=== PATIENT | male | born 1965 | race Caucasian/White ===

== ENCOUNTER 2016-11-24 15:12 | Emergency (ER) | payer BC ==
[~2016-11-24] VITALS: Ht 182.9 cm; Wt 104.0 kg
[2016-11-24 15:16] VITALS: TEMP 36.9; Ht 182.9 cm; Wt 104.0 kg
[2016-11-24] MEDS ORDERED: MECL1TAB42 PO (16:22)
[2016-11-24 16:38] VITALS: BP 125/85; PULSE 65; O2SAT 94
--- NOTE | 2016-11-24 17:07 | EMERGENCY ROOM VISIT NOTE ---
History First contact with patient: 15:49 Chief Complaint: DIZZY Stated Complaint: DIZZINESS,VERTIGO Nursing Triage Summary: pt awoke at 0700 feeling fine, went back to bed until 11am then awoke and experienced vertigo "felt room spinning" nauseated s/s lasted a few mins and dissipated pt able to shovel driveway after event no pain at anytime History of Present Illness The patient is a 51 year old male who presents to the Emergency Room with complaints of brief dizziness this morning that has resolved. The patient reports that he woke up at 7 AM. He reports that her dog sleeps in the bed with him. He was startled when he woke up, and rolled over to look at the canopy mirror. The patient then reports that it seemed like his eyes were darting back and forth with his vision moving and straight lines. He reports that it did seem to improve over the next few minutes. When he got up to go to the bathroom, he reported that the room seemed like it was spinning. However, by the time he got to the bathroom, the symptoms were significantly improving. The patient then reports that he went back to bed, laying on his back. He reported that the symptoms never returned. He was able to get up later, go outside and shoveled snow without any symptoms. The patient reports that he did not have any palpitations, chest pain or shortness of breath. The patient reports that when he was sitting in the emergency department waiting room, he quickly turned his head to the right and upwards to look at the clock, and had another brief episode of dizziness that only lasted a few seconds. At the current time, the patient denies any symptoms. The patient denies any recent upper respiratory infections. He denies any risk of carbon monoxide exposure. He has had no recent headaches, nausea or vomiting. Review of Systems 10 system review was performed and was negative except for pertinent positives and negatives as indicated in history of present illness Past Medical/Surgical History Medical Problems: (1) Chronic ethmoidal sinusitis (2) Chronic maxillary sinusitis (3) Deviated Nasal Septum (4) Nightmare Disorder (5) Obstructive Sleep Apnea (Adult) (Pediatric) (6) Sleep apnea, unspecified Surgical Problems: (1) History of nasal septoplasty (2) History of tonsillectomy (3) History of wisdom tooth extraction Family History FH: cancer FH: heart disease FH: hypertension Social History Smoking Status: Former Smoker Alcohol Use: occasionally Marital Status: Occupation Status: employed Current/Historical Medications Scheduled PRN Meclizine Hcl (Meclizine Hcl), 1 TAB PO TID PRN for dizziness Allergies Coded Allergies: No Known Allergies (Unverified , 11/24/16) Physical Exam Vital Signs Date Time Temp Pulse Resp B/P Pulse Ox O2 Delivery O2 Flow Rate FiO2 11/24/16 16:38 65 18 125/85 94 11/24/16 15:16 36.9 71 20 148/94 94 Room Air Pain Rating (0-10): 0 Physical Exam CONSTITUTIONAL: Healthy and well nourished. Alert and oriented X 3 with positive affect. Patient does not appear in any acute distress. HEENT: Normocephalic, atraumatic. Pupils equal, round and reactive. No scleral icterus or conjunctival pallor. Ears and nares are clear. No last Lucille appreciated. NECK: Full active range of motion without discomfort. No JVD or carotid bruits on auscultation. RESPIRATORY: Clear to auscultation bilaterally with no wheezing, crackles, rhonchi or stridor. CARDIOVASCULAR: Regular rate and rhythm with no murmurs, rubs or gallops. GASTROINTESTINAL: Bowel sounds present in all quadrants. Soft and nontender to palpation. MUSCULOSKELETAL: Full range of motion of all joints without discomfort. INTEGUMENTARY: No rash or other significant dermatologic conditions noted. NEUROLOGIC: Cranial nerves II-XII grossly intact. No focal neurologic deficits noted. Normal finger to nose test. Negative pronator drift. No ataxia with ambulation. Medical Decision & Procedures ED Course Patient history and physical exam were performed. Nurse's notes were reviewed. Vital signs were reviewed. The patient has mild elevation of blood pressure. He is afebrile and with normal heart rate. The patient does not appear in any acute distress, and reports that he is currently asymptomatic. Patient gives a very distinct and textbook description of benign positional vertigo. I did discuss the etiology behind BPV. Because the patient has not had any other symptoms, I do feel that he is safe for discharge. The patient also reported that he would follow up with his PCP if symptoms reoccur. The patient was provided a handout for BPV. He was also provided a prescription for meclizine if mild symptoms reoccur. He was instructed to return to the emergency department for any progressively worsening symptoms. The patient was happy with plan of care, and voiced understanding of all discharge instructions. Medical Decision See previous section. I do not suspect acute cardiac dysrhythmia, CVA, intracranial bleeding or carbon monoxide poisoning. The patient gives a classic textbook history of BPV. Impression Primary Impression: BPV (benign positional vertigo) Departure Information Dispostion Home / Self-Care Condition GOOD Prescriptions Meclizine Hcl (MECLIZINE HCL) 25 Mg Tab 1 TAB PO TID Y for dizziness, #15 TAB Prov: Joshua Camacho PA 11/24/16 Forms HOME CARE DOCUMENTATION FORM, IMPORTANT VISIT INFORMATION Patient Instructions My [facility], ED BPV Vertigo Additional Instructions Read vertigo handout. Avoid sudden movements over the next few days. Take meclizine as needed for symptoms. Remember that meclizine can make you drowsy. Follow-up with your family doctor as needed if symptoms persist. Return to the emergency department for any progressively worsening symptoms.
== END 2016-11-24 16:40 | disposition home or self-care (01) ==
LOC: C.EDB 15:14
DX: H81.10 Benign paroxysmal vertigo, unspecified ear (principal); G47.33 Obstructive sleep apnea (adult) (pediatric); Z98.890 Other specified postprocedural states; Z87.891 Personal history of nicotine dependence; Z80.9 Family history of malignant neoplasm, unspecified; Z82.49 Family history of ischemic heart disease and other diseases of the circulatory system

== ENCOUNTER → 2017-03-10 | Outpatient (CLI) | payer BC ==
[~2017-03-10] MED LIST: MECL1TAB42 PO
--- NOTE | 2017-03-10 16:51 | DIAGNOSTIC IMAGING REPORT ---
LEFT SHOULDER MIN 2 VIEWS ROUTINE CLINICAL HISTORY: Left shoulder pain. COMPARISON: None FINDINGS: Alignment of the left shoulder is anatomic. There is no acute fracture or suspicious lesion. There is moderate AC joint arthrosis and mild glenohumeral joint arthrosis. A few calcific densities along the superolateral aspect of the left humeral head could reflect calcific tendinitis of the cuff. IMPRESSION: 1. Moderate osteoarthritis of the left acromioclavicular joint and mild arthritis of the glenohumeral joint. 2. Possible calcific tendinitis of the rotator cuff. 3. No acute fracture. Electronically signed by: Alexi Mosley M.D. 03/10/2017 4:49 PM Dictated Date/Time: 03/10/2017 4:49 PM
== END | disposition home or self-care (01) ==
LOC: C.RAD 16:00
PROVIDERS: ATTEND Family Medicine
DX: M25.512 Pain in left shoulder (principal); M19.012 Primary osteoarthritis, left shoulder

== ENCOUNTER 2021-08-09 15:39 | Inpatient (IN) ==
[2021-08-09] MEDS ORDERED: ACETAMINOPHEN 325 MG TAB PO STA (16:09)
[2021-08-09] MEDS ORDERED: SODIUM CHLORIDE 0.9% 1000ML 1,000 ML IV ONE (16:09)
--- NOTE | 2021-08-09 16:09 | Emergency Department Note ---
Impression & Plan Pneumonia due to 2019-nCoV, Hypoxia, Breath shortness ED Provider Note NAME: PATRICIA COTTON AGE: 56 SEX: M : 1965 ARRIVES VIA: Walk-In INFORMANT: Patient ED PROVIDER(S): Marlon Pleitez DO CHIEF COMPLAINT: Shortness of breath HPI: Patient is a 56-year-old male who presents to the ER who is Covid positive about 9 days ago. He is having cough, congestion, and a runny nose. He is also having some shortness of breath which ss much worse with up moving around and when it was in the beginning. He admits that this is progressing. He does have a little bit of a sore throat. No belly pain, nausea, vomiting, or diarrhea. He admits to fevers. No dysuria, urgency, or frequency. He feels very tired with any kind of movement or exertion. ROS: See above HPI for pertinent positives & negatives. A total of 10 systems reviewed and were otherwise negative. PAST MEDICAL HISTORY:See Below PAST SURGICAL HISTORY:See Below FAMILY HISTORY:See Below SOCIAL HISTORY:See Below HOME MEDICATIONS:See Below ALLERGIES:See Below VITALS:See Below PHYSICAL EXAMINATION: GENERAL: Sitting up in bed, alert, chronically ill-appearing, disheveled EYE EXAM: normal conjunctiva. PERRL and EOM's grossly intact. OROPHARYNX: no exudate, no erythema, lips, buccal mucosa, and tongue normal and mucous membranes are moist NECK: supple, no nuchal rigidity, no adenopathy, non-tender LUNGS: Clear to auscultation. Normal chest wall mechanics HEART: no murmurs, S1 normal and S2 normal ABDOMEN: abdomen soft, non-tender, normo-active bowel sounds, no masses, no rebound or guarding. UPPER EXTREMITIES: upper extremities are grossly normal. LOWER EXTREMITIES: No pitting edema. Calves are equal bilateral NEURO EXAM: Normal sensorium, cranial nerves II-XII grossly intact, normal speech, no gross weakness of arms, no gross weakness of legs. MEDICAL DECISION MAKING: Patient is a 56-year-old male who presents the ER for shortness of breath. IV was established blood work was obtained. Upon arrival he was placed on oxygen mask and was still in the mid 80s. His pulse ox on room air was about 73%. Respiratory was called to bedside and he was placed on BiPAP initially. He tolerated this fairly well for an hour. Labs were obtained and showed a leukopenia 3.8. No significant anemia. BMP was unremarkable. LFTs with an AST of 121. T bili was normal. Pro-Porter was normal at 0.4. UA was contaminated. Patient was Covid positive. Chest x-ray suggest some vascular congestion. CTA of the chest showed extensive bilateral infiltrates. Patient was given IV Decadron. He was given a small bolus of IV fluids. He was updated bedside. He eventually pulled off the BiPAP and was placed on high flow and is about 89 to 91% on high flow. Was much more comfortable. Work of breathing improved. He was discussed with hospitalist admitted for further work-up. Triage Nursing notes reviewed. Limited review of prior medical records performed Vital Signs: reviewed and remarkable for febrile, tachycardic and hypoxic Differential diagnosis: Differential diagnoses includes but is not limited to pneumonia, bronchitis, COPD/Asthma exacerbation, pneumothorax, pulmonary embolism, congestive heart failure, acute coronary syndrome ER treatment provided: See below Diagnostics interpreted by me: ECG: Sinus tachycardia rate of [address] depressions in the inferior leads as well as anterior and lateral leads No old for comparison Cardiac Monitoring: An order was placed for continuous cardiac monitoring. The monitor shows a rate of 102 with sinus rhythm. Laboratory studies: As stated above and show below. Imaging studies: Portable AP upright 1 view of the chest shows bilateral infiltrates with vascular congestion CT angio chest shows no PEs but bilateral infiltrates Consultation(s): Discussed with the hospitalist for further evaluation from [facility] Dr. David Green Procedures: none PDMP:reviewed and no issues Critical Care: I have personally spent 45 minutes of critical care time in the direct management of this patient. This includes bedside care, interpretation of diagnostic studies, and testing, discussion with consultants, patient, and family members, and other required patient management activities. This 45 minutes is in excess of all separately billable procedures. Past Med/Surg History Medical History (Updated 08/09/21 @ 22:05 by Marlon Pleitez DO) Deviated nasal septum No significant past medical history Obstructive sleep apnea (adult) (pediatric) Tinnitus, bilateral Surgical History History of tonsillectomy Status post correction of deviated nasal septum Family History Grandfather Cancer Father Cancer Denies family history of Malignant hypothermia due to anesthesia Family history of adverse reaction to anesthesia Social History Smoking Status: Never smoker Second Hand Exposure: Yes; Do You Dip or Chew Tobacco: No; Tobacco Cessation Education Requested by Patient: No Hx Alcohol Use: Yes Alcohol type: beer and wine Alcohol Intake Frequency: 4 or More x per/Week Hx Substance Use: No Preferred Language: Indonesian Communication Ability: Effective Car Deliverer Required: Yes Beliefs That Will Affect Care: None marital status: Current Living Situation: Spouse current occupational status: employed current occupation: IT Other Information That Helps Us Care for You: No Feels Safe at Home: Yes Safety Concerns: Feels Safe At This Time Assistive Devices: CPAP and Glasses Assistive Devices Comment: cant tolerate CPAP Allergies Allergies Allergy/AdvReac Type Severity Reaction Status Date / Time aluminum Allergy inflammatio Verified 06/15/21 11:06 n Home Meds Home Medications Medication Instructions Recorded Confirmed No Known Home Medications 06/15/21 08/09/21 Results & Data (ED) Vital Signs Vital Signs - 24 hr 08/09/21 15:45 Temperature 38.3 C H Temperature Source Temporal Artery Scan Pulse Rate 113 H Respiratory Rate 20 Blood Pressure 121/80 Blood Pressure Mean 93 Blood Pressure Position Sitting Pulse Oximetry 75 L Oxygen Delivery Method Room Air Sepsis Recent Fever Within 48 Hours Yes Sepsis New/Unexplained Change in Mental Status N/A Sepsis Action Taken by Nursing No Action Required Laboratory Data Result diagrams: 08/09/21 16:15 08/09/21 16:15 Administered Medications Discontinued Medications Acetaminophen (Acetaminophen 325 Mg Tab) 650 mg PO NOW STA Stop: 08/09/21 16:10 Last Admin: 08/09/21 16:15 Dose: 650 mg Documented by: [id number] Dexamethasone Sodium Phosphate (DexamethasonePf 10 Mg/Ml Vial) 8 mg IV NOW ONE Stop: 08/09/21 16:26 Last Admin: 08/09/21 16:39 Dose: 8 mg Documented by: [id number] Sodium Chloride (Nss 1000ml) 1,000 mls @ 999 mls/hr IV .Q1H1M ONE Stop: 08/09/21 17:09 Last Infusion: 08/09/21 17:19 Dose: 0 mls/hr Documented by: [id number] Admin: 08/09/21 16:18 Dose: 999 mls/hr Documented by: [id number] Ioversol (Optiray 320 125ml) 120 ml IV ONCE ONE Stop: 08/09/21 17:57 Last Admin: 08/09/21 17:56 Dose: 120 ml Documented by: [id number] Discharge Plan Visit Data Chief Complaint: Shortness of Breath/Dyspnea Stated Complaint: cov+--having sob, dry mouth ED Provider: Marlon Pleitez Discharge Problem: Pneumonia due to 2019-nCoV, Hypoxia, Breath shortness Patient Disposition: Admitted As Inpatient Discharge Instructions Interventions: ED Discharge Assessment Last Done: 08/09/21 20:21
[2021-08-09] MEDS ORDERED: dexAMETHasone**PF** 10 MG/ML VIAL IV ONE (16:25)
[2021-08-09 16:29] LABS: Hematocrit (blood only) 46.9 % (42-52); Hemoglobin 17.2 g/dL (14.0-18.0); Mean Corpuscular Hemoglobin 31.8 pg (25-34); Mean Corpuscular Hgb Conc 36.7 g/dL (32-36); Mean Corpuscular Volume 86.7 fL (80-100); Mean Platelet Volume 10.2 fL (7.4-10.4); Platelet Count 176 K/uL (130-400); RDW Coefficient of Variation 12.7 % (11.5-14.5); RDW Standard Deviation 40.7 fL (36.4-46.3); Red Blood Count 5.41 M/uL (4.7-6.1); White Blood Count 3.83 K/uL (4.8-10.8)
--- NOTE | 2021-08-09 16:31 | XRay Report ---
XR chest 1V portable CLINICAL HISTORY: Atypical chest pain TECHNIQUE: Single frontal radiograph of the chest was obtained. Comparison: None available at the time of this dictation. FINDINGS: No lines and tubes are seen. The cardiomediastinal silhouette is normal. Lungs are underinflated. The re is prominence and indistinctness of the vasculature with scattered curly B lines seen. No evidence of pleural effusion or pneumothorax. IMPRESSION: Moderate pulmonary edema. ACT 112: Negative or not required by law. Electronically signed by: Zak Chappell M.D. 08/09/2021 4:30 PM
[2021-08-09 16:48] LABS: Alanine Aminotransferase 48 U/L (12-78); Albumin Level 3.2 gm/dl (3.4-5.0); Aspartate Aminotransferase 121 U/L (15-37); BUN Creatinine Ratio 18.6 (10-20); Blood Urea Nitrogen 21 mg/dl (7-18); Calcium 9.1 mg/dl (8.5-10.1); Carbon Dioxide 23 mmol/L (21-32); Chloride 101 mmol/L (98-107); Creatinine Clr Calc Pharmacy 90.3 ml/min; Est GFR (African American) 85.9 ml/min; Est GFR (Non-African American) 74.1 ml/min; Glucose 128 mg/dl (70-99); Lipase 165 U/L (73-393); Potassium 3.7 mmol/L (3.5-5.1); Sodium 135 mmol/L (136-145)
[2021-08-09 16:53] LABS: Albumin Globulin Ratio 0.6 (0.9-2); Alkaline Phosphatase 89 U/L (45-117); Bilirubin,Total 0.8 mg/dl (0.2-1); Total Protein 8.2 gm/dl (6.4-8.2); Troponin I < 0.015 ng/ml (0-0.045)
[2021-08-09 17:26] LABS: Base Excess VBG 3.5 mEq/L; pH VBG 7.5 (7.36-7.41)
[2021-08-09 17:56] LABS: Basophils # (auto) 0.02 K/uL (0-0.2); Basophils % (auto) 0.5 %; Immature Granulocytes # (auto) 0.02 K/uL (0.00-0.02); Immature Granulocytes % (auto) 0.5 %; Lymphocytes # (auto) 0.58 K/uL (1.2-3.4); Lymphocytes % (auto) 15.1 %; Monocytes # (auto) 0.28 K/uL (0.11-0.59); Monocytes % (auto) 7.3 %; Neutrophils # (auto) 2.93 K/uL (1.4-6.5); Neutrophils % (auto) 76.6 %
[2021-08-09] MEDS ORDERED: OPTIRAY 320 125ml IV ONE (17:56)
--- NOTE | 2021-08-09 18:07 | History & Physical Report ---
Date of Service August 09, 2021 Assessment & Plan (1) Acute respiratory failure with hypoxia: Plan: 56 y/o male w/ PMHx of anxiety and possible sleep apnea who presents w/ acute hypoxic respiratory failure secondary to covid-19 pneumonia on day 9 of symptoms (08/01/21 onset). He is requiring 40L of high flow 100% FiO2, saturating 87-94%. tachycardic, febrile, tachypneic - cta neg for PE. w/ groundglass opacities. cxr likely showing pneumonia findings as opposed to hypervolemia. - developing consolidations of lower lobes noted. consider superimposed bacterial pneumonia, defer abx at this time, but will follow clinically - dexamethasone 6 mg daily x 5 days - pulmonology consulted, will start baricitinib - AST/ALT < 5 ULN. Normal renal function. CRP 14.10. Requiring 40L high flow. - considered remdesivir - hold tylenol PRN - titrate O2 w/ goal of 90% - cultures pending (2) 2019 novel coronavirus-infected pneumonia (NCIP): Plan: - see above (3) Otitis media: Plan: - noted on exam. likely 2/2 covid, less likely from bacterial infection, especially w/ bilat symptoms. defer treatment w/ abx. Considering abx if sympto ms worsen. (4) Anxiety: Plan: - not on medications. follow clinically (5) Sleep apnea, unspecified: Plan: - per patient, had trialed cpap in past, but could not tolerate mask - follow clinically Plan: FEN/GI: regular diet. No IV fluids. Goal of neutral to net neg balance. ppx: Lovenox SQ, 40 daily. SCDs code: full dispo: PCU tele History of Present Illness Chief Complaint: dyspnea Primary Care Provider: CELINA Alvarenga Robbi Vazquez is a 56 y/o male w/ anxiety, possible sleep apnea, sensorineural hearing loss, and tinnitus who presents w/ 9 days (08/01/21 onset) of worsening dyspnea on exertion. He's had approximately 6 days of intermittent fevers up to 101s Fahrenheit and rigors/chills. He has had intermittent headaches, mild otalg ia, poor appetite, and watery diarrhea. He was treated for otitis externa a month ago and used leftover eardrops with some relief. No loss of taste/smell. On 08/06/21, his mailed in covid test was positive. dx'd w/ covid at same time. Patient has not had covid immunization. Denies hx blood clots or family hx of. Denies any period of regular tobacco use and no hx of COPD or asthma. He consumes on average 2 glasses of wine a night. Denies illicit substances. No allergies. He is otherwise normally healthy and active. ED course: CTA neg for PE, pos for extensive groundglass opacities. Given dexamethasone IV 8 mg. NSS 1L. 38.3C at admission. Tachy to 100s-110s. 75% sat on room air. Currently on high flow 40L, did not tolerate bipap due to discomfort. Allergies Allergy/AdvReac Type Severity Reaction Status Date / Time aluminum Allergy inflammatio Verified 06/15/21 11:06 n Home Medications Medication Instructions Recorded Confirmed Type No Known Home Medications 06/15/21 08/09/21 History Past Med/Surg History Medical History (Updated 08/09/21 @ 18:54 by Raffy Vargas MD) Deviated nasal septum No significant past medical history Obstructive sleep apnea (adult) (pediatric) Tinnitus, bilateral Surgical History History of tonsillectomy Status post correction of deviated nasal septum Family History Grandfather Cancer Father Cancer Denies family history of Malignant hypothermia due to anesthesia Family history of adverse reaction to anesthesia Social History Smoking Status: Never smoker Second Hand Exposure: Yes; Do You Dip or Chew Tobacco: No; Tobacco Cessation Education Requested by Patient: No Hx Alcohol Use: Yes Alcohol type: beer and wine Alcohol Intake Frequency: 4 or More x per/Week Hx Substance Use: No Preferred Language: Nigerian Communication Ability: Effective [employer] Required: Yes Beliefs That Will Affect Care: None marital status: Current Living Situation: Spouse current occupational status: employed current occupation: IT Other Information That Helps Us Care for You: No Feels Safe at Home: Yes Safety Concerns: Feels Safe At This Time Assistive Devices: CPAP and Glasses Assistive Devices Comment: cant tolerate CPAP Review of Systems Review of Systems: All systems reviewed & are unremarkable except as noted in HPI & below Intermittent sharp chest pains that last up to 2 hours. Not new and has had for months+. Last had 2 days ago. Physical Exam Physical Exam: General: Grossly A&O. NAD. Cooperative. HEENT: Atraumatic, normocephalic. EOMI. PERRL. Bilat TMs w/ mild erythema, worse on right. Mild TTP external periauricular area. Oropharynx wnl. Pulm: Insp crackles at bilateral bases, otherwise clear. There was transient transmitted upper airway cough/mucus sound, resolved on reauscultation. No respiratory distress or accessory muscle use noted. Patient is wearing high flow nasal cannula. Cardiac: TRR, -mrg. Radial pulses intact and symmetrical. Abdominal: Nontender, nondistended, soft. Integ: Warm, dry, intact Neuro: CN II-XII intact. Normal strength and sensation of extremities. Coarse/crackles at bases. Oropharynx ok. TMs mild erythema bilat. heart mildly tachy. no le edema. Results & Data Results & Data ([facility]) Vital Signs (Past 12 Hours) Vital Signs Temp Pulse Resp BP Pulse Ox 08/09/21 16:35 98 H 23 99 08/09/21 16:30 99 H 34 H 86 L 08/09/21 16:11 107 H 35 H 82 L 08/09/21 15:45 38.3 C H 113 H 20 121/80 75 L Laboratory Results wbc 3.83. No anemia. vbg pH 7.5. Na 135. Cr 1.1. glucose 128. ast 121H. trop neg x1. Lipase 165. procalc 0.49. CRP 14.10H 08/09/21 16:15 08/09/21 16:15 Cardiac Enzymes 08/09/21 Range/Units 16:15 AST 121 H (15-37) U/L Troponin I < 0.015 (0-0.045) ng/ml CBC 08/09/21 Range/Units 16:15 WBC 3.83 L (4.8-10.8) K/uL RBC 5.41 (4.7-6.1) M/uL Hgb 17.2 (14.0-18.0) g/dL Hct 46.9 (42-52) % Plt Count 176 (130-400) K/uL Neut # (Auto) 2.93 (1.4-6.5) K/uL Lymph # (Auto) 0.58 L (1.2-3.4) K/uL [place] # (Auto) 0.28 (0.11-0.59) K/uL Eos # (Auto) 0.00 (0-0.5) K/uL Baso # (Auto) 0.02 (0-0.2) K/uL Comprehensive Metabolic Panel 08/09/21 Range/Units 16:15 Sodium 135 L (136-145) mmol/L Potassium 3.7 (3.5-5.1) mmol/L Chloride 101 (98-107) mmol/L Carbon Dioxide 23 (21-32) mmol/L BUN 21 H (7-18) mg/dl Creatinine 1.10 (0.6-1.4) mg/dl Glucose 128 H (70-99) mg/dl Calcium 9.1 (8.5-10.1) mg/dl AST 121 H (15-37) U/L ALT 48 (12-78) U/L Alkaline Phosphatase 89 (45-117) U/L Total Protein 8.2 (6.4-8.2) gm/dl Albumin 3.2 L (3.4-5.0) gm/dl Intake and Output 08/09/21 08/09/21 08/09/21 06:59 14:59 22:59 Other: Weight 98.9 kg Weight Measurement Method Built in [facility] Patient Weight 08/10/21 06:59 Weight 98.9 kg Diagnostic Findings Chest X-Ray 08/09/21 15:55 XR chest 1V portable CLINICAL HISTORY: Atypical chest pain TECHNIQUE: Single frontal radiograph of the chest was obtained. Comparison: None available at the time of this dictation. FINDINGS: No lines and tubes are seen. The cardiomediastinal silhouette is normal. Lungs are underinflated. There is prominence and indistinctness of the vasculature with scattered curly B lines seen. No evidence of pleural effusion or pneumothorax. IMPRESSION: Moderate pulmonary edema. ACT 112: Negative or not required by law. Electronically signed by: Zak Chappell M.D. 08/09/2021 4:30 PM Chest CTA 08/09/21 16:33 CT ANGIOGRAPHY OF THE CHEST, PULMONARY EMBOLUS PROTOCOL CLINICAL HISTORY: Shortness of breath. Covid. Evaluate for pulmonary embolus. COMPARISON STUDY: Chest radiograph performed earlier today. TECHNIQUE: Following IV administration of 120 mL of Optiray, helical axial images of the chest were obtained utilizing the pulmonary embolus protocol. Maximal intensity projections and sagittal and coronal reformats were viewed on an independent 3D workstation. IV contrast was administered without complication. Automated exposure control was utilized for the study. A dose lowering technique was utilized adhering to the principles of ALARA. CT DOSE: 587.16 mGy.cm FINDINGS: No pulmonary emboli are identified. There is no thoracic aortic dissection. Mild cardiomegaly is noted. Prominent mediastinal and bilateral hilar lymph nodes are likely reactive. Extensive groundglass opacities throughout the lungs are noted. Developing consolidation within the lower lobes is also present. Central airways are patent. There is no pneumothorax or pleural effusion. A 1.3 cm medial segment hepatic cyst is present IMPRESSION: 1. No pulmonary emboli identified. 2. Extensive airspace opacities within the lungs suggestive of viral pneumonia. 3. Prominent mediastinal and bilateral hilar lymph nodes which are likely react octavio. ACT 112: Negative or not required by law. Electronically signed by: Alexi Mosley M.D. 08/09/2021 6:17 PM Code Status & VTE Plan Code Status full VTE Prophylaxis Plan VTE Prophylaxis will be ordered: Yes Supervising Physician Co-Signing Physician Notes Patient seen and examined, chart reviewed, case discussed with Dr. Vargas and I agree with the assessment and plan as above except as otherwise noted. General: A&Ox3. NAD. Cooperative. HEENT: Atraumatic, normocephalic. Visual acuity and hearing grossly intact. Mild bilateral TM injection without effusion. Pulm: Bibasilar crackles, on HFNC. Symmetrical chest rise. No increased work of breathing. No respiratory distress. Cardiac: RRR, -mrg. Radial pulses intact and symmetrical. Abdominal: Nontender, nondistended, soft. BS present. 56yo M with severe COVID+ PNA, unvaccinated - CT with diffuse GGO, high CRP, and increasing O2 requirements over ER course at ~day 8 of illness. Discussed high and worsening oxygen requirements along with poor CT images with multifocal findings, and that if he were to worsen next step would be NIV after which he would need intubation if still worsening. - Case discussed with pulm, pt meets baricitinib criteria. Recommend baricitinib. Excluded from toci 2/2 elevated transaminases. Continue LFR monitoring - Continue decadron - Admit to PCU, O2 as needed, covid DVT ppx with lovenox Resident Activity Tracking Resident Involvement: Resident Care Provided Care Provided: Adult Hospital Medicine
--- NOTE | 2021-08-09 18:18 | CT Scan Report ---
CT ANGIOGRAPHY OF THE CHEST, PULMONARY EMBOLUS PROTOCOL CLINICAL HISTORY: Shortness of breath. Covid. Evaluate for pulmonary embolus. COMPARISON STUDY: Chest radiograph performed earlier today. TECHNIQUE: Following IV administration of 120 mL of Optiray, helical axial images of the chest were o btained utilizing the pulmonary embolus protocol. Maximal intensity projections and sagittal and cor onal reformats were viewed on an independent 3D workstation. IV contrast was administered without co mplication. Automated exposure control was utilized for the study. A dose lowering technique was ut ilized adhering to the principles of ALARA. CT DOSE: 587.16 mGy.cm FINDINGS: No pulmonary emboli are identified. There is no thoracic aortic dissection. Mild cardiomeg linh is noted. Prominent mediastinal and bilateral hilar lymph nodes are likely reactive. Extensive gr oundglass opacities throughout the lungs are noted. Developing consolidation within the lower lobes i s also present. Central airways are patent. There is no pneumothorax or pleural effusion. A 1.3 cm me dial segment hepatic cyst is present IMPRESSION: 1. No pulmonary emboli identified. 2. Extensive airspace opacities within the lungs suggestive of viral pneumonia. 3. Prominent mediastinal and bilateral hilar lymph nodes which are likely reactive. ACT 112: Negative or not required by law. Electronically signed by: Alexi Mosley M.D. 08/09/2021 6:17 PM
[2021-08-09] MEDS ORDERED: REMDESIVIR 200 MG in SODIUM CHLORIDE 0.9% 210 ML IV STA (20:11)
[2021-08-09] MEDS ORDERED: SODIUM CHLORIDE 0.9% 10ML FLUSH IV SCH (20:15)
[2021-08-09 20:42] LABS: Appearance Urine Clear (Clear); Bacteria Urine Automated Negative (Negative); Bilirubin Urine Negative (Negative); Blood Urine 1+ (Negative); Cast Urine Automated 0 /lpf (0-5); Color Urine Dark Yellow; Epithelial Cell Urine Auto >30 /lpf (0-5); Glucose Urine UA Negative (Negative); Ketones Urine Negative (Negative); Leukocyte Esterase Urine Negative (Negative); Nitrite Urine Negative (Negative); Protein Urine 2+ (Negative); Specific Gravity Urine 1.045 (1.000-1.030); Urobilinogen Urine Negative (Negative)
[2021-08-09] MEDS ORDERED: POLYETHYLENE (MIRALAX) 17 GM PACK PO PRN (21:15)
[2021-08-09] MEDS: ENOXAPARIN INJ 40 MG/0.4 ML SYR SQ SCH (23:23)
[2021-08-09] MEDS: BARICITINIB 2 MG TAB PO SCH (23:54)
--- NOTE | 2021-08-10 05:40 | Electrocardiogram Report ---
Test Reason : Blood Pressure : / mmHG Vent. Rate : 106 BPM Atrial Rate : 106 BPM P-R Int : 132 ms QRS Dur : 104 ms QT Int : 360 ms P-R-T Axes : 026 -20 004 degrees QTc Int : 478 ms Sinus tachycardia Incomplete right bundle branch block Nonspecific ST and T wave abnormality Abnormal ECG No previous ECGs available Confirmed by Dimitri Blanca ([id number]) on 08/10/2021 5:40:31 AM Referred By: Confirmed By:Dimitri Blanca
[2021-08-10 06:29] LABS: Allen Test Pos (Pos); Base Excess ABG 0.2 mEq/L (-9-1.8); HCO3 ABG 22 mmol/L (19-24); PCO2 ABG 29 mmHg (35-46); PO2 ABG 67 mmHg (80-95); pH ABG 7.49 (7.35-7.45)
[2021-08-10 06:30] LABS: Hematocrit (blood only) 44.1 % (42-52); Hemoglobin 15.6 g/dL (14.0-18.0); Mean Corpuscular Hemoglobin 31.3 pg (25-34); Mean Corpuscular Hgb Conc 35.4 g/dL (32-36); Mean Corpuscular Volume 88.4 fL (80-100); Mean Platelet Volume 10.2 fL (7.4-10.4); Platelet Count 188 K/uL (130-400); RDW Coefficient of Variation 12.8 % (11.5-14.5); RDW Standard Deviation 41.3 fL (36.4-46.3); Red Blood Count 4.99 M/uL (4.7-6.1); White Blood Count 3.65 K/uL (4.8-10.8)
[2021-08-10 06:47] LABS: Basophils # (auto) 0.04 K/uL (0-0.2); Basophils % (auto) 1.1 %; Immature Granulocytes # (auto) 0.02 K/uL (0.00-0.02); Immature Granulocytes % (auto) 0.5 %; Lymphocytes # (auto) 0.87 K/uL (1.2-3.4); Lymphocytes % (auto) 23.8 %; Monocytes # (auto) 0.41 K/uL (0.11-0.59); Monocytes % (auto) 11.2 %; Neutrophils # (auto) 2.31 K/uL (1.4-6.5); Neutrophils % (auto) 63.4 %
[2021-08-10 07:14] LABS: Albumin Globulin Ratio 0.6 (0.9-2); Albumin Level 2.6 gm/dl (3.4-5.0); BUN Creatinine Ratio 16.9 (10-20); Bilirubin,Total 0.6 mg/dl (0.2-1); Calcium 8.6 mg/dl (8.5-10.1); Creatinine Clr Calc Pharmacy 98.3 ml/min; Est GFR (African American) 95.3 ml/min; Est GFR (Non-African American) 82.2 ml/min; Globulin 4.5 gm/dl (2.5-4.0); Potassium 4.3 mmol/L (3.5-5.1); Total Protein 7.1 gm/dl (6.4-8.2)
--- NOTE | 2021-08-10 09:12 | XRay Report ---
XR chest 1V portable CLINICAL HISTORY: covid pneumonia COMPARISON STUDY: Chest radiograph and chest CT August 09, 2021. FINDINGS: Lung volumes are normal. Bilateral airspace opacities are similar to prior exam. There is n o pneumothorax or pleural effusion. Cardiac size is stable. Mediastinal contours are normal. There is no evidence for pulmonary edema. IMPRESSION: No significant change in bilateral airspace opacities consistent with viral pneumonia. ACT 112: Negative or not required by law. Electronically signed by: Alexi Mosley M.D. 08/10/2021 9:11 AM
--- NOTE | 2021-08-10 12:02 | Hospitalist Progress Note ---
Date of Service August 10, 2021 Assessment & Plan (1) Acute respiratory failure with hypoxia: Plan: 56 y/o male w/ PMHx of anxiety and GERMAN who presents w/ acute hypoxic respiratory failure secondary to covid-19 pneumonia on day 9 of symptoms (08/01/21 onset) still on 40L and 100%, very compliant with prone positioning dexamethasone 6mg IV daily, day 2 baricitinib 4mg daily, day 2 CTA chest negative for PE, shows bilateral viral pneumonia will repeat CXR tomorrow, check labs tomorrow CRP was 14 on admission, Cr today is stable, CBC stable encourage to eat and drink, continue to prone as much as possible (2) 2019 novel coronavirus-infected pneumonia (NCIP): Plan: - see above treating with dexamethasone and baricitinib (3) Otitis media: Plan: - noted on exam. likely 2/2 covid, less likely from bacterial infection, especially w/ bilat symptoms. defer treatment w/ abx. Considering abx if symptoms worsen. (4) Anxiety: Plan: - not on medications. follow clinically (5) Sleep apnea, unspecified: Plan: - per patient, had trialed cpap in past, but could not tolerate mask - follow clinically, noted that he desaturates when he falls asleep Plan: FEN/GI: regular diet. No IV fluids. Goal of neutral to net neg balance. ppx: Lovenox SQ, 40 daily. SCDs code: full dispo: PCU tele Admission and Anticipated Discharge Date Admission Date: August 09, 2021 Subjective patient says he is feeling better today, spent all night and this morning prone, very compliant says he is breathing easier, less coughing, no fever he had diarrhea at home but that is resolving, he ate a big breakfast this morning reviewed chart, he is about 10 days into his illness, treating with dexamethasone and baricitinib Review of Systems Review of Systems: All systems reviewed & are unremarkable except as noted in Subjective Constitutional: + fatigue and + weakness; no fever Respiratory: + cough, + dyspnea and + dyspnea on exertion Cardiovascular: no chest pain and no edema Gastrointestinal: no abdominal pain, no nausea, no vomiting, no constipation and no diarrhea/loose stools Physical Exam Physical Exam: General: well developed, well nourished, ill appearing male, no acute distress, comfortable Neck: supple, trachea midline, normal thyroid Lungs: clear to auscultation bilaterally, + tachypnea, no accessory muscle use, no distress, talking in full sentences Heart: regular S1 and S2, no murmur, peripheral pulses normal, capillary refill normal, no edema Abdomen: soft, NT, ND, + BS, no hepatomegaly, normal to percussion Extremities: normal in appearance, no cyanosis, no petechiae, strength is 5/5 bilaterally Neuro: awake, cooperative, moves all extremities, no focal motor deficits, CN II-XII intact, sensation in extremities intact, normal speech Skin: warm, dry, no rash, normal turgor Psych: Awake, alert oriented x 3, euthymic affect Results & Data Results & Data ([facility]) Vital Signs (Past 12 Hours) Vital Signs Temp Pulse Pulse Resp BP Pulse Ox 08/10/21 11:34 37.5 C 69 20 118/77 96 08/10/21 11:28 82 18 92 08/10/21 07:34 18 90 08/10/21 07:16 37.2 C 70 19 150/84 H 96 08/10/21 04:23 37.4 C 77 17 116/76 93 08/10/21 03:04 79 29 H 92 08/10/21 00:42 95 H Laboratory Results Laboratory Results - last 24 hr 08/09/21 08/09/21 08/09/21 16:11 16:11 16:15 WBC 3.83 L RBC 5.41 Hgb 17.2 Hct 46.9 MCV 86.7 MCH 31.8 MCHC 36.7 H RDW Std Deviation 40.7 RDW Coeff of Nicole 12.7 Plt Count 176 MPV 10.2 Immature Gran % (Auto) 0.5 Neut % (Auto) 76.6 Lymph % (Auto) 15.1 [place] % (Auto) 7.3 Eos % (Auto) 0.0 Baso % (Auto) 0.5 Neut # (Auto) 2.93 Lymph # (Auto) 0.58 L [place] # (Auto) 0.28 Eos # (Auto) 0.00 Baso # (Auto) 0.02 Immature Gran # (Auto) 0.02 ABG pH ABG pCO2 ABG pO2 ABG HCO3 ABG O2 Saturation ABG Base Excess Hemanth Test VBG pH VBG pCO2 VBG pO2 VBG HCO3 VBG O2 Saturation VBG Base Excess Barometric Pressure Oxygen Given Sodium Potassium Chloride Carbon Dioxide Anion Gap BUN Creatinine Est Cr Clr Drug Dosing Est GFR ( Amer) Est GFR (Non-Af Amer) BUN/Creatinine Ratio Glucose Calcium Total Bilirubin AST ALT Alkaline Phosphatase Troponin I C-Reactive Protein Total Protein Albumin Globulin Albumin/Globulin Ratio Lipase Procalcitonin Urine Color Urine Appearance Urine pH Ur Specific [place] Urine Protein Urine Glucose (UA) Urine Ketones Urine Blood Urine Nitrite Urine Bilirubin Urine Urobilinogen Ur Leukocyte Esterase Urine WBC (Auto) Urine RBC (Auto) U Hyaline Cast (Auto) U Epithel Cells (Auto) Urine Bacteria (Auto) Ur Renal Epithelial Cell COVID-19 Eval Order Covid19 at [facility] SARS-CoV-2 (PCR) POSITIVE A* Hepatitis C Ab Screen 08/09/21 08/09/21 08/09/21 16:15 16:15 16:15 WBC RBC Hgb Hct MCV MCH MCHC RDW Std Deviation RDW Coeff of Nicole Plt Count MPV Immature Gran % (Auto) Neut % (Auto) Lymph % (Auto) [place] % (Auto) Eos % (Auto) Baso % (Auto) Neut # (Auto) Lymph # (Auto) [place] # (Auto) Eos # (Auto) Baso # (Auto) Immature Gran # (Auto) ABG pH ABG pCO2 ABG pO2 ABG HCO3 ABG O2 Saturation ABG Base Excess Hemanth Test VBG pH VBG pCO2 VBG pO2 VBG HCO3 VBG O2 Saturation VBG Base Excess Barometric Pressure Oxygen Given Sodium 135 L Potassium 3.7 Chloride 101 Carbon Dioxide 23 Anion Gap 11.0 BUN 21 H Creatinine 1.10 Est Cr Clr Drug Dosing 90.3 Est GFR ( Amer) 85.9 Est GFR (Non-Af Amer) 74.1 BUN/Creatinine Ratio 18.6 Glucose 128 H Calcium 9.1 Total Bilirubin 0.8 AST 121 H ALT 48 Alkaline Phosphatase 89 Troponin I < 0.015 C-Reactive Protein 14.10 H Total Protein 8.2 Albumin 3.2 L Globulin 5.0 H Albumin/Globulin Ratio 0.6 L Lipase 165 Procalcitonin 0.49 Urine Color Urine Appearance Urine pH Ur Specific [place] Urine Protein Urine Glucose (UA) Urine Ketones Urine Blood Urine Nitrite Urine Bilirubin Urine Urobilinogen Ur Leukocyte Esterase Urine WBC (Auto) Urine RBC (Auto) U Hyaline Cast (Auto) U Epithel Cells (Auto) Urine Bacteria (Auto) Ur Renal Epithelial Cell COVID-19 Eval Order SARS-CoV-2 (PCR) Hepatitis C Ab Screen Neg 08/09/21 08/09/21 08/10/21 16:59 19:10 06:05 WBC 3.65 L RBC 4.99 Hgb 15.6 Hct 44.1 MCV 88.4 MCH 31.3 MCHC 35.4 RDW Std Deviation 41.3 RDW Coeff of Nicole 12.8 Plt Count 188 MPV 10.2 Immature Gran % (Auto) 0.5 Neut % (Auto) 63.4 Lymph % (Auto) 23.8 [place] % (Auto) 11.2 Eos % (Auto) 0.0 Baso % (Auto) 1.1 Neut # (Auto) 2.31 Lymph # (Auto) 0.87 L [place] # (Auto) 0.41 Eos # (Auto) 0.00 Baso # (Auto) 0.04 Immature Gran # (Auto) 0.02 ABG pH ABG pCO2 ABG pO2 ABG HCO3 ABG O2 Saturation ABG Base Excess Hemanth Test VBG pH 7.50 H VBG pCO2 34 L VBG pO2 31 VBG HCO3 26 VBG O2 Saturation 63.0 VBG Base Excess 3.5 Barometric Pressure 725.5 Oxygen Given Sodium Potassium Chloride Carbon Dioxide Anion Gap BUN Creatinine Est Cr Clr Drug Dosing Est GFR ( Amer) Est GFR (Non-Af Amer) BUN/Creatinine Ratio Glucose Calcium Total Bilirubin AST ALT Alkaline Phosphatase Troponin I C-Reactive Protein Total Protein Albumin Globulin Albumin/Globulin Ratio Lipase Procalcitonin Urine Color Dark Yellow Urine Appearance Clear Urine pH 7.0 Ur Specific [place] 1.045 H Urine Protein 2+ H Urine Glucose (UA) Negative Urine Ketones Negative Urine Blood 1+ H Urine Nitrite Negative Urine Bilirubin Negative Urine Urobilinogen Negative Ur Leukocyte Esterase Negative Urine WBC (Auto) 5-10 H Urine RBC (Auto) 5-10 H U Hyaline Cast (Auto) 0 U Epithel Cells (Auto) >30 H Urine Bacteria (Auto) Negative Ur Renal Epithelial Cell Not Reportable COVID-19 Eval Order SARS-CoV-2 (PCR) Hepatitis C Ab Screen 08/10/21 08/10/21 06:05 06:14 WBC RBC Hgb Hct MCV MCH MCHC RDW Std Deviation RDW Coeff of Nicole Plt Count MPV Immature Gran % (Auto) Neut % (Auto) Lymph % (Auto) [place] % (Auto) Eos % (Auto) Baso % (Auto) Neut # (Auto) Lymph # (Auto) [place] # (Auto) Eos # (Auto) Baso # (Auto) Immature Gran # (Auto) ABG pH 7.49 H ABG pCO2 29 L ABG pO2 67 L ABG HCO3 22 ABG O2 Saturation 95.0 ABG Base Excess 0.2 Hemanth Test Pos VBG pH VBG pCO2 VBG pO2 VBG HCO3 VBG O2 Saturation VBG Base Excess Barometric Pressure 723.3 Oxygen Given 40% Sodium 138 Potassium 4.3 D Chloride 105 Carbon Dioxide 27 Anion Gap 6.0 BUN 17 Creatinine 1.01 Est Cr Clr Drug Dosing 98.3 Est GFR ( Amer) 95.3 Est GFR (Non-Af Amer) 82.2 BUN/Creatinine Ratio 16.9 Glucose 155 H Calcium 8.6 Total Bilirubin 0.6 AST 119 H ALT 55 Alkaline Phosphatase 97 Troponin I C-Reactive Protein Total Protein 7.1 Albumin 2.6 L Globulin 4.5 H Albumin/Globulin Ratio 0.6 L Lipase Procalcitonin Urine Color Urine Appearance Urine pH Ur Specific [place] Urine Protein Urine Glucose (UA) Urine Ketones Urine Blood Urine Nitrite Urine Bilirubin Urine Urobilinogen Ur Leukocyte Esterase Urine WBC (Auto) Urine RBC (Auto) U Hyaline Cast (Auto) U Epithel Cells (Auto) Urine Bacteria (Auto) Ur Renal Epithelial Cell COVID-19 Eval Order SARS-CoV-2 (PCR) Hepatitis C Ab Screen Medications Administered Current Inpatient Medications Baricitinib (Baricitinib 2 Mg Tab) 4 mg PO Q24H JULIANA Stop: 08/23/21 20:59 Last Admin: 08/09/21 23:54 Dose: 4 mg Documented by: Enoxaparin Sodium (Enoxaparin Inj 40 Mg/0.4 Ml Syr) 40 mg SQ Q24H JULIANA Stop: 09/08/21 23:30 Last Admin: 08/09/21 23:23 Dose: 40 mg Documented by: Dexamethasone 6 mg/ Syringe 1.5 mls @ 1 mls/min IV Q24H JULIANA Stop: 09/09/21 17:59 Polyethylene Glycol (Polyethylene (Miralax) 17 Gm Pack) 17 gm PO DAILY PRN PRN Reason: Constipation Stop: 09/08/21 21:14 Sodium Chloride (Sodium Chloride 0.9% 10ml Flush) 30 ml IV Q24H JULIANA Last Admin: 08/09/21 23:55 Dose: Not Given Documented by: PG Care Time/CCT Total # of Minutes Spent Total Time Spent with Patient: Total time spent is greater than 50% in coordination of care (as documented) at patient's floor/unit and/or counseling patient: Coding Level of Care Code 84782 Subseq Hosp Care Lvl 2 Diagnoses Acute respiratory failure with hypoxia J96.01 2019 novel coronavirus-infected pneumonia (NCIP) U07.1; J12.82 Otitis media H66.90 Anxiety F41.9 Sleep apnea, unspecified G47.30
--- NOTE | 2021-08-10 16:09 | Pulmonary Consultation ---
Date of Consultation August 10, 2021 Assessment & Plan (1) 2019 novel coronavirus-infected pneumonia (NCIP): (2) Acute respiratory failure with hypoxia: (3) Breath shortness: Continue supportive care including supplemental oxygen, self proning and increasing activity as tolerated. Wean high flow oxygen to maintain saturations of 92 to 94%. Placed an order for baricitinib 4 mg daily yesterday due to his elevated CRP and severe hypoxemia. Continue baricitinib for 14 days or until discharge/intubation. No utility in trending CRP. Continue Decadron. Remdesivir unlikely to be beneficial this late into his illness. Pulmonary will continue to follow along with you. Thank you for the consult. History of Present Illness Reason for Consultation: COVID-19 viral pneumonia Attending Physician: Zak Bravo DO History of Present Illness 56-year-old male with a past medical history of anxiety, sensorineural hearing loss and tinnitus who presented to the hospital with several days of worsening shortness of breath. He had fevers at home upwards of 101.. He was camping and was advised individuals to the COVID-19 showed a slowly 3. He was found to have COVID-19 based on a test from 08/06/2021. 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 He has 1 dog at home. He denies any history of t obacco abuse. He is feeling better at present. He was very short of breath on admission. He does endorse an occasional cough. No fevers currently. He is on high flow oxygen requiring 90% FiO2 at a flow rate of 40 L. He is proning as much as he can. He was started on baricitinib 4 mg daily yesterday. He is also on dexamethasone 6 mg daily. He had a mild transaminitis on admission. He has a leukopenia that is mild. He also has lymphopenia. Allergies Allergy/AdvReac Type Severity Reaction Status Date / Time aluminum Allergy inflammatio Verified 06/15/21 11:06 n Home Medications Medication Instructions Recorded Confirmed Type No Known Home Medications 06/15/21 08/09/21 History Patient History Medical History (Updated 08/09/21 @ 22:05 by Marlon Pleitez DO) Deviated nasal septum No significant past medical history Obstructive sleep apnea (adult) (pediatric) Tinnitus, bilateral Surgical History History of tonsillectomy Status post correction of deviated nasal septum Family History Grandfather Cancer Father Cancer Denies family history of Malignant hypothermia due to anesthesia Family history of adverse reaction to anesthesia Social History Smoking Status: Never smoker Second Hand Exposure: Yes; Do You Dip or Chew Tobacco: No; Tobacco Cessation Education Requested by Patient: No Hx Alcohol Use: Yes Alcohol type: beer and wine Alcohol Intake Frequency: 4 or More x per/Week Hx Substance Use: No Preferred Language: Welsh Communication Ability: Effective Energy Trading Analyst Required: Yes Beliefs That Will Affect Care: None marital status: Current Living Situation: Spouse current occupational status: employed current occupation: IT Other Information That Helps Us Care for You: No Feels Safe at Home: Yes Safety Concerns: Feels Safe At This Time Assistive Devices: None Assistive Devices Comment: cant tolerate CPAP Review of Systems Review of Systems: All systems reviewed & are unremarkable except as noted in HPI & below Physical Exam Physical Exam: Constitutional: Tired appearing. No obvious distress. Laying in bed. Eyes: Pupils are equal round and reactive to light. Conjunctivae are normal. Anicteric sclera. Ears nose, mouth and throat: Nasal cannula in place. No obvious deformities. Neck: Trachea is midline. Visual inspection is normal. Respiratory: Clear to auscultation bilaterally. No use of accessory muscles. Cardiovascular: Regular rate and rhythm. No murmurs. No edema. Gastrointestinal: Normal bowel sounds, soft, nontender and nondistended. No hepatosplenomegaly noted. Musculoskeletal: No cyanosis. Patient is able to move all extremities. Skin: No rashes, warm dry and intact. Neurologic: No obvious focal neurological deficits seen. Psychiatric: Alert and oriented x3 with a euthymic affect. Results & Data Results & Data ([facility]) Vital Signs (Past 12 Hours) Vital Signs Temp Pulse Resp BP Pulse Ox 08/10/21 15:35 98.6 F 73 22 125/80 93 08/10/21 14:22 18 94 08/10/21 11:34 99.5 F 69 20 118/77 96 08/10/21 11:28 82 18 92 08/10/21 07:34 18 90 08/10/21 07:16 99.0 F 70 19 150/84 H 96 08/10/21 04:23 99.3 F 77 17 116/76 93 ABG reviewed with evidence of respiratory alkalosis and hypoxemia. 40 minutes chest x-ray from today with multifocal infiltrates. Chest CT from yesterday with no evidence of pulmonary embolism. Diffuse groundglass opacities. PG Care Time/CCT Total # of Minutes Spent Total Time Spent with Patient: Total time spent is greater than 50% in coordination of care (as documented) at patient's floor/unit and/or counseling patient: Coding Level of Care Code 66523 Inpt Consult Level 4 Diagnoses 2019 novel coronavirus-infected pneumonia (NCIP) U07.1; J12.82 Acute respiratory failure with hypoxia J96.01 Breath shortness R06.02
[2021-08-10] MEDS: dexAMETHasone 6 MG in SYRINGE 0 ML IV SCH (17:17)
[2021-08-10] MEDS: BARICITINIB 2 MG TAB PO SCH (22:06)
[2021-08-10] MEDS: ENOXAPARIN INJ 40 MG/0.4 ML SYR SQ SCH (22:07)
[2021-08-11 07:06] LABS: Hematocrit (blood only) 44.9 % (42-52); Hemoglobin 15.8 g/dL (14.0-18.0); Mean Corpuscular Hemoglobin 31.1 pg (25-34); Mean Corpuscular Hgb Conc 35.2 g/dL (32-36); Mean Corpuscular Volume 88.4 fL (80-100); Mean Platelet Volume 9.8 fL (7.4-10.4); Platelet Count 203 K/uL (130-400); RDW Coefficient of Variation 12.5 % (11.5-14.5); RDW Standard Deviation 40.3 fL (36.4-46.3); Red Blood Count 5.08 M/uL (4.7-6.1)
[2021-08-11] MEDS ORDERED: SODIUM CHLORIDE 0.65% NA SOLN 45 ML (OCEAN) PRN (07:27)
--- NOTE | 2021-08-11 07:32 | XRay Report ---
XR chest 1V portable CLINICAL HISTORY: COVID pneumonia COMPARISON STUDY: Chest radiograph August 10, 2021. Chest CT August 09, 2021. FINDINGS: Lung volumes are normal. Bilateral airspace opacities are similar to prior exam. There is n o pneumothorax or pleural effusion. Cardiac size is stable. Mediastinal contours are normal. There is no evidence for pulmonary edema. IMPRESSION: No significant change in bilateral airspace opacities consistent with viral pneumonia. ACT 112: Negative or not required by law. Electronically signed by: Alexi Mosley M.D. 08/11/2021 7:31 AM
[2021-08-11 07:42] LABS: Calcium 8.6 mg/dl (8.5-10.1); Creatinine Clr Calc Pharmacy 114.2 ml/min; Est GFR (Non-African American) 95.8 ml/min; Potassium 4.4 mmol/L (3.5-5.1)
[2021-08-11 07:43] LABS: C Reactive Protein 7.48 mg/dl (0-0.29)
[2021-08-11] MEDS: MUPIROCIN 2% OINT 22 GM TUBE EXT SCH ×2 (08:55→20:47)
--- NOTE | 2021-08-11 10:05 | Hospitalist Progress Note ---
Date of Service August 11, 2021 Assessment & Plan (1) Acute respiratory failure with hypoxia: Plan: 56 y/o male w/ PMHx of anxiety and GERMAN who presents w/ acute hypoxic respiratory failure secondary to covid-19 pneumonia on day 9 of symptoms (08/01/21 onset) still on 40L but down to 80%, very compliant with prone positioning will get him incentive spirometer dexamethasone 6mg IV daily, day 3 baricitinib 4mg daily, day 3 CTA chest negative for PE, shows bilateral viral pneumonia CRP down to 7 from 14 CXR shows no significant change (2) 2019 novel coronavirus-infected pneumonia (NCIP): Plan: - see above treating with dexamethasone and baricitinib CRP coming down (3) Otitis media: Plan: - noted on exam. likely 2/2 covid, less likely from bacterial infection, especially w/ bilat symptoms. defer treatment w/ abx. Considering abx if symptoms worsen. (4) Anxiety: Plan: - not on medications. follow clinically (5) Sleep apnea, unspecified: Plan: - per patient, had trialed cpap in past, but could not tolerate mask - follow clinically, noted that he desaturates when he falls asleep Plan: FEN/GI: regular diet. No IV fluids. Goal of neutral to net neg balance. ppx: Lovenox SQ, 40 daily. SCDs code: full dispo: PCU tele Admission and Anticipated Discharge Date Admission Date: August 10, 2021 Subjective patient doing well, down to 40L and 80%, breathing comfortably while sitting up spending a lot of time prone appetite is back, eating really well, drinking a lot of water, making a lot of urine, feels like he will have a BM today discussed using Lasix, will start tomorrow AM no fever, minimal cough, no sputum production encouraged him to keep doing what he is doing, getting better Review of Systems Review of Systems: All systems reviewed & are unremarkable except as noted in Subjective Physical Exam Physical Exam: General: well developed, well nourished, ill appearing male, no acute distress, comfortable Neck: supple, trachea midline, normal thyroid Lungs: clear to auscultation bilaterally, + tachypnea, no accessory muscle use, no distress, talking in full sentences Heart: regular S1 and S2, no murmur, peripheral pulses normal, capillary refill normal, no edema Abdomen: soft, NT, ND, + BS, no hepatomegaly, normal to percussion Extremities: normal in appearance, no cyanosis, no petechiae, strength is 5/5 bilaterally Neuro: awake, cooperative, moves all extremities, no focal motor deficits, CN II-XII intact, sensation in extremities intact, normal speech Skin: warm, dry, no rash, normal turgor Psych: Awake, alert oriented x 3, euthymic affect Results & Data Results & Data ([facility]) Vital Signs (Past 12 Hours) Vital Signs Temp Pulse Pulse Resp BP Pulse Ox Pulse Ox 08/11/21 08:00 63 90 08/11/21 07:54 37.3 C 76 16 137/87 90 08/11/21 07:11 62 26 H 91 08/11/21 04:11 70 15 91 08/11/21 03:57 37.1 C 71 20 120/72 98 08/10/21 23:02 73 14 91 08/10/21 22:49 37.5 C 79 21 118/79 92 08/10/21 22:19 75 Laboratory Results Laboratory Results - last 24 hr 08/11/21 08/11/21 06:35 06:35 WBC 5.60 RBC 5.08 Hgb 15.8 Hct 44.9 MCV 88.4 MCH 31.1 MCHC 35.2 RDW Std Deviation 40.3 RDW Coeff of Nicole 12.5 Plt Count 203 MPV 9.8 Sodium 140 Potassium 4.4 Chloride 107 Carbon Dioxide 27 Anion Gap 6.0 BUN 22 H Creatinine 0.87 Est Cr Clr Drug Dosing 114.2 Est GFR ( Amer) 111.0 Est GFR (Non-Af Amer) 95.8 BUN/Creatinine Ratio 25.0 H Glucose 129 H Calcium 8.6 AST 147 H ALT 103 H C-Reactive Protein 7.48 H Medications Administered Current Inpatient Medications Baricitinib (Baricitinib 2 Mg Tab) 4 mg PO Q24H JULIANA Stop: 08/23/21 20:59 Last Admin: 08/10/21 22:06 Dose: 4 mg Documented by: Enoxaparin Sodium (Enoxaparin Inj 40 Mg/0.4 Ml Syr) 40 mg SQ Q24H JULIANA Stop: 09/08/21 23:30 Last Admin: 08/10/21 22:07 Dose: 40 mg Documented by: Dexamethasone 6 mg/ Syringe 1.5 mls @ 1 mls/min IV Q24H JULIANA Stop: 09/09/21 17:59 Last Admin: 08/10/21 17:17 Dose: 1 mls/min Documented by: Mupirocin (Mupirocin 2% Oint 22 Gm Tube) 1 appln EXT BID JULIANA Stop: 09/10/21 08:59 Last Admin: 08/11/21 08:55 Dose: 1 appln Documented by: Polyethylene Glycol (Polyethylene (Miralax) 17 Gm Pack) 17 gm PO DAILY PRN PRN Reason: Constipation Stop: 09/08/21 21:14 Sodium Chloride (Sodium Chloride 0.9% 10ml Flush) 30 ml IV Q24H JULIANA Last Admin: 08/09/21 23:55 Dose: Not Given Documented by: Sodium Chloride (Sodium Chloride 0.65% Na Soln 45 Ml ([place])) 1 sprays NA PRN PRN PRN Reason: Nasal Congestion Stop: 09/10/21 07:26 Last Admin: 08/11/21 08:55 Dose: 1 sprays Documented by: PG Care Time/CCT Total # of Minutes Spent Total Time Spent with Patient: Total time spent is greater than 50% in coordination of care (as documented) at patient's floor/unit and/or counseling patient: Coding Level of Care Code 29828 Subseq Hosp Care Lvl 2 Diagnoses Acute respiratory failure with hypoxia J96.01 2019 novel coronavirus-infected pneumonia (NCIP) U07.1; J12.82 Otitis media H66.90 Anxiety F41.9 Sleep apnea, unspecified G47.30
[2021-08-11] MEDS: dexAMETHasone 6 MG in SYRINGE 0 ML IV SCH (17:25)
[2021-08-11] MEDS ORDERED: IBUPROFEN 200 MG TAB PO PRN (20:19)
[2021-08-11] MEDS: BARICITINIB 2 MG TAB PO SCH (22:06)
[2021-08-11] MEDS: ENOXAPARIN INJ 40 MG/0.4 ML SYR SQ SCH (22:06)
[2021-08-12] MEDS ORDERED: FUROSEMIDE INJ 20 MG/2 ML VIAL IV ONE (07:24)
[2021-08-12 07:36] LABS: Est GFR (African American) 113.8 ml/min; Est GFR (Non-African American) 98.2 ml/min
[2021-08-12] MEDS: MUPIROCIN 2% OINT 22 GM TUBE EXT SCH ×2 (09:03→20:53)
--- NOTE | 2021-08-12 10:41 | Hospitalist Progress Note ---
Date of Service August 12, 2021 Assessment & Plan (1) Acute respiratory failure with hypoxia: Plan: 56 y/o male w/ PMHx of anxiety and GERMAN who presents w/ acute hypoxic respiratory failure secondary to covid-19 pneumonia on day 9 of symptoms (08/01/21 onset) still on 40L but down to 80%, very compliant with prone positioning incentive spirometer, pulling 2000mL today dexamethasone 6mg IV daily, day 4 baricitinib 4mg daily, day 4 CTA chest negative for PE, shows bilateral viral pneumonia CRP down to 7 from 14 on 08/11 CXR shows no significant change Lasix 20mg IV this morning, continue each morning for neg fluid balance (2) 2019 novel coronavirus-infected pneumonia (NCIP): Plan: - see above treating with dexamethasone and baricitinib CRP coming down anticipate him being here 7-10 days more (3) Otitis media: Plan: - noted on exam on admission. likely 2/2 covid, less likely from bacterial infection, especially w/ bilat symptoms. defer treatment w/ abx. Considering abx if symptoms worsen. no worsening symptoms (4) Anxiety: Plan: - not on medications. follow clinically (5) Sleep apnea, unspecified: Plan: - per patient, had trialed cpap in past, but could not tolerate mask - follow clinically, noted that he desaturates when he falls asleep Plan: FEN/GI: regular diet. No IV fluids. Goal of neutral to net neg balance. ppx: Lovenox SQ, 40 daily. SCDs code: full dispo: PCU tele Admission and Anticipated Discharge Date Admission Date: August 10, 2021 Subjective patient says he is feeling a lot stronger making a lot of urine this morning with the Lasix 20mg IV, two urinals at the b [place] he is going to lay prone once he is urinating less, spent most of the night on his stomach last night coughing less, pulling 2000mL on the incentive spirometer eating really well, cleans his tray no BM for a few days but had diarrhea pretty bad prior to admission Review of Systems Review of Systems: All systems reviewed & are unremarkable except as noted in Subjective Physical Exam Physical Exam: General: well developed, well nourished, ill appearing male, no acute distress, comfortable Neck: supple, trachea midline, normal thyroid Lungs: clear to auscultation bilaterally, + tachypnea, no accessory muscle use, no distress, talking in full sentences Heart: regular S1 and S2, no murmur, peripheral pulses normal, capillary refill normal, no edema Abdomen: soft, NT, ND, + BS, no hepatomegaly, normal to percussion Extremities: normal in appearance, no cyanosis, no petechiae, strength is 5/5 bilaterally Neuro: awake, cooperative, moves all extremities, no focal motor deficits, CN II-XII intact, sensation in extremities intact, normal speech Skin: warm, dry, no rash, normal turgor Psych: Awake, alert oriented x 3, euthymic affect Results & Data Results & Data ([facility]) Vital Signs (Past 12 Hours) Vital Signs Temp Pulse Resp BP BP Pulse Ox Pulse Ox 08/12/21 08:00 92 08/12/21 07:36 71 30 H 91 08/12/21 07:11 36.5 C 76 18 125/91 90 08/12/21 04:36 36.6 C 73 22 118/84 88 L 08/12/21 03:15 77 21 88 L 08/11/21 23:32 37.0 C 80 20 126/85 94 Laboratory Results Laboratory Results - last 24 hr 08/12/21 06:26 Creatinine 0.82 Est Cr Clr Drug Dosing 121.0 Est GFR ( Amer) 113.8 Est GFR (Non-Af Amer) 98.2 AST 152 H ALT 161 H Medications Administered Current Inpatient Medications Baricitinib (Baricitinib 2 Mg Tab) 4 mg PO Q24H JULIANA Stop: 08/23/21 20:59 Last Admin: 08/11/21 22:06 Dose: 4 mg Documented by: Enoxaparin Sodium (Enoxaparin Inj 40 Mg/0.4 Ml Syr) 40 mg SQ Q24H JULIANA Stop: 09/08/21 23:30 Last Admin: 08/11/21 22:06 Dose: 40 mg Documented by: Dexamethasone 6 mg/ Syringe 1.5 mls @ 1 mls/min IV Q24H JULIANA Stop: 09/09/21 17:59 Last Admin: 08/11/21 17:25 Dose: 1 mls/min Documented by: Ibuprofen (Ibuprofen 200 Mg Tab) 400 mg PO QID PRN PRN Reason: Headache Stop: 09/10/21 20:18 Last Admin: 08/11/21 20:48 Dose: 400 mg Documented by: Mupirocin (Mupirocin 2% Oint 22 Gm Tube) 1 appln EXT BID JULIANA Stop: 09/10/21 08:59 Last Admin: 08/12/21 09:03 Dose: 1 appln Documented by: Polyethylene Glycol (Polyethylene (Miralax) 17 Gm Pack) 17 gm PO DAILY PRN PRN Reason: Constipation Stop: 09/08/21 21:14 Sodium Chloride (Sodium Chloride 0.9% 10ml Flush) 30 ml IV Q24H JULIANA Last Admin: 08/09/21 23:55 Dose: Not Given Documented by: Sodium Chloride (Sodium Chloride 0.65% Na Soln 45 Ml ([place])) 1 sprays NA PRN PRN PRN Reason: Nasal Congestion Stop: 09/10/21 07:26 Last Admin: 08/11/21 08:55 Dose: 1 sprays Documented by: PG Care Time/CCT Total # of Minutes Spent Total Time Spent with Patient: Total time spent is greater than 50% in coordination of care (as documented) at patient's floor/unit and/or counseling patient: Coding Level of Care Code 02171 Subseq Hosp Care Lvl 2 Diagnoses Acute respiratory failure with hypoxia J96.01 2019 novel coronavirus-infected pneumonia (NCIP) U07.1; J12.82 Otitis media H66.90 Anxiety F41.9 Sleep apnea, unspecified G47.30
--- NOTE | 2021-08-12 17:40 | Pulmonology Progress Note ---
Date of Service August 12, 2021 Assessment & Plan (1) 2019 novel coronavirus-infected pneumonia (NCIP): (2) Acute respiratory failure with hypoxia: (3) Breath shortness: Plan: Attending: Dr. Underwood Impression: 56-year-old male admitted for Covid 19 with acute respiratory distress syndrome. Patient requiring high flow supplemental O2. Also started on baricitinib 4 mg p.o. daily on 08/09/2021. Recommendations: 1. COVID-19/ARDs: Continue high flow supplemental oxygen maintain saturations of 92 to 94%. Continue baricitinib (day #4). Follow LFTs and renal function. Continue to encourage self proning. Continue dexamethasone. Maintain negative fluid balance. 2. Acute respiratory failure: No history of prior pulmonary disease. No prior use of supplemental oxygen. This is attributed to his COVID-19 with acute respiratory distress syndrome. Thank you very much for including us in the care of this patient. Please refer to Dr. Underwood's addendum for corrections and recommendations. The pulmonary service will continue to follow along with you. Admission and Anticipated Discharge Date Admission Date: August 10, 2021 Subjective Attending: Dr. Underwood Patient seen and examined at bedside. He is self proning at the time of my examination. Lung sounds are clear. Good inspiratory effort. Some cough with deep inspiration. Patient states that he has some shortness of breath with minimal exertion. He quickly recovers with rest. He denies any fever, chills, sweats, rigors. Positive for malaise. No other acute complaints. Review of Systems Review of Systems: All systems reviewed & are unremarkable except as noted in Subjective Physical Exam Physical Exam: GENERAL : No acute distress. Appears ill EYES: No icterus, gaze conjugate NOSE: No evidence of epistaxis MOUTH: No lesions or candidiasis. Mucosa moist. NECK: Supple LUNGS: Faint crackles at the bilateral bases. No bronchospasm appreciated. Patient prone for my examination. HEART: Regular, rate controlled. No appreciation of ectopy or arrhythmia. ABDOMEN: Soft, NT, ND, BS Present EXTREMITIES: No LE edema, pedal pulses intact and equal bilaterally. NEURO: A&OX3 Results & Data Results & Data ([facility]) Vital Signs (Past 12 Hours) Vital Signs Temp Pulse Pulse Resp BP BP Pulse Ox 08/12/21 15:30 80 22 91 08/12/21 15:24 37.1 C 78 21 120/78 91 08/12/21 11:39 66 08/12/21 11:37 36.7 C 80 19 116/93 93 08/12/21 10:53 79 18 84 L 08/12/21 08:00 08/12/21 07:36 71 30 H 91 08/12/21 07:11 36.5 C 76 18 125/91 90 Pulse Ox 08/12/21 15:30 08/12/21 15:24 08/12/21 11:39 08/12/21 11:37 08/12/21 10:53 08/12/21 08:00 92 08/12/21 07:36 08/12/21 07:11 Laboratory Results 08/11/21 06:35 08/12/21 06:26 COVID-19 Results 08/09/21 16:11 SARS-CoV-2 (PCR) POSITIVE A* Diagnostic Findings No further diagnostic imaging PG Care Time/CCT Total # of Minutes Spent Total Time Spent with Patient: Total time spent is greater than 50% in coordination of care (as documented) at patient's floor/unit and/or counseling patient: 25 minutes Coding Level of Care Code 34824 Subseq Hosp Care Lvl 2 Diagnoses 2019 novel coronavirus-infected pneumonia (NCIP) U07.1; J12.82 Acute respiratory failure with hypoxia J96.01 Breath shortness R06.02 Time Spent (min) 25
[2021-08-12] MEDS ORDERED: PROMETHAZINE HCL 12.5 MG in SODIUM CHLORIDE 0.9% 50 ML IV PRN (17:51)
[2021-08-12] MEDS ORDERED: ONDANSETRON INJ 2 MG/ML 2 ML VIAL IV PRN (17:51)
[2021-08-12] MEDS ORDERED: ONDANSETRON INJ 2 MG/ML 2 ML VIAL IV STA (17:51)
[2021-08-12] MEDS: dexAMETHasone 6 MG in SYRINGE 0 ML IV SCH (18:02)
[2021-08-12] MEDS: busPIRone 5 MG TAB PO SCH (20:52)
[2021-08-12] MEDS: BARICITINIB 2 MG TAB PO SCH (20:52)
[2021-08-12] MEDS: POLYETHYLENE (MIRALAX) 17 GM PACK PO PRN (20:52)
[2021-08-12] MEDS ORDERED: CHLORASEPTIC 1.4% SOLN 180 ML BTL MT PRN (23:28)
[2021-08-13] MEDS: ENOXAPARIN INJ 40 MG/0.4 ML SYR SQ SCH (00:05)
[2021-08-13] MEDS: POLYETHYLENE (MIRALAX) 17 GM PACK PO PRN (00:06)
[2021-08-13] MEDS ORDERED: OXYMETAZOLINE 0.05% 30 ML BTL NAE ONE (02:27)
[2021-08-13 07:28] LABS: BUN Creatinine Ratio 20.3 (10-20); Calcium 8.5 mg/dl (8.5-10.1); Creatinine Clr Calc Pharmacy 106.1 ml/min; Est GFR (African American) 106.6 ml/min; Potassium 4.5 mmol/L (3.5-5.1)
[2021-08-13 07:29] LABS: C Reactive Protein 15.2 mg/dl (0-0.29)
[2021-08-13] MEDS: FUROSEMIDE INJ 20 MG/2 ML VIAL IV SCH ×2 (08:07→21:01)
[2021-08-13] MEDS: MUPIROCIN 2% OINT 22 GM TUBE EXT SCH ×2 (08:08→21:02)
[2021-08-13] MEDS ORDERED: ROCURONIUM BROMIDE 10 MG/ML 5 ML VIAL IV ONE (08:34)
[2021-08-13] MEDS ORDERED: ETOMIDATE 2 MG/ML 20 ML VIAL IV ONE (08:34)
[2021-08-13] MEDS ORDERED: fentaNYL citrate 100 MCG/2 ML CARP IV ONE (08:34)
[2021-08-13] MEDS ORDERED: FUROSEMIDE INJ 20 MG/2 ML VIAL IV SCH ×2 (09:00)
--- NOTE | 2021-08-13 09:15 | XRay Report ---
XR chest 1V portable HISTORY: 56 years-old Male hypoxia acute hypoxia COMPARISON: Chest radiograph 08/11/2021 TECHNIQUE: PA prone view of the chest FINDINGS: Cardiac silhouette is enlarged. Bilateral hilar prominence redemonstrated with progressive interstiti al opacities with ill-defined alveolar densities. Unchanged right hemidiaphragmatic elevation. No pne umothorax, or large pleural effusion. No acute fracture. IMPRESSION: Cardiomegaly with progressively worsened bilateral airspace opacities. ACT 112: Negative or not required by law. The above report was generated using voice recognition software. It may contain grammatical, syntax o r spelling errors. Electronically signed by: Lizandro Childress M.D. 08/13/2021 9:14 AM
[2021-08-13] MEDS: busPIRone 5 MG TAB PO SCH ×3 (10:03→21:02)
[2021-08-13] MEDS: dexAMETHasone 6 MG in SYRINGE 0 ML IV SCH ×2 (10:03→21:02)
--- NOTE | 2021-08-13 13:52 | Hospitalist Progress Note ---
Date of Service August 13, 2021 Assessment & Plan (1) Acute respiratory failure with hypoxia: Plan: 56 y/o male w/ PMHx of anxiety and GERMAN who presents w/ acute hypoxic respiratory failure secondary to covid-19 pneumonia on day 9 of symptoms (08/01/21 onset) was stable on 40L and 80% for two days, declined in status the past 24 hours, 60L and 100% prone at all times, placed franz so he does not need to roll over Lasix 20mg q12, great response this morning increase dexamethasone to 6mg q12 from daily, starting 08/13 baricitinib 4mg daily started on admission, day 5 today CTA chest negative for PE, shows bilateral viral pneumonia CRP was down to 7 on 08/11, now up to 15 despite steroids and baricitinib CXR 08/13 with worsening opacities d/w Dr. Underwood, will attempt CPAP to see if he can tolerate (2) 2019 novel coronavirus-infected pneumonia (NCIP): Plan: sick since 08/01 treating with dexamethasone 6mg q12 and baricitinib 4mg daily, day 5 of treatment CRP trending back up and breathing is worse will call Katelynn about ECMO consideration, highly likely he will need intubated in next 24 hours (3) Anxiety: Plan: - not on medications chronically give Ativan 0.5mg IV now to help with CPAP compliance (4) Sleep apnea, unspecified: Plan: - per patient, had trialed cpap in past, but could not tolerate mask - follow clinically, noted that he desaturates when he falls asleep Plan: FEN/GI: make NPO in anticipation of needing intubated ppx: Lovenox SQ, 40 daily. SCDs code: full dispo: PCU tele Admission and Anticipated Discharge Date Admission Date: August 10, 2021 Subjective patient worse this morning, up to 60L and 100%, in more distress had RN place franz, keep prone as much as possible, Lasix 20mg IV and increased dexamethasone to 6mg q12 able to be prone and on right side most of the morning, saturations 90% working a lot harder to breathe, very anxious d/w Dr. Underwood, will try CPAP to give some extra pressure keep him NPO will call [facility] to discuss with technical customer support specialist, run the case by them I discussed with his daughter Niurka over the phone, she confirmed to do everything possible, including transfer to [place] if indicated Review of Systems Review of Systems: All systems reviewed & are unremarkable except as noted in Subjective Constitutional: + fatigue; no fever Respiratory: + cough, + chest congestion, + dyspnea and + dyspnea on exertion Cardiovascular: no chest pain Psychiatric: + anxiety (distress about breathing) Physical Exam Physical Exam: General: well developed, well nourished, ill appearing male, respiratory distress, uncomfortable Neck: supple, trachea midline, normal thyroid Lungs: clear to auscultation bilaterally, + tachypnea, + accessory muscle use, moderate distress, one word answers, laying prone Heart: regular S1 and S2, no murmur, peripheral pulses normal, capillary refill normal, no edema Abdomen: soft, NT, ND, + BS, no hepatomegaly, normal to percussion Extremities: normal in appearance, no cyanosis, no petechiae, strength is 5/5 bilaterally Neuro: awake, cooperative, moves all extremities, no focal motor deficits, CN II-XII intact, sensation in extremities intact, normal speech Skin: warm, dry, no rash, normal turgor Psych: Awake, alert oriented x 3, very anxious Results & Data Results & Data ([facility]) Vital Signs (Past 12 Hours) Vital Signs Temp Pulse Pulse Resp BP BP Pulse Ox 08/13/21 13:00 96 H 26 H 90 08/13/21 11:43 37.0 C 95 H 24 115/72 90 08/13/21 11:22 101 H 22 92 08/13/21 11:00 99 H 28 H 91 08/13/21 10:00 94 H 34 H 92 08/13/21 09:00 90 30 H 90 08/13/21 08:04 89 20 91 08/13/21 08:00 90 08/13/21 07:37 37.4 C 90 20 121/84 92 08/13/21 03:51 36.9 C 86 18 90 08/13/21 03:01 84 28 H 92 08/13/21 02:29 91 Pulse Ox 08/13/21 13:00 08/13/21 11:43 08/13/21 11:22 08/13/21 11:00 08/13/21 10:00 08/13/21 09:00 08/13/21 08:04 08/13/21 08:00 84 L 08/13/21 07:37 08/13/21 03:51 08/13/21 03:01 08/13/21 02:29 Laboratory Results Laboratory Results - last 24 hr 08/13/21 06:16 Sodium 134 L Potassium 4.5 Chloride 103 Carbon Dioxide 28 Anion Gap 3.0 BUN 19 H Creatinine 0.92 Est Cr Clr Drug Dosing 106.1 Est GFR ( Amer) 106.6 Est GFR (Non-Af Amer) 92.0 BUN/Creatinine Ratio 20.3 H Glucose 116 H Calcium 8.5 AST 112 H ALT 149 H C-Reactive Protein 15.20 H Medications Administered Current Inpatient Medications Baricitinib (Baricitinib 2 Mg Tab) 4 mg PO Q24H JULIANA Stop: 08/23/21 20:59 Last Admin: 08/12/21 20:52 Dose: 4 mg Documented by: Buspirone HCl (Buspirone 5 Mg Tab) 5 mg PO TID JULIANA Stop: 09/11/21 20:59 Last Admin: 08/13/21 10:03 Dose: 5 mg Documented by: Enoxaparin Sodium (Enoxaparin Inj 40 Mg/0.4 Ml Syr) 40 mg SQ Q24H JULIANA Stop: 09/08/21 23:30 Last Admin: 08/13/21 00:05 Dose: 40 mg Documented by: Furosemide (Furosemide Inj 20 Mg/2 Ml Vial) 20 mg IV Q12 JULIANA Stop: 09/12/21 07:59 Last Admin: 08/13/21 08:07 Dose: 20 mg Documented by: Promethazine HCl 12.5 mg/ (Sodium Chloride) 50.5 mls @ 202 mls/hr IV Q6H PRN PRN Reason: Nausea And Vomiting Stop: 09/11/21 17:50 Last Infusion: 08/12/21 21:36 Dose: Infused Documented by: Dexamethasone 6 mg/ Syringe 1.5 mls @ 1 mls/min IV Q12 JULIANA Stop: 09/12/21 09:29 Last Admin: 08/13/21 10:03 Dose: 1 mls/min Documented by: Ibuprofen (Ibuprofen 200 Mg Tab) 400 mg PO QID PRN PRN Reason: Headache Stop: 09/10/21 20:18 Last Admin: 08/11/21 20:48 Dose: 400 mg Documented by: Mupirocin (Mupirocin 2% Oint 22 Gm Tube) 1 appln EXT BID JULIANA Stop: 09/10/21 08:59 Last Admin: 08/13/21 08:08 Dose: 1 appln Documented by: Ondansetron HCl (Ondansetron Inj 2 Mg/Ml 2 Ml Vial) 4 mg IV Q4H PRN PRN Reason: Nausea Stop: 09/11/21 17:50 Last Admin: 08/13/21 06:23 Dose: 4 mg Documented by: Phenol (Chloraseptic 1.4% Soln 180 Ml Btl) 2 sprays MT Q4H PRN PRN Reason: Sore Throat Stop: 09/11/21 23:27 Last Admin: 08/13/21 00:06 Dose: 2 sprays Documented by: Polyethylene Glycol (Polyethylene (Miralax) 17 Gm Pack) 17 gm PO DAILY PRN PRN Reason: constipation Stop: 09/11/21 19:29 Last Admin: 08/13/21 00:06 Dose: 17 gm Documented by: Sodium Chloride (Sodium Chloride 0.9% 10ml Flush) 30 ml IV Q24H [facility] Last Admin: 08/09/21 23:55 Dose: Not Given Documented by: Sodium Chloride (Sodium Chloride 0.65% Na Soln 45 Ml (Bland)) 1 sprays NA PRN PRN PRN Reason: Nasal Congestion Stop: 09/10/21 07:26 Last Admin: 08/11/21 08:55 Dose: 1 sprays Documented by: PG Care Time/CCT Total # of Minutes Spent Total Time Spent with Patient: Total time spent is greater than 50% in coordination of care (as documented) at patient's floor/unit and/or counseling patient: Critical Care Time: Yes Total Critical Care Time: 32 This case had a high probability of a clinically significant, sudden, or life threatening deterioration of this patient's condition which required my full and direct attention, intervention and personal management. time spent from 1:30 to 2:02 PM Coding Level of Care Code 29999 Subseq Hosp Care Lvl 3 (25 - SIGNIFICANT, SEPARATELY IDENTIFIABLE ) Diagnoses Acute respiratory failure with hypoxia J96.01 2019 novel coronavirus-infected pneumonia (NCIP) U07.1; J12.82 Anxiety F41.9 Sleep apnea, unspecified G47.30 Additional Codes Critical Care Time - Critical Care Time: Yes ([id number])
[2021-08-13] MEDS ORDERED: LORazepam 0.5 MG/1 ML VIAL IV STA (13:56)
--- NOTE | 2021-08-13 15:35 | Pulmonology Progress Note ---
Date of Service August 13, 2021 Assessment & Plan (1) 2019 novel coronavirus-infected pneumonia (NCIP): (2) Acute respiratory failure with hypoxia: (3) Breath shortness: Plan: Attending: Dr. Underwood Impression: 56-year-old male admitted for Covid 19 with acute respiratory distress syndrome. Patient requiring high flow supplemental O2. Also started on baricitinib 4 mg p.o. daily on 08/09/2021. Recommendations: 1. COVID-19/ARDs: Continue high flow supplemental oxygen maintain saturations of 92 to 94%. Continue baricitinib (day #5). Follow LFTs and renal function. Continue to encourage self proning. Continue dexamethasone. Agree with inc reasing the dose to twice daily Decadron Encouraged to use positive airway pressure therapy given his degree of hypoxemia. He is certainly at high risk for sudden decompensation requiring intubation mechanical ventilation. He agrees to intubation and mechanical ventilation if necessary. I do think that he will likely be intubated during this hospitalization. I asked the hospitalist to reach out to a tertiary care center for further consideration of venous to venous ECMO. [facility] indicated that they would only consider ECMO once patient is intubated. 2. Acute respiratory failure: No history of prior pulmonary disease. No prior use of supplemental oxygen. This is attributed to his COVID-19 with acute respiratory distress syndrome. I personally discussed the patient's case with the hospitalist, respiratory therapist and the bedside nurse. Admission and Anticipated Discharge Date Admission Date: August 10, 2021 Subjective Patient seen and examined this afternoon. He denies any shortness of breath, but he does appear to be more short of breath than he did 2 days ago. He is currently on 100% oxygen 60 L high flow nasal cannula. He is laying in the right lateral decubitus position. He has been febrile to 101.1. Patient is vomiting. Poor p.o. intake. Review of Systems Review of Systems: All systems reviewed & are unremarkable except as noted in HPI & below Physical Exam Physical Exam: GENERAL : Moderate distress. Appears ill EYES: No icterus, gaze conjugate NOSE: No evidence of epistaxis MOUTH: No lesions or candidiasis. Mucosa moist. NECK: Supple LUNGS: Faint crackles at the bilateral bases. No bronchospasm appreciated. HEART: Regular, rate controlled. No appreciation of ectopy or arrhythmia. ABDOMEN: Soft, NT, ND, BS Present EXTREMITIES: No LE edema, pedal pulses intact and equal bilaterally. NEURO: A&OX3 Results & Data Results & Data ([facility]) Vital Signs (Past 12 Hours) Vital Signs Temp Pulse Pulse Resp BP BP Pulse Ox 08/13/21 15:28 101.1 F H 97 H 24 125/85 96 08/13/21 14:38 96 H 19 93 08/13/21 14:00 94 H 30 H 89 L 08/13/21 13:00 96 H 26 H 90 08/13/21 11:43 98.6 F 95 H 24 115/72 90 08/13/21 11:22 101 H 22 92 08/13/21 11:00 99 H 28 H 91 08/13/21 10:00 94 H 34 H 92 08/13/21 09:00 90 30 H 90 08/13/21 08:04 89 20 91 08/13/21 08:00 90 08/13/21 07:37 99.3 F 90 20 121/84 92 08/13/21 03:51 98.4 F 86 18 90 Pulse Ox 08/13/21 15:28 08/13/21 14:38 08/13/21 14:00 08/13/21 13:00 08/13/21 11:43 08/13/21 11:22 08/13/21 11:00 08/13/21 10:00 08/13/21 09:00 08/13/21 08:04 08/13/21 08:00 84 L 08/13/21 07:37 08/13/21 03:51 Vital signs, labs and imaging reviewed PG Care Time/CCT Total # of Minutes Spent Total Time Spent with Patient: Total time spent is greater than 50% in coordination of care (as documented) at patient's floor/unit and/or counseling patient: Coding Level of Care Code 01832 Subseq Hosp Care Lvl 3 Diagnoses 2019 novel coronavirus-infected pneumonia (NCIP) U07.1; J12.82 Acute respiratory failure with hypoxia J96.01 Breath shortness R06.02
[2021-08-13] MEDS: ACETAMINOPHEN 1,000 MG/100 ML VIAL IV PRN (16:18)
[2021-08-13] MEDS ORDERED: STAT IV Infusion **Titration per Protocol STA ×4 (18:28→23:30)
[2021-08-13] MEDS: DEXMEDETOMIDINE HCL 200 MCG in SODIUM CHLORIDE 0.9% 48 ML IV SCH ×2 (18:55→21:02)
[2021-08-13] MEDS ORDERED: RAPID SEQUENCE INDUCTION BAG ONE (19:33)
[2021-08-13] MEDS ORDERED: EPOPROSTENOL SODIUM (GLYCINE) 1.5 MG/5 ML INH PRN (19:46)
[2021-08-13] MEDS: BARICITINIB 2 MG TAB PO SCH (21:08)
--- NOTE | 2021-08-13 21:27 | Communication Note ---
Date of Service: August 13, [id number]: Reached out the patient's daughter, Niurka ([phone]) to provide update. Concerns for worsening respiratory status. She is in agreement with pr oceeding with intubation. Dr. Underwood to present to perform intubation. Please see Dr. Underwood's note for intubation procedure. Patient started on Fentanyl, Propofol, Nimbex drips. Patient proned at 2330. 2340: Reached out to [facility] again to provide update of intubation/proning. Will attempt to reach out to tertiary care regarding possible ECMO evaluation. I have personally spent 42 minutes of critical care time in the direct management of this patient. This is a life/limb threatening event. This includes time spent evaluating patient, direct bedside care, chart review, placing orders, interpretation of diagnostic studies, discussion with consultants, patient, and family members, as well as other required patient management activities. This time is exclusive of all separately billable procedures, and teaching time and separate from and in addition to any other critical care service time. Coding Level of Care Code Critical Care stalin rose'l 30 min Time Spent (min) 42
[2021-08-13] MEDS ORDERED: PROPOFOL IV EMULSION 10 MG/ML 100 ML VIAL IV ONE (21:31)
[2021-08-13] MEDS ORDERED: fentaNYL citrate 2,500 MCG/250 ML BAG IV ONE (21:35)
[2021-08-13] MEDS: fentaNYL DRIP 1,250 MCG/250 ML BAG IV SCH (21:51)
[2021-08-13] MEDS: propofoL 1,000 MG/100 ML VIAL IV SCH (21:51)
--- NOTE | 2021-08-13 22:24 | Procedure Note ---
Procedure Note Date of Service August 13, 2021 Note INTUBATION PROCEDURE NOTE: Dr. Medardo Underwood A time-out was completed verifying correct patient, procedure, site, positioning. Patient was evaluated and required intubation for severe ARDS. Sedative agent used: 25 mg tablet Paralysis agent used: 50 mg rocuronium Emergent consent was implied given patients rapidly declining clinical status and need for airway protection. Number of attempts: 1 The patient was prepared in the appropriate fashion. Sedation was achieved utilizing 20 mg of etomidate and 50 mg rocuronium. The patient was easily ventilated using [id number] to achieve adequate oxygenation. A 8.0 Malaysian endotracheal tube was placed under video laryngoscope guidance to 24 cm at the lip. The stylette was removed and balloon was inflated with 10mL of air. Appropriate Colorimetric change was appreciated. Bilateral breath sounds were heard without air sounds in the abdomen. Post Intubation Chest X-ray ordered. Patient tolerated the procedure well and there were no immediate complications. Coding CPT Codes Resuscitation - Resuscitation: 93718 Endotracheal Intubation, emergency ([id number]) [facility] [place] (Charges) Resuscitation Resuscitation: 83482 Endotracheal Intubation, emergency
--- NOTE | 2021-08-13 22:26 | Procedure Note ---
Procedure Note Date of Service August 13, 2021 Note Procedure: Internal Jugular Central Line Placement Attending: Dr. Underwood APC: Justus Serrano PA-C Indication: Central Drug Administration, Poor Venous Access, Multiple Lab Draws Necessary, etc. Anesthesia: Lidocaine 1% Emergent consent implied in the setting of clinical deterioration and need for advanced intravenous access. A time-out was completed verifying correct patient, procedure, site, positioning, and implants(s) or special equipment if applicable. Patients RIGHT Neck was cleansed and draped in the typical sterile fashion using Chloraprep. The Internal Jugular Vein and Carotid Artery were identified using ultrasound. The superficial tissue was anesthetized using 4.0 mL of 1% lidocaine without epinephrine under direct visualization with the ultrasound. After adequate anesthetization was achieved, the Internal Jugular vein was cannulated under direct ultrasound guidance using an introducer needle on a syringe. Good venous blood return was maintained prior to removal of syringe from introducer needle. Using Seldinger Technique, a guide wire was advanced through the introducer needle without resistance. The introducer needle was removed and ultrasound images were obtained of the guide wire within the Internal Jugular Vein and saved to the patients medical record. The dilator was advanced to the vessel without resistance. The dilator was exchanged for the triple lumen catheter whic h was advanced into the vessel without resistance. The guide wire was removed intact from the catheter without issue. Claves were placed on each catheter tip with confirmation of good blood flow from each lumen. Each port was easily flushed with sterile saline. The catheter was placed at 14 cm and sutured in place. BioPatch was applied to the catheter and a sterile Tegaderm dressing was applied over the catheter with careful attention to sterility. Patient tolerated procedure well. No immediate complications were met. Post procedure x-ray was completed, placement was appropriate and no pneu mothorax was noted. Images obtained are saved for permanent record Procedural Ultrasound Guidance: Procedure Date: 08/13/2021 Indication: Poor peripheral access, multiple medications, pressors, prone therapy. Attending: Dr. Underwood APC: Justus Serrano PA-C Artery AND Vein visualized: YES Compressible Vein: YES Guidewire or Short Catheter seen in vein prior to dilation: YES Line confirmed in Vein with ultrasound: YES Images obtained are saved for permanent record. Coding CPT Codes Tubes, Drains, and Vasc Access - Tubes, Drains, and Vasc Access: [id number] Insertion Of Non-tunneled Catheter Age 5 Yrs> ([id number]) Tubes, Drains, and Vasc Access - Tubes, Drains, and Vasc Access: [id number] Ultrasound Guidance For Vascular ([id number]) [facility] [place] Procedure Codes (Charges) Tubes, Drains, and Vasc Access Procedure 1: Tubes, Drains, and Vasc Access: [id number] Insertion Of Non-tunneled Catheter Age 5 Yrs> Procedure 2: Tubes, Drains, and Vasc Access: [id number] Ultrasound Guidance For Vascular
--- NOTE | 2021-08-13 22:55 | XRay Report ---
XR chest 1V portable CLINICAL HISTORY: Intubation TECHNIQUE: Single frontal radiograph of the chest was obtained. Comparison: Comparison is made to chest one view 08/13/2021 FINDINGS: Endotracheal tube terminates 48 mm from the lizzy. A right internal jugular venous catheter is in th e upper SVC. An enteric tube side-port is within the proximal stomach. The cardiomediastinal silhouet te is normal. Multifocal airspace opacities are seen, similar to prior exam. No evidence of pleural e ffusion or pneumothorax. IMPRESSION: Satisfactory positioning of endotracheal and enteric tubes. Satisfactory position of right venous cat heter. ACT 112: Negative or not required by law. Electronically signed by: Zak Chappell M.D. 08/13/2021 10:54 PM
[2021-08-13] MEDS: CISATRACURIUM BESYLATE 40 MG in 0.9 % SODIUM CHLORIDE 80 ML IV SCH (23:15)
[2021-08-13] MEDS: NOREPINEPHRINE/D5W 8 MG/508 ML BAG IV SCH (23:21)
[2021-08-13] MEDS ORDERED: NOREPINEPHRINE/D5W 8 MG/508 ML IV ONE (23:21)
--- NOTE | 2021-08-13 23:31 | Procedure Note ---
Procedure Note Date of Service August 13, 2021 Note Procedure: Arterial Line Placement Attending: Dr. Underwood APC: Justus Serrano PA-C Indication: Hemodynamic monitoring Anesthesia: Lidocaine 1% Emergent Consent implied in the setting of clinical deterioration and need for close hemodynamic monitoring, ABG monitoring, frequent lab draws, etc. A time-out was completed verifying correct patient, procedure, site, positioning, and implant(s) or special equipment if applicable. Allens test was performed to ensure adequate perfusion. Patients LEFT wrist was prepped and draped in the usual sterile fashion. Ultrasound guidance was used to aid needle placement. A 20g Arrow arterial line was introduced into the LEFT Radial artery. I was able to thread the wire on 3 attempts on the LEFT and 1 attempt on the RIGHT wrist, but was unsuccessful at advancing the catheter into the vessel. Procedure was aborted. Blood Loss: Minimal Complications: Unable to thread catheter into vessel. Procedure aborted. Procedural Ultrasound Guidance: Procedure Date: 08/13/2021 Indication: Hemodynamic Monitoring, Frequent ABGs/Lab draws. Attending: Dr. Underwood APC: Justus Serrano PA-C Artery Identified: YES Patient tolerated procedure: WELL Coding CPT Codes Tubes, Drains, and Vasc Access - Tubes, Drains, and Vasc Access: [id number] Place Catheter In Artery ([id number]) [facility] [place] Procedure Codes (Charges) Tubes, Drains, and Vasc Access Procedure 3: Tubes, Drains, and Vasc Access: [id number] Place Catheter In Artery
[2021-08-14 00:09] LABS: iSTAT Art Bld Gas pCO2 Correct 49 mmHg (35-46); iSTAT Art Bld Gas pH Corrected 7.323 (7.35-7.45); iSTAT Arterial Blood Gas HCO3 26 meg/L (19-24); iSTAT Arterial Blood Gas pCO2 49 mmHg (35-46); iSTAT Arterial Blood Gas pH 7.32 (7.35-7.45); iSTAT Arterial Blood Gas pO2 133 mmHg (80-95); iSTAT Arterial Blood Gas pO2 C 133; iSTAT Carbon Dioxide 27 mmol/L (24-31); iSTAT FiO2 75 %; iSTAT Hematocrit 43 % (42-52); iSTAT Hemoglobin 14.6 g/dl (14.0-18.0); iSTAT Potassium 4.7 mmol/L (3.3-5.0); iSTAT Site Art Line; iSTAT Sodium 136 mmol/L (135-144)
[2021-08-14] MEDS: CISATRACURIUM BESYLATE 40 MG in 0.9 % SODIUM CHLORIDE 80 ML IV SCH (00:37)
[2021-08-14] MEDS: propofoL 1,000 MG/100 ML VIAL IV SCH ×5 (00:39→21:33)
[2021-08-14] MEDS: ACETAMINOPHEN 1,000 MG/100 ML VIAL IV PRN ×2 (01:50→23:06)
[2021-08-14] MEDS: ARTIFICIAL TEARS OP OINT 3.5 GM TUBE OP SCH ×7 (01:57→21:19)
[2021-08-14] MEDS: ENOXAPARIN INJ 40 MG/0.4 ML SYR SQ SCH ×2 (03:10→23:06)
[2021-08-14] MEDS: CISATRACURIUM BESYLATE 100 MG in SODIUM CHLORIDE 0.9% 200 ML IV SCH ×5 (03:11→23:32)
[2021-08-14 04:48] LABS: iSTAT Allen Test Pass; iSTAT Art Bld Gas pCO2 Correct 86 mmHg (35-46); iSTAT Art Bld Gas pH Corrected 7.154 (7.35-7.45); iSTAT Arterial Blood Gas HCO3 30 meg/L (19-24); iSTAT Arterial Blood Gas pCO2 85 mmHg (35-46); iSTAT Arterial Blood Gas pH 7.16 (7.35-7.45); iSTAT Arterial Blood Gas pO2 102 mmHg (80-95); iSTAT Arterial Blood Gas pO2 C 105; iSTAT Carbon Dioxide 33 mmol/L (24-31); iSTAT FiO2 60 %; iSTAT Hematocrit 44 % (42-52); iSTAT Potassium 5.1 mmol/L (3.3-5.0); iSTAT Site R Radial; iSTAT Sodium 136 mmol/L (135-144)
[2021-08-14 05:32] LABS: Basophils # (auto) 0.01 K/uL (0-0.2); Basophils % (auto) 0.1 %; Hematocrit (blood only) 43.9 % (42-52); Immature Granulocytes # (auto) 0.06 K/uL (0.00-0.02); Immature Granulocytes % (auto) 0.4 %; Lymphocytes # (auto) 0.38 K/uL (1.2-3.4); Lymphocytes % (auto) 2.8 %; Mean Corpuscular Hemoglobin 31.1 pg (25-34); Mean Corpuscular Hgb Conc 34.2 g/dL (32-36); Mean Corpuscular Volume 91.1 fL (80-100); Mean Platelet Volume 11.4 fL (7.4-10.4); Monocytes % (auto) 1.5 %; Neutrophils % (auto) 95.2 %; Platelet Count 143 K/uL (130-400); RDW Standard Deviation 43.5 fL (36.4-46.3); Red Blood Count 4.82 M/uL (4.7-6.1); White Blood Count 13.75 K/uL (4.8-10.8)
[2021-08-14 05:53] LABS: BUN Creatinine Ratio 24.9 (10-20); Calcium 8.3 mg/dl (8.5-10.1); Creatinine Clr Calc Pharmacy 74.5 ml/min; Est GFR (African American) 69.6 ml/min; Magnesium 3.1 mg/dl (1.8-2.4); Potassium 4.8 mmol/L (3.5-5.1)
[2021-08-14 06:02] LABS: C Reactive Protein 34.2 mg/dl (0-0.29); Phosphorus 7.6 mg/dl (2.5-4.9)
--- NOTE | 2021-08-14 08:33 | Hospitalist Progress Note ---
Date of Service August 14, 2021 Assessment & Plan (1) Acute respiratory failure with hypoxia: Plan: 56 y/o male w/ PMHx of anxiety and GERMAN who presents w/ acute hypoxic respiratory failure secondary to covid-19 pneumonia on day 9 of symptoms (08/01/21 onset) was stable on 40L and 80% for two days, declined in status on 08/13, up to 60L and 100% placed on BIPAP 15/8 and FiO2 70%, did not tolerate, got more confused, saturations dropping Dr. Underwood intubated patient at night on 08/13 currently prone, paralyzed, sedated, PEEP 14 FiO2 50% dexamethasone 6mg IV BID baricitinib 4mg daily initially, stopped when intubated CTA chest negative for PE, showed bilateral viral pneumonia CRP was down to 7, now up to 34 CXR 08/13 and 08/14 with worsening opacities spoke with [facility], age cutoff is 55, other facilities it is lower at 45 they agreed with current management, can keep them updated, might consider him given that he is otherwise a very healthy 56 yo (2) 2019 novel coronavirus-infected pneumonia (NCIP): Plan: sick since 08/01 treating with dexamethasone 6mg q12 and baricitinib 4mg daily (stopped when intubated) CRP trending back up and breathing is worse, intubated 08/13 continue to discuss with [facility] team (3) Anxiety: Plan: now sedated used Ativan 0.5mg IV prior to needing intubated (4) Sleep apnea, unspecified: Plan: - per patient, had trialed cpap in past, but could not tolerate mask Plan: FEN/GI: no tube feeds today as he is proned and paralyzed ppx: Lovenox code: full dispo:ICU status Admission and Anticipated Discharge Date Admission Date: August 10, 2021 Subjective patient intubated last night, paralyzed, prone PEEP is 14 and FiO2 50%, saturations 95% discussed with his daughter Niurka over the phone explained the process of prone and paralyzing, look for improvements discussed the [facility] called [facility] overnight, discussed ECMO, cutoff is 55 at this point the specialists at [facility] would continue what we are doing, prone, can let them know how he is doing reviewed labs, CRP up to 34 from 15, K is 4.8, Cr 1.3, ALT and AST minimally elevated discussed with Dr. Underwood, keep him prone today Review of Systems Review of Systems: Unobtainable due to endotracheal tube and Unobtainable due to reduced consciousness Physical Exam Physical Exam: General: well developed, well nourished, mechanically ventilated, prone Neck: supple, trachea midline, normal thyroid Lungs: clear to auscultation bilaterally, symmetric chest movement on ventilator Heart: regular S1 and S2, no murmur, peripheral pulses normal, capillary refill normal, no edema Abdomen: cannot examine due to patient being prone Extremities: normal in appearance, no cyanosis, no petechiae, paralyzed Neuro: sedated, CN II-XII intact, no focal deficits Skin: warm, dry, no rash, normal turgor Psych: sedated Results & Data Results & Data ([facility]) Vital Signs (Past 12 Hours) Vital Signs Temp Pulse Resp BP Pulse Ox 08/14/21 08:14 84 24 96 08/14/21 07:31 37.1 C 87 24 96 08/14/21 07:00 36.8 C 86 24 104/73 95 08/14/21 06:30 36.8 C 85 24 97/71 L 92 08/14/21 06:21 83 24 98/70 L 93 08/14/21 06:00 36.9 C 84 24 92/65 L 92 08/14/21 05:30 37.0 C 85 24 92/65 L 91 08/14/21 05:21 85 24 92/64 L 90 08/14/21 05:00 37.1 C 85 24 93/63 L 90 08/14/21 04:30 37.4 C 84 18 99/67 L 92 08/14/21 04:25 78 18 99/62 L 94 08/14/21 04:00 37.5 C 79 18 98/61 L 94 08/14/21 03:30 37.8 C H 79 18 93/63 L 94 08/14/21 03:27 80 18 92/60 L 93 08/14/21 03:00 38.0 C H 82 18 96/63 L 94 08/14/21 02:30 38.3 C H 84 18 103/65 93 08/14/21 02:25 84 18 104/63 94 08/14/21 02:00 38.6 C H 87 18 116/68 95 08/14/21 01:30 85 18 113/70 94 08/14/21 01:26 88 18 117/71 94 08/14/21 01:00 84 18 116/70 94 08/14/21 00:30 84 18 112/70 93 08/14/21 00:22 82 18 113/71 94 08/14/21 00:00 80 18 103/69 93 08/13/21 23:31 82 30 H 85/59 L 95 08/13/21 23:30 82 27 H 73/57 L 94 08/13/21 23:00 89 28 H 102/71 91 08/13/21 22:30 85 23 95 08/13/21 22:22 89 18 169/103 H 94 08/13/21 22:02 91 H 18 94 08/13/21 22:00 91 H 5 L 105/79 93 08/13/21 21:30 74 30 H 133/96 91 08/13/21 21:21 76 18 112/76 93 08/13/21 21:00 80 20 95 08/13/21 20:37 77 19 154/89 H 94 08/13/21 20:30 37.1 C 88 19 94 Laboratory Results Laboratory Results - last 24 hr 08/13/21 08/14/21 08/14/21 23:52 04:31 04:59 WBC 13.75 H RBC 4.82 Hgb 15.0 POC Hgb 14.6 15.0 Hct 43.9 POC Hct 43 44 MCV 91.1 MCH 31.1 MCHC 34.2 RDW Std Deviation 43.5 RDW Coeff of Nicole 13.0 Plt Count 143 MPV 11.4 H Immature Gran % (Auto) 0.4 Neut % (Auto) 95.2 Lymph % (Auto) 2.8 Faulk % (Auto) 1.5 Eos % (Auto) 0.0 Baso % (Auto) 0.1 Neut # (Auto) 13.10 H Lymph # (Auto) 0.38 L Faulk # (Auto) 0.20 Eos # (Auto) 0.00 Baso # (Auto) 0.01 Immature Gran # (Auto) 0.06 H Sample Site Art Line R Radial POC pH 7.32 L 7.16 L* POC pCO2 49 H 85 H POC pO2 133 H 102 H POC HCO3 26 H 30 H POC Total CO2 27 33 H POC Base Excess 0.0 2.0 H ABG pH (Temp Correct) 7.323 L 7.154 L* ABG pCO2 (Temp Corrct 49 H 86 H POC ABG pO2 at Pt Temp 133 105 POC ABG O2 Sat 99.0 H 95.0 Hemanth Test NA Pass O2 Delivery Device Ventilator Ventilator POC O2 Rate 18 18 POC FiO2 75 60 Tidal Volume 380 380 PEEP 18 14 POC Sodium 136 136 Sodium POC Potassium 4.7 5.1 H Potassium Chloride Carbon Dioxide Anion Gap BUN Creatinine Est Cr Clr Drug Dosing Est GFR ( Amer) Est GFR (Non-Af Amer) BUN/Creatinine Ratio Glucose Calcium Phosphorus Magnesium AST ALT C-Reactive Protein 08/14/21 04:59 WBC RBC Hgb POC Hgb Hct POC Hct MCV MCH MCHC RDW Std Deviation RDW Coeff of Nicole Plt Count MPV Immature Gran % (Auto) Neut % (Auto) Lymph % (Auto) Faulk % (Auto) Eos % (Auto) Baso % (Auto) Neut # (Auto) Lymph # (Auto) Faulk # (Auto) Eos # (Auto) Baso # (Auto) Immature Gran # (Auto) Sample Site POC pH POC pCO2 POC pO2 POC HCO3 POC Total CO2 POC Base Excess ABG pH (Temp Correct) ABG pCO2 (Temp Corrct POC ABG pO2 at Pt Temp POC ABG O2 Sat Hemanth Test O2 Delivery Device POC O2 Rate POC FiO2 Tidal Volume PEEP POC Sodium Sodium 133 L POC Potassium Potassium 4.8 Chloride 102 Carbon Dioxide 27 Anion Gap 4.0 BUN 33 H D Creatinine 1.31 D Est Cr Clr Drug Dosing 74.5 Est GFR ( Amer) 69.6 Est GFR (Non-Af Amer) 60.0 BUN/Creatinine Ratio 24.9 H Glucose 156 H Calcium 8.3 L Phosphorus 7.6 H Magnesium 3.1 H AST 67 H ALT 102 H C-Reactive Protein 34.20 H Medications Administered Current Inpatient Medications Baricitinib (Baricitinib 2 Mg Tab) 4 mg PO Q24H JULIANA Stop: 08/23/21 20:59 Last Admin: 08/13/21 21:08 Dose: 4 mg Documented by: Buspirone HCl (Buspirone 5 Mg Tab) 5 mg PO TID JULIANA Stop: 09/11/21 20:59 Last Admin: 08/13/21 21:02 Dose: 5 mg Documented by: Enoxaparin Sodium (Enoxaparin Inj 40 Mg/0.4 Ml Syr) 40 mg SQ Q24H JULIANA Stop: 09/08/21 23:30 Last Admin: 08/14/21 03:10 Dose: 40 mg Documented by: Epoprostenol Sodium (Epoprostenol Sodium (Glycine) 1.5 Mg/5 Ml) 1.5 mg INH . CONTINUOUS NEB PRN; Protocol PRN Reason: CONTINUOUS NEB TITRATION Stop: 09/12/21 19:45 Last Admin: 08/13/21 20:29 Dose: 1.5 mg Documented by: Fentanyl Citrate (Fentanyl Bolus From Bag) 50 mcg IV Q60M PRN PRN Reason: Pain or Agitation Stop: 08/27/21 21:27 Furosemide (Furosemide Inj 20 Mg/2 Ml Vial) 20 mg IV Q12 [facility] Stop: 09/12/21 07:59 Last Admin: 08/13/21 21:01 Dose: 20 mg Documented by: Promethazine HCl 12.5 mg/ (Sodium Chloride) 50.5 mls @ 202 mls/hr IV Q6H PRN PRN Reason: Nausea And Vomiting Stop: 09/11/21 17:50 Last Infusion: 08/12/21 21:36 Dose: Infused Documented by: Dexamethasone 6 mg/ Syringe 1.5 mls @ 1 mls/min IV Q12 [facility] Stop: 09/12/21 09:29 Last Admin: 08/13/21 21:02 Dose: 1 mls/min Documented by: Acetaminophen (Ofirmev) 1,000 mg in 100 mls @ 400 mls/hr IV Q8H PRN PRN Reason: Fever Stop: 08/16/21 15:55 Last Infusion: 08/14/21 02:43 Dose: Infused Documented by: Propofol (Diprivan) 1,000 mg in 100 mls @ 20.013 mls/hr IV .Q5H [facility]; Protocol Stop: 08/16/21 21:29 Last Titration: 08/14/21 07:44 Dose: 35 mcg/kg/min, 20 mls/hr Documented by: Fentanyl Citrate (Fentanyl Drip) 1,250 mcg in 250 mls @ 25 mls/hr IV .Q10H JULIANA; Protocol Stop: 08/27/21 21:29 Last Titration: 08/14/21 07:44 Dose: 125 mcg/hr, 25 mls/hr Documented by: Norepinephrine Bitartrate (Levophed/D5w) 8 mg in 508 mls @ 0 mls/hr IV .Q0M [facility]; Protocol Stop: 09/12/21 23:29 Last Titration: 08/14/21 00:07 Dose: 0 mcg/kg/min, 0 mls/hr Documented by: Cisatracurium Besylate 100 mg/ (Sodium Chloride) 250 mls @ 46.56 mls/hr IV .Q5H23M [facility]; Protocol Stop: 09/13/21 01:44 Last Titration: 08/14/21 07:44 Dose: 4 mcg/kg/min, 46.6 mls/hr Documented by: Ibuprofen (Ibuprofen 200 Mg Tab) 400 mg PO QID PRN PRN Reason: Headache Stop: 09/10/21 20:18 Last Admin: 08/11/21 20:48 Dose: 400 mg Documented by: Multi-Ingredient Cream (Artificial Tears Op Oint 3.5 Gm Tube) 1 appln OP Q4H [facility] Stop: 09/12/21 21:29 Last Admin: 08/14/21 05:30 Dose: 1 appln Documented by: Mupirocin (Mupirocin 2% Oint 22 Gm Tube) 1 appln EXT BID [facility] Stop: 09/10/21 08:59 Last Admin: 08/13/21 21:02 Dose: 1 appln Documented by: Ondansetron HCl (Ondansetron Inj 2 Mg/Ml 2 Ml Vial) 4 mg IV Q4H PRN PRN Reason: Nausea Stop: 09/11/21 17:50 Last Admin: 08/13/21 06:23 Dose: 4 mg Documented by: Phenol (Chloraseptic 1.4% Soln 180 Ml Btl) 2 sprays MT Q4H PRN PRN Reason: Sore Throat Stop: 09/11/21 23:27 Last Admin: 08/13/21 00:06 Dose: 2 sprays Documented by: Polyethylene Glycol (Polyethylene (Miralax) 17 Gm Pack) 17 gm PO DAILY PRN PRN Reason: constipation Stop: 09/11/21 19:29 Last Admin: 08/13/21 00:06 Dose: 17 gm Documented by: Propofol (Propofol Bolus From Bag) 20 mg IV Q5M PRN PRN Reason: Sedation Stop: 08/16/21 21:27 Sodium Chloride (Sodium Chloride 0.9% 10ml Flush) 30 ml IV Q24H JULIANA Last Admin: 08/09/21 23:55 Dose: Not Given Documented by: Sodium Chloride (Sodium Chloride 0.65% Na Soln 45 Ml (Hayes)) 1 sprays NA PRN PRN PRN Reason: Nasal Congestion Stop: 09/10/21 07:26 Last Admin: 08/11/21 08:55 Dose: 1 sprays Documented by: PG Care Time/CCT Total # of Minutes Spent Total Time Spent: 36 Total Time Spent with Patient: Total time spent is greater than 50% in coordination of care (as documented) at patient's floor/unit and/or counseling patient: 26 minutes on exam, documentation, chart review, discussing with Dr. Underwood and with [facility] 10 minutes speaking with daughter over the phone Coding Level of Care Code 90864 Subseq Hosp Care Lvl 3 (25 - SIGNIFICANT, SEPARATELY IDENTIFIABLE ) Diagnoses Acute respiratory failure with hypoxia J96.01 2019 novel coronavirus-infected pneumonia (NCIP) U07.1; J12.82 Anxiety F41.9 Sleep apnea, unspecified G47.30
[2021-08-14] MEDS: fentaNYL DRIP 1,250 MCG/250 ML BAG IV SCH ×2 (08:53→19:08)
[2021-08-14] MEDS: busPIRone 5 MG TAB PO SCH ×3 (11:41→21:18)
[2021-08-14] MEDS: MUPIROCIN 2% OINT 22 GM TUBE EXT SCH ×2 (11:41→21:19)
[2021-08-14] MEDS: FUROSEMIDE INJ 20 MG/2 ML VIAL IV SCH ×2 (11:45→21:20)
[2021-08-14] MEDS: dexAMETHasone 6 MG in SYRINGE 0 ML IV SCH ×2 (11:45→21:18)
--- NOTE | 2021-08-14 15:40 | Critical Care Progress Note ---
Date of Service August 14, 2021 Assessment & Plan (1) ARDS (adult respiratory distress syndrome): (2) 2019 novel coronavirus-infected pneumonia (NCIP): (3) Acute respiratory failure with hypoxia: (4) Breath shortness: Plan: 56-year-old male with a noncontributory past medical history presenting to the hospital due to COVID-19 viral pneumonia and was intubated on 08/13/2021 due to worsening ARDS. Neurologic: Continue propofol, fentanyl and neuromuscular blockade while prone. We will wean sedation once supinated and hypoxia improves. Pulmonary: CRP trending up to 34.2. We will continue baricitinib for today despite intubation due to elevated CRP levels and ARDS from COVID-19 viral pneumonia. Continue lung protective ventilation. Continue proning. We will prone for 20 hours today. Plan to add prone around 8 PM. He was on nebulized Flolan overnight which has been discontinued. ABG overnight with severe hypercapnic respiratory failure. pH of 7.16, PCO2 85. PO2 102 on FiO2 50% and PEEP 14. Reached out to [facility] team 08/13/2021. They indicated that he would likely not be an ECMO candidate due to his age. He is responding well to pronation therapy. Continue Decadron 6 mg twice daily and consider dropping down to 6 mg tomorrow. Check chest x-ray after supination. Cardiovascular: No significant issues at present. Continue to maintain mean arterial pressures above 65. Gastrointestinal: We will initiate trickle tube feeds. Protonix 40 mg started daily for prophylaxis. Mild transaminitis seen improving. Renal: Mild hyponatremia. We will continue to monitor. Hyperphosphatemia noted. We will recheck labs tomorrow. Infectious disease: No concerns for superimposed infection at this time. We will check a procalcitonin. Hematologic: Continue Lovenox 40 mg daily. No issues. Endocrine: No significant issues Lines and tubes: Endotracheal tube placed 08/13/2021. Right IJ central line placed 08/13/2021. VTE prophylaxis: Lovenox for DVT prophylaxis. CODE STATUS: Full code Family at bedside: None at bedside Disposition: Remain in the ICU I have personally spent 39 minutes of critical care time in the direct management of this patient. This is a life/limb threatening event. This includes time spent evaluating patient, direct bedside care, chart review, placing orders, interpretation of diagnostic studies, discussion with consultants, patient, and family members, as well as other required patient management activities. This time is exclusive of all separately billable procedures, and teaching time and separate from and in addition to any other critical care service time. Thank you for allowing us to participate in the care of this patient. Admission and Anticipated Discharge Date Admission Date: August 10, 2021 Subjective Patient seen and examined. Currently proned, on propofol fentanyl and neuromuscular blockade. Saturations improved on proning. Nebulized Flolan is weaned off. Review of Systems Review of Systems: Unobtainable due to endotracheal tube and Unobtainable due to reduced consciousness Physical Exam Physical Exam: Constitutional: Patient is currently pronated. Eyes: Unable to fully assess due to pronation. Ears nose, mouth and throat: Endotracheal tube in place. Neck: Trachea is midline. Visual inspection is normal. Respiratory: Clear to auscultation bilaterally. Cardiovascular: Regular rate and rhythm. No murmurs. No edema. Gastrointestinal: Normal bowel sounds, soft, nontender and nondistended. Musculoskeletal: No issues. Skin: No rashes, warm dry and intact. Neurologic: Paralyzed on neuromuscular blockade Psychiatric: Unable to assess due to intubation status. Results & Data Results & Data ([facility]) Vital Signs (Past 12 Hours) Vital Signs Temp Pulse Resp BP Pulse Ox 08/14/21 15:16 84 24 96 08/14/21 12:53 88 24 96 08/14/21 12:31 99.1 F 89 25 H 108/72 96 08/14/21 12:01 99.0 F 87 24 110/74 96 08/14/21 11:31 99.0 F 88 24 112/73 96 08/14/21 11:01 99.1 F 87 24 106/76 08/14/21 10:31 99.1 F 87 24 104/74 96 08/14/21 10:01 99.1 F 87 24 106/74 95 08/14/21 09:31 99.1 F 86 24 105/74 94 08/14/21 09:01 99.0 F 87 24 105/71 95 08/14/21 08:31 99.0 F 89 24 103/76 95 08/14/21 08:18 84 24 106/72 94 08/14/21 08:14 84 24 96 10/30/21 08:01 98.8 F 89 24 109/72 96 08/14/21 07:31 98.8 F 87 24 96 08/14/21 07:00 98.2 F 86 24 104/73 95 08/14/21 06:30 98.2 F 85 24 97/71 L 92 08/14/21 06:21 83 24 98/70 L 93 08/14/21 06:00 98.4 F 84 24 92/65 L 92 08/14/21 05:30 98.6 F 85 24 92/65 L 91 08/14/21 05:21 85 24 92/64 L 90 08/14/21 05:00 98.8 F 85 24 93/63 L 90 08/14/21 04:30 99.3 F 84 18 99/67 L 92 08/14/21 04:25 78 18 99/62 L 94 08/14/21 04:00 99.5 F 79 18 98/61 L 94 08/14/21 03:30 100.0 F H 79 18 93/63 L 94 Vital signs, labs and imaging personally reviewed. Coding Level of Care Code Critical Care 1st 30-74 mins Diagnoses 2019 novel coronavirus-infected pneumonia (NCIP) U07.1; J12.82 Acute respiratory failure with hypoxia J96.01 Breath shortness R06.02 ARDS (adult respiratory distress syndrome) J80 Time Spent (min) 39
[2021-08-14 16:10] LABS: iSTAT Allen Test Pass; iSTAT Art Bld Gas pCO2 Correct 71 mmHg (35-46); iSTAT Art Bld Gas pH Corrected 7.236 (7.35-7.45); iSTAT Arterial Blood Gas HCO3 30 meg/L (19-24); iSTAT Arterial Blood Gas pCO2 72 mmHg (35-46); iSTAT Arterial Blood Gas pH 7.24 (7.35-7.45); iSTAT Arterial Blood Gas pO2 97 mmHg (80-95); iSTAT Arterial Blood Gas pO2 C 97; iSTAT Carbon Dioxide 32 mmol/L (24-31); iSTAT FiO2 50 %; iSTAT Hematocrit 43 % (42-52); iSTAT Hemoglobin 14.6 g/dl (14.0-18.0); iSTAT Site R Radial; iSTAT Sodium 137 mmol/L (135-144)
[2021-08-14] MEDS: PEPTAMEN INTENSE VHP 1.0 CAL 1,000 ML BAG OG SCH (17:32)
[2021-08-14] MEDS ORDERED: VANCOMYCIN HCL 1,750 MG in SODIUM CHLORIDE 0.9% 500 ML IV ONE (19:31)
[2021-08-14] MEDS ORDERED: VANCOMYCIN CONSULT ACTIVE PRN (19:31)
[2021-08-14] MEDS ORDERED: VANCOMYCIN HCL 2,000 MG in SODIUM CHLORIDE 0.9% 500 ML IV ONE (20:15)
[2021-08-14] MEDS: CEFEPIME 2,000 MG/20 ML VIAL IV SCH (20:21)
[2021-08-14] MEDS: BARICITINIB 2 MG TAB PO SCH (21:18)
[2021-08-14 21:31] LABS: iSTAT Allen Test Pass; iSTAT Art Bld Gas pCO2 Correct 57 mmHg (35-46); iSTAT Art Bld Gas pH Corrected 7.297 (7.35-7.45); iSTAT Arterial Blood Gas HCO3 28 meg/L (19-24); iSTAT Arterial Blood Gas pCO2 57 mmHg (35-46); iSTAT Arterial Blood Gas pO2 69 mmHg (80-95); iSTAT Arterial Blood Gas pO2 C 70; iSTAT Carbon Dioxide 30 mmol/L (24-31); iSTAT FiO2 40 %; iSTAT Hematocrit 40 % (42-52); iSTAT Hemoglobin 13.6 g/dl (14.0-18.0); iSTAT Potassium 4.7 mmol/L (3.3-5.0); iSTAT Site R Radial; iSTAT Sodium 137 mmol/L (135-144)
--- NOTE | 2021-08-14 21:33 | Communication Note ---
Date of Service: August 14, 2021 Procedure: Supination Maneuver Attending: Dr. Underwood APC: Justus Serrano PA-C Indication: Requiring lung recruitment intervention in the setting of advanced ARDS with poor lung compliance and oxygenation on standard ventilator settings. Patient requiring supination in the setting of advanced ARDS per imaging, ventilator requirements, and calculated P:F ratio. Appropriate staff was assembled including myself, Respiratory Therapy, and Nursing Staff. A time-out was completed verifying correct patient, time from recent pronation/supination, current ventilator settings, review of any prior issues during pronation/supination maneuvers. Patient was fully undressed as to be able to view all current IV sites, central venous access sites, arterial lines, endotracheal tube, Mello catheter, etc. After properly identifying/securing all lines, tubes, etc., the patient was ``papoosed using flat sheets. On my count, the patient was slid to the edge of the bed. After reevaluating all lines, tubes, etc., the patient was then placed on their side allowing for RT to maintain control of ET tube and ready for completion of Supination maneuver. Final check of all lines, tubes, etc. was completed by myself and nursing staff. Blood pressure, heart rhythm, and oxygen saturations were monitored for several minutes s/p maneuver. Discussion was held with patients RN and RT regarding ongoing management. Patient tolerated maneuver well. No immediate complications were noted. TIME SUPINE: 2030 I have personally spent 15 minutes of critical care time in the direct management of this patient. This is a life/limb threatening event. This includes time spent evaluating patient, direct bedside care, chart review, placing orders, interpretation of diagnostic studies, discussion with consultants, patient, and family members, as well as other required patient management activities. This time is exclusive of all separately billable procedures, and teaching time and separate from and in addition to any other critical care service time. Coding Level of Care Code Critical Care ea addt'l 30 min Time Spent (min) 15
--- NOTE | 2021-08-14 21:34 | XRay Report ---
XR chest 1V portable CLINICAL HISTORY: check lines and tubes TECHNIQUE: Single frontal radiograph of the chest was obtained. Comparison: Comparison is made to chest one view 08/13/2021 FINDINGS: Endotracheal tube and left venous catheter are unchanged from prior exam. The enteric tube has been r etracted and the side-port now lies in the distal esophagus. The cardiomediastinal silhouette is norm al. Ill-defined multiple airspace opacities are unchanged. No evidence of pleural effusion or pneumot horax. IMPRESSION: 1. Stable endotracheal tube and right jugular venous catheter. Enteric tube has been withdrawn and t he side-port is now the distal esophagus, can be advanced approximately 8 cm for improved positioning . 2. Interval stability of multifocal airspace opacities. ACT 112: Negative or not required by law. Electronically signed by: Zak Chappell M.D. 08/14/2021 9:33 PM
[2021-08-15 01:08] LABS: Appearance Urine Cloudy (Clear); Bacteria Urine Automated Negative (Negative); Bilirubin Urine Negative (Negative); Blood Urine 1+ (Negative); Color Urine Yellow; Epithelial Cell Urine Auto >30 /lpf (0-5); Glucose Urine UA Negative (Negative); Ketones Urine Negative (Negative); Leukocyte Esterase Urine Negative (Negative); Nitrite Urine Negative (Negative); Protein Urine 1+ (Negative); Specific Gravity Urine 1.015 (1.000-1.030); Urobilinogen Urine Negative (Negative)
[2021-08-15 01:25] LABS: Amorphous Sediment Urine Present (None Prsent)
[2021-08-15] MEDS: ARTIFICIAL TEARS OP OINT 3.5 GM TUBE OP SCH ×6 (01:30→20:33)
[2021-08-15] MEDS: propofoL 1,000 MG/100 ML VIAL IV SCH ×9 (02:24→23:42)
[2021-08-15] MEDS: fentaNYL DRIP 1,250 MCG/250 ML BAG IV SCH ×3 (04:04→22:06)
[2021-08-15] MEDS: CEFEPIME 2,000 MG/20 ML VIAL IV SCH ×3 (04:05→19:25)
[2021-08-15 04:58] LABS: Basophils # (auto) 0.01 K/uL (0-0.2); Basophils % (auto) 0.1 %; Eosinophils # (auto) 0.01 K/uL (0-0.5); Eosinophils % (auto) 0.1 %; Hematocrit (blood only) 38.6 % (42-52); Hemoglobin 13.4 g/dL (14.0-18.0); Immature Granulocytes # (auto) 0.02 K/uL (0.00-0.02); Immature Granulocytes % (auto) 0.2 %; Lymphocytes # (auto) 0.29 K/uL (1.2-3.4); Lymphocytes % (auto) 3.4 %; Mean Corpuscular Hemoglobin 31.4 pg (25-34); Mean Corpuscular Hgb Conc 34.7 g/dL (32-36); Mean Corpuscular Volume 90.4 fL (80-100); Mean Platelet Volume 11.6 fL (7.4-10.4); Monocytes # (auto) 0.16 K/uL (0.11-0.59); Monocytes % (auto) 1.9 %; Neutrophils # (auto) 8.02 K/uL (1.4-6.5); Neutrophils % (auto) 94.3 %; Platelet Count 185 K/uL (130-400); RDW Coefficient of Variation 13.2 % (11.5-14.5); RDW Standard Deviation 43.9 fL (36.4-46.3); Red Blood Count 4.27 M/uL (4.7-6.1); White Blood Count 8.51 K/uL (4.8-10.8)
[2021-08-15] MEDS: NOREPINEPHRINE/D5W 8 MG/508 ML BAG IV SCH (05:08)
[2021-08-15 05:18] LABS: Albumin Level 1.9 gm/dl (3.4-5.0); BUN Creatinine Ratio 36.3 (10-20); Calcium 8.2 mg/dl (8.5-10.1); Creatinine Clr Calc Pharmacy 75.2 ml/min; Est GFR (African American) 78.1 ml/min; Est GFR (Non-African American) 67.4 ml/min; Magnesium 3.5 mg/dl (1.8-2.4); Potassium 4.4 mmol/L (3.5-5.1)
[2021-08-15 05:44] LABS: Bilirubin Direct 0.6 mg/dl (0-0.2); Bilirubin,Total 1.1 mg/dl (0.2-1); Phosphorus 2.8 mg/dl (2.5-4.9); Total Protein 7.1 gm/dl (6.4-8.2)
[2021-08-15 05:48] LABS: iSTAT Allen Test Pass; iSTAT Art Bld Gas pCO2 Correct 45 mmHg (35-46); iSTAT Art Bld Gas pH Corrected 7.377 (7.35-7.45); iSTAT Arterial Blood Gas HCO3 26 meg/L (19-24); iSTAT Arterial Blood Gas pCO2 44 mmHg (35-46); iSTAT Arterial Blood Gas pH 7.38 (7.35-7.45); iSTAT Arterial Blood Gas pO2 53 mmHg (80-95); iSTAT Arterial Blood Gas pO2 C 55; iSTAT Carbon Dioxide 28 mmol/L (24-31); iSTAT FiO2 40 %; iSTAT Hematocrit 35 % (42-52); iSTAT Hemoglobin 11.9 g/dl (14.0-18.0); iSTAT Potassium 4.4 mmol/L (3.3-5.0); iSTAT Site R Radial; iSTAT Sodium 136 mmol/L (135-144)
[2021-08-15] MEDS: CISATRACURIUM BESYLATE 100 MG in SODIUM CHLORIDE 0.9% 200 ML IV SCH ×3 (05:53→14:02)
[2021-08-15] MEDS: MUPIROCIN 2% OINT 22 GM TUBE EXT SCH ×2 (08:23→20:11)
[2021-08-15] MEDS: FUROSEMIDE INJ 20 MG/2 ML VIAL IV SCH (08:23)
[2021-08-15] MEDS: busPIRone 5 MG TAB PO SCH ×3 (08:23→20:11)
[2021-08-15] MEDS: dexAMETHasone 6 MG in SYRINGE 0 ML IV SCH (08:23)
[2021-08-15] MEDS ORDERED: VANCOMYCIN HCL 750 MG in SODIUM CHLORIDE 0.9% 250 ML IV SCH (09:00)
--- NOTE | 2021-08-15 09:13 | XRay Report ---
XR chest 1V portable HISTORY: Respiratory failure. Follow-up. COMPARISON: Chest 08/14/2021. FINDINGS: Lines and tubes appear in good position with the endotracheal tube terminating 2.3 cm from the lizzy. No pneumothorax. No pleural effusions. Diffuse interstitial thickening with multifocal bi lateral airspace opacities persist. The heart is normal in size. IMPRESSION: 1. Satisfactory support line placement. 2. No change in the multifocal airspace opacities likely representing a viral pneumonia. ACT 112: Negative or not required by law. Electronically signed by: Cory Rousseau M.D. 08/15/2021 9:11 AM
--- NOTE | 2021-08-15 09:35 | Pharmacy Report ---
Pharmacy Abx Initial Consult - Date of Service August 15, 2021 - Pharmacy Dosing Scope Date of Consult: 08/14/21 Consultation requested by: Dr. Underwood Pharmacy is consulted to initiate vancomycin IV dosing therapy, order appropriate labs and adjust drug dose/frequency. - Subjective The patient is a 56 year old M admitted on 08/10/21 00:10. - Objective Height: 6 ft Weight: 90.3 kg Vital Signs (Past 12hrs): Vital Signs Temp Pulse Resp BP Pulse Ox 08/15/21 08:00 86 28 H 92 08/15/21 06:00 37.5 C 82 25 H 107/77 92 08/15/21 05:30 37.4 C 82 28 H 85/62 L 87 L 08/15/21 05:28 82 28 H 87 L 08/15/21 05:00 37.4 C 84 28 H 104/73 87 L 08/15/21 04:30 37.3 C 86 28 H 112/77 90 08/15/21 04:00 37.3 C 94 H 28 H 110/72 88 L 08/15/21 03:30 37.3 C 95 H 28 H 110/73 89 L 08/15/21 03:00 37.2 C 94 H 28 H 116/78 90 08/15/21 02:30 37.3 C 94 H 28 H 115/78 90 08/15/21 02:00 37.3 C 96 H 28 H 108/73 89 L 08/15/21 01:30 37.4 C 97 H 28 H 105/71 88 L 08/15/21 01:21 98 H 28 H 90 08/15/21 01:00 37.5 C 98 H 28 H 107/72 89 L 08/15/21 00:30 37.8 C H 100 H 28 H 125/85 89 L 08/15/21 00:00 38.1 C H 93 H 28 H 79/53 L 08/14/21 23:45 97 H 08/14/21 23:30 38.2 C H 97 H 28 H 102/68 90 08/14/21 23:00 37.9 C H 95 H 28 H 135/92 95 08/14/21 22:30 37.7 C H 95 H 28 H 117/80 95 08/14/21 22:28 96 H 28 H 95 08/14/21 22:00 37.6 C H 96 H 101/72 90 08/14/21 21:30 94 H 28 H 113/78 90 Lab Results (24hrs): Laboratory Tests (24 Hours) 08/15/21 08/15/21 08/15/21 04:32 04:32 04:32 WBC 8.51 Neut # (Auto) 8.02 H Creatinine 1.19 Est Cr Clr Drug Dosing 75.2 C-Reactive Protein 32.00 H Procalcitonin 11.45 H 08/14/21 16:06 WBC Neut # (Auto) Creatinine Est Cr Clr Drug Dosing C-Reactive Protein Procalcitonin 13.34 H Micro Results: 08/15/21 08:30 Gram Stain - Pending Sputum,Vent Suction Sputum Culture - Pending 08/09/21 16:15 Aerobic Blood Culture - Final Blood No growth in Aerobic bottle after 5 days. Anaerobic Blood Culture - Final No growth in Anaerobic bottle after 5 days. 08/09/21 16:59 Aerobic Blood Culture - Final Blood No growth in Aerobic bottle after 5 days. Anaerobic Blood Culture - Final No growth in Anaerobic bottle after 5 days. 08/14/21 23:00 Aerobic Blood Culture - Pending Blood Anaerobic Blood Culture - Pending 08/14/21 23:00 Aerobic Blood Culture - Pending Blood Anaerobic Blood Culture - Pending - Assessment & Plan Assessment * 56 year old M male admitted to the hospital due to COVID-19 viral pneumonia. He was subsequently intubated on 08/13/2021 due to worsening ARDS. * Placed on vancomycin + cefepime therapy last evening Plan Vancomycin IV * Loading dose: 2000mg IV x1 * Maintenance dose: 1000mg IV q12h * This dose is predicted to achieve target AUC/CHRISTINA of 400-600 mg/L.hr * AUC/CHRISTINA is the preferred PK/PD target for vancomycin * AUC guided dosing is effective and associated with decreased risk of nephrotoxicity compared to traditional trough targets * Trough ordered for: 08/16 @ 2029 Cefepime * Not a pharmacy consult, but dose is appropriate given patient's indication and renal function Pharmacy will continue to follow and will adjust dose/frequency as necessary. Thank you.
[2021-08-15] MEDS: PANTOprazole 40 MG in SYRINGE 0 ML IV SCH (10:10)
--- NOTE | 2021-08-15 10:15 | Critical Care Progress Note ---
Date of Service August 15, 2021 Assessment & Plan (1) ARDS (adult respiratory distress syndrome): (2) 2019 novel coronavirus-infected pneumonia (NCIP): (3) Acute respiratory failure with hypoxia: (4) Breath shortness: Plan: 56-year-old male with a noncontributory past medical history presenting to the hospital due to COVID-19 viral pneumonia and was intubated on 08/13/2021 due to worsening ARDS. Neurologic: Continue propofol, fentanyl and neuromuscular blockade while prone. He has been from this morning for roughly 9 AM. We will continue proning for 20 hours. Will attempt weaning neuromuscular blockade. Pulmonary: Intubated 08/13/2021. Continue lung protective ventilation. Continue proning. We will prone for 20 hours today. Nebulized Flolan weaned off the night of his intubation. ABG improved. Reached out to [facility] team 08/13/2021. They indicated that he would likely not be an ECMO candidate due to his age. He is responding well to pronation therapy. Reduce Decadron to 6 mg daily. Will discontinue baricitinib due to elevated procalcitonin and intubation status. I was present for the proning event today. No significant complications with proning. Cardiovascular: No significant issues at present. Continue to maintain mean arterial pressures above 65. Gastrointestinal: Advance tube feeds.. Protonix 40 mg started daily for prophylaxis. Mild transaminitis seen improving. Renal: Labs stable today. Phosphate level improved. Creatinine stable. BUN trending up. We will hold IV diuresis today. Infectious disease: Procalcitonin elevated and trending down slightly. This may be related to viral pneumonia. MRSA screen negative. Vancomycin discontinued. Continue empiric cefepime. Hematologic: Continue Lovenox 40 mg daily. No issues. Endocrine: No significant issues Lines and tubes: Endotracheal tube placed 08/13/2021. Right IJ central line placed 08/13/2021. VTE prophylaxis: Lovenox for DVT prophylaxis. CODE STATUS: Full code Family at bedside: None at bedside Disposition: Remain in the ICU I have personally spent 46 minutes of critical care time in the direct management of this patient. This is a life/limb threatening event. This includes time spent evaluating patient, direct bedside care, chart review, placing orders, interpretation of diagnostic studies, discussion with consultants, patient, and family members, as well as other required patient management activities. This time is exclusive of all separately billable procedures, and teaching time and separate from and in addition to any other critical care service time. Thank you for allowing us to participate in the care of this patient. Admission and Anticipated Discharge Date Admission Date: August 10, 2021 Subjective Patient placed supine overnight. He was proned this morning. He remains hemodynamically stable. Settings improved considerably and is currently on 40% FiO2 and a PEEP of 14. Remains on neuromuscular blockade with Nimbex. He is currently on propofol possible. Review of Systems Review of Systems: Unobtainable due to endotracheal tube and Unobtainable due to reduced consciousness Physical Exam Physical Exam: Constitutional: Patient is currently pronated. Eyes: Unable to fully assess due to pronation. Ears nose, mouth and throat: Endotracheal tube in place. Neck: Trachea is midline. Visual inspection is normal. Respiratory: Clear to auscultation bilaterally. Cardiovascular: Regular rate and rhythm. No murmurs. No edema. Gastrointestinal: Normal bowel sounds, soft, nontender and nondistended. Musculoskeletal: No issues. Skin: No rashes, warm dry and intact. Neurologic: Paralyzed on neuromuscular blockade Psychiatric: Unable to assess due to intubation status. Results & Data Results & Data ([facility]) Vital Signs (Past 12 Hours) Vital Signs Temp Pulse Resp BP Pulse Ox Pulse Ox 08/15/21 08:00 86 28 H 92 94 08/15/21 06:00 99.5 F 82 25 H 107/77 92 08/15/21 05:30 99.3 F 82 28 H 85/62 L 87 L 08/15/21 05:28 82 28 H 87 L 08/15/21 05:00 99.3 F 84 28 H 104/73 87 L 08/15/21 04:30 99.1 F 86 28 H 112/77 90 08/15/21 04:00 99.1 F 94 H 28 H 110/72 88 L 08/15/21 03:30 99.1 F 95 H 28 H 110/73 89 L 08/15/21 03:00 99.0 F 94 H 28 H 116/78 90 08/15/21 02:30 99.1 F 94 H 28 H 115/78 90 08/15/21 02:00 99.1 F 96 H 28 H 108/73 89 L 08/15/21 01:30 99.3 F 97 H 28 H 105/71 88 L 08/15/21 01:21 98 H 28 H 90 08/15/21 01:00 99.5 F 98 H 28 H 107/72 89 L 08/15/21 00:30 100.0 F H 100 H 28 H 125/85 89 L 08/15/21 00:00 100.6 F H 93 H 28 H 79/53 L 08/14/21 23:45 97 H 08/14/21 23:30 100.8 F H 97 H 28 H 102/68 90 08/14/21 23:00 100.2 F H 95 H 28 H 135/92 95 08/14/21 22:30 99.9 F H 95 H 28 H 117/80 95 08/14/21 22:28 96 H 28 H 95 Vital signs, labs and imaging personally reviewed Coding Level of Care Code Critical Care 1st 30-74 mins Diagnoses ARDS (adult respiratory distress syndrome) J80 2019 novel coronavirus-infected pneumonia (NCIP) U07.1; J12.82 Acute respiratory failure with hypoxia J96.01 Breath shortness R06.02 Time Spent (min) 46
--- NOTE | 2021-08-15 11:42 | Hospitalist Progress Note ---
Date of Service August 15, 2021 Assessment & Plan (1) Acute respiratory failure with hypoxia: Plan: 56 y/o male w/ PMHx of anxiety and GERMAN who presents w/ acute hypoxic respiratory failure secondary to covid-19 pneumonia on day 9 of symptoms (08/01/21 onset) was stable on 40L and 80% for two days, declined in status on 08/13, up to 60L and 100% placed on BIPAP 15/8 and FiO2 70%, did not tolerate, got more confused, saturations dropping Dr. Underwood intubated patient at night on 08/13 currently prone, paralyzed, sedated, PEEP down to 12 FiO2 down to 40% dexamethasone 6mg IV BID, day 7 of steroids, day 3 of BID dosing baricitinib 4mg daily initially, stopped when intubated CTA chest negative for PE, showed bilateral viral pneumonia CRP was down to 7, now up to 32 CXR 08/13 and 08/14 with worsening opacities spoke with [facility], age cutoff is 55, other facilities it is lower at 45 they agreed with current management, can keep them updated, might consider him given that he is otherwise a very healthy 56 yo would reach out to [facility] again if A/F ratio is < 80, today it is 105 with PaO2 53 on 50% FiO2 (2) 2019 novel coronavirus-infected pneumonia (NCIP): Plan: sick since 08/01 treating with dexamethasone 6mg q12 and baricitinib 4mg daily (stopped when intubated) CRP trending back up and breathing is worse, intubated 08/13 continue ARDSnet protocol, prone if he would get worse on ventilator, would reach out to [facility] specialists again right now there is not an indication (3) Anxiety: Plan: now sedated used Ativan 0.5mg IV prior to needing intubated (4) Sleep apnea, unspecified: Plan: - per patient, had trialed cpap in past, but could not tolerate mask Plan: FEN/GI: trickle tube feeds ppx: Lovenox, Protonix code: full dispo:ICU status Admission and Anticipated Discharge Date Admission Date: August 10, 2021 Subjective no major issues past 24 hours he was turned supine at 8pm, moved back to prone 845am today PEEP is 12, FiO2 40% weaning back Nimbex to see how he does watch tube feeds, getting some residuals, ICU added Protonix Cr is normal, CRP is still very high at 32 I updated his daughter Niurka Review of Systems Review of Systems: Unobtainable due to endotracheal tube and Unobtainable due to reduced consciousness Physical Exam Physical Exam: General: well developed, well nourished, mechanically ventilated, prone Neck: supple, trachea midline, normal thyroid Lungs: clear to auscultation bilaterally, symmetric chest movement on ventilator Heart: regular S1 and S2, no murmur, peripheral pulses normal, capillary refill normal, no edema Abdomen: cannot examine due to patient being prone Extremities: normal in appearance, no cyanosis, no petechiae, paralyzed Neuro: sedated, CN II-XII intact, no focal deficits Skin: warm, dry, no rash, normal turgor Psych: sedated Results & Data Results & Data ([facility]) Vital Signs (Past 12 Hours) Vital Signs Temp Pulse Resp BP Pulse Ox Pulse Ox 08/15/21 08:00 85 28 H 92 94 08/15/21 06:00 37.5 C 82 25 H 107/77 92 08/15/21 05:30 37.4 C 82 28 H 85/62 L 87 L 08/15/21 05:28 82 28 H 87 L 08/15/21 05:00 37.4 C 84 28 H 104/73 87 L 08/15/21 04:30 37.3 C 86 28 H 112/77 90 08/15/21 04:00 37.3 C 94 H 28 H 110/72 88 L 08/15/21 03:30 37.3 C 95 H 28 H 110/73 89 L 08/15/21 03:00 37.2 C 94 H 28 H 116/78 90 08/15/21 02:30 37.3 C 94 H 28 H 115/78 90 08/15/21 02:00 37.3 C 96 H 28 H 108/73 89 L 08/15/21 01:30 37.4 C 97 H 28 H 105/71 88 L 08/15/21 01:21 98 H 28 H 90 08/15/21 01:00 37.5 C 98 H 28 H 107/72 89 L 08/15/21 00:30 37.8 C H 100 H 28 H 125/85 89 L 08/15/21 00:00 38.1 C H 93 H 28 H 79/53 L 08/14/21 23:45 97 H Laboratory Results Laboratory Results - last 24 hr 08/14/21 08/14/21 08/14/21 03:20 15:51 16:06 WBC RBC Hgb POC Hgb 14.6 Hct POC Hct 43 MCV MCH MCHC RDW Std Deviation RDW Coeff of Nicole Plt Count MPV Immature Gran % (Auto) Neut % (Auto) Lymph % (Auto) [place] % (Auto) Eos % (Auto) Baso % (Auto) Neut # (Auto) Lymph # (Auto) [place]agoner # (Auto) Eos # (Auto) Baso # (Auto) Immature Gran # (Auto) Sample Site R Radial POC pH 7.24 L POC pCO2 72 H POC pO2 97 H POC HCO3 30 H POC Total CO2 32 H POC Base Excess 3.0 H ABG pH (Temp Correct) 7.236 L ABG pCO2 (Temp Corrct 71 H POC ABG pO2 at Pt Temp 97 POC ABG O2 Sat 96.0 H Hemanth Test Pass O2 Delivery Device Ventilator POC O2 Rate 24 Minute Ventilation 9 POC FiO2 50 Tidal Volume 380 PEEP 14 POC Sodium 137 Sodium POC Potassium 5.0 Potassium Chloride Carbon Dioxide Anion Gap BUN Creatinine Est Cr Clr Drug Dosing Est GFR ( Amer) Est GFR (Non-Af Amer) BUN/Creatinine Ratio Glucose POC Glucose Calcium Phosphorus Magnesium Total Bilirubin Direct Bilirubin AST ALT Alkaline Phosphatase C-Reactive Protein Total Protein Albumin Procalcitonin 13.34 H Urine Color Urine Appearance Urine pH Ur Specific [place] Urine Protein Urine Glucose (UA) Urine Ketones Urine Blood Urine Nitrite Urine Bilirubin Urine Urobilinogen Ur Leukocyte Esterase Urine WBC (Auto) Urine RBC (Auto) U Hyaline Cast (Auto) U Epithel Cells (Auto) Urine Bacteria (Auto) Ur Renal Epithelial Cell Amorphous Sediment Granular Casts Urine Yeast Nasal Screen MRSA (PCR) Negative 08/14/21 08/14/21 08/14/21 19:23 21:18 23:10 WBC RBC Hgb POC Hgb 13.6 L Hct POC Hct 40 L MCV MCH MCHC RDW Std Deviation RDW Coeff of Nicole Plt Count MPV Immature Gran % (Auto) Neut % (Auto) Lymph % (Auto) [place]agon[place] % (Auto) Eos % (Auto) Baso % (Auto) Neut # (Auto) Lymph # (Auto) Wagoner # (Auto) Eos # (Auto) Baso # (Auto) Immature Gran # (Auto) Sample Site R Radial POC pH 7.30 L POC pCO2 57 H POC pO2 69 L POC HCO3 28 H POC Total CO2 30 POC Base Excess 2.0 H ABG pH (Temp Correct) 7.297 L ABG pCO2 (Temp Corrct 57 H POC ABG pO2 at Pt Temp 70 POC ABG O2 Sat 91.0 Hemanth Test Pass O2 Delivery Device Ventilator POC O2 Rate 28 Minute Ventilation 10.6 POC FiO2 40 Tidal Volume 380 PEEP 14 POC Sodium 137 Sodium POC Potassium 4.7 Potassium Chloride Carbon Dioxide Anion Gap BUN Creatinine Est Cr Clr Drug Dosing Est GFR ( Amer) Est GFR (Non-Af Amer) BUN/Creatinine Ratio Glucose POC Glucose 134 H 154 H Calcium Phosphorus Magnesium Total Bilirubin Direct Bilirubin AST ALT Alkaline Phosphatase C-Reactive Protein Total Protein Albumin Procalcitonin Urine Color Urine Appearance Urine pH Ur Specific [place] Urine Protein Urine Glucose (UA) Urine Ketones Urine Blood Urine Nitrite Urine Bilirubin Urine Urobilinogen Ur Leukocyte Esterase Urine WBC (Auto) Urine RBC (Auto) U Hyaline Cast (Auto) U Epithel Cells (Auto) Urine Bacteria (Auto) Ur Renal Epithelial Cell Amorphous Sediment Granular Casts Urine Yeast Nasal Screen MRSA (PCR) 08/14/21 08/15/21 08/15/21 23:34 04:32 04:32 WBC 8.51 RBC 4.27 L Hgb 13.4 L POC Hgb Hct 38.6 L POC Hct MCV 90.4 MCH 31.4 MCHC 34.7 RDW Std Deviation 43.9 RDW Coeff of Nicole 13.2 Plt Count 185 MPV 11.6 H Immature Gran % (Auto) 0.2 Neut % (Auto) 94.3 Lymph % (Auto) 3.4 Wagoner % (Auto) 1.9 Eos % (Auto) 0.1 Baso % (Auto) 0.1 Neut # (Auto) 8.02 H Lymph # (Auto) 0.29 L [place]er # (Auto) 0.16 Eos # (Auto) 0.01 Baso # (Auto) 0.01 Immature Gran # (Auto) 0.02 Sample Site POC pH POC pCO2 POC pO2 POC HCO3 POC Total CO2 POC Base Excess ABG pH (Temp Correct) ABG pCO2 (Temp Corrct POC ABG pO2 at Pt Temp POC ABG O2 Sat Hemanth Test O2 Delivery Device POC O2 Rate Minute Ventilation POC FiO2 Tidal Volume PEEP POC Sodium Sodium 135 L POC Potassium Potassium 4.4 Chloride 103 Carbon Dioxide 27 Anion Gap 5.0 BUN 43 H Creatinine 1.19 Est Cr Clr Drug Dosing 75.2 Est GFR ( Amer) 78.1 Est GFR (Non-Af Amer) 67.4 BUN/Creatinine Ratio 36.3 H Glucose 168 H POC Glucose Calcium 8.2 L Phosphorus 2.8 D Magnesium 3.5 H Total Bilirubin 1.1 H Direct Bilirubin 0.6 H AST 30 ALT 66 Alkaline Phosphatase 79 C-Reactive Protein 32.00 H Total Protein 7.1 Albumin 1.9 L Procalcitonin Urine Color Yellow Urine Appearance Cloudy A Urine pH 5.0 Ur Specific [place] 1.015 Urine Protein 1+ H Urine Glucose (UA) Negative Urine Ketones Negative Urine Blood 1+ H Urine Nitrite Negative Urine Bilirubin Negative Urine Urobilinogen Negative Ur Leukocyte Esterase Negative Urine WBC (Auto) 10-30 H Urine RBC (Auto) 5-10 H U Hyaline Cast (Auto) 1-5 U Epithel Cells (Auto) >30 H Urine Bacteria (Auto) Negative Ur Renal Epithelial Cell Not Reportable Amorphous Sediment Present A Granular Casts 1-5 H Urine Yeast Not Reportable Nasal Screen MRSA (PCR) 08/15/21 08/15/21 08/15/21 04:32 05:34 10:23 WBC RBC Hgb POC Hgb 11.9 L Hct POC Hct 35 L MCV MCH MCHC RDW Std Deviation RDW Coeff of Nicole Plt Count MPV Immature Gran % (Auto) Neut % (Auto) Lymph % (Auto) [place] % (Auto) Eos % (Auto) Baso % (Auto) Neut # (Auto) Lymph # (Auto) [place] # (Auto) Eos # (Auto) Baso # (Auto) Immature Gran # (Auto) Sample Site R Radial POC pH 7.38 POC pCO2 44 POC pO2 53 L POC HCO3 26 H POC Total CO2 28 POC Base Excess 1.0 ABG pH (Temp Correct) 7.377 ABG pCO2 (Temp Corrct 45 POC ABG pO2 at Pt Temp 55 POC ABG O2 Sat 86.0 L Hemanth Test Pass O2 Delivery Device Ventilator POC O2 Rate 28 Minute Ventilation 11.2 POC FiO2 40 Tidal Volume 400 PEEP 12 POC Sodium 136 Sodium POC Potassium 4.4 Potassium Chloride Carbon Dioxide Anion Gap BUN Creatinine Est Cr Clr Drug Dosing Est GFR ( Amer) Est GFR (Non-Af Amer) BUN/Creatinine Ratio Glucose POC Glucose 146 H Calcium Phosphorus Magnesium Total Bilirubin Direct Bilirubin AST ALT Alkaline Phosphatase C-Reactive Protein Total Protein Albumin Procalcitonin 11.45 H Urine Color Urine Appearance Urine pH Ur Specific [place] Urine Protein Urine Glucose (UA) Urine Ketones Urine Blood Urine Nitrite Urine Bilirubin Urine Urobilinogen Ur Leukocyte Esterase Urine WBC (Auto) Urine RBC (Auto) U Hyaline Cast (Auto) U Epithel Cells (Auto) Urine Bacteria (Auto) Ur Renal Epithelial Cell Amorphous Sediment Granular Casts Urine Yeast Nasal Screen MRSA (PCR) Medications Administered Current Inpatient Medications Buspirone HCl (Buspirone 5 Mg Tab) 5 mg PO TID [facility] Stop: 09/11/21 20:59 Last Admin: 08/15/21 08:23 Dose: 5 mg Documented by: Enoxaparin Sodium (Enoxaparin Inj 40 Mg/0.4 Ml Syr) 40 mg SQ Q24H [facility] Stop: 09/08/21 23:30 Last Admin: 08/14/21 23:06 Dose: 40 mg Documented by: Fentanyl Citrate (Fentanyl Bolus From Bag) 50 mcg IV Q60M PRN PRN Reason: Pain or Agitation Stop: 08/27/21 21:27 Promethazine HCl 12.5 mg/ (Sodium Chloride) 50.5 mls @ 202 mls/hr IV Q6H PRN PRN Reason: Nausea And Vomiting Stop: 09/11/21 17:50 Last Infusion: 08/12/21 21:36 Dose: Infused Documented by: Acetaminophen (Ofirmev) 1,000 mg in 100 mls @ 400 mls/hr IV Q8H PRN PRN Reason: Fever Stop: 08/16/21 15:55 Last Infusion: 08/14/21 23:32 Dose: Infused Documented by: Propofol (Diprivan) 1,000 mg in 100 mls @ 20.013 mls/hr IV .Q5H [facility]; Protocol Stop: 08/16/21 21:29 Last Admin: 08/15/21 08:26 Dose: 35 mcg/kg/min, 20 mls/hr Documented by: Fentanyl Citrate (Fentanyl Drip) 1,250 mcg in 250 mls @ 30 mls/hr IV .Q8H20M [facility]; Protocol Stop: 08/27/21 21:29 Last Titration: 08/15/21 07:12 Dose: 150 mcg/hr, 30 mls/hr Documented by: Norepinephrine Bitartrate (Levophed/D5w) 8 mg in 508 mls @ 0 mls/hr IV .Q0M [facility]; Protocol Stop: 09/12/21 23:29 Last Titration: 08/15/21 09:00 Dose: 0 mcg/kg/min, 0 mls/hr Documented by: Cisatracurium Besylate 100 mg/ (Sodium Chloride) 250 mls @ 29.1 mls/hr IV .Q8H36M [facility]; Protocol Stop: 09/13/21 01:44 Last Titration: 08/15/21 10:10 Dose: 2.5 mcg/kg/min, 29.1 mls/hr Documented by: Pantoprazole Sodium 40 mg/ (Syringe) 10 mls @ 5 mls/min IV DAILY@1100 [facility] Stop: 09/14/21 10:59 Last Admin: 08/15/21 10:10 Dose: 5 mls/min Documented by: Cefepime HCl (Maxipime) 2,000 mg in 20 mls @ 5 mls/min IV Q8H [facility]; Protocol Stop: 08/21/21 20:03 Last Admin: 08/15/21 04:05 Dose: 5 mls/min Documented by: Dexamethasone 6 mg/ Syringe 1.5 mls @ 1 mls/min IV DAILY [facility] Stop: 09/15/21 08:59 Ibuprofen (Ibuprofen 200 Mg Tab) 400 mg PO QID PRN PRN Reason: Headache Stop: 09/10/21 20:18 Last Admin: 08/11/21 20:48 Dose: 400 mg Documented by: Multi-Ingredient Cream (Artificial Tears Op Oint 3.5 Gm Tube) 1 appln OP Q4H [facility] Stop: 09/12/21 21:29 Last Admin: 08/15/21 08:24 Dose: 1 appln Documented by: Mupirocin (Mupirocin 2% Oint 22 Gm Tube) 1 appln EXT BID [facility] Stop: 09/10/21 08:59 Last Admin: 08/15/21 08:23 Dose: 1 appln Documented by: Nutritional Formula (Peptamen Intense Vhp 1.0 Porter 1,000 Ml Bag) 1,000 ml OG CONT [facility]; Protocol Stop: 09/13/21 15:44 Last Admin: 08/14/21 17:32 Dose: 1,000 ml Documented by: Ondansetron HCl (Ondansetron Inj 2 Mg/Ml 2 Ml Vial) 4 mg IV Q4H PRN PRN Reason: Nausea Stop: 09/11/21 17:50 Last Admin: 08/13/21 06:23 Dose: 4 mg Documented by: Phenol (Chloraseptic 1.4% Soln 180 Ml Btl) 2 sprays MT Q4H PRN PRN Reason: Sore Throat Stop: 09/11/21 23:27 Last Admin: 08/13/21 00:06 Dose: 2 sprays Documented by: Polyethylene Glycol (Polyethylene (Miralax) 17 Gm Pack) 17 gm PO DAILY PRN PRN Reason: constipation Stop: 09/11/21 19:29 Last Admin: 08/13/21 00:06 Dose: 17 gm Documented by: Propofol (Propofol Bolus From Bag) 20 mg IV Q5M PRN PRN Reason: Sedation Stop: 08/16/21 21:27 Sodium Chloride (Sodium Chloride 0.9% 10ml Flush) 30 ml IV Q24H JULIANA Last Admin: 08/09/21 23:55 Dose: Not Given Documented by: Sodium Chloride (Sodium Chloride 0.65% Na Soln 45 Ml (Stanly)) 1 sprays NA PRN PRN PRN Reason: Nasal Congestion Stop: 09/10/21 07:26 Last Admin: 08/11/21 08:55 Dose: 1 sprays Documented by: PG Care Time/CCT Total # of Minutes Spent Total Time Spent with Patient: Total time spent is greater than 50% in coordination of care (as documented) at patient's floor/unit and/or counseling patient: Coding Level of Care Code 59436 Subseq Hosp Care Lvl 2 Diagnoses Acute respiratory failure with hypoxia J96.01 2019 novel coronavirus-infected pneumonia (NCIP) U07.1; J12.82 Anxiety F41.9 Sleep apnea, unspecified G47.30
[2021-08-15] MEDS ORDERED: STAT IV Infusion **Titration per Protocol STA (14:44)
[2021-08-15] MEDS: PROPOFOL BOLUS FROM BAG IV PRN ×2 (16:23→22:37)
[2021-08-15] MEDS: MIDAZOLAM HCL 125 MG/250 ML BAG IV PRN (19:25)
[2021-08-15] MEDS ORDERED: VANCOMYCIN HCL 1,000 MG in SODIUM CHLORIDE 0.9% 250 ML IV SCH (21:00)
[2021-08-15] MEDS: ENOXAPARIN INJ 40 MG/0.4 ML SYR SQ SCH (22:38)
[2021-08-16] MEDS: ARTIFICIAL TEARS OP OINT 3.5 GM TUBE OP SCH ×6 (01:16→19:54)
[2021-08-16] MEDS: propofoL 1,000 MG/100 ML VIAL IV SCH ×7 (02:47→20:47)
[2021-08-16] MEDS: CEFEPIME 2,000 MG/20 ML VIAL IV SCH ×3 (04:16→19:53)
[2021-08-16] MEDS: PEPTAMEN INTENSE VHP 1.0 CAL 1,000 ML BAG OG SCH (04:42)
[2021-08-16] MEDS: fentaNYL DRIP 1,250 MCG/250 ML BAG IV SCH ×5 (04:42→17:24)
--- NOTE | 2021-08-16 05:20 | Communication Note ---
Date of Service: August 16, 2021 Procedure: Supination Maneuver Attending: Dr. Underwood APC: Justus Serrano PA-C Indication: Requiring lung recruitment intervention in the setting of advanced ARDS with poor lung compliance and oxygenation on standard ventilator settings. Patient requiring supination in the setting of advanced ARDS per imaging, ventilator requirements, and calculated P:F ratio. Appropriate staff was assembled including myself, Respiratory Therapy, and Nursing Staff. A time-out was completed verifying correct patient, time from recent pronation/supination, current ventilator settings, review of any prior issues during pronation/supination maneuvers. Patient was fully undressed as to be able to view all current IV sites, central venous access sites, arterial lines, endotracheal tube, Mello catheter, etc. After properly identifying/securing all lines, tubes, etc., the patient was ``papoosed using flat sheets. On my count, the patient was slid to the edge of the bed. After reevaluating all lines, tubes, etc., the patient was then placed on their side allowing for RT to maintain control of ET tube and ready for completion of Supination maneuver. Final check of all lines, tubes, etc. was completed by myself and nursing staff. Blood pressure, heart rhythm, and oxygen saturations were monitored for several minutes s/p maneuver. Discussion was held with patients RN and RT regarding ongoing management. Patient tolerated maneuver well. No immediate complications were noted. TIME SUPINE: 0500 I have personally spent 15 minutes of critical care time in the direct management of this patient. This is a life/limb threatening event. This includes time spent evaluating patient, direct bedside care, chart review, placing orders, interpretation of diagnostic studies, discussion with consultants, patient, and family members, as well as other required patient management activities. This time is exclusive of all separately billable procedures, and teaching time and separate from and in addition to any other critical care service time. Coding Level of Care Code Critical Care 1st 30-74 mins Time Spent (min) 15
[2021-08-16 05:24] LABS: Basophils # (auto) 0.01 K/uL (0-0.2); Basophils % (auto) 0.1 %; Eosinophils # (auto) 0.09 K/uL (0-0.5); Hematocrit (blood only) 35.6 % (42-52); Hemoglobin 12.1 g/dL (14.0-18.0); Immature Granulocytes # (auto) 0.04 K/uL (0.00-0.02); Immature Granulocytes % (auto) 0.4 %; Lymphocytes # (auto) 0.41 K/uL (1.2-3.4); Lymphocytes % (auto) 4.5 %; Mean Corpuscular Hemoglobin 30.7 pg (25-34); Mean Corpuscular Volume 90.4 fL (80-100); Mean Platelet Volume 11.3 fL (7.4-10.4); Monocytes # (auto) 0.23 K/uL (0.11-0.59); Monocytes % (auto) 2.5 %; Neutrophils # (auto) 8.42 K/uL (1.4-6.5); Neutrophils % (auto) 91.5 %; Platelet Count 216 K/uL (130-400); RDW Coefficient of Variation 12.9 % (11.5-14.5); RDW Standard Deviation 43.1 fL (36.4-46.3); Red Blood Count 3.94 M/uL (4.7-6.1)
[2021-08-16] MEDS: MIDAZOLAM BOLUS FROM BAG IV PRN ×2 (05:37→07:30)
[2021-08-16 05:51] LABS: BUN Creatinine Ratio 46.3 (10-20); Creatinine Clr Calc Pharmacy 98.3 ml/min; Est GFR (Non-African American) 93.2 ml/min; Magnesium 3.4 mg/dl (1.8-2.4); Potassium 4.5 mmol/L (3.5-5.1)
[2021-08-16 06:10] LABS: iSTAT Allen Test Pass; iSTAT Arterial Blood Gas HCO3 28 meg/L (19-24); iSTAT Arterial Blood Gas pCO2 43 mmHg (35-46); iSTAT Arterial Blood Gas pH 7.41 (7.35-7.45); iSTAT Arterial Blood Gas pO2 51 mmHg (80-95); iSTAT Carbon Dioxide 29 mmol/L (24-31); iSTAT FiO2 40 %; iSTAT Site R Radial
[2021-08-16] MEDS: CISATRACURIUM BESYLATE 100 MG in SODIUM CHLORIDE 0.9% 200 ML IV SCH ×2 (06:58→13:36)
[2021-08-16] MEDS: PROPOFOL BOLUS FROM BAG IV PRN (08:05)
[2021-08-16] MEDS: busPIRone 5 MG TAB PO SCH ×3 (08:31→19:53)
[2021-08-16] MEDS: ENOXAPARIN INJ 40 MG/0.4 ML SYR SQ SCH ×2 (08:31→19:54)
[2021-08-16] MEDS: ACETAMINOPHEN 1,000 MG/100 ML VIAL IV PRN (08:31)
[2021-08-16] MEDS: MUPIROCIN 2% OINT 22 GM TUBE EXT SCH ×2 (08:59→19:54)
[2021-08-16] MEDS: dexAMETHasone 10 MG in SYRINGE 0 ML IV SCH (08:59)
[2021-08-16] MEDS ORDERED: dexAMETHasone 6 MG in SYRINGE 0 ML IV SCH (09:00)
--- NOTE | 2021-08-16 09:22 | XRay Report ---
XR chest 1V portable HISTORY: 56 years-old Male f/u acute respiratory failure COMPARISON: Chest radiograph 08/15/2021 TECHNIQUE: Portable AP view of the chest FINDINGS: Endotracheal tube overlies the midline, 4.1 cm superior to the lizzy. Right IJ central venous cathet er appears unchanged. Enteric tube distal tip projects over the proximal stomach. No pneumothorax. Tr tito pleural effusions are suspected. Pulmonary vascular congestion with interstitial coarsening and b ilateral multifocal airspace opacities. No acute fracture. IMPRESSION: 1. Satisfactory positioning of the lines and tubes as above. 2. Unchanged multifocal airspace opacities compatible with pneumonia. 3. No pneumothorax. ACT 112: Negative or not required by law. The above report was generated using voice recognition software. It may contain grammatical, syntax o r spelling errors. Electronically signed by: Lizandro Childress M.D. 08/16/2021 9:20 AM
[2021-08-16] MEDS ORDERED: SODIUM PHOSPHATE 3 MMOL/1 ML 5 ML VIAL IV STA (09:53)
[2021-08-16] MEDS ORDERED: GLUCOSE 40% GEL 15 GM TUBE PO PRN (10:30)
[2021-08-16] MEDS ORDERED: SODIUM PHOSPHATE 6 MMOL in SODIUM CHLORIDE 0.9% 250 ML IV ONE (10:30)
[2021-08-16] MEDS ORDERED: GLUCOSE 10 TABS/TUBE PO PRN (10:30)
[2021-08-16] MEDS ORDERED: CARBOHYDRATES FOR HYPOGLYCEMIA PO PRN (10:30)
[2021-08-16] MEDS ORDERED: GLUCAGON FOR INJ 1 MG VIAL IM PRN (10:30)
[2021-08-16] MEDS ORDERED: DEXTROSE 50% 50 ML SYRINGE IV PRN (10:30)
[2021-08-16 10:42] LABS: iSTAT Allen Test Pass; iSTAT Art Bld Gas pCO2 Correct 55 mmHg (35-46); iSTAT Art Bld Gas pH Corrected 7.333 (7.35-7.45); iSTAT Arterial Blood Gas HCO3 29 meg/L (19-24); iSTAT Arterial Blood Gas pCO2 53 mmHg (35-46); iSTAT Arterial Blood Gas pH 7.35 (7.35-7.45); iSTAT Arterial Blood Gas pO2 80 mmHg (80-95); iSTAT Arterial Blood Gas pO2 C 86; iSTAT Carbon Dioxide 31 mmol/L (24-31); iSTAT FiO2 50 %; iSTAT Hematocrit 34 % (42-52); iSTAT Hemoglobin 11.6 g/dl (14.0-18.0); iSTAT Potassium 4.2 mmol/L (3.3-5.0); iSTAT Site R Radial; iSTAT Sodium 138 mmol/L (135-144)
--- NOTE | 2021-08-16 11:08 | Hospitalist Progress Note ---
Date of Service August 16, 2021 Assessment & Plan (1) Acute respiratory failure with hypoxia: Plan: 56 y/o male w/ PMHx of anxiety and GERMAN who presents w/ acute hypoxic respiratory failure secondary to covid-19 pneumonia on day 9 of symptoms (08/01/21 onset) was stable on 40L and 80% for two days, declined in status on 08/13, up to 60L and 100% placed on BIPAP 15/8 and FiO2 70%, did not tolerate, got more confused, saturations dropping Dr. Underwood intubated patient at night on 08/13 currently prone, paralyzed, sedated, PEEP down to 12 FiO2 down to 40% dexamethasone 6mg IV BID, day 7 of steroids, day 3 of BID dosing baricitinib 4mg daily initially, stopped when intubated CTA chest negative for PE, showed bilateral viral pneumonia CRP was down to 7, now up to 32 CXR 08/13 and 08/14 with worsening opacities [facility], age cutoff is 55, other facilities it is lower at 45 they agreed with current management Increased dexamethasone to 10 mg added paralytics. will continue to monitor. (2) 2019 novel coronavirus-infected pneumonia (NCIP): Plan: sick since 08/01 treating with dexamethasone 6mg q12 and baricitinib 4mg daily (stopped when intubated) CRP trending back up and breathing is worse, intubated 08/13 continue ARDSnet protocol, supine if he would get worse on ventilator, would reach out to [facility] specialists again right now there is not an indication (3) Anxiety: Plan: now sedated used Ativan 0.5mg IV prior to needing intubated (4) Sleep apnea, unspecified: Plan: - per patient, had trialed cpap in past, but could not tolerate mask Plan: FEN/GI: trickle tube feeds ppx: Lovenox, Protonix code: full dispo:ICU status Admission and Anticipated Discharge Date Admission Date: August 10, 2021 Subjective Patient remains intubated. Review of Systems Review of Systems: Unobtainable due to endotracheal tube Physical Exam Physical Exam: General: well deve loped, well nouris hed, mechanically ventilated, supine Neck: supple, tra salina midline, norm al thyroid Lungs: clear to auscultat ion bilaterally, s ymmetric chest mov ement on ventilato r Heart: regular S 1 and S2, no murmu r, peripheral puls es normal, capilla ry refill normal, no edema Abdomen: ND Extremities: n ormal in appearanc e, no cyanosis, no petechiae, paraly zed Neuro: sedated , CN II-XII intact , no focal deficit s Skin: warm, dry, no rash, normal t urgor Psych: sedat ed Results & Data Results & Data ([facility]) Vital Signs (Past 12 Hours) Vital Signs Temp Pulse Resp BP Pulse Ox Pulse Ox 08/16/21 10:25 84 25 H 92 08/16/21 10:00 38.2 C H 86 25 H 114/69 92 08/16/21 09:00 38.6 C H 90 25 H 86/63 L 99 08/16/21 08:26 95 08/16/21 08:00 38.1 C H 88 20 114/70 97 89 L 08/16/21 07:55 89 30 H 99 08/16/21 07:00 77 21 129/83 96 08/16/21 06:00 79 22 107/73 92 08/16/21 05:30 77 22 107/72 88 L 08/16/21 05:12 81 30 H 94 08/16/21 05:00 37.3 C 77 22 116/71 94 08/16/21 04:30 37.3 C 80 23 116/73 92 08/16/21 04:00 37.3 C 78 25 H 121/78 94 08/16/21 03:30 37.3 C 75 23 124/78 93 08/16/21 03:00 37.3 C 74 27 H 121/75 93 08/16/21 02:30 37.3 C 78 22 118/78 93 08/16/21 02:02 74 28 H 93 08/16/21 02:00 37.1 C 77 25 H 118/78 94 08/16/21 01:30 37.0 C 76 24 120/83 93 08/16/21 01:00 36.9 C 72 23 120/79 94 08/16/21 00:30 37.0 C 72 21 113/78 93 08/16/21 00:00 36.9 C 73 21 109/73 93 08/15/21 23:30 36.9 C 76 27 H 107/69 92 PG Care Time/CCT Total # of Minutes Spent Total Time Spent with Patient: Total time spent is greater than 50% in coordination of care (as documented) at patient's floor/unit and/or counseling patient: Coding Level of Care Code 75978 Subseq Hosp Care Lvl 3 Diagnoses Acute respiratory failure with hypoxia J96.01 2019 novel coronavirus-infected pneumonia (NCIP) U07.1; J12.82 Anxiety F41.9 Sleep apnea, unspecified G47.30
[2021-08-16] MEDS: DOXYCYCLINE HYCLATE 100 MG in DEXTROSE 5% 100 ML IV SCH (11:11)
[2021-08-16] MEDS: INSULIN ASPART 100 UNITS/ML 3 ML PEN SC SCH ×3 (11:13→20:22)
[2021-08-16] MEDS: PANTOprazole 40 MG in SYRINGE 0 ML IV SCH (11:16)
[2021-08-16] MEDS ORDERED: FUROSEMIDE INJ 20 MG/2 ML VIAL IV ONE ×2 (14:07→15:40)
--- NOTE | 2021-08-16 16:00 | Critical Care Progress Note ---
Date of Service August 16, 2021 Assessment & Plan (1) ARDS (adult respiratory distress syndrome): (2) 2019 novel coronavirus-infected pneumonia (NCIP): (3) Acute respiratory failure with hypoxia: (4) Breath shortness: Plan: 56-year-old male with a noncontributory past medical history presenting to the hospital due to COVID-19 viral pneumonia and was intubated on 08/13/2021 due to worsening ARDS. Neurologic: Sedation: Propofol, midazolam Anesthesia: Fentanyl Paralytic: Nimbex Pulmonary: --Vent dependent respiratory failure Secondary to multilobar COVID-19 pneumonia Intubated 08/13/2021 Continue with lung protective ventilation High PEEP, low tidal volume to keep Plateau < 30 with permissive hypercapnea if need be. Monitor ABGs Nebulized Flolan weaned off the night of his intubation. ABG improved. Reached out to [facility] team 08/13/2021. They indicated that he would likely not be an ECMO candidate due to his age. Cardiovascular: No significant issues at present. Continue to maintain mean arterial pressures above 65. Gastrointestinal: Mild transaminitis seen improving. Renal: Monitor BUNs/creatinine Infectious disease: Procalcitonin 13.5--> 5.97 Continue with empiric cefepime Nasal MRSA negative Septic work-up negative to date Hematologic: Continue Lovenox 40 mg daily. No issues. Endocrine: No significant issues --Prophylaxis VTE: Lovenox GI: Protonix Lines: Right IJ 08/13/2021, positive Mello Diet: Trophic feeds Plan: In/out: +700, urine output 600 mL, -2 L since coming to the hospital AB.13 5/80 on PEEP of 14, 50% As patient is very asynchronous with the vent while on being very high doses of sedation. We will put the patient back on paralytics and try to wean him off on a daily basis Trial of APRV will also be given Increase Lovenox to 40 mg every 12 hours Increase dexamethasone to 10 mg on a daily basis We will give doxycycline for 5 days for atypical coverage Phosphorus will be replaced by sodium Phos If the patient continues to spike fever we will get Doppler bilateral lower extremity to make sure patient does not have DVT Patient was proned at 2 PM. I was present at bedside during the procedure I have personally spent 47 minutes of critical care time in the direct management of this patient. This is a life/limb threatening event. This includes time spent evaluating patient, direct bedside care, chart review, placing orders, interpretation of diagnostic studies, discussion with consultants, patient, and family members, as well as other required patient management activities. This time is exclusive of all separately billable procedures, and teaching time and separate from and in addition to any other critical care service time. Thank you for allowing us to participate in the care of this patient. Admission and Anticipated Discharge Date Admission Date: August 10, 2021 Subjective Patient seen and examined at bedside. No acute distress Earlier today patient was fighting the vent and was asynchronous as he was taken off the paralytics He was on max dose of propofol and 200 of fentanyl along with 3 of midazolam and it was still asynchronous Patient was restarted on paralytic Patient is still spiking fever T-max 38.6 At the time of examination patient was synchronized with vent. He was saturating 93% on 50% FiO2 and PEEP of 14 with plateau of 23 I went down on FiO2 to 40% Review of Systems Review of Systems: Unobtainable due to endotracheal tube Physical Exam Physical Exam: Constitutional: No acute distress HEENT: PERRLA, positive ETT Respiratory system: Decreased air entry bilaterally, no wheeze, no rhonchi, positive crackles bilateral lower lobes CVS: S1-S2 positive, no murmurs or gallops Abdomen: Soft, nontender, nondistended, positive bowel sounds x4 Extremities: +2 pulses bilaterally radialis/ dorsalis pedis, no cyanosis, no edema Neuro: Paralyzed and sedated Psych: Unable to assess G/U: Positive Mello Skin: no rashes, warm and dry Lymphatic: no cervical or axillary lymphadenopathy Results & Data Results & Data ([facility]) Vital Signs (Past 12 Hours) Vital Signs Temp Pulse Resp BP Pulse Ox Pulse Ox 08/16/21 14:45 86 26 H 89 L 08/16/21 10:25 84 25 H 92 08/16/21 10:00 38.2 C H 86 25 H 114/69 92 08/16/21 09:00 38.6 C H 90 25 H 86/63 L 99 08/16/21 08:26 95 08/16/21 08:00 38.1 C H 88 20 114/70 97 89 L 08/16/21 07:55 89 30 H 99 08/16/21 07:00 77 21 129/83 96 08/16/21 06:00 79 22 107/73 92 08/16/21 05:30 77 22 107/72 88 L 08/16/21 05:12 81 30 H 94 08/16/21 05:00 37.3 C 77 22 116/71 94 08/16/21 04:30 37.3 C 80 23 116/73 92 08/16/21 04:00 37.3 C 78 25 H 121/78 94 08/16/21 05:03 08/16/21 05:03 Coding Level of Care Code Critical Care 1st 30-74 mins Diagnoses ARDS (adult respiratory distress syndrome) J80 2019 novel coronavirus-infected pneumonia (NCIP) U07.1; J12.82 Acute respiratory failure with hypoxia J96.01 Breath shortness R06.02 Time Spent (min) 47
[2021-08-16] MEDS: fentaNYL citrate 2,500 MCG/250 ML BAG IV SCH (17:58)
[2021-08-16] MEDS ORDERED: VANCOMYCIN TROUGH ONE (20:30)
[2021-08-17] MEDS: INSULIN ASPART 100 UNITS/ML 3 ML PEN SC SCH ×7 (01:41→23:48)
[2021-08-17] MEDS: DOXYCYCLINE HYCLATE 100 MG in DEXTROSE 5% 100 ML IV SCH ×3 (01:41→23:48)
[2021-08-17] MEDS: CISATRACURIUM BESYLATE 100 MG in SODIUM CHLORIDE 0.9% 200 ML IV SCH ×2 (01:42→08:45)
[2021-08-17] MEDS: ARTIFICIAL TEARS OP OINT 3.5 GM TUBE OP SCH ×6 (01:42→20:35)
[2021-08-17] MEDS ORDERED: PROPOFOL IV EMULSION 10 MG/ML 100 ML VIAL IV ONE (03:12)
[2021-08-17] MEDS ORDERED: PROPOFOL BOLUS FROM BAG IV PRN (03:16)
[2021-08-17] MEDS ORDERED: STAT IV Infusion **Titration per Protocol STA ×2 (03:16→18:57)
[2021-08-17] MEDS ORDERED: propofoL 1,000 MG/100 ML VIAL IV SCH (03:30)
[2021-08-17 04:55] LABS: Basophils # (auto) 0.01 K/uL (0-0.2); Basophils % (auto) 0.1 %; Eosinophils # (auto) 0.08 K/uL (0-0.5); Eosinophils % (auto) 0.7 %; Hematocrit (blood only) 37.2 % (42-52); Hemoglobin 12.6 g/dL (14.0-18.0); Immature Granulocytes # (auto) 0.05 K/uL (0.00-0.02); Immature Granulocytes % (auto) 0.4 %; Lymphocytes # (auto) 0.46 K/uL (1.2-3.4); Mean Corpuscular Hemoglobin 31.1 pg (25-34); Mean Corpuscular Hgb Conc 33.9 g/dL (32-36); Mean Corpuscular Volume 91.9 fL (80-100); Mean Platelet Volume 10.8 fL (7.4-10.4); Monocytes # (auto) 0.04 K/uL (0.11-0.59); Monocytes % (auto) 0.3 %; Neutrophils # (auto) 10.86 K/uL (1.4-6.5); Neutrophils % (auto) 94.5 %; Platelet Count 269 K/uL (130-400); RDW Coefficient of Variation 13.4 % (11.5-14.5); RDW Standard Deviation 44.9 fL (36.4-46.3); Red Blood Count 4.05 M/uL (4.7-6.1)
[2021-08-17] MEDS: CEFEPIME 2,000 MG/20 ML VIAL IV SCH (05:00)
[2021-08-17 05:46] LABS: iSTAT Allen Test Pass; iSTAT Arterial Blood Gas HCO3 32 meg/L (19-24); iSTAT Arterial Blood Gas pCO2 66 mmHg (35-46); iSTAT Arterial Blood Gas pH 7.29 (7.35-7.45); iSTAT Arterial Blood Gas pO2 62 mmHg (80-95); iSTAT Carbon Dioxide 33 mmol/L (24-31); iSTAT FiO2 50 %; iSTAT Site R Radial
[2021-08-17 07:02] LABS: BUN Creatinine Ratio 44.9 (10-20); Calcium 8.6 mg/dl (8.5-10.1); Creatinine Clr Calc Pharmacy 105.7 ml/min; Est GFR (African American) 116.1 ml/min; Est GFR (Non-African American) 100.2 ml/min; Magnesium 3.1 mg/dl (1.8-2.4); Potassium 4.6 mmol/L (3.5-5.1)
[2021-08-17 07:12] LABS: Phosphorus 2.9 mg/dl (2.5-4.9)
[2021-08-17] MEDS: PEPTAMEN INTENSE VHP 1.0 CAL 1,000 ML BAG OG SCH ×2 (07:12→10:49)
--- NOTE | 2021-08-17 07:20 | XRay Report ---
XR chest 1V portable HISTORY: 56 years-old Male f/u acute respiratory failure COMPARISON: Chest radiograph 08/16/2021 TECHNIQUE: Portable AP view of the chest FINDINGS: Endotracheal tube overlies the midline, 3.8 cm superior to the lizzy. Right IJ central venous cathet er distal tip is noted in the expected location of the upper SVC. Enteric tube distal tip overlies th e proximal stomach. No pneumothorax or large pleural effusion. Pulmonary vascular congestion. Multifo keke bilateral airspace opacities with associated reticular interstitial densities redemonstrated. Sli ghtly improved aeration of the right lung. IMPRESSION: 1. Lines and tubes as above. 2. Multifocal opacities redemonstrated compatible with multifocal pneumonia. There is slightly improv ed aeration of the right lung. 3. No pneumothorax. ACT 112: Negative or not required by law. The above report was generated using voice recognition software. It may contain grammatical, syntax o r spelling errors. Electronically signed by: Lizandro Childress M.D. 08/17/2021 7:19 AM
[2021-08-17] MEDS: MIDAZOLAM BOLUS FROM BAG IV PRN ×3 (07:53→10:14)
[2021-08-17] MEDS ORDERED: FUROSEMIDE 40 MG/4 ML VIAL IV ONE (08:00)
[2021-08-17] MEDS: ENOXAPARIN INJ 40 MG/0.4 ML SYR SQ SCH ×2 (08:11→20:34)
[2021-08-17] MEDS: dexAMETHasone 10 MG in SYRINGE 0 ML IV SCH (08:12)
[2021-08-17] MEDS: busPIRone 5 MG TAB PO SCH ×3 (08:12→20:34)
[2021-08-17] MEDS: MUPIROCIN 2% OINT 22 GM TUBE EXT SCH ×2 (08:12→20:34)
[2021-08-17] MEDS: MIDAZOLAM HCL 125 MG/250 ML BAG IV PRN (08:14)
[2021-08-17] MEDS: fentaNYL citrate 2,500 MCG/250 ML BAG IV SCH ×3 (08:15→19:26)
--- NOTE | 2021-08-17 09:16 | Critical Care Progress Note ---
Date of Service August 17, 2021 Assessment & Plan (1) ARDS (adult respiratory distress syndrome): (2) 2019 novel coronavirus-infected pneumonia (NCIP): (3) Acute respiratory failure with hypoxia: (4) Breath shortness: Plan: 56-year-old male with a noncontributory past medical history presenting to the hospital due to COVID-19 viral pneumonia and was intubated on 08/13/2021 due to worsening ARDS. Neurologic: Sedation: Propofol, midazolam. Propofol discontinued secondary to increasing triglycerides Anesthesia: Fentanyl Paralytic: Nimbex Pulmonary: --Vent dependent respiratory failure Secondary to multilobar COVID-19 pneumonia Intubated 08/13/2021 Continue with lung protective ventilation High PEEP, low tidal volume to keep Plateau < 30 with permissive hypercapnea if need be. Monitor ABGs Nebulized Flolan weaned off the night of his intubation 08/13/21. ABG improved. Reached out to [facility] team 08/13/2021. They indicated that he would likely not be an ECMO candidate due to his age. Cardiovascular: No significant issues at present. Continue to maintain mean arterial pressures above 65. Gastrointestinal: Mild transaminitis --> improved Renal: Monitor BUNs/creatinine Infectious disease: Procalcitonin 13.5--> 5.97 Continue with empiric cefepime and atypical coverage by doxycycline Nasal MRSA negative Blood culture bottles growing gram-positive cocci in clusters which is MRSA negative --> repeat blood cultures 08/17/21 Hematologic: Continue Lovenox 40 mg daily. No issues. Endocrine: No significant issues --Prophylaxis VTE: Lovenox 40 mg twice daily GI: Protonix Lines: Right IJ 08/13/2021, positive Mello, right radial 08-17-21 Diet: Trophic feeds Plan: In/out: +320, urine output 2275 AB.29/66/62 on PEEP of 14, 50% Patient respiratory was increased to 28 from 25. Patient went was changed to APRV. We will repeat ABG in 30 minutes to see what the PCO2 is. 40 mg of Lasix given to the patient Give vancomycin for blood culture. Continue with cefepime as well as doxycycline I have personally spent 40 minutes of critical care time in the direct management of this patient. This is a life/limb threatening event. This includes time spent evaluating patient, direct bedside care, chart review, placing orders, interpretation of diagnostic studies, discussion with consultants, patient, and family members, as well as other required patient management activities. This time is exclusive of all separately billable procedures, and teaching time and separate from and in addition to any other critical care service time. Thank you for allowing us to participate in the care of this patient. Admission and Anticipated Discharge Date Admission Date: August 10, 2021 Subjective Patient seen and examined at bedside. No acute distress. He was supined at 5 PM today. On PEEP of 14, 40% On midazolam, fentanyl. T-max 38.4 Review of Systems Review of Systems: Unobtainable due to endotracheal tube Physical Exam Physical Exam: Constitutional: No acute distress HEENT: PERRLA, positive ETT Respiratory system: Decreased air entry bilaterally, no wheeze, no rhonchi, positive crackles bilateral lower lobes CVS: S1-S2 positive, no murmurs or gallops Abdomen: Soft, nontender, nondistended, positive bowel sounds x4 Extremities: +2 pulses bilaterally radialis/ dorsalis pedis, no cyanosis, no murphy ma Neuro: Sedated. Breathing over the vent Psych: Unable to assess G/U: Positive Mello Skin: no rashes, warm and dry Lymphatic: no cervical or axillary lymphadenopathy Results & Data Results & Data ([facility]) Vital Signs (Past 12 Hours) Vital Signs Temp Pulse Resp BP Pulse Ox 08/17/21 09:00 38.4 C H 99 H 35 H 92 08/17/21 08:30 38.0 C H 97 H 33 H 108/75 96 08/17/21 08:00 37.6 C H 97 H 28 H 96 08/17/21 07:30 37.4 C 98 H 28 H 129/58 L 93 08/17/21 07:00 37.3 C 99 H 28 H 93 08/17/21 06:30 37.2 C 99 H 28 H 92 08/17/21 06:00 37.2 C 99 H 25 H 143/90 H 91 08/17/21 05:30 37.1 C 91 H 25 H 144/93 H 88 L 08/17/21 05:00 37.2 C 85 25 H 162/99 H 95 08/17/21 04:30 37.3 C 88 25 H 155/96 H 91 08/17/21 04:00 37.3 C 89 25 H 158/94 H 91 08/17/21 03:30 37.3 C 85 25 H 156/93 H 91 08/17/21 03:00 37.3 C 89 25 H 157/93 H 91 08/17/21 02:30 37.3 C 87 25 H 155/94 H 91 08/17/21 02:00 37.4 C 87 22 151/93 H 91 08/17/21 01:35 94 H 25 H 91 08/17/21 01:30 37.3 C 91 H 25 H 159/101 H 91 08/17/21 01:00 37.3 C 94 H 25 H 173/101 H 91 08/17/21 00:30 37.2 C 89 25 H 164/96 H 92 08/17/21 00:00 37.2 C 84 25 H 161/95 H 92 08/16/21 23:30 37.1 C 83 25 H 149/88 H 93 08/16/21 23:00 37.1 C 82 25 H 145/89 H 92 08/16/21 22:30 37.0 C 81 25 H 143/88 H 92 08/16/21 22:22 83 25 H 91 08/16/21 22:00 37.0 C 85 25 H 141/86 H 92 08/16/21 21:15 36.9 C 82 25 H 135/86 92 08/17/21 04:36 08/17/21 04:36 Coding Level of Care Code Critical Care 1st 30-74 mins Diagnoses ARDS (adult respiratory distress syndrome) J80 2019 novel coronavirus-infected pneumonia (NCIP) U07.1; J12.82 Acute respiratory failure with hypoxia J96.01 Breath shortness R06.02 Time Spent (min) 40
[2021-08-17] MEDS: ACETAMINOPHEN 1,000 MG/100 ML VIAL IV PRN ×2 (09:20→17:57)
[2021-08-17] MEDS ORDERED: VANCOMYCIN CONSULT ACTIVE PRN (10:25)
[2021-08-17] MEDS ORDERED: VANCOMYCIN HCL 1,500 MG in SODIUM CHLORIDE 0.9% 500 ML IV ONE (10:30)
[2021-08-17] MEDS: cefTRIAXone SODIUM 2,000 MG in DEXTROSE 5% 50 ML IV SCH (10:49)
[2021-08-17] MEDS: PANTOprazole 40 MG in SYRINGE 0 ML IV SCH (10:49)
--- NOTE | 2021-08-17 10:52 | Pharmacy Report ---
Pharmacy Abx Dose Short Note - Date of Service August 17, 2021 - Assessment & Plan Assessment * 56 year old M receiving VANCOMYCIN for treatment of GPC bacteremia (likely CoN staph), possible CVAD infection vs contaminant. Pharmacy to dose VANCOMYCIN * Pt is also receiving CEFTRIAXONE IV for HAP, sputum culture revealed urbano- sensitive e coli (has received 3 days Cefepime prior to switch to Ceftriaxone) * 2 of 2 BLCXs growing GPC in clusters, one cx reported to be drawn from CVAD and one reported drawn via peripheral stick. * PCR testing revealed the organism is not staph aureus * Repeat BLCXs ordered today * Renal fxn stable, good UOP, hemodynamically stable Plan Vancomycin * Patient meets criteria for vancomycin AUC dosing nomogram * AUC/CHRISTINA is the preferred PK/PD target for vancomycin * Target AUC/CHRISTINA = 400-600 * AUC guided dosing is effective and associated with decreased risk of nephrotoxicity * Loading dose: 1500mg (~21mg/kg) x 1 * Maint dose: 1250mg Q 12 hrs * Regimen should produce AUC ~507, with 74% probability of achieving AUC > 400 and 11% risk of nephrotoxicity * Plan to check level with 3rd dose if therapy is to continue. Pharmacy will continue to follow and will adjust dose/frequency as necessary. Thank you.
[2021-08-17 16:17] LABS: iSTAT Arterial Blood Gas HCO3 31 meg/L (19-24); iSTAT Arterial Blood Gas pCO2 45 mmHg (35-46); iSTAT Arterial Blood Gas pH 7.44 (7.35-7.45); iSTAT Arterial Blood Gas pO2 69 mmHg (80-95); iSTAT Carbon Dioxide 32 mmol/L (24-31); iSTAT FiO2 50 %; iSTAT Site Art Line
--- NOTE | 2021-08-17 16:20 | Procedure Note ---
Procedure Note Date of Service August 17, 2021 Note ARTERIAL LINE PROCEDURE NOTE: Procedure: Arterial Line Placement Attending: Dr. Kera Johns MD Indication: Monitoring on Pressors Anesthesia: General anesthesia Emergent consent was applied A time-out was completed verifying correct patient, procedure, site, positioning, and implant(s) or special equipment if applicable. Allens test was performed to ensure adequate perfusion. Patients right wrist was prepped and draped in the usual sterile fashion. Ultrasound guidance was used to aid needle placement. A 20g Arrow arterial line was introduced into the right radial artery. Catheter was threaded, and the needle was removed with appropriate pulsatile blood return. Good waveform was observed on the monitor. The patient tolerated the procedure well. Confirmation of placement with ultrasound. Images saved to medical record. Complications: None Blood Loss: Less than 2 cc Coding CPT Codes Tubes, Drains, and Vasc Access - Tubes, Drains, and Vasc Access: [id number] Insertion Catheter, Artery ([id number]) Tubes, Drains, and Vasc Access - Tubes, Drains, and Vasc Access: [id number] Ultrasound Guidance For Vascular ([id number]) [facility] Procedure Codes (Charges) Tubes, Drains, and Vasc Access Procedure 1: Tubes, Drains, and Vasc Access: [id number] Insertion Catheter, Artery Procedure 2: Tubes, Drains, and Vasc Access: [id number] Ultrasound Guidance For Vascular
[2021-08-17] MEDS ORDERED: NOREPINEPHRINE/D5W 8 MG/508 ML IV ONE (19:13)
[2021-08-17] MEDS: NOREPINEPHRINE/D5W 8 MG/508 ML BAG IV SCH (19:27)
[2021-08-17 19:53] LABS: iSTAT Art Bld Gas pCO2 Correct 38 mmHg (35-46); iSTAT Art Bld Gas pH Corrected 7.493 (7.35-7.45); iSTAT Arterial Blood Gas HCO3 29 meg/L (19-24); iSTAT Arterial Blood Gas pCO2 36 mmHg (35-46); iSTAT Arterial Blood Gas pH 7.51 (7.35-7.45); iSTAT Arterial Blood Gas pO2 57 mmHg (80-95); iSTAT Arterial Blood Gas pO2 C 62; iSTAT Carbon Dioxide 30 mmol/L (24-31); iSTAT FiO2 40 %; iSTAT Hematocrit 33 % (42-52); iSTAT Hemoglobin 11.2 g/dl (14.0-18.0); iSTAT Potassium 4.7 mmol/L (3.3-5.0); iSTAT Site Art Line; iSTAT Sodium 140 mmol/L (135-144)
--- NOTE | 2021-08-17 20:10 | Hospitalist Progress Note ---
Date of Service August 17, 2021 Assessment & Plan (1) Acute respiratory failure with hypoxia: Plan: 56 y/o male w/ PMHx of anxiety and GERMAN who presents w/ acute hypoxic respiratory failure secondary to covid-19 pneumonia on day 9 of symptoms (08/01/21 onset) was stable on 40L and 80% for two days, declined in status on 08/13, up to 60L and 100% placed on BIPAP 15/8 and FiO2 70%, did not tolerate, got more confused, saturations dropping Dr. Underwood intubated patient at night on 08/13 currently paralyzed, sedated, PEEP down to 12 FiO2 down to 40% dexamethasone 6mg IV BID, day 8 of steroids baricitinib 4mg daily initially, stopped when intubated CTA chest negative for PE, showed bilateral viral pneumonia CRP was down to 7, now up to 32 CXR 08/13 and 08/14 with worsening opacities [facility], age cutoff is 55, other facilities it is lower at 45 they agreed with current management Increased dexamethasone to 10 mg added paralytics. will continue to monitor. Propofol discontinued secondary to increasing triglyceride Procal is improving. Continue antibiotics: now on ceftriaxone. Blood cultures positive. (2) 2019 novel coronavirus-infected pneumonia (NCIP): Plan: sick since 08/01 treating with dexamethasone 6mg q12 and baricitinib 4mg daily (stopped when intubated) CRP trending back up and breathing is worse, intubated 08/13 continue ARDSnet protocol, supine if he would get worse on ventilator, would reach out to [facility] specialists again right now there is not an indication (3) Anxiety: Plan: now sedated used Ativan 0.5mg IV prior to needing intubated (4) Sleep apnea, unspecified: Plan: - per patient, had trialed cpap in past, but could not tolerate mask Plan: FEN/GI: trickle tube feeds ppx: Lovenox, Protonix code: full dispo:ICU status Admission and Anticipated Discharge Date Admission Date: August 10, 2021 Subjective Patient is intubated. Review of Systems Review of Systems: Unobtainable due to endotracheal tube Physical Exam Physical Exam: General: well developed, well nourished, mechanically ventilated Neck: supple, trachea midline, normal thyroid Lungs: clear to auscultation bilaterally, symmetric chest movement on ventilator Heart: regular S1 and S2, no murmur, peripheral pulses normal, capillary refill normal, no edema Abdomen: ND Extremities: normal in appearance, no cyanosis, no petechiae, paralyzed Neuro: sedated, CN II-XII intact, no focal deficits Skin: warm, dry, no rash, normal turgor Psych: sedated Results & Data Results & Data ([facility]) Vital Signs (Past 12 Hours) Vital Signs Temp Pulse Resp BP Pulse Ox 08/17/21 19:45 38.0 C H 88 13 121/82 91 08/17/21 19:30 38.1 C H 83 13 120/85 90 08/17/21 19:15 38.2 C H 91 H 13 94/65 L 89 L 08/17/21 19:00 38.2 C H 90 13 93/63 L 90 08/17/21 18:45 38.1 C H 91 H 13 86/66 L 90 08/17/21 18:00 38.1 C H 90 13 109/80 95 08/17/21 17:30 38.0 C H 88 13 106/76 93 08/17/21 17:00 37.9 C H 92 H 13 92/72 L 92 08/17/21 16:30 37.8 C H 93 H 13 106/76 92 08/17/21 16:00 37.8 C H 88 13 100/77 91 08/17/21 15:30 37.8 C H 94 H 13 114/75 94 08/17/21 15:00 37.9 C H 85 26 H 106/75 90 08/17/21 14:30 38.0 C H 87 27 H 103/68 88 L 08/17/21 14:00 38.0 C H 87 23 104/70 89 L 08/17/21 13:30 38.1 C H 90 26 H 105/69 89 L 08/17/21 13:00 38.2 C H 88 24 103/68 90 08/17/21 12:30 38.3 C H 90 24 99/69 L 91 08/17/21 12:00 38.3 C H 92 H 27 H 100/66 90 08/17/21 11:30 38.4 C H 93 H 24 97/63 L 90 08/17/21 11:05 97 H 33 H 90 08/17/21 11:00 38.5 C H 99 H 29 H 87/63 L 90 08/17/21 10:30 38.6 C H 100 H 25 H 87/59 L 90 08/17/21 10:00 38.8 C H 105 H 21 94/66 L 91 08/17/21 09:30 39.0 C H 108 H 24 124/84 91 08/17/21 09:00 38.4 C H 99 H 35 H 92 08/17/21 08:30 38.0 C H 97 H 33 H 108/75 96 PG Care Time/CCT Total # of Minutes Spent Total Time Spent with Patient: Total time spent is greater than 50% in coordination of care (as documented) at patient's floor/unit and/or counseling patient: Coding Level of Care Code 47218 Subseq Hosp Care Lvl 2 Diagnoses Acute respiratory failure with hypoxia J96.01 2019 novel coronavirus-infected pneumonia (NCIP) U07.1; J12.82 Anxiety F41.9 Sleep apnea, unspecified G47.30
[2021-08-17] MEDS ORDERED: VANCOMYCIN HCL 1,250 MG in SODIUM CHLORIDE 0.9% 250 ML IV SCH (22:00)
[2021-08-18] MEDS: ARTIFICIAL TEARS OP OINT 3.5 GM TUBE OP SCH ×6 (00:54→20:54)
[2021-08-18] MEDS: ACETAMINOPHEN 1,000 MG/100 ML VIAL IV PRN (02:33)
[2021-08-18] MEDS: MIDAZOLAM BOLUS FROM BAG IV PRN (02:58)
[2021-08-18] MEDS ORDERED: MIDAZOLAM BOLUS FROM BAG IV ONE (03:06)
[2021-08-18] MEDS ORDERED: STAT IV Infusion **Titration per Protocol STA (03:07)
[2021-08-18] MEDS: DEXMEDETOMIDINE HCL 200 MCG in SODIUM CHLORIDE 0.9% 48 ML IV SCH ×4 (03:27→20:55)
[2021-08-18] MEDS: INSULIN ASPART 100 UNITS/ML 3 ML PEN SC SCH ×5 (04:25→20:53)
[2021-08-18 05:13] LABS: iSTAT Art Bld Gas pCO2 Correct 43 mmHg (35-46); iSTAT Art Bld Gas pH Corrected 7.449 (7.35-7.45); iSTAT Arterial Blood Gas HCO3 29 meg/L (19-24); iSTAT Arterial Blood Gas pCO2 41 mmHg (35-46); iSTAT Arterial Blood Gas pH 7.46 (7.35-7.45); iSTAT Arterial Blood Gas pO2 75 mmHg (80-95); iSTAT Arterial Blood Gas pO2 C 80; iSTAT Carbon Dioxide 30 mmol/L (24-31); iSTAT FiO2 70 %; iSTAT Hematocrit 31 % (42-52); iSTAT Hemoglobin 10.5 g/dl (14.0-18.0); iSTAT Potassium 4.2 mmol/L (3.3-5.0); iSTAT Site Art Line; iSTAT Sodium 141 mmol/L (135-144)
[2021-08-18 05:53] LABS: Basophils # (auto) 0.01 K/uL (0-0.2); Basophils % (auto) 0.1 %; Eosinophils # (auto) 0.08 K/uL (0-0.5); Eosinophils % (auto) 0.8 %; Hematocrit (blood only) 32.9 % (42-52); Immature Granulocytes # (auto) 0.04 K/uL (0.00-0.02); Immature Granulocytes % (auto) 0.4 %; Lymphocytes # (auto) 0.58 K/uL (1.2-3.4); Lymphocytes % (auto) 5.9 %; Mean Corpuscular Hemoglobin 30.3 pg (25-34); Mean Corpuscular Hgb Conc 33.4 g/dL (32-36); Mean Corpuscular Volume 90.6 fL (80-100); Mean Platelet Volume 11.4 fL (7.4-10.4); Monocytes # (auto) 0.12 K/uL (0.11-0.59); Monocytes % (auto) 1.2 %; Neutrophils # (auto) 8.98 K/uL (1.4-6.5); Neutrophils % (auto) 91.6 %; Platelet Count 292 K/uL (130-400); RDW Coefficient of Variation 13.5 % (11.5-14.5); RDW Standard Deviation 45.2 fL (36.4-46.3); Red Blood Count 3.63 M/uL (4.7-6.1); White Blood Count 9.81 K/uL (4.8-10.8)
[2021-08-18 06:19] LABS: BUN Creatinine Ratio 39.3 (10-20); Calcium 8.2 mg/dl (8.5-10.1); Creatinine Clr Calc Pharmacy 65.9 ml/min; Est GFR (African American) 73.6 ml/min; Est GFR (Non-African American) 63.5 ml/min; Magnesium 3.2 mg/dl (1.8-2.4); Potassium 4.4 mmol/L (3.5-5.1)
--- NOTE | 2021-08-18 07:44 | XRay Report ---
XR chest 1V portable HISTORY: 56 years-old Male f/u acute respiratory failure COMPARISON: Chest radiograph 08/17/2021 TECHNIQUE: Portable AP view the chest FINDINGS: Endotracheal tube overlies the midline, 3.4 cm superior to the lizzy. An enteric tube distal tip ove rlies the gastric body. Right IJ central venous catheter is unchanged expected location of the upper SVC. No pneumothorax. Small left and trace right pleural effusions. Intermixed bilateral interstitial and alveolar opacities redemonstrated and have slightly progressed. No acute fracture. IMPRESSION: 1. Satisfactory positioning of the lines and tubes as above. 2. Slight progression of the multifocal pneumonia. 3. No pneumothorax. ACT 112: Negative or not required by law. The above report was generated using voice recognition software. It may contain grammatical, syntax o r spelling errors. Electronically signed by: Lizandro Childress M.D. 08/18/2021 7:42 AM
[2021-08-18] MEDS ORDERED: FUROSEMIDE 40 MG/4 ML VIAL IV ONE (07:59)
[2021-08-18] MEDS: ENOXAPARIN INJ 40 MG/0.4 ML SYR SQ SCH ×2 (08:13→19:23)
[2021-08-18] MEDS: busPIRone 5 MG TAB PO SCH (08:13)
[2021-08-18] MEDS: dexAMETHasone 10 MG in SYRINGE 0 ML IV SCH (08:13)
[2021-08-18] MEDS: MUPIROCIN 2% OINT 22 GM TUBE EXT SCH ×2 (08:14→19:23)
[2021-08-18] MEDS: fentaNYL citrate 2,500 MCG/250 ML BAG IV SCH ×3 (08:14→21:55)
[2021-08-18] MEDS ORDERED: SODIUM PHOSPHATE 3 MMOL/1 ML 5 ML VIAL IV STA (09:35)
[2021-08-18] MEDS ORDERED: SODIUM PHOSPHATE 6 MMOL in SODIUM CHLORIDE 0.9% 250 ML IV ONE (10:00)
--- NOTE | 2021-08-18 10:42 | Critical Care Progress Note ---
Date of Service August 18, 2021 Assessment & Plan (1) ARDS (adult respiratory distress syndrome): (2) 2019 novel coronavirus-infected pneumonia (NCIP): (3) Acute respiratory failure with hypoxia: (4) Breath shortness: Plan: 56-year-old male with a noncontributory past medical history presenting to the hospital due to COVID-19 viral pneumonia and was intubated on 08/13/2021 due to worsening ARDS. Neurologic: Sedation: Propofol, midazolam. Propofol discontinued secondary to increasing triglycerides Anesthesia: Fentanyl Paralytic: Nimbex off since 08-17-21 Pulmonary: --Vent dependent respiratory failure Secondary to multilobar COVID-19 pneumonia Intubated 08/13/2021 Last day of proning was morning of 08-17-21 Continue with lung protective ventilation High PEEP, low tidal volume to keep Plateau < 30 with permissive hypercapnea if need be. Monitor ABGs Nebulized Flolan weaned off the night of his intubation 08/13/21. ABG improved. Reached out to [facility] ECMO team 08/13/2021. They indicated that he would likely not be an ECMO candidate due to his age. Cardiovascular: No significant issues at present. Continue to maintain mean arterial pressures above 65. Gastrointestinal: Mild transaminitis --> improved Renal: Monitor BUNs/creatinine Infectious disease: Procalcitonin 13.5--> 5.97 Continue with Abx and atypical coverage by doxycycline Got 2 doses of vancomycin 08/17/21 Cefepime was given for 6 days. last dose 08/17/21 Rocephin to complete total 10 days of Abx Nasal MRSA negative Blood culture bottles growing coagulase negative staph which is MRSA negative --> repeat blood cultures 08/17/21 negative to date Hematologic: Monitor H&H Endocrine: No significant issues --Prophylaxis VTE: Lovenox 40 mg twice daily GI: Protonix Lines: Right IJ 08/13/2021, positive Mello, right radial 08-17-21 Diet: Tube feeds Plan: In/out: +320, urine output 2275 AB.46/41/75 on PEEP of 14, 70% Chest x-ray from today shows more alveolar opacities compared to yesterday We will repeat BMP later today as the creatinine went up a little bit and patient did have a bout of hypotension followed by hypertension which might be reason for LISA on top of vancomycin 40 mg of Lasix given to the patient Continue with rocephin for total of 10 days as well as doxycycline DC vancomycin No bowel movement since 7 days we will start the patient on Colace and senna. Hypophosphatemia being replaced I have personally spent 38 minutes of critical care time in the direct management of this patient. This is a life/limb threatening event. This includes time spent evaluating patient, direct bedside care, chart review, placing orders, interpretation of diagnostic studies, discussion with consultants, patient, and family members, as well as other required patient management activities. This time is exclusive of all separately billable procedures, and teaching time and separate from and in addition to any other critical care service time. Thank you for allowing us to participate in the care of this patient. Admission and Anticipated Discharge Date Admission Date: August 10, 2021 Subjective Patient seen and examined at bedside. No acute distress. Overnight patient got very tachypneic for which he was switched back to the vent control assist control In the morning he was changed back to APRV and saturation was doing well He is currently on Precedex, midazolam as well as fentanyl Breathing over the vent Not following any commands T-max 39.1 Review of Systems Review of Systems: Unobtainable due to endotracheal tube Physical Exam Physical Exam: Constitutional: No acute distress HEENT: PERRLA, positive ETT Respiratory system: Decreased air entry bilaterally, no wheeze, no rhonchi, positive crackles bilateral lower lobes CVS: S1-S2 positive, no murmurs or gallops Abdomen: Soft, nontender, nondistended, positive bowel sounds x4 Extremities: +2 pulses bilaterally radialis/ dorsalis pedis, no cyanosis, no edema Neuro: Sedated. Breathing over the vent Psych: Unable to assess G/U: Positive Mello Skin: no rashes, warm and dry Lymphatic: no cervical or axillary lymphadenopathy Results & Data Results & Data ([facility]) Vital Signs (Past 12 Hours) Vital Signs Temp Pulse Resp BP Pulse Ox 08/18/21 08:00 37.1 C 85 24 91 08/18/21 06:00 37.7 C H 88 24 97/65 L 93 08/18/21 05:59 87 28 H 92 08/18/21 05:30 37.8 C H 89 17 95/62 L 92 08/18/21 05:10 24 11/03/21 05:00 38.0 C H 92 H 21 91/63 L 92 08/18/21 04:30 38.1 C H 95 H 19 93/66 L 92 08/18/21 04:00 38.3 C H 100 H 18 95/70 L 93 08/18/21 03:30 38.5 C H 107 H 21 113/81 93 08/18/21 03:10 108 H 31 H 90 08/18/21 03:00 39.0 C H 117 H 30 H 180/115 H 89 L 08/18/21 02:54 122 H 11 L 90 08/18/21 02:31 39.1 C H 106 H 24 147/101 H 90 08/18/21 02:00 39.1 C H 104 H 22 125/93 91 08/18/21 01:30 39.0 C H 105 H 20 148/94 H 91 08/18/21 01:00 38.8 C H 105 H 13 121/96 93 08/18/21 00:30 38.7 C H 100 H 10 L 141/95 H 93 08/18/21 00:00 38.5 C H 96 H 12 131/88 92 08/17/21 23:30 38.3 C H 97 H 13 92 08/17/21 23:20 96 H 11 L 91 08/17/21 23:00 38.2 C H 94 H 13 128/90 91 08/18/21 04:47 08/18/21 04:47 Coding Level of Care Code Critical Care 1st 30-74 mins Diagnoses ARDS (adult respiratory distress syndrome) J80 2019 novel coronavirus-infected pneumonia (NCIP) U07.1; J12.82 Acute respiratory failure with hypoxia J96.01 Breath shortness R06.02 Time Spent (min) 38
[2021-08-18] MEDS: SENNOSIDES 8.8 MG/5 ML UDC PO SCH (10:43)
[2021-08-18] MEDS: DOCUSATE SODIUM SYRUP 100 MG/10 ML UDC PO SCH ×2 (10:43→19:22)
[2021-08-18] MEDS: cefTRIAXone SODIUM 2,000 MG in DEXTROSE 5% 50 ML IV SCH (10:43)
[2021-08-18] MEDS: PANTOprazole 40 MG in SYRINGE 0 ML IV SCH (10:44)
[2021-08-18] MEDS ORDERED: TUBE FEEDING WATER FLUSH OG SCH (10:45)
[2021-08-18] MEDS: TUBE FEEDING WATER FLUSH OG SCH ×4 (11:05→21:56)
[2021-08-18 11:34] LABS: iSTAT Arterial Blood Gas HCO3 29 meg/L (19-24); iSTAT Arterial Blood Gas pCO2 42 mmHg (35-46); iSTAT Arterial Blood Gas pH 7.45 (7.35-7.45); iSTAT Arterial Blood Gas pO2 61 mmHg (80-95); iSTAT Carbon Dioxide 30 mmol/L (24-31); iSTAT FiO2 50 %; iSTAT Site Art Line
[2021-08-18] MEDS: DOXYCYCLINE HYCLATE 100 MG in DEXTROSE 5% 100 ML IV SCH ×2 (11:53→23:30)
[2021-08-18 15:22] LABS: BUN Creatinine Ratio 50.7 (10-20); Calcium 8.3 mg/dl (8.5-10.1); Creatinine Clr Calc Pharmacy 72.1 ml/min; Est GFR (African American) 74.3 ml/min; Est GFR (Non-African American) 64.1 ml/min; Potassium 4.4 mmol/L (3.5-5.1)
[2021-08-18] MEDS: PEPTAMEN INTENSE VHP 1.0 CAL 1,000 ML BAG OG SCH (15:58)
[2021-08-18] MEDS: MIDAZOLAM HCL 125 MG/250 ML BAG IV PRN (18:05)
[2021-08-18] MEDS ORDERED: FUROSEMIDE INJ 20 MG/2 ML VIAL IV ONE (19:12)
--- NOTE | 2021-08-18 22:13 | Hospitalist Progress Note ---
Date of Service August 18, 2021 Assessment & Plan (1) Acute respiratory failure with hypoxia: Plan: 56 y/o male w/ PMHx of anxiety and GERMAN who presents w/ acute hypoxic respiratory failure secondary to covid-19 pneumonia on day 9 of symptoms (08/01/21 onset) was stable on 40L and 80% for two days, declined in status on 08/13, up to 60L and 100% placed on BIPAP 15/8 and FiO2 70%, did not tolerate, got more confused, saturations dropping Dr. Underwood intubated patient at night on 08/13 currently paralyzed, sedated, PEEP down to 12 FiO2 down to 40% dexamethasone 6mg IV BID, day 8 of steroids baricitinib 4mg daily initially, stopped when intubated CTA chest negative for PE, showed bilateral viral pneumonia CRP was down to 7, now up to 32 CXR 08/13 and 08/14 with worsening opacities [facility], age cutoff is 55, other facilities it is lower at 45 they agreed with current management Increased dexamethasone to 10 mg paralytics off since 08/17 will continue to monitor. Propofol discontinued secondary to increasing triglyceride Procal is improving. Continue antibiotics: now on ceftriaxone/doxycycline for 10 days Blood cultures positive. (2) 2019 novel coronavirus-infected pneumonia (NCIP): Plan: sick since 08/01 treating with dexamethasone 6mg q12 and baricitinib 4mg daily (stopped when intubated) CRP trending back up and breathing is worse, intubated 08/13 continue ARDSnet protocol, supine if he would get worse on ventilator, would reach out to [facility] specialists again right now there is not an indication (3) Anxiety: Plan: now sedated used Ativan 0.5mg IV prior to needing intubated (4) Sleep apnea, unspecified: Plan: - per patient, had trialed cpap in past, but could not tolerate mask Plan: FEN/GI: trickle tube feeds ppx: Lovenox, Protonix code: full dispo:ICU status Admission and Anticipated Discharge Date Admission Date: August 10, 2021 Subjective Patient is intubated. Review of Systems Review of Systems: Unobtainable due to endotracheal tube Physical Exam Physical Exam: General: well developed, well nourished, mechanically cortez tilated Neck: supple, trachea midline, normal thyroid Lungs: clear to auscultation bilaterally, symmetric chest movement on ventilator Heart: regular S1 and S2, no murmur, peripheral pulses normal, capillary refill normal, no edema Abdomen: ND Extremities: normal in appearance, no cyanosis, no petechiae, paralyzed Neuro: sedated, CN II-XII intact, no focal deficits Skin: warm, dry, no rash, normal turgor Psych: sedated Results & Data Results & Data ([facility]) Vital Signs (Past 12 Hours) Vital Signs Temp Pulse Resp BP Pulse Ox 08/18/21 20:15 79 10 L 91 08/18/21 18:00 36.7 C 75 10 L 96/74 L 89 L 08/18/21 17:00 36.7 C 74 12 89 L 08/18/21 16:00 36.8 C 76 9 L 100/69 89 L 08/18/21 15:20 75 10 L 89 L 08/18/21 15:00 36.8 C 77 9 L 89 L 08/18/21 14:00 36.8 C 76 17 92 08/18/21 13:00 36.9 C 75 12 90 08/18/21 12:00 36.9 C 75 18 107/58 L 88 L 08/18/21 11:00 37.0 C 77 14 90 08/18/21 10:25 79 28 H 93 PG Care Time/CCT Total # of Minutes Spent Total Time Spent with Patient: Total time spent is greater than 50% in coordination of care (as documented) at patient's floor/unit and/or counseling patient: Coding Level of Care Code 30867 Subseq Hosp Care Lvl 2 Diagnoses Acute respiratory failure with hypoxia J96.01 2019 novel coronavirus-infected pneumonia (NCIP) U07.1; J12.82 Anxiety F41.9 Sleep apnea, unspecified G47.30
[2021-08-19] MEDS: NOREPINEPHRINE/D5W 8 MG/508 ML BAG IV SCH (00:05)
[2021-08-19] MEDS: INSULIN ASPART 100 UNITS/ML 3 ML PEN SC SCH ×6 (00:05→20:47)
[2021-08-19] MEDS: ARTIFICIAL TEARS OP OINT 3.5 GM TUBE OP SCH ×6 (02:01→19:16)
[2021-08-19] MEDS: TUBE FEEDING WATER FLUSH OG SCH ×6 (02:02→22:16)
[2021-08-19] MEDS: DEXMEDETOMIDINE HCL 200 MCG in SODIUM CHLORIDE 0.9% 48 ML IV SCH ×4 (03:29→22:20)
[2021-08-19 04:35] LABS: iSTAT Art Bld Gas pCO2 Correct 38 mmHg (35-46); iSTAT Art Bld Gas pH Corrected 7.494 (7.35-7.45); iSTAT Arterial Blood Gas HCO3 29 meg/L (19-24); iSTAT Arterial Blood Gas pCO2 38 mmHg (35-46); iSTAT Arterial Blood Gas pH 7.49 (7.35-7.45); iSTAT Arterial Blood Gas pO2 58 mmHg (80-95); iSTAT Arterial Blood Gas pO2 C 57; iSTAT Carbon Dioxide 30 mmol/L (24-31); iSTAT FiO2 40 %; iSTAT Hematocrit 31 % (42-52); iSTAT Hemoglobin 10.5 g/dl (14.0-18.0); iSTAT Potassium 4.1 mmol/L (3.3-5.0); iSTAT Site Art Line; iSTAT Sodium 143 mmol/L (135-144)
[2021-08-19 06:06] LABS: Basophils # (auto) 0.01 K/uL (0-0.2); Basophils % (auto) 0.1 %; Hematocrit (blood only) 32.6 % (42-52); Immature Granulocytes # (auto) 0.05 K/uL (0.00-0.02); Immature Granulocytes % (auto) 0.5 %; Lymphocytes # (auto) 0.69 K/uL (1.2-3.4); Lymphocytes % (auto) 7.3 %; Mean Corpuscular Hemoglobin 30.7 pg (25-34); Mean Corpuscular Hgb Conc 33.7 g/dL (32-36); Mean Corpuscular Volume 91.1 fL (80-100); Mean Platelet Volume 11.4 fL (7.4-10.4); Monocytes # (auto) 0.18 K/uL (0.11-0.59); Monocytes % (auto) 1.9 %; Neutrophils # (auto) 8.56 K/uL (1.4-6.5); Neutrophils % (auto) 90.2 %; Platelet Count 289 K/uL (130-400); RDW Coefficient of Variation 13.8 % (11.5-14.5); RDW Standard Deviation 45.9 fL (36.4-46.3); Red Blood Count 3.58 M/uL (4.7-6.1); White Blood Count 9.49 K/uL (4.8-10.8)
[2021-08-19 06:32] LABS: BUN Creatinine Ratio 59.4 (10-20); Calcium 8.4 mg/dl (8.5-10.1); Creatinine Clr Calc Pharmacy 75.2 ml/min; Est GFR (African American) 78.1 ml/min; Est GFR (Non-African American) 67.4 ml/min; Magnesium 3.5 mg/dl (1.8-2.4); Potassium 4.1 mmol/L (3.5-5.1)
[2021-08-19 06:49] LABS: Phosphorus 3.1 mg/dl (2.5-4.9)
--- NOTE | 2021-08-19 07:13 | XRay Report ---
XR chest 1V portable CLINICAL HISTORY: f/u COMPARISON STUDY: Chest radiograph August 18, 2021. FINDINGS: Tip of endotracheal tube is 5.3 cm above the lizzy. Right internal jugular central line is in place. Tip of nasogastric tube is within the body of the stomach. There is no pneumothorax. Inter stitial thickening and bilateral opacities have improved. Cardiomediastinal silhouette is stable. The re is persistent left basilar consolidation. IMPRESSION: 1. Satisfactory positioning of lines and tubes. 2. Mild interval improvement in interstitial thickening and bilateral opacities. ACT 112: Negative or not required by law. Electronically signed by: Alexi Mosley M.D. 08/19/2021 7:12 AM
[2021-08-19] MEDS: ENOXAPARIN INJ 40 MG/0.4 ML SYR SQ SCH ×2 (08:38→19:15)
[2021-08-19] MEDS: DOCUSATE SODIUM SYRUP 100 MG/10 ML UDC PO SCH ×2 (08:39→19:15)
[2021-08-19] MEDS: MULTI VIT W/MINERALS LIQUID 15 ML UDP PO SCH (08:39)
[2021-08-19] MEDS: SENNOSIDES 8.8 MG/5 ML UDC PO SCH (08:39)
[2021-08-19] MEDS: MUPIROCIN 2% OINT 22 GM TUBE EXT SCH ×2 (08:39→19:15)
[2021-08-19] MEDS: dexAMETHasone 10 MG in SYRINGE 0 ML IV SCH (08:41)
[2021-08-19] MEDS ORDERED: FUROSEMIDE 40 MG/4 ML VIAL IV ONE (09:39)
[2021-08-19] MEDS: MIDAZOLAM BOLUS FROM BAG IV PRN ×3 (10:08→22:00)
[2021-08-19] MEDS ORDERED: DAPTOmycin 450 MG in SYRINGE 0 ML IV SCH (10:30)
[2021-08-19] MEDS: cefTRIAXone SODIUM 2,000 MG in DEXTROSE 5% 50 ML IV SCH (10:54)
[2021-08-19] MEDS: PANTOprazole 40 MG in SYRINGE 0 ML IV SCH (10:55)
[2021-08-19] MEDS: DOXYCYCLINE HYCLATE 100 MG in DEXTROSE 5% 100 ML IV SCH ×2 (11:47→22:57)
[2021-08-19] MEDS ORDERED: METHYLNALTREXONE BROMIDE 12 MG/0.6 ML VIAL SQ ONE (12:00)
--- NOTE | 2021-08-19 13:01 | Critical Care Progress Note ---
Date of Service August 19, 2021 Assessment & Plan (1) ARDS (adult respiratory distress syndrome): (2) 2019 novel coronavirus-infected pneumonia (NCIP): (3) Acute respiratory failure with hypoxia: (4) Breath shortness: Plan: 56-year-old male with a noncontributory past medical history presenting to the hospital due to COVID-19 viral pneumonia and was intubated on 08/13/2021 due to worsening ARDS. Neurologic: Sedation: Midazolam and Precedex. Propofol discontinued secondary to increasing triglycerides Anesthesia: Fentanyl Paralytic: Nimbex off since 08-17-21 Pulmonary: --Vent dependent respiratory failure Secondary to multilobar COVID-19 pneumonia Intubated 08/13/2021 Last day of proning was morning of 08-17-21 Nebulized Flolan weaned off the night of his intubation 08/13/21. ABG improved. Reached out to [facility] ECMO team 08/13/2021. They indicated that he would likely not be an ECMO candidate due to his age. Cardiovascular: No significant issues at present. Continue to maintain mean arterial pressures above 65. Gastrointestinal: Mild transaminitis --> improved Renal: Monitor BUNs/creatinine Infectious disease: Procalcitonin 13.5--> 5.97 Continue with Abx and atypical coverage by doxycycline Got 2 doses of vancomycin 08/17/21 Cefepime was given for 6 days. last dose 08/17/21 Rocephin to be continued for total 7 days for E. coli in the sputum Nasal MRSA negative Blood culture bottles growing coagulase negative staph which is MRSA negative --> repeat blood cultures 08/17/21 again growing coagulase-negative staph Central line DC'd on 08/19/2021 Daptomycin started 08/19/2021 Hematologic: Monitor H&H Endocrine: No significant issues --Prophylaxis VTE: Lovenox 40 mg twice daily GI: Protonix Lines: Right IJ 08/13/2021 discontinued 08/19/2021, positive Mello, right radial 08-17-21 Diet: Tube feeds Plan: In/out: -320, urine output 2150 AB.49/38/58 on 40% 40 mg of Lasix was given to the patient today Patient to continue Rocephin for E. coli in the sputum We will start daptomycin as sensitivity of coagulase-negative staph is not good with Rocephin If the repeat blood cultures which are done today are again positive patient will need GRACIELA Patient's [phone] was called and voicemail was left I have personally spent 38 minutes of critical care time in the direct management of this patient. This is a life/limb threatening event. This includes time spent evaluating patient, direct bedside care, chart review, placing orders, interpretation of diagnostic studies, discussion with consultants, patient, and family members, as well as other required patient management activities. This time is exclusive of all separately billable procedures, and teaching time and separate from and in addition to any other critical care service time. Thank you for allowing us to participate in the care of this patient. Admission and Anticipated Discharge Date Admission Date: August 10, 2021 Subjective Patient seen and examined at bedside. No acute distress, no adverse events overnight Patient was on APRV the time of examination At time of examination he was saturating 90% on 40% FiO2 I went down on P high to 20 Afebrile in the last 24 hours Review of Systems Review of Systems: Unobtainable due to endotracheal tube Physical Exam Physical Exam: Constitutional: No acute distress HEENT: PERRLA, positive ETT Respiratory system: Decreased air entry bilaterally, no wheeze, no rhonchi, positive crackles bilateral lower lobes CVS: S1-S2 positive, no murmurs or gallops Abdomen: Soft, nontender, nondistended, positive bowel sounds x4 Extremities: +2 pulses bilaterally radialis/ dorsalis pedis, no cyanosis, no edema Neuro: Sedated. Breathing over the vent Psych: Unable to assess G/U: Positive Mello Skin: no rashes, warm and dry Lymphatic: no cervical or axillary lymphadenopathy Results & Data Results & Data ([facility]) Vital Signs (Past 12 Hours) Vital Signs Temp Pulse Resp BP Pulse Ox 08/19/21 11:00 37.3 C 83 15 91 08/19/21 10:45 83 10 L 90 08/19/21 10:30 37.2 C 82 16 90 08/19/21 10:00 37.1 C 95 H 22 89 L 08/19/21 09:30 37.0 C 86 16 89 L 08/19/21 09:00 37.0 C 89 18 91 08/19/21 08:30 36.9 C 80 14 91 08/19/21 08:20 94 H 26 H 92 08/19/21 08:00 37.0 C 94 H 15 92 08/19/21 07:30 37.0 C 73 13 91 08/19/21 07:00 37.0 C 78 13 90 08/19/21 06:30 37.0 C 74 10 L 90 08/19/21 06:00 37.0 C 72 15 106/75 90 08/19/21 05:30 37.0 C 73 10 L 89 L 08/19/21 05:00 37.0 C 74 12 121/84 89 L 08/19/21 04:30 36.9 C 76 10 L 90 08/19/21 04:00 36.9 C 74 20 121/79 92 08/19/21 03:45 77 10 L 89 L 08/19/21 03:30 37.0 C 75 10 L 89 L 08/19/21 03:00 36.9 C 75 10 L 115/74 89 L 08/19/21 02:30 36.8 C 73 12 90 08/19/21 02:00 36.7 C 74 10 L 112/75 90 08/19/21 01:30 36.7 C 71 10 L 89 L 08/19/21 05:34 08/19/21 05:34 Coding Level of Care Code Critical Care 1st 30-74 mins Diagnoses ARDS (adult respiratory distress syndrome) J80 2019 novel coronavirus-infected pneumonia (NCIP) U07.1; J12.82 Acute respiratory failure with hypoxia J96.01 Breath shortness R06.02 Time Spent (min) 38
[2021-08-19] MEDS: fentaNYL citrate 2,500 MCG/250 ML BAG IV SCH (13:10)
[2021-08-19] MEDS: PEPTAMEN INTENSE VHP 1.0 CAL 1,000 ML BAG OG SCH ×2 (15:28→22:41)
--- NOTE | 2021-08-19 21:11 | Hospitalist Progress Note ---
Date of Service August 19, 2021 Assessment & Plan (1) Acute respiratory failure with hypoxia: Plan: 56 y/o male w/ PMHx of anxiety and GERMAN who presents w/ acute hypoxic respiratory failure secondary to covid-19 pneumonia on day 9 of symptoms (08/01/21 onset) was stable on 40L and 80% for two days, declined in status on 08/13, up to 60L and 100% placed on BIPAP 15/8 and FiO2 70%, did not tolerate, got more confused, saturations dropping Dr. Underwood intubated patient at night on 08/13 currently paralyzed, sedated, PEEP down to 12 FiO2 down to 40% dexamethasone 6mg IV BID, day 8 of steroids baricitinib 4mg daily initially, stopped when intubated CTA chest negative for PE, showed bilateral viral pneumonia CRP was down to 7, now up to 32 CXR 08/13 and 08/14 with worsening opacities [facility], age cutoff is 55, other facilities it is lower at 45 they agreed with current management Increased dexamethasone to 10 mg paralytics off since 08/17 will continue to monitor. Propofol discontinued secondary to increasing triglyceride Procal is improving. Continue antibiotics: now on ceftriaxone/doxycycline for 10 days Blood cultures positive. Added daptomycin. (2) 2019 novel coronavirus-infected pneumonia (NCIP): Plan: sick since 08/01 treating with dexamethasone 6mg q12 and baricitinib 4mg daily (stopped when intubated) CRP trending back up and breathing is worse, intubated 08/13 continue ARDSnet protocol, supine if he would get worse on ventilator, would reach out to [facility] specialists again right now there is not an indication (3) Anxiety: Plan: now sedated used Ativan 0.5mg IV prior to needing intubated (4) Sleep apnea, unspecified: Plan: - per patient, had trialed cpap in past, but could not tolerate mask Plan: FEN/GI: trickle tube feeds ppx: Lovenox, Protonix code: full dispo:ICU status Admission and Anticipated Discharge Date Admission Date: August 10, 2021 Subjective Patient remains intubated. Review of Systems Review of Systems: Unobtainable due to endotracheal tube Physical Exam Physical Exam: General: well developed, well nourished, mechanically ventilated Neck: supple, trachea midline, normal thyroid Lungs: clear to auscultation bilaterally, symmetric chest movement on ventilator Heart: regular S1 and S2, no murmur, peripheral pulses normal, capillary refill normal, no edema Abdomen: ND Extremities: normal in appearance, no cyanosis, no petechiae, paralyzed Neuro: sedated, CN II-XII intact, no focal deficits Skin: warm, dry, no rash, normal turgor Psych: sedated Results & Data Results & Data ([facility]) Vital Signs (Past 12 Hours) Vital Signs Temp Pulse Resp Pulse Ox 08/19/21 18:00 37.4 C 78 14 92 08/19/21 17:30 37.4 C 80 9 L 92 08/19/21 17:00 37.4 C 78 15 91 08/19/21 16:30 37.4 C 85 11 L 91 08/19/21 16:00 37.4 C 83 12 91 08/19/21 15:30 37.5 C 82 11 L 92 08/19/21 15:00 37.4 C 85 17 93 08/19/21 14:30 37.5 C 79 14 92 08/19/21 14:00 37.6 C H 81 15 92 08/19/21 13:30 37.6 C H 83 13 92 08/19/21 13:00 37.7 C H 83 16 93 08/19/21 12:30 37.6 C H 84 10 L 92 08/19/21 12:00 37.5 C 82 11 L 91 08/19/21 11:30 37.4 C 84 13 89 L 08/19/21 11:00 37.3 C 83 15 91 08/19/21 10:45 83 10 L 90 08/19/21 10:30 37.2 C 82 16 90 08/19/21 10:00 37.1 C 95 H 22 89 L 08/19/21 09:30 37.0 C 86 16 89 L PG Care Time/CCT Total # of Minutes Spent Total Time Spent with Patient: Total time spent is greater than 50% in coordination of care (as documented) at patient's floor/unit and/or counseling patient: Coding Level of Care Code 16091 Subseq Hosp Care Lvl 2 Diagnoses Acute respiratory failure with hypoxia J96.01 2019 novel coronavirus-infected pneumonia (NCIP) U07.1; J12.82 Anxiety F41.9 Sleep apnea, unspecified G47.30
[2021-08-19] MEDS ORDERED: ALBUT/IPRATROP 3MG/0.5MG NEB 3 ML VIAL ONE (22:05)
[2021-08-19] MEDS ORDERED: VECURONIUM BROMIDE 10 MG VIAL IV STA (22:50)
[2021-08-20] MEDS ORDERED: ALBUT/IPRATROP 3MG/0.5MG NEB 3 ML VIAL NEB PRN (00:04)
[2021-08-20] MEDS: INSULIN ASPART 100 UNITS/ML 3 ML PEN SC SCH ×6 (00:04→20:58)
[2021-08-20] MEDS: ARTIFICIAL TEARS OP OINT 3.5 GM TUBE OP SCH ×3 (00:58→08:33)
[2021-08-20] MEDS: DEXMEDETOMIDINE HCL 200 MCG in SODIUM CHLORIDE 0.9% 48 ML IV SCH ×7 (02:16→23:12)
[2021-08-20] MEDS: MIDAZOLAM HCL 125 MG/250 ML BAG IV PRN ×2 (03:38→20:36)
[2021-08-20] MEDS: TUBE FEEDING WATER FLUSH OG SCH ×11 (03:42→23:10)
[2021-08-20] MEDS: fentaNYL citrate 2,500 MCG/250 ML BAG IV SCH ×2 (03:42→14:28)
[2021-08-20] MEDS: MIDAZOLAM BOLUS FROM BAG IV PRN ×5 (04:15→23:00)
[2021-08-20] MEDS ORDERED: HYDROmorphone INJ 1 MG/ML SYRINGE IV STA (04:24)
[2021-08-20 04:35] LABS: Basophils # (auto) 0.01 K/uL (0-0.2); Basophils % (auto) 0.1 %; Hematocrit (blood only) 36.4 % (42-52); Hemoglobin 12.2 g/dL (14.0-18.0); Immature Granulocytes # (auto) 0.08 K/uL (0.00-0.02); Immature Granulocytes % (auto) 0.8 %; Lymphocytes % (auto) 7.8 %; Mean Corpuscular Hemoglobin 30.9 pg (25-34); Mean Corpuscular Hgb Conc 33.5 g/dL (32-36); Mean Corpuscular Volume 92.2 fL (80-100); Mean Platelet Volume 11.5 fL (7.4-10.4); Monocytes # (auto) 0.35 K/uL (0.11-0.59); Monocytes % (auto) 3.4 %; Neutrophils # (auto) 9.02 K/uL (1.4-6.5); Neutrophils % (auto) 87.9 %; Platelet Count 343 K/uL (130-400); RDW Coefficient of Variation 13.9 % (11.5-14.5); RDW Standard Deviation 47.3 fL (36.4-46.3); Red Blood Count 3.95 M/uL (4.7-6.1); White Blood Count 10.26 K/uL (4.8-10.8)
[2021-08-20] MEDS ORDERED: VECURONIUM BROMIDE 10 MG VIAL IV STA (04:49)
[2021-08-20 05:00] LABS: BUN Creatinine Ratio 55.6 (10-20); Calcium 8.8 mg/dl (8.5-10.1); Creatinine Clr Calc Pharmacy 75.2 ml/min; Est GFR (African American) 78.1 ml/min; Est GFR (Non-African American) 67.4 ml/min; Magnesium 2.5 mg/dl (1.8-2.4); Phosphorus 2.7 mg/dl (2.5-4.9); Potassium 3.7 mmol/L (3.5-5.1)
[2021-08-20] MEDS: ACETAMINOPHEN 1,000 MG/100 ML VIAL IV PRN (05:46)
[2021-08-20 05:52] LABS: iSTAT Art Bld Gas pCO2 Correct 57 mmHg (35-46); iSTAT Art Bld Gas pH Corrected 7.359 (7.35-7.45); iSTAT Arterial Blood Gas HCO3 32 meg/L (19-24); iSTAT Arterial Blood Gas pCO2 55 mmHg (35-46); iSTAT Arterial Blood Gas pH 7.37 (7.35-7.45); iSTAT Arterial Blood Gas pO2 80 mmHg (80-95); iSTAT Arterial Blood Gas pO2 C 84; iSTAT Carbon Dioxide 33 mmol/L (24-31); iSTAT FiO2 60 %; iSTAT Hematocrit 36 % (42-52); iSTAT Hemoglobin 12.2 g/dl (14.0-18.0); iSTAT Potassium 3.6 mmol/L (3.3-5.0); iSTAT Site Art Line; iSTAT Sodium 147 mmol/L (135-144)
[2021-08-20] MEDS ORDERED: POTASSIUM CHLORIDE 20 MEQ/15 ML UDC PO STA (06:27)
--- NOTE | 2021-08-20 07:59 | XRay Report ---
XR chest 1V portable at 10:41 PM CLINICAL HISTORY: Hypoxia, resp distress. COMPARISON STUDY: 08/19/2021 at 6:37 AM TECHNIQUE: 1 view of the chest FINDINGS: Single frontal view of the chest demonstrates the cardiomediastinal silhouette to be within normal li mits. ET and NG tubes are again seen. Right jugular catheter has been removed. Compared to previous e xamination, there has been interval development of diffuse interstitial edema. No confluent alveolar opacities are identified. There is no evidence for pleural effusion. There is no acute osseous pathol ogy. IMPRESSION: Interval development of mild diffuse interstitial edema characteristic of cardiac decompe nsation. ACT 112: Negative or not required by law. Electronically signed by: Barry Saavedra M.D. 08/20/2021 7:58 AM
[2021-08-20] MEDS ORDERED: FUROSEMIDE 40 MG/4 ML VIAL IV ONE (08:00)
[2021-08-20] MEDS: dexAMETHasone 10 MG in SYRINGE 0 ML IV SCH (08:31)
[2021-08-20] MEDS: DOCUSATE SODIUM SYRUP 100 MG/10 ML UDC PO SCH ×2 (08:32→20:05)
[2021-08-20] MEDS: ENOXAPARIN INJ 40 MG/0.4 ML SYR SQ SCH ×2 (08:32→20:05)
[2021-08-20] MEDS: SENNOSIDES 8.8 MG/5 ML UDC PO SCH (08:32)
[2021-08-20] MEDS: MULTI VIT W/MINERALS LIQUID 15 ML UDP PO SCH (08:33)
[2021-08-20] MEDS: MUPIROCIN 2% OINT 22 GM TUBE EXT SCH ×2 (08:33→20:06)
--- NOTE | 2021-08-20 09:35 | XRay Report ---
XR chest 1V portable CLINICAL HISTORY: Resp failure TECHNIQUE: Single frontal radiograph of the chest was obtained. Comparison: Comparison is made to chest one view 08/19/2021 FINDINGS: Endotracheal tube and enteric tube are unchanged. The cardiomediastinal silhouette is normal. Multifo keke airspace opacities are seen, slightly more pronounced than in the prior exam. No evidence of pleu ral effusion or pneumothorax. IMPRESSION: Slight progression of multifocal airspace opacities compatible with atelectasis, pneumonia, and/or as piration. ACT 112: Negative or not required by law. Electronically signed by: Zak Chappell M.D. 08/20/2021 9:34 AM
[2021-08-20] MEDS ORDERED: ACETAMINOPHEN 325 MG TAB PO STA (09:46)
[2021-08-20] MEDS ORDERED: LACTULOSE SYRUP 30 GM/45 ML UDP PO STA (09:47)
[2021-08-20] MEDS ORDERED: ARTIFICIAL TEARS OP OINT 3.5 GM TUBE OP PRN (10:15)
[2021-08-20] MEDS: cefTRIAXone SODIUM 2,000 MG in DEXTROSE 5% 50 ML IV SCH (10:40)
--- NOTE | 2021-08-20 10:41 | Critical Care Progress Note ---
Date of Service August 20, 2021 Assessment & Plan (1) ARDS (adult respiratory distress syndrome): (2) 2019 novel coronavirus-infected pneumonia (NCIP): (3) Acute respiratory failure with hypoxia: (4) Breath shortness: Plan: 56-year-old male with a noncontributory past medical history presenting to the hospital due to COVID-19 viral pneumonia and was intubated on 08/13/2021 due to worsening ARDS. Neurologic: Sedation: Midazolam and Precedex. Propofol discontinued secondary to increasing triglycerides Anesthesia: Fentanyl Paralytic: Nimbex off since 08-17-21 Pulmonary: --Vent dependent respiratory failure Secondary to multilobar COVID-19 pneumonia Intubated 08/13/2021 Last day of proning was morning of 08-17-21 Nebulized Flolan weaned off the night of his intubation 08/13/21. ABG improved. Reached out to [facility] team 08/13/2021. They indicated that he would likely not be an ECMO candidate due to his age. Cardiovascular: No significant issues at present. Continue to maintain mean arterial pressures above 65. Gastrointestinal: Mild transaminitis --> improved Renal: Monitor BUNs/creatinine Infectious disease: Procalcitonin 13.5--> 5.97 Continue with Abx and atypical coverage by doxycycline Got 2 doses of vancomycin 08/17/21 Cefepime was given for 6 days. last dose 08/17/21 Rocephin to be continued for total 7 days for E. coli in the sputum Nasal MRSA negative Blood culture bottles growing coagulase negative staph which is MRSA negative Carey sensitive --> repeat blood cultures 08/17/21 again growing coagulase-negative staph Central line DC'd on 08/19/2021 Repeat blood culture 08/19/2021 negative to date Daptomycin started 08/19/2021 and DC'ed 10/20/20 Hematologic: Monitor H&H Endocrine: No significant issues --Prophylaxis VTE: Lovenox 40 mg twice daily GI: Protonix Lines: Right IJ 08/13/2021 discontinued 08/19/2021, positive Mello, right radial 08-17-21 Diet: Tube feeds Plan: In/out: -1976, urine output 4100 AB.37/55/80 14 PEEP, FiO2 60% T-max 38.2 40 mg of Lasix was given to the patient today Continue with Rocephin for at least 10 days from negative blood culture Discontinue daptomycin If the repeat blood cultures which are done today are again positive patient will need GRACIELA No vomiting for more than 10 days Patient was given methylnaltrexone, he is already on Colace and senna. We will give lactulose today Patient's [phone] I have personally spent 38 minutes of critical care time in the direct ma nagement of this patient. This is a life/limb threatening event. This includes time spent evaluating patient, direct bedside care, chart review, placing orders, interpretation of diagnostic studies, discussion with consultants, patient, and family members, as well as other required patient management activities. This time is exclusive of all separately billable procedures, and teaching time and separate from and in addition to any other critical care service time. Thank you for allowing us to participate in the care of this patient. Admission and Anticipated Discharge Date Admission Date: August 10, 2021 Subjective Patient seen and examined at bedside. Overnight patient was very restless underwent he was given boluses of sedation was still very tachypneic, tachycardic and hypertensive Patient was given 2 doses of vecuronium He was changed to VC AC He is on 6 of midazolam, 0.7 on Precedex and 200 of fentanyl Patient was very asynchronous at the time of examination. I bolused him with 15 mics of fentanyl I changed his ventilator to from APRV to pressure control Review of Systems Review of Systems: Unobtainable due to endotracheal tube Physical Exam Physical Exam: Constitutional: No acute distress HEENT: PERRLA, positive ETT Respiratory system: Decreased air entry bilaterally, no wheeze, no rhonchi, positive crackles bilateral lower lobes CVS: S1-S2 positive, no murmurs or gallops Abdomen: Soft, nontender, nondistended, positive bowel sounds x4 Extremities: +2 pulses bilaterally radialis/ dorsalis pedis, no cyanosis, no edema Neuro: Sedated. Breathing over the vent Psych: Unable to assess G/U: Positive Mello Skin: no rashes, warm and dry Lymphatic: no cervical or axillary lymphadenopathy Results & Data Results & Data ([facility]) Vital Signs (Past 12 Hours) Vital Signs Temp Pulse Resp BP Pulse Ox 08/20/21 08:30 38.2 C H 95 H 23 93 08/20/21 08:00 38.2 C H 97 H 19 93 08/20/21 07:30 38.1 C H 99 H 16 91 08/20/21 07:20 107 H 29 H 90 08/20/21 07:00 38.0 C H 93 H 34 H 91 08/20/21 06:30 38.0 C H 104 H 29 H 90 08/20/21 06:00 38.0 C H 115 H 30 H 144/96 H 93 08/20/21 05:30 37.9 C H 94 H 24 92 08/20/21 05:00 37.8 C H 99 H 34 H 167/104 H 93 08/20/21 04:30 37.7 C H 101 H 36 H 98 08/20/21 04:00 37.7 C H 106 H 34 H 117/87 92 08/20/21 03:30 37.7 C H 82 24 92 08/20/21 03:00 37.7 C H 85 18 97/73 L 92 08/20/21 02:30 37.7 C H 85 24 92 08/20/21 02:20 86 30 H 92 08/20/21 02:00 37.7 C H 88 24 95/71 L 94 08/20/21 01:30 37.7 C H 90 24 94 08/20/21 01:00 37.6 C H 92 H 24 104/70 93 08/20/21 00:30 37.5 C 92 H 25 H 92 08/20/21 00:00 37.4 C 94 H 24 114/61 93 08/19/21 23:30 37.4 C 94 H 24 92 08/19/21 23:00 37.4 C 110 H 24 160/107 H 92 08/20/21 04:06 08/20/21 04:06 Coding Level of Care Code Critical Care 1st 30-74 mins Diagnoses ARDS (adult respiratory distress syndrome) J80 2019 novel coronavirus-infected pneumonia (NCIP) U07.1; J12.82 Acute respiratory failure with hypoxia J96.01 Breath shortness R06.02 Time Spent (min) 38
[2021-08-20] MEDS: PANTOprazole 40 MG in SYRINGE 0 ML IV SCH (11:32)
[2021-08-20] MEDS: DOXYCYCLINE HYCLATE 100 MG in DEXTROSE 5% 100 ML IV SCH ×2 (13:52→23:11)
[2021-08-20] MEDS ORDERED: ROCURONIUM BROMIDE 10 MG/ML 5 ML VIAL IV ONE (14:42)
[2021-08-20] MEDS ORDERED: ETOMIDATE 2 MG/ML 20 ML VIAL IV ONE (14:42)
[2021-08-20] MEDS ORDERED: RAPID SEQUENCE INDUCTION BAG ONE (15:05)
--- NOTE | 2021-08-20 15:34 | Procedure Note ---
Procedure Note Date of Service August 20, 2021 Note INTUBATION PROCEDURE NOTE: Attending: Dr Kera Johns MD Patient was evaluated and plan to intubate was made for cuff leak. Sedative agent used: Etomidate 20 mg Paralysis agent used: Rocuronium 40mg Emergent consent was implied given patients rapidly declining clinical status and need for airway protection. The patient was prepared in the appropriate fashion. The patient was easily pre-oxygenated by using [id number] ventilation. With help of glide scope grade 1 vocal cords were visualized and 7.5 Romanian ETT was introduced on first attempt to 24cm at the lip. The stylette was removed and balloon was inflated with 10mL of air. Appropriate Colorimetric change was appreciated for at least 10 breaths. Bilateral chest rise and breath sounds were appreciated without air sounds in the epigastrium. Patient tolerated the procedure well and there were no immediate complications. Chest Xray to follow for confirming placement. Coding CPT Codes Resuscitation - Resuscitation: 39631 Endotracheal Intubation, emergency ([id number]) [facility] Procedure Codes (Charges) Resuscitation Resuscitation: 82355 Endotracheal Intubation, emergency
--- NOTE | 2021-08-20 16:25 | XRay Report ---
XR chest 1V portable HISTORY: 56 years-old Male check ET/OGT placement acute respiratory failure COMPARISON: Chest radiograph 08/20/2021 at 6:45 AM TECHNIQUE: Portable semierect AP view of the chest FINDINGS: Endotracheal tube overlies the midline, 2.8 cm superior to the lizzy. Enteric tube distal tip projec ts over the gastric body. Cardiac silhouette is enlarged. Interstitial coarsening with multifocal air space opacities redemonstrated. No pneumothorax. Small pleural effusions. IMPRESSION: 1. Satisfactory positioning of the endotracheal and enteric tubes. 2. Cardiomegaly with stable to mildly progressed mixed interstitial and alveolar opacities 3. Small pleural effusions suggested. ACT 112: Negative or not required by law. The above report was generated using voice recognition software. It may contain grammatical, syntax o r spelling errors. Electronically signed by: Lizandro Childress M.D. 08/20/2021 4:23 PM
--- NOTE | 2021-08-20 20:14 | Hospitalist Progress Note ---
Date of Service August 20, 2021 Assessment & Plan (1) Acute respiratory failure with hypoxia: Plan: 56 y/o male w/ PMHx of anxiety and GERMAN who presents w/ acute hypoxic respiratory failure secondary to covid-19 pneumonia on day 9 of symptoms (08/01/21 onset) was stable on 40L and 80% for two days, declined in status on 08/13, up to 60L and 100% placed on BIPAP 15/8 and FiO2 70%, did not tolerate, got more confused, saturations dropping Dr. Underwood intubated patient at night on 08/13 currently paralyzed, sedated, PEEP down to 12 FiO2 down to 40% dexamethasone 6mg IV BID, day 8 of steroids baricitinib 4mg daily initially, stopped when intubated CTA chest negative for PE, showed bilateral viral pneumonia CRP was down to 7, now up to 32 CXR 08/13 and 08/14 with worsening opacities [place] [facility], age cutoff is 55, other facilities it is lower at 45 they agreed with current management Increased dexamethasone to 10 mg paralytics off since 08/17 will continue to monitor. Propofol discontinued secondary to increasing triglyceride Procal is improving. Continue antibiotics: now on ceftriaxone/doxycycline for 10 days Blood cultures positive. Discontinue daptomycin. (2) 2019 novel coronavirus-infected pneumonia (NCIP): Plan: sick since 08/01 treating with dexamethasone 6mg q12 and baricitinib 4mg daily (stopped when intubated) CRP trending back up and breathing is worse, intubated 08/13 continue ARDSnet protocol, supine if he would get worse on ventilator, would reach out to [place] [facility] specialists again right now there is not an indication (3) Anxiety: Plan: now sedated used Ativan 0.5mg IV prior to needing intubated (4) Sleep apnea, unspecified: Plan: - per patient, had trialed cpap in past, but could not tolerate mask Plan: FEN/GI: trickle tube feeds ppx: Lovenox, Protonix code: full dispo:ICU status Admission and Anticipated Discharge Date Admission Date: August 10, 2021 Subjective Patient is intubated. Review of Systems Review of Systems: Unobtainable due to endotracheal tube Physical Exam Physical Exam: General: well developed, well nourished, mechanically ventilated Neck: supple, trachea midline, normal thyroid Lungs: clear to auscultation bilaterally, symmetric chest movement on ventilator Heart: regular S1 and S2, no murmur, peripheral pulses normal, capillary refill normal, no edema Abdomen: ND Extremities: normal in appearance, no cyanosis, no petechiae, paralyzed Neuro: sedated, CN II-XII intact, no focal deficits Skin: warm, dry, no rash, normal turgor Psych: sedated Results & Data Results & Data ([facility]) Vital Signs (Past 12 Hours) Vital Signs Temp Pulse Resp Pulse Ox 08/20/21 18:00 37.3 C 81 23 92 08/20/21 17:30 37.4 C 80 25 H 95 08/20/21 17:00 37.5 C 84 23 94 08/20/21 16:30 37.5 C 84 23 93 08/20/21 16:00 37.6 C H 88 24 92 08/20/21 15:35 94 H 31 H 92 08/20/21 15:30 37.6 C H 85 26 H 92 08/20/21 15:00 37.6 C H 101 H 14 95 08/20/21 14:30 37.9 C H 87 25 H 92 08/20/21 14:00 38.0 C H 86 26 H 94 08/20/21 13:45 86 27 H 93 08/20/21 13:30 38.2 C H 89 23 91 08/20/21 13:00 38.3 C H 92 H 25 H 89 L 08/20/21 12:30 38.4 C H 97 H 31 H 93 08/20/21 12:00 38.4 C H 101 H 22 92 08/20/21 11:30 38.4 C H 108 H 23 91 08/20/21 11:15 112 H 29 H 91 08/20/21 11:00 38.6 C H 104 H 27 H 91 08/20/21 10:30 38.5 C H 100 H 16 91 08/20/21 10:00 38.5 C H 103 H 28 H 90 08/20/21 09:30 38.3 C H 99 H 15 91 08/20/21 09:00 38.2 C H 100 H 15 93 08/20/21 08:30 38.2 C H 95 H 23 93 PG Care Time/CCT Total # of Minutes Spent Total Time Spent with Patient: Total time spent is greater than 50% in coordination of care (as documented) at patient's floor/unit and/or counseling patient: Coding Level of Care Code 68013 Subseq Hosp Care Lvl 2 Diagnoses Acute respiratory failure with hypoxia J96.01 2019 novel coronavirus-infected pneumonia (NCIP) U07.1; J12.82 Anxiety F41.9 Sleep apnea, unspecified G47.30
[2021-08-20] MEDS: PEPTAMEN INTENSE VHP 1.0 CAL 1,000 ML BAG OG SCH (23:10)
[2021-08-21] MEDS: INSULIN ASPART 100 UNITS/ML 3 ML PEN SC SCH ×7 (00:04→23:27)
[2021-08-21] MEDS: MIDAZOLAM BOLUS FROM BAG IV PRN ×7 (00:07→07:40)
[2021-08-21] MEDS: DEXMEDETOMIDINE HCL 200 MCG in SODIUM CHLORIDE 0.9% 48 ML IV SCH ×11 (00:43→20:03)
[2021-08-21] MEDS: ACETAMINOPHEN SUSP 325 MG/10.15 ML UDC PO PRN ×2 (01:15→06:05)
[2021-08-21] MEDS: TUBE FEEDING WATER FLUSH OG SCH ×7 (01:15→23:28)
[2021-08-21] MEDS: fentaNYL citrate 2,500 MCG/250 ML BAG IV SCH ×3 (01:16→20:08)
[2021-08-21 03:45] LABS: iSTAT Art Bld Gas pCO2 Correct 41 mmHg (35-46); iSTAT Art Bld Gas pH Corrected 7.442 (7.35-7.45); iSTAT Arterial Blood Gas HCO3 27 meg/L (19-24); iSTAT Arterial Blood Gas pCO2 37 mmHg (35-46); iSTAT Arterial Blood Gas pH 7.47 (7.35-7.45); iSTAT Arterial Blood Gas pO2 64 mmHg (80-95); iSTAT Arterial Blood Gas pO2 C 73; iSTAT Carbon Dioxide 28 mmol/L (24-31); iSTAT FiO2 70 %; iSTAT Hematocrit 31 % (42-52); iSTAT Hemoglobin 10.5 g/dl (14.0-18.0); iSTAT Potassium 3.8 mmol/L (3.3-5.0); iSTAT Site Art Line; iSTAT Sodium 147 mmol/L (135-144)
[2021-08-21 05:36] LABS: Basophils # (auto) 0.01 K/uL (0-0.2); Basophils % (auto) 0.1 %; Eosinophils # (auto) 0.07 K/uL (0-0.5); Eosinophils % (auto) 0.8 %; Hematocrit (blood only) 34.8 % (42-52); Hemoglobin 11.4 g/dL (14.0-18.0); Immature Granulocytes # (auto) 0.09 K/uL (0.00-0.02); Lymphocytes # (auto) 0.58 K/uL (1.2-3.4); Lymphocytes % (auto) 6.2 %; Mean Corpuscular Hemoglobin 30.5 pg (25-34); Mean Corpuscular Hgb Conc 32.8 g/dL (32-36); Mean Platelet Volume 11.3 fL (7.4-10.4); Monocytes # (auto) 0.16 K/uL (0.11-0.59); Monocytes % (auto) 1.7 %; Neutrophils # (auto) 8.42 K/uL (1.4-6.5); Neutrophils % (auto) 90.2 %; Platelet Count 243 K/uL (130-400); RDW Coefficient of Variation 14.2 % (11.5-14.5); RDW Standard Deviation 48.5 fL (36.4-46.3); Red Blood Count 3.74 M/uL (4.7-6.1); White Blood Count 9.33 K/uL (4.8-10.8)
[2021-08-21 06:03] LABS: BUN Creatinine Ratio 62.7 (10-20); Calcium 8.9 mg/dl (8.5-10.1); Creatinine Clr Calc Pharmacy 90.4 ml/min; Est GFR (African American) 97.6 ml/min; Est GFR (Non-African American) 84.2 ml/min; Magnesium 2.4 mg/dl (1.8-2.4); Phosphorus 3.2 mg/dl (2.5-4.9); Potassium 3.8 mmol/L (3.5-5.1)
--- NOTE | 2021-08-21 07:32 | XRay Report ---
XR chest 1V portable CLINICAL HISTORY: Respiratory failure. COMPARISON STUDY: Chest radiograph August 20, 2021 at 3:51 PM. FINDINGS: Tip of endotracheal tube is 5.4 cm above the lizzy. Tip of nasogastric tube is within the body of the stomach. There is no pneumothorax or pleural effusion. Cardiac size is stable. Extensive bilateral airspace opacities have slightly increased. IMPRESSION: Slight increase in extensive bilateral airspace opacities suggestive of viral pneumonia. ACT 112: Negative or not required by law. Electronically signed by: Alexi Mosley M.D. 08/21/2021 7:31 AM
--- NOTE | 2021-08-21 07:57 | Critical Care Progress Note ---
Date of Service August 21, 2021 Assessment & Plan (1) ARDS (adult respiratory distress syndrome): (2) 2019 novel coronavirus-infected pneumonia (NCIP): (3) Acute respiratory failure with hypoxia: (4) Breath shortness: (5) Positive blood cultures: (6) Nightmare disorder: Plan: 56-year-old male with a noncontributory past medical history presenting to the hospital due to COVID-19 viral pneumonia and was intubated on 08/13/2021 due to worsening ARDS. Neurologic: Continue fentanyl, Versed and Precedex. Goal RASS of -1. Unfortunately we are having issues with weaning sedation due to agitation and ventilator dyssynchrony. He does have a history of night terrors which we must keep in mind. Propofol was discontinued due to elevated triglyceride levels. Pulmonary: ARDS secondary to Covid. Intubated 08/13/2021. Continue lung protective ventil ation. Prone to early on during his intubation course. We will increase his PEEP to 14 cm H2O this morning and attempt to wean down his high FiO2 requirements. We will advance the endotracheal tube 2 cm. He underwent endotracheal tube exchange 08/20/2021 due to a cuff leak. He was on baricitinib earlier in the course of his hospitalization due to the severity of his COVID-19 viral illness. Currently on 10 mg daily of dexamethasone. Cardiovascular: Mildly hypotensive likely secondary to sedation. Continue to maintain mean arterial pressures above 65. Gastrointestinal: Continue Protonix and tube feeds. Triglycerides trending down from 528 to 451 mg/dL on 08/20/2021. We will repeat triglycerides tomorrow morning. Started scheduled senna and MiraLAX. Continue docusate. Renal: Creatinine and electrolytes are stable. BUN is elevated to 62 likely related to dexamethasone. -4.7 L since admission Infectious disease: Currently on ceftriaxone. Blood cultures positive for coag negative staph on 08/14/2021. Repeat cultures are positive on 08/17/2021 from blood for gram- positive cocci in clusters. Staph MRSA screen from the blood was negative. E. coli was isolated from sputum cultures on 08/15/2021. E. coli was pansensitive. [facility] infectious disease consult placed due to persistently positive blood cultures. Repeat surveillance cultures from 08/19/2021 are negative to date after 24 hours. Repeat procalcitonin ordered. Right IJ central line removed earlier in hospitalization. He is persistently febrile likely due to the COVID- 19 illness itself. Hematologic: Continue Lovenox 40 mg twice daily. Mild anemia seen. Endocrine: ICU pharmacist to assist with hyperglycemia management. TSH ordered. VTE prophylaxis: Lovenox for DVT prophylaxis. CODE STATUS: Full code Family at bedside: None at bedside Disposition: Remain in the ICU I have personally spent 39 minutes of critical care time in the direct management of this patient. This is a life/limb threatening event. This includes time spent evaluating patient, direct bedside care, chart review, placing orders, interpretation of diagnostic studies, discussion with consultants, patient, and family members, as well as other required patient management activities. This time is exclusive of all separately billable procedures, and teaching time and separate from and in addition to any other critical care service time. Thank you for allowing us to participate in the care of this patient. Admission and Anticipated Discharge Date Admission Date: August 10, 2021 Subjective Patient seen and examined this morning. His FiO2 was increased to 70% overnight. He is currently on a PEEP of 10. Saturations are in the low 90s. He is requiring 275 mcg of fentanyl continuously and receiving as needed boluses. He is currently on 6 mg of Versed an hour. Review of Systems Review of Systems: Unobtainable due to cognitive status and Unobtainable due to endotracheal tube Physical Exam Physical Exam: Constitutional: No acute distress HEENT: PERRLA, positive ETT Respiratory system: Decreased air entry bilaterally, no wheeze, no rhonchi, positive crackles bilateral lower lobes CVS: S1-S2 positive, no murmurs or gallops Abdomen: Soft, nontender, nondistended, positive bowel sounds x4 Extremities: +2 pulses bilaterally radialis/ dorsalis pedis, no cyanosis, no edema Neuro: Sedated. Breathing over the vent. Psych: Unable to assess G/U: Positive Mello Skin: no rashes, warm and dry Lymphatic: no cervical or axillary lymphadenopathy Results & Data Results & Data ([facility]) Vital Signs (Past 12 Hours) Vital Signs Temp Pulse Resp Pulse Ox 08/21/21 06:00 102.4 F H 87 22 92 08/21/21 05:30 102.2 F H 85 11 L 90 08/21/21 05:00 102.2 F H 88 12 89 L 08/21/21 04:30 102.0 F H 86 30 H 89 L 08/21/21 04:00 102.0 F H 78 29 H 93 08/21/21 03:48 86 29 H 91 08/21/21 03:30 102.0 F H 85 24 91 08/21/21 03:00 102.0 F H 85 25 H 90 08/21/21 02:30 101.8 F H 68 22 92 08/21/21 02:00 101.7 F H 84 28 H 92 08/21/21 01:30 101.5 F H 85 21 91 08/21/21 01:00 101.1 F H 83 24 92 08/21/21 00:30 100.8 F H 81 25 H 92 08/21/21 00:28 69 08/21/21 00:00 100.6 F H 82 23 91 08/20/21 23:02 67 28 H 92 08/20/21 23:00 100.2 F H 66 24 92 08/20/21 22:00 99.7 F H 73 22 93 08/20/21 21:00 99.7 F H 78 29 H 91 08/20/21 20:30 99.7 F H 80 23 92 20:00 99.5 F 84 21 93 Vital signs, labs and imaging personally reviewed Coding Level of Care Code Critical Care 1st 30-74 mins Diagnoses ARDS (adult respiratory distress syndrome) J80 2019 novel coronavirus-infected pneumonia (NCIP) U07.1; J12.82 Acute respiratory failure with hypoxia J96.01 Breath shortness R06.02 Positive blood cultures R78.81 Nightmare disorder F51.5 Time Spent (min) 39
[2021-08-21] MEDS: ENOXAPARIN INJ 40 MG/0.4 ML SYR SQ SCH ×2 (08:04→20:09)
[2021-08-21] MEDS: MULTI VIT W/MINERALS LIQUID 15 ML UDP PO SCH (08:04)
[2021-08-21] MEDS: DOCUSATE SODIUM SYRUP 100 MG/10 ML UDC PO SCH ×2 (08:05→20:09)
[2021-08-21] MEDS: MUPIROCIN 2% OINT 22 GM TUBE EXT SCH ×2 (08:05→19:33)
[2021-08-21] MEDS: SENNOSIDES 8.8 MG/5 ML UDC PO SCH (08:05)
[2021-08-21] MEDS: dexAMETHasone 10 MG in SYRINGE 0 ML IV SCH (08:05)
[2021-08-21 09:25] LABS: Appearance Urine Cloudy (Clear); Bacteria Urine Automated Negative (Negative); Bilirubin Urine Negative (Negative); Blood Urine 3+ (Negative); Color Urine Dark Yellow; Epithelial Cell Urine Auto >30 /lpf (0-5); Glucose Urine UA Negative (Negative); Ketones Urine Negative (Negative); Leukocyte Esterase Urine 1+ (Negative); Nitrite Urine Negative (Negative); Protein Urine 2+ (Negative); Specific Gravity Urine 1.026 (1.000-1.030); Urobilinogen Urine Negative (Negative)
[2021-08-21 09:38] LABS: RBC Urine Automated >30 /hpf (0-4)
[2021-08-21] MEDS: SENNA 8.6 MG TAB PO SCH (09:41)
[2021-08-21] MEDS: POLYETHYLENE (MIRALAX) 17 GM PACK PO SCH (09:42)
[2021-08-21 09:43] LABS: Granular Casts Urine >30 /lpf (0)
[2021-08-21] MEDS: cefTRIAXone SODIUM 2,000 MG in DEXTROSE 5% 50 ML IV SCH (10:10)
[2021-08-21] MEDS: PANTOprazole 40 MG in SYRINGE 0 ML IV SCH (10:11)
[2021-08-21] MEDS ORDERED: STAT IV Infusion **Titration per Protocol STA (10:52)
[2021-08-21] MEDS: CISATRACURIUM BESYLATE 40 MG in 0.9 % SODIUM CHLORIDE 80 ML IV SCH ×4 (11:13→17:30)
[2021-08-21] MEDS: ARTIFICIAL TEARS OP OINT 3.5 GM TUBE OP SCH ×4 (12:13→23:27)
[2021-08-21] MEDS: MIDAZOLAM HCL 125 MG/250 ML BAG IV PRN (13:02)
[2021-08-21] MEDS: CISATRACURIUM BESYLATE 80 MG in SODIUM CHLORIDE 0.9% 160 ML IV SCH (20:08)
[2021-08-21] MEDS: DEXMEDETOMIDINE HCL 400 MCG in 0.9 % SODIUM CHLORIDE 96 ML IV SCH (20:08)
--- NOTE | 2021-08-21 20:22 | Hospitalist Progress Note ---
Date of Service August 21, 2021 Assessment & Plan (1) Acute respiratory failure with hypoxia: Plan: 56 y/o male w/ PMHx of anxiety and GERMAN who presents w/ acute hypoxic respiratory failure secondary to covid-19 pneumonia on day 9 of symptoms (08/01/21 onset) was stable on 40L and 80% for two days, declined in status on 08/13, up to 60L and 100% placed on BIPAP 15/8 and FiO2 70%, did not tolerate, got more confused, saturations dropping Dr. Underwood intubated patient at night on 08/13 currently paralyzed, sedated, PEEP down to 12 FiO2 down to 40% dexamethasone 6mg IV BID, day 8 of steroids baricitinib 4mg daily initially, stopped when intubated CTA chest negative for PE, showed bilateral viral pneumonia CRP was down to 7, now up to 32 CXR 08/13 and 08/14 with worsening opacities [place] [facility], age cutoff is 55, other facilities it is lower at 45 they agreed with current management Increased dexamethasone to 10 mg Back on paraytics. will continue to monitor. Propofol discontinued secondary to increasing triglyceride Procal is improving. Continue antibiotics: now on ceftriaxone for 10 days Blood cultures positive. Discontinue daptomycin. Discontinue doxycycline. (2) 2019 novel coronavirus-infected pneumonia (NCIP): Plan: sick since 08/01 treating with dexamethasone 6mg q12 and baricitinib 4mg daily (stopped when intubated) CRP trending back up and breathing is worse, intubated 08/13 continue ARDSnet protocol, supine if he would get worse on ventilator, would reach out to [place] [facility] specialists again right now there is not an indication (3) Anxiety: Plan: now sedated used Ativan 0.5mg IV prior to needing intubated (4) Sleep apnea, unspecified: Plan: - per patient, had trialed cpap in past, but could not tolerate mask Plan: FEN/GI: trickle tube feeds ppx: Lovenox, Protonix code: full dispo:ICU status Admission and Anticipated Discharge Date Admission Date: August 10, 2021 Subjective Patient is intubated and sedated. Review of Systems Review of Systems: Unobtainable due to endotracheal tube Physical Exam Physical Exam: General: well developed, well nourished, mechanically ventilated Neck: supple, trachea midline, normal thyroid Lungs: clear to auscultation bilaterally, symmetric chest movement on ventilator Heart: regular S1 and S2, no murmur, peripheral pulses normal, capillary refill normal, no edema Abdomen: ND Extremities: normal in appearance, no cyanosis, no petechiae, paralyzed Neuro: sedated, CN II-XII intact, no focal deficits Skin: warm, dry, no rash, normal turgor Psych: sedated Results & Data Results & Data ([facility]) Vital Signs (Past 12 Hours) Vital Signs Temp Pulse Pulse Resp Pulse Ox 08/21/21 16:00 37.7 C H 76 21 95 08/21/21 15:30 37.7 C H 81 24 94 08/21/21 15:00 37.6 C H 82 24 94 08/21/21 14:47 78 24 93 08/21/21 14:30 37.8 C H 80 21 93 08/21/21 14:00 37.9 C H 82 21 92 08/21/21 13:30 38.0 C H 79 21 92 08/21/21 13:00 38.1 C H 83 24 93 08/21/21 12:30 38.3 C H 84 24 95 08/21/21 12:00 38.3 C H 84 24 94 08/21/21 11:30 38.6 C H 08/21/21 11:00 89 23 89 L 08/21/21 10:30 38.9 C H 92 H 20 90 08/21/21 10:00 95 H 22 89 L 08/21/21 09:52 84 29 H 89 L 08/21/21 09:30 38.9 C H 85 20 87 L 08/21/21 09:00 85 19 85 L 08/21/21 08:30 38.8 C H 90 21 90 PG Care Time/CCT Total # of Minutes Spent Total Time Spent with Patient: Total time spent is greater than 50% in coordination of care (as documented) at patient's floor/unit and/or counseling patient: Coding Level of Care Code 76746 Subseq Hosp Care Lvl 2 Diagnoses Acute respiratory failure with hypoxia J96.01 2019 novel coronavirus-infected pneumonia (NCIP) U07.1; J12.82 Anxiety F41.9 Sleep apnea, unspecified G47.30
[2021-08-22] MEDS: CISATRACURIUM BESYLATE 80 MG in SODIUM CHLORIDE 0.9% 160 ML IV SCH ×3 (00:33→09:01)
[2021-08-22] MEDS: DEXMEDETOMIDINE HCL 400 MCG in 0.9 % SODIUM CHLORIDE 96 ML IV SCH ×5 (01:40→22:11)
[2021-08-22] MEDS: MIDAZOLAM BOLUS FROM BAG IV PRN ×12 (01:48→22:00)
[2021-08-22] MEDS: ARTIFICIAL TEARS OP OINT 3.5 GM TUBE OP SCH ×5 (04:33→22:50)
[2021-08-22] MEDS: INSULIN ASPART 100 UNITS/ML 3 ML PEN SC SCH ×5 (04:44→22:49)
[2021-08-22] MEDS: TUBE FEEDING WATER FLUSH OG SCH ×4 (04:46→22:47)
[2021-08-22 04:53] LABS: iSTAT Arterial Blood Gas HCO3 27 meg/L (19-24); iSTAT Arterial Blood Gas pCO2 47 mmHg (35-46); iSTAT Arterial Blood Gas pH 7.37 (7.35-7.45); iSTAT Arterial Blood Gas pO2 65 mmHg (80-95); iSTAT Carbon Dioxide 29 mmol/L (24-31); iSTAT FiO2 50 %; iSTAT Site Art Line
[2021-08-22 05:48] LABS: Eosinophils % (auto) 1.2 %; Hemoglobin 11.6 g/dL (14.0-18.0); Immature Granulocytes # (auto) 0.05 K/uL (0.00-0.02); Immature Granulocytes % (auto) 0.6 %; Lymphocytes # (auto) 0.45 K/uL (1.2-3.4); Lymphocytes % (auto) 5.4 %; Mean Corpuscular Hemoglobin 30.5 pg (25-34); Mean Corpuscular Hgb Conc 32.2 g/dL (32-36); Mean Corpuscular Volume 94.7 fL (80-100); Mean Platelet Volume 11.6 fL (7.4-10.4); Monocytes # (auto) 0.14 K/uL (0.11-0.59); Monocytes % (auto) 1.7 %; Neutrophils # (auto) 7.52 K/uL (1.4-6.5); Neutrophils % (auto) 91.1 %; Platelet Count 259 K/uL (130-400); RDW Coefficient of Variation 14.3 % (11.5-14.5); RDW Standard Deviation 49.1 fL (36.4-46.3); White Blood Count 8.26 K/uL (4.8-10.8)
[2021-08-22 06:18] LABS: BUN Creatinine Ratio 65.8 (10-20); Calcium 8.5 mg/dl (8.5-10.1); Creatinine Clr Calc Pharmacy 116.2 ml/min; Est GFR (African American) 116.8 ml/min; Est GFR (Non-African American) 100.7 ml/min; Magnesium 2.5 mg/dl (1.8-2.4); Phosphorus 3.6 mg/dl (2.5-4.9); Potassium 4.4 mmol/L (3.5-5.1)
[2021-08-22] MEDS: SENNOSIDES 8.8 MG/5 ML UDC PO SCH (07:33)
[2021-08-22] MEDS: MIDAZOLAM HCL 125 MG/250 ML BAG IV PRN ×2 (07:33→20:20)
[2021-08-22] MEDS: DOCUSATE SODIUM SYRUP 100 MG/10 ML UDC PO SCH ×2 (07:33→23:33)
[2021-08-22] MEDS: ENOXAPARIN INJ 40 MG/0.4 ML SYR SQ SCH ×2 (07:33→23:33)
[2021-08-22] MEDS: SENNA 8.6 MG TAB PO SCH (07:33)
[2021-08-22] MEDS: POLYETHYLENE (MIRALAX) 17 GM PACK PO SCH (07:34)
[2021-08-22] MEDS: MUPIROCIN 2% OINT 22 GM TUBE EXT SCH ×2 (07:34→22:50)
[2021-08-22] MEDS: MULTI VIT W/MINERALS LIQUID 15 ML UDP PO SCH (07:34)
[2021-08-22] MEDS: fentaNYL citrate 2,500 MCG/250 ML BAG IV SCH ×2 (07:58→20:21)
[2021-08-22] MEDS: dexAMETHasone 10 MG in SYRINGE 0 ML IV SCH (07:58)
--- NOTE | 2021-08-22 08:12 | XRay Report ---
XR chest 1V portable HISTORY: 56 years-old Male Resp failure acute respiratory failure COMPARISON: Chest radiograph 08/21/2021 TECHNIQUE: AP view of the chest FINDINGS: Endotracheal tube overlies the midline, 5.6 cm superior to the lizzy. Enteric tube distal tip overli es the gastric body. No pneumothorax. Questioned trace pleural effusions. Since of bilateral airspace opacities have slightly improved. No acute fracture. IMPRESSION: 1. Satisfactory positioning of the endotracheal and enteric tubes. 2. Slight improvement of the extensive bilateral airspace opacities. ACT 112: Negative or not required by law. The above report was generated using voice recognition software. It may contain grammatical, syntax o r spelling errors. Electronically signed by: Lizandro Childress M.D. 08/22/2021 8:10 AM
[2021-08-22] MEDS: ACETAMINOPHEN SUSP 325 MG/10.15 ML UDC PO PRN ×2 (09:01→17:56)
[2021-08-22] MEDS ORDERED: FUROSEMIDE INJ 20 MG/2 ML VIAL IV ONE (09:02)
--- NOTE | 2021-08-22 09:05 | Critical Care Progress Note ---
Date of Service August 22, 2021 Assessment & Plan (1) ARDS (adult respiratory distress syndrome): (2) 2019 novel coronavirus-infected pneumonia (NCIP): (3) Acute respiratory failure with hypoxia: (4) Breath shortness: (5) Positive blood cultures: (6) Nightmare disorder: Plan: 56-year-old male with a noncontributory past medical history presenting to the hospital due to COVID-19 viral pneumonia and was intubated on 08/13/2021 due to worsening ARDS. Neurologic: Continue fentanyl, Versed and Precedex. Goal RASS of -1. Unfortunately we are having issues with weaning sedation due to agitation and ventilator dyssynchrony. He does have a history of night terrors which we must keep in mind. Propofol was discontinued due to elevated triglyceride levels. He was restarted on Nimbex 08/21/2021 which we are going to attempt to discontinue today. Pulmonary: Severe ARDS secondary to Covid. Intubated 08/13/2021. Continue lung protective ventilation. He underwent endotracheal tube exchange 08/20/2021 due to a cuff leak. He was on baricitinib earlier in the course of his hospitalization due to the severity of his COVID-19 viral illness. Currently on 10 mg daily of dexamethasone. He was prone to early in the intubation course and I also placed him in a prone position yesterday due to worsening hypoxemia. His P/F ratio continues to be very poor and is currently 130 on the most recent ABG. Fortunately, we have been able to wean him down to 50% FiO2 and a PEEP of 14. Cardiovascular: Mildly hypotensive likely secondary to sedation. Continue to maintain mean arterial pressures above 65 millimeters mercury. Gastrointestinal: Continue Protonix and tube feeds. Triglycerides trending down from 528 to 292 mg/dL on 08/22/2021. Initially elevated due to propofol. Propofol discontinued. Started scheduled senna and MiraLAX. Continue docusate. Renal: Creatinine and electrolytes are stable. BUN is elevated, but trending downward. Likely related to mineralocorticoid excess and diuresis. We will give a dose of 20 mg IV Lasix today to maintain a net negative fluid balance. Infectious disease: Currently on ceftriaxone. Blood cultures positive for coag negative staph on 08/14/2021. Repeat cultures are positive on 08/17/2021 from blood for gram- positive cocci in clusters. Staph MRSA screen from the blood was negative. E. coli was isolated from sputum cultures on 08/15/2021. E. coli was pansensitive. [facility] infectious disease consult placed due to persistently positive blood cultures. Repeat surveillance cultures from 08/19/2021 are negative to date after 24 hours. Procalcitonin continues to trend down. Sputum culture from 08/20/2021 growing fungus. Possible colonization. We will continue to follow the speciation. Right IJ central line removed earlier in hospitalization. He is persistently febrile likely due to the COVID-19 illness itself. Notably, he did receive baricitinib earlier in the hospital course for 5 days. Hematologic: Continue Lovenox 40 mg twice daily. Mild anemia seen. Endocrine: ICU pharmacist to assist with hyperglycemia management. TSH within normal limits from 08/21/2021. VTE prophylaxis: Lovenox for DVT prophylaxis. CODE STATUS: Full code Family at bedside: None at bedside Disposition: Remain in the ICU I have personally spent 35 minutes of critical care time in the direct management of this patient. This is a life/limb threatening event. This includes time spent evaluating patient, direct bedside care, chart review, placing orders, interpretation of diagnostic studies, discussion with consultants, patient, and family members, as well as other required patient management activities. This time is exclusive of all separately billable procedures, and teaching time and separate from and in addition to any other critical care service time. Thank you for allowing us to participate in the care of this patient. Admission and Anticipated Discharge Date Admission Date: August 10, 2021 Subjective No significant events overnight. Vent settings have improved. Currently weaning off Nimbex drip. He was placed in a supine position from prone position around 4 AM last night. Review of Systems Review of Systems: Unobtainable due to endotracheal tube and Unobtainable due to reduced consciousness Physical Exam Physical Exam: Constitutional: No acute distress HEENT: PERRLA, positive ETT Respiratory system: Decreased air entry bilaterally, no wheeze, no rhonchi, positive crackles bilateral lower lobes CVS: S1-S2 positive, no murmurs or gallops Abdomen: Soft, nontender, nondistended, positive bowel sounds x4 Extremities: +2 pulses bilaterally radialis/ dorsalis pedis, no cyanosis, no edema Neuro: Sedated. Breathing over the vent. Psych: Unable to assess G/U: Positive Mello Skin: no rashes, warm and dry Results & Data Results & Data ([facility]) Vital Signs (Past 12 Hours) Vital Signs Temp Pulse Resp Pulse Ox 08/22/21 07:45 80 24 97 08/22/21 07:00 86 08/22/21 06:30 99.5 F 86 24 94 08/22/21 06:00 99.1 F 85 24 97 08/22/21 05:30 99.0 F 82 24 95 08/22/21 05:00 98.8 F 80 24 95 08/22/21 04:43 78 24 94 08/22/21 04:30 98.8 F 77 24 95 08/22/21 04:00 24 100 08/22/21 03:30 98.8 F 71 21 96 08/22/21 03:00 98.8 F 72 21 95 08/22/21 02:30 98.8 F 76 21 94 08/22/21 02:00 98.6 F 81 21 94 08/22/21 01:30 EST 97.9 F 70 21 96 08/22/21 01:00 EST 97.9 F 69 21 96 08/22/21 00:30 97.9 F 72 24 97 08/22/21 00:00 97.9 F 76 24 97 08/21/21 23:35 71 08/21/21 23:30 98.1 F 70 24 96 08/21/21 23:26 69 24 96 08/21/21 23:00 98.1 F 71 24 97 08/21/21 22:30 98.4 F 72 24 97 08/21/21 22:00 98.6 F 74 24 96 vital signs, labs and imaging reviewed. Chest x-ray with slight improvement compared to yesterday. Coding Level of Care Code Critical Care 1st 30-74 mins Diagnoses ARDS (adult respiratory distress syndrome) J80 2019 novel coronavirus-infected pneumonia (NCIP) U07.1; J12.82 Acute respiratory failure with hypoxia J96.01 Breath shortness R06.02 Positive blood cultures R78.81 Nightmare disorder F51.5 Time Spent (min) 35
[2021-08-22] MEDS: cefTRIAXone SODIUM 2,000 MG in DEXTROSE 5% 50 ML IV SCH (10:24)
[2021-08-22] MEDS: PANTOprazole 40 MG in SYRINGE 0 ML IV SCH (10:24)
[2021-08-22] MEDS: PEPTAMEN INTENSE VHP 1.0 CAL 1,000 ML BAG OG SCH (10:26)
[2021-08-22] MEDS ORDERED: NOREPINEPHRINE/D5W 8 MG/508 ML IV ONE (11:19)
--- NOTE | 2021-08-22 19:52 | Hospitalist Progress Note ---
Date of Service August 22, 2021 Assessment & Plan (1) Acute respiratory failure with hypoxia: Plan: 56 y/o male w/ PMHx of anxiety and GER[place] who presents w/ acute hypoxic respiratory failure secondary to covid-19 pneumonia on day 9 of symptoms (08/01/21 onset) was stable on 40L and 80% for two days, declined in status on 08/13, up to 60L and 100% placed on BIPAP 15/8 and FiO2 70%, did not tolerate, got more confused, saturations dropping Dr. Underwood intubated patient at night on 08/13 currently paralyzed, sedated, PEEP down to 12 FiO2 down to 40% dexamethasone 6mg IV BID, day 8 of steroids baricitinib 4mg daily initially, stopped when intubated CTA chest negative for PE, showed bilateral viral pneumonia CRP was down to 7, now up to 32 CXR 08/13 and 08/14 with worsening opacities [facility], age cutoff is 55, other facilities it is lower at 45 they agreed with current management Increased dexamethasone to 10 mg Back on paraytics. will continue to monitor. Propofol discontinued secondary to increasing triglyceride Procal is improving. Continue antibiotics: now on ceftriaxone for 10 days Blood cultures positive. Discontinue daptomycin. Discontinue doxycycline. Appreciate input from Equipment Records Supervisor: His P/F ratio continues to be very poor and is currently 130 on the most recent ABG. He has weaned down to 50% FiO2 and a PEEP of 14. (2) 2019 novel coronavirus-infected pneumonia (NCIP): Plan: sick since 08/01 and baricitinib 4mg daily (stopped when intubated) CRP trending back up and breathing is worse, intubated 08/13 continue ARDSnet protocol, supine if he would get worse on ventilator, would reach out to [facility] again right now there is not an indication (3) Anxiety: Plan: now sedated used Ativan 0.5mg IV prior to needing intubated (4) Sleep apnea, unspecified: Plan: - per patient, had trialed cpap in past, but could not tolerate mask Plan: FEN/GI: trickle tube feeds ppx: Lovenox, Protonix code: full dispo:ICU status Admission and Anticipated Discharge Date Admission Date: August 10, 2021 Subjective 56 yo male is intubated. Review of Systems Review of Systems: Unobtainable due to endotracheal tube Physical Exam Physical Exam: General: well developed, well nourished, mechanically ventilat ed Neck: supple, trachea midline, normal thyroid Lungs: decreased breath sounds, BL crackles Heart: regular S1 and S2, no murmur, peripheral pulses normal, capillary refill normal, no edema Abdomen: ND Extremities: normal in appearance, no cyanosis, no petechiae, paralyzed Neuro: sedated, CN II-XII intact, no focal deficits Skin: warm, dry, no rash, normal turgor Psych: sedated Results & Data Results & Data ([facility]) Vital Signs (Past 12 Hours) Vital Signs Temp Pulse Resp BP BP Pulse Ox 08/22/21 19:25 93 H 28 H 93 08/22/21 18:00 38.4 C H 74 23 159/67 H 91 08/22/21 17:30 38.3 C H 92 H 28 H 91 08/22/21 17:00 38.2 C H 91 H 25 H 159/92 H 90 08/22/21 16:30 38.2 C H 88 25 H 92 08/22/21 16:00 38.2 C H 94 H 26 H 167/93 H 93 08/22/21 15:30 38.2 C H 97 H 28 H 167/92 H 93 08/22/21 15:00 38.3 C H 93 H 22 96 08/22/21 14:45 144/93 H 08/22/21 14:40 84 29 H 96 08/22/21 14:30 38.5 C H 84 24 101/60 96 08/22/21 14:00 38.4 C H 104 H 28 H 139/86 98 08/22/21 13:30 38.5 C H 81 25 H 114/66 98 08/22/21 13:15 134/90 08/22/21 13:00 38.7 C H 81 24 93/60 L 98 08/22/21 12:45 94/57 L 08/22/21 12:30 38.7 C H 84 21 92/56 L 97 08/22/21 12:15 84/53 L 08/22/21 12:00 38.5 C H 80 20 94/52 L 97 08/22/21 11:45 38.4 C H 88 23 96 08/22/21 11:41 100/56 L 08/22/21 11:40 93/54 L 08/22/21 11:36 97/57 L 08/22/21 11:30 38.4 C H 88 24 96 08/22/21 11:15 38.3 C H 91 H 21 96 08/22/21 11:05 89 29 H 93 08/22/21 11:00 38.3 C H 80 22 94 08/22/21 10:45 38.3 C H 95 H 27 H 96 08/22/21 10:30 38.3 C H 93 H 24 96 08/22/21 10:00 38.3 C H 87 25 H 97 08/22/21 09:30 38.4 C H 88 25 H 97 08/22/21 09:00 38.3 C H 87 24 97 08/22/21 08:30 38.1 C H 86 24 97 08/22/21 08:00 38.0 C H 80 24 98 PG Care Time/CCT Total # of Minutes Spent Total Time Spent with Patient: Total time spent is greater than 50% in coordination of care (as documented) at patient's floor/unit and/or counseling patient: Coding Level of Care Code 07312 Subseq Hosp Care Lvl 2 Diagnoses Acute respiratory failure with hypoxia J96.01 2019 novel coronavirus-infected pneumonia (NCIP) U07.1; J12.82 Anxiety F41.9 Sleep apnea, unspecified G47.30
[2021-08-23] MEDS: MIDAZOLAM BOLUS FROM BAG IV PRN ×2 (01:00→23:36)
[2021-08-23] MEDS: DEXMEDETOMIDINE HCL 400 MCG in 0.9 % SODIUM CHLORIDE 96 ML IV SCH ×10 (02:01→20:29)
[2021-08-23] MEDS: INSULIN ASPART 100 UNITS/ML 3 ML PEN SC SCH ×6 (02:55→23:17)
[2021-08-23] MEDS: ARTIFICIAL TEARS OP OINT 3.5 GM TUBE OP SCH ×7 (02:55→23:17)
[2021-08-23] MEDS: TUBE FEEDING WATER FLUSH OG SCH ×7 (02:56→23:18)
[2021-08-23] MEDS: ACETAMINOPHEN SUSP 325 MG/10.15 ML UDC PO PRN ×2 (03:00→11:01)
[2021-08-23] MEDS: PEPTAMEN INTENSE VHP 1.0 CAL 1,000 ML BAG OG SCH (04:17)
[2021-08-23 04:43] LABS: iSTAT Art Bld Gas pCO2 Correct 44 mmHg (35-46); iSTAT Art Bld Gas pH Corrected 7.415 (7.35-7.45); iSTAT Arterial Blood Gas HCO3 28 meg/L (19-24); iSTAT Arterial Blood Gas pCO2 44 mmHg (35-46); iSTAT Arterial Blood Gas pH 7.42 (7.35-7.45); iSTAT Arterial Blood Gas pO2 75 mmHg (80-95); iSTAT Arterial Blood Gas pO2 C 75; iSTAT Carbon Dioxide 29 mmol/L (24-31); iSTAT Hematocrit 29 % (42-52); iSTAT Hemoglobin 9.9 g/dl (14.0-18.0); iSTAT Potassium 4.4 mmol/L (3.3-5.0); iSTAT Site Art Line; iSTAT Sodium 144 mmol/L (135-144)
[2021-08-23 04:49] LABS: Hematocrit (blood only) 32.7 % (42-52); Hemoglobin 10.6 g/dL (14.0-18.0); Mean Corpuscular Hemoglobin 30.4 pg (25-34); Mean Corpuscular Hgb Conc 32.4 g/dL (32-36); Mean Corpuscular Volume 93.7 fL (80-100); Mean Platelet Volume 11.6 fL (7.4-10.4); Platelet Count 262 K/uL (130-400); RDW Coefficient of Variation 14.2 % (11.5-14.5); RDW Standard Deviation 48.8 fL (36.4-46.3); Red Blood Count 3.49 M/uL (4.7-6.1)
[2021-08-23 05:08] LABS: BUN Creatinine Ratio 50.8 (10-20); Calcium 8.3 mg/dl (8.5-10.1); Creatinine Clr Calc Pharmacy 101.7 ml/min; Est GFR (African American) 110.5 ml/min; Est GFR (Non-African American) 95.4 ml/min; Magnesium 2.2 mg/dl (1.8-2.4); Potassium 4.3 mmol/L (3.5-5.1)
[2021-08-23] MEDS: fentaNYL citrate 2,500 MCG/250 ML BAG IV SCH ×2 (05:53→17:35)
[2021-08-23 06:01] LABS: Basophils # (auto) 0.01 K/uL (0-0.2); Basophils % (auto) 0.1 %; Eosinophils # (auto) 0.05 K/uL (0-0.5); Eosinophils % (auto) 0.6 %; Immature Granulocytes # (auto) 0.04 K/uL (0.00-0.02); Immature Granulocytes % (auto) 0.5 %; Lymphocytes # (auto) 0.48 K/uL (1.2-3.4); Lymphocytes % (auto) 5.9 %; Monocytes # (auto) 0.15 K/uL (0.11-0.59); Monocytes % (auto) 1.8 %; Neutrophils # (auto) 7.47 K/uL (1.4-6.5); Neutrophils % (auto) 91.1 %; RBC Morphology Unremarkable
[2021-08-23] MEDS: SENNA 8.6 MG TAB PO SCH (07:33)
[2021-08-23] MEDS: MULTI VIT W/MINERALS LIQUID 15 ML UDP PO SCH (07:34)
[2021-08-23] MEDS: DOCUSATE SODIUM SYRUP 100 MG/10 ML UDC PO SCH ×2 (07:34→19:51)
[2021-08-23] MEDS: ENOXAPARIN INJ 40 MG/0.4 ML SYR SQ SCH (07:34)
[2021-08-23] MEDS: POLYETHYLENE (MIRALAX) 17 GM PACK PO SCH (07:34)
[2021-08-23] MEDS: dexAMETHasone 6 MG in SYRINGE 0 ML IV SCH (07:34)
[2021-08-23] MEDS: SENNOSIDES 8.8 MG/5 ML UDC PO SCH (07:34)
[2021-08-23] MEDS: cefTRIAXone SODIUM 2,000 MG in DEXTROSE 5% 50 ML IV SCH (07:35)
[2021-08-23] MEDS: MUPIROCIN 2% OINT 22 GM TUBE EXT SCH ×2 (08:45→19:22)
--- NOTE | 2021-08-23 09:24 | XRay Report ---
XR chest 1V portable CLINICAL HISTORY: Respiratory failure. COMPARISON STUDY: Chest radiograph August 22, 2021. FINDINGS: Tip of endotracheal tube is 5.1 cm above the lizzy. Tip of nasogastric tube is below the l ower aspect of this image but at least within the body of the stomach. There is no pneumothorax or pl eural effusion. Cardiomediastinal silhouette is unremarkable. Left basilar consolidation is unchanged . Additional extensive bilateral airspace opacities are similar to prior exam. IMPRESSION: 1. Satisfactory positioning of lines and tubes. 2. No significant change in extensive bilateral airspace opacities suggestive of viral pneumonia. ACT 112: Negative or not required by law. Electronically signed by: Alexi Mosley M.D. 08/23/2021 9:23 AM
--- NOTE | 2021-08-23 10:41 | Critical Care Progress Note ---
Date of Service August 23, 2021 Assessment & Plan (1) ARDS (adult respiratory distress syndrome): (2) 2019 novel coronavirus-infected pneumonia (NCIP): (3) Acute respiratory failure with hypoxia: (4) Breath shortness: (5) Positive blood cultures: (6) Nightmare disorder: Plan: Impression: 56-year-old male with a noncontributory past medical history presenting to the hospital due to COVID-19 viral pneumonia and was intubated on 08/13/2021 due to worsening ARDS. 24 Hour events: Patient remains intermittently on low-dose vasopressor agents. He is not really had significant change in his oxygen requirement currently. Recommendations: Neurologic: Continue fentanyl, Versed and Precedex. Goal RASS of -1. Maintain off NM blockade if possible. Will add oral clonazepam which should help with night terrors. Oral oxycodone as well. Low dose seroquel for agitated delirium. Pulmonary: Severe ARDS secondary to Covid. Intubated 08/13/2021.AC 30/450/8/0.5 Pplat 19. ABG 7.42/44/75. P/F 150 today. Continue lung protective ventilation. He underwent endotracheal tube exchange 08/20/2021 due to a cuff leak. He was on baricitinib earlier in the course of his hospitalization due to the severity of his COVID-19 viral illness. Currently on 6 mg daily of dexamethasone. Intubated 08/13 - D#11 MV - tried to reach POA to discuss trach but no answer. Will try to contact later. Cardiovascular: Mildly hypotensive likely secondary to sedation. Continue to maintain mean arterial pressures above 65. Gastrointestinal: Continue Protonix and tube feeds. Triglycerides trending down from 528 to 292 mg/dL on 08/22/2021. Initially elevated due to propofol. Propofol discontinued. Started scheduled senna and MiraLAX - Relistor today with lactulose and follow. Renal: Creatinine and electrolytes are stable. BUN is elevated, but trending downward. Likely related to mineralocorticoid excess and diuresis. We will give a dose of 20 mg IV Lasix today to maintain a net negative fluid balance. Infectious disease: Still persistently febrile despite prolonged course of ceftriaxone. Blood cultures positive for coag negative staph on 08/14/2021. Repeat cultures are positive on 08/17/2021 1 of 2 bottles and cultures from 08/19 are negative. Staph MRSA screen from the blood was negative. E. coli was isolated from sputum cultures on 08/15/2021. E. coli was pansensitive. [facility] infectious disease requested, but not completed. Procalcitonin continues to trend down. Sputum culture from 08/20/2021 growing aspergillus. Possible colonization - repeat culture to see if still present. Lines changed out. ? nosocomial sinus disease. Stop abx at this time. Will recheck cultures and PCT. Check fungal blood cultures and repeat tracheal aspirate. Fungitel assay. Acetaminophen for fevers and cooling blanket. Hematologic: Continue Lovenox 30 mg twice daily. Mild anemia seen no evidence of blood loss or indication for transfusion. Endocrine: ICU pharmacist to assist with hyperglycemia management. TSH within normal limits from 08/21/2021. VTE prophylaxis: Lovenox for DVT prophylaxis. CODE STATUS: Full code POA updated by phone. Disposition: Remain in the ICU I have personally spent 55 minutes of critical care time in the direct management of this patient. This is a life/limb threatening event. This includes time spent evaluating patient, direct bedside care, chart review, placing orders, interpretation of diagnostic studies, discussion with consultants, patient, and family members, as well as other required patient management activities. This time is exclusive of all separately billable procedures, and teaching time and separate from and in addition to any other critical care service time. Admission and Anticipated Discharge Date Admission Date: August 10, 2021 Subjective Seen and examined. Discussed with bedside critical care nurse and on multidisciplinary rounds. Patient remains intubated and sedated. He remains on intermittent vasopressor agents Review of Systems Review of Systems: Unobtainable due to endotracheal tube Physical Exam Constitutional: Intubated and sedated. Neck: trachea midline, no thyromegaly Respiratory: intubated. coarse breath sounds bilaterally. Occ rales. No wheezes Cardiovascular: RRR, no murmur, no edema Gastrointestinal (Abdomen): normal bowel sounds, soft, nontender, no hepatosplenomegaly Musculoskeletal: Extremities: extremities normal to inspection Skin: no rashes, warm and dry Neurologic: sedated Lymphatic: no cervical lymphadenopathy Results & Data Results & Data ([facility]) Vital Signs (Past 12 Hours) Vital Signs Temp Pulse Resp BP Pulse Ox 08/23/21 08:30 38.7 C H 74 30 H 89 L 08/23/21 08:00 38.6 C H 91 H 24 105/52 L 86 L 08/23/21 07:30 38.7 C H 83 21 93 08/23/21 07:00 38.6 C H 87 25 H 94 08/23/21 06:45 38.6 C H 69 22 89 L 08/23/21 06:30 38.6 C H 84 21 92 08/23/21 06:00 38.5 C H 86 26 H 90 08/23/21 05:30 38.5 C H 89 20 90 08/23/21 05:00 38.6 C H 69 24 92 08/23/21 04:42 71 27 H 97 08/23/21 04:30 38.7 C H 78 24 98 08/23/21 04:00 38.9 C H 84 22 96 08/23/21 03:30 38.9 C H 87 23 96 08/23/21 03:00 39.0 C H 80 23 96 08/23/21 02:30 39.3 C H 83 24 96 08/23/21 02:00 39.5 C H 78 24 94 08/23/21 01:30 39.4 C H 82 24 97 08/23/21 01:00 39.2 C H 84 23 98 08/23/21 00:30 39.1 C H 84 24 98 08/23/21 00:00 38.9 C H 79 24 93 08/22/21 23:30 38.6 C H 98 H 22 92 08/22/21 23:24 86 26 H 94 08/22/21 23:00 38.4 C H 96 H 26 H 94 Critical Care Results & Data Vital Signs (Past 12 Hours) Vital Signs Temp Pulse Resp BP Pulse Ox 08/23/21 08:30 38.7 C H 74 30 H 89 L 08/23/21 08:00 38.6 C H 91 H 24 105/52 L 86 L 08/23/21 07:30 38.7 C H 83 21 93 08/23/21 07:00 38.6 C H 87 25 H 94 08/23/21 06:45 38.6 C H 69 22 89 L 08/23/21 06:30 38.6 C H 84 21 92 08/23/21 06:00 38.5 C H 86 26 H 90 08/23/21 05:30 38.5 C H 89 20 90 08/23/21 05:00 38.6 C H 69 24 92 08/23/21 04:42 71 27 H 97 08/23/21 04:30 38.7 C H 78 24 98 08/23/21 04:00 38.9 C H 84 22 96 08/23/21 03:30 38.9 C H 87 23 96 08/23/21 03:00 39.0 C H 80 23 96 08/23/21 02:30 39.3 C H 83 24 96 08/23/21 02:00 39.5 C H 78 24 94 08/23/21 01:30 39.4 C H 82 24 97 08/23/21 01:00 39.2 C H 84 23 98 08/23/21 00:30 39.1 C H 84 24 98 08/23/21 00:00 38.9 C H 79 24 93 08/22/21 23:30 38.6 C H 98 H 22 92 08/22/21 23:24 86 26 H 94 08/22/21 23:00 38.4 C H 96 H 26 H 94 Lab & Micro Results (Past 24 Hours) RBC 3.49 M/uL (4.7-6.1) L 08/23/21 WBC 8.20 K/uL (4.8-10.8) 08/23/21 Hgb 10.6 g/dL (14.0-18.0) L 08/23/21 Hct 32.7 % (42-52) L 08/23/21 MCV 93.7 fL (80-100) 08/23/21 MCH 30.4 pg (25-34) 08/23/21 MCHC 32.4 g/dL (32-36) 08/23/21 RDW Standard Deviation 48.8 fL (36.4-46.3) H 08/23/21 RDW Coefficient of Variation 14.2 % (11.5-14.5) 08/23/21 Plt Count 262 K/uL (130-400) 08/23/21 MPV 11.6 fL (7.4-10.4) H 08/23/21 Neutrophils (%) (Auto) 91.1 % 08/23/21 Lymphocytes (%) (Auto) 5.9 % 08/23/21 Monocytes # (Auto) 0.15 K/uL (0.11-0.59) 08/23/21 Eosinophils # (Auto) 0.05 K/uL (0-0.5) 08/23/21 Immature Granulocyte % (Auto) 0.5 % 08/23/21 Neutrophils # (Auto) 7.47 K/uL (1.4-6.5) H 08/23/21 Lymphocytes # (Auto) 0.48 K/uL (1.2-3.4) L 08/23/21 Monocytes # (Auto) 0.15 K/uL (0.11-0.59) 08/23/21 Eosinophils # (Auto) 0.05 K/uL (0-0.5) 08/23/21 Basophils # (Auto) 0.01 K/uL (0-0.2) 08/23/21 Immature Granulocyte # (Auto) 0.04 K/uL (0.00-0.02) H 08/23/21 Red Blood Cell Morphology Unremarkable 08/23/21 Na 141 mmol/L (136-145) 08/23/21 K 4.3 mmol/L (3.5-5.1) 08/23/21 Cl 109 mmol/L (98-107) H 08/23/21 CO2 28 mmol/L (21-32) 08/23/21 Anion Gap 4.0 (3-11) 08/23/21 BUN 45 mg/dl (7-18) H 08/23/21 Creatinine 0.88 mg/dl (0.6-1.4) 08/23/21 Estimated GFR ( Amer) 110.5 ml/min 08/23/21 Estimated GFR (Non-Af Amer) 95.4 ml/min 08/23/21 BUN/Creatinine Ratio 50.8 (10-20) H 08/23/21 Glu 137 mg/dl (70-99) H 08/23/21 Ca 8.3 mg/dl (8.5-10.1) L 08/23/21 Phosphorus Level 3.0 mg/dl (2.5-4.9) 08/23/21 Mg 2.2 mg/dl (1.8-2.4) 08/23/21 04:25 08/23/21 Calcium Level 8.3 mg/dl (8.5-10.1) L 08/23/21 04:25 08/23/21 Hemanth Test NA 08/23/21 04:29 08/23/21 Microbiology 08/21/21 Unknown Urine Culture - Final Urine,Clean Catch No growth - less than 1,000 colonies/mL. 08/20/21 15:30 Gram Stain - Final Sputum,Vent Suction Sputum Culture - Final Aspergillus fumigatus 08/17/21 08:43 Aerobic Blood Culture - Final Blood Coag neg staph not lugdunensis Anaerobic Blood Culture - Final No growth in Anaerobic bottle after 5 days. 08/17/21 08:23 Aerobic Blood Culture - Final Blood No growth in Aerobic bottle after 5 days. Anaerobic Blood Culture - Final No growth in Anaerobic bottle after 5 days. Diagnostic Findings (Past 24 Hours) Chest X-Ray 08/23/21 07:00 XR chest 1V portable CLINICAL HISTORY: Respiratory failure. COMPARISON STUDY: Chest radiograph August 22, 2021. FINDINGS: Tip of endotracheal tube is 5.1 cm above the lizzy. Tip of nasogastric tube is below the lower aspect of this image but at least within the body of the stomach. There is no pneumothorax or pleural effusion. Cardiomediastinal silhouette is unremarkable. Left basilar consolidation is unchanged. Additional extensive bilateral airspace opacities are similar to prior exam. IMPRESSION: 1. Satisfactory positioning of lines and tubes. 2. No significant change in extensive bilateral airspace opacities suggestive of viral pneumonia. ACT 112: Negative or not required by law. Electronically signed by: Alexi Mosley M.D. 08/23/2021 9:23 AM I & O Totals 24 Hours 08/22/21 08/23/21 08/24/21 06:59 06:59 06:59 Intake Total 3115.679 / 3115.679 186.130 / 186.130 Output Total 2350 / 2350 Balance 765.679 / 765.679 186.130 / 186.130 Cumulative 08/09/21 15:39 thru 08/23/21 08:45 Intake Total 55303.753 Output Total 66145 Balance -2857.247 RT Ventilator Mngmt (Last Documented) Ventilator Ordered Settings Ventilator Support Mode PRVC 08/23/21 08:00 Respiratory Rate 30 08/23/21 08:30 Ventilator Tidal Volume 450 08/23/21 08:00 Setting Minute Ventilation 10.4 08/23/21 07:30 Positive End Expiratory 8 08/23/21 08:00 Pressure Fraction of Inspired Oxygen 50 08/23/21 09:05 Biphasic High 24 08/20/21 11:15 Machine Comment weaned to 40% and PEEP +7. 08/23/21 07:30 Ventilator - PT Measurements Respiratory Rate 30 Exhaled Tidal Volume 553 Minute Ventilation 10.4 Peak Inspiratory Airway 23 Pressure Plateau Pressure 19 Respiratory Cycle Inspiratory: 1:2.6 Expiratory Ratio Inspiratory Phase Time 0.70 End-Tidal CO2 44 Static Lung Compliance 50.27 Dynamic Lung Compliance 36.87 Normal Static Lung Compliance 48.00 Patient Measurements Comment Probes cleaned on heater Coding Level of Care Code Critical Care 1st 30-74 mins Diagnoses ARDS (adult respiratory distress syndrome) J80 2019 novel coronavirus-infected pneumonia (NCIP) U07.1; J12.82 Acute respiratory failure with hypoxia J96.01 Breath shortness R06.02 Positive blood cultures R78.81 Nightmare disorder F51.5 Time Spent (min) 55
[2021-08-23] MEDS: LACTULOSE SYRUP 20 GM/30 ML UDC PO SCH ×2 (11:01→19:50)
[2021-08-23] MEDS: oxyCODONE HCL SOLN 5 MG/5 ML UDC PO SCH ×3 (11:28→23:20)
[2021-08-23] MEDS: clonazePAM 0.5 MG TAB PO SCH ×2 (11:28→19:50)
[2021-08-23] MEDS: PANTOprazole 40 MG in SYRINGE 0 ML IV SCH (11:54)
[2021-08-23] MEDS: QUEtiapine FUMARATE 25 MG TABLET PO SCH ×2 (11:55→19:51)
[2021-08-23] MEDS ORDERED: METHYLNALTREXONE BROMIDE 12 MG/0.6 ML VIAL SQ ONE (12:00)
[2021-08-23] MEDS: VORICONAZOLE IV SCH (15:18)
[2021-08-23] MEDS: SODIUM CHLORIDE 0.9% IV SCH (15:18)
[2021-08-23] MEDS ORDERED: ATROPINE SULFATE 0.1 MG/ML 10ML SYR IV ONE (16:11)
[2021-08-23] MEDS ORDERED: Nursing to Pharmacy Communication SCH (16:15)
[2021-08-23] MEDS ORDERED: ATROPINE SULFATE 0.1 MG/ML 10ML SYR IV PRN (16:23)
[2021-08-23] MEDS: MIDAZOLAM HCL 125 MG/250 ML BAG IV PRN (17:36)
[2021-08-23] MEDS ORDERED: ENOXAPARIN INJ 30 MG/0.3 ML SYR SQ SCH (21:00)
[2021-08-23] MEDS ORDERED: VORICONAZOLE 200 MG TABLET PO SCH (21:00)
--- NOTE | 2021-08-23 22:33 | Hospitalist Progress Note ---
Date of Service August 23, 2021 Assessment & Plan (1) Acute respiratory failure with hypoxia: Plan: 56 y/o male w/ PMHx of anxiety and GERMAN who presents w/ acute hypoxic respiratory failure secondary to covid-19 pneumonia on day 9 of symptoms (08/01/21 onset) was stable on 40L and 80% for two days, declined in status on 08/13, up to 60L and 100% placed on BIPAP 15/8 and FiO2 70%, did not tolerate, got more confused, saturations dropping Dr. Underwood intubated patient at night on 08/13 dexamethasone, day 9 of steroids baricitinib 4mg daily initially, stopped when intubated CTA chest negative for PE, showed bilateral viral pneumonia CRP was down to 7, now up to 32 CXR 08/13 and 08/14 with worsening opacities [facility], age cutoff is 55, other facilities it is lower at 45, could not transfer patient PEEP is 8 with FiO2 45% but not ready for extubation Dr. Villeda discussed tracheostomy with family, they agree, will be done on 08/24 at the bedside hope to wean off sedation once he has tracheostomy (2) 2019 novel coronavirus-infected pneumonia (NCIP): Plan: sick since 08/01 continue ARDSnet protocol, supine continue dexamethasone unable to wean off ventilator, plan for tracheostomy (3) Anxiety: Plan: now sedated could make weaning sedation difficult planning on tracheostomy (4) Sleep apnea, unspecified: Plan: - per patient, had trialed cpap in past, but could not tolerate mask Plan: FEN/GI: trickle tube feeds ppx: Lovenox, Protonix code: full dispo:ICU status Admission and Anticipated Discharge Date Admission Date: August 10, 2021 Subjective patient on PEEP 8 and FiO2 45% Dr. Villeda discussed tracheostomy with patient's today, she is in agreement plan for tracheostomy tomorrow morning reviewed labs reviewed chart Review of Systems Review of Systems: Unobtainable due to endotracheal tube and Unobtainable due to reduced consciousness Physical Exam Physical Exam: General: well developed, well nourished, mechanically ventilated, supine Neck: supple, trachea midline, normal thyroid Lungs: clear to auscultation bilaterally, symmetric chest movement on ventilator Heart: regular S1 and S2, no murmur, peripheral pulses normal, capillary refill normal, no edema Abdomen: soft, NT, ND, + bowel sounds Extremities: normal in appearance, no cyanosis, no petechiae Neuro: sedated, CN II-XII intact, no focal deficits Skin: warm, dry, no rash, normal turgor Psych: sedated Results & Data Results & Data ([facility]) Vital Signs (Past 12 Hours) Vital Signs Temp Pulse Resp BP Pulse Ox 08/23/21 21:30 36.6 C 64 22 91 08/23/21 21:00 36.6 C 67 21 91 08/23/21 20:30 36.4 C L 60 21 93 08/23/21 20:00 36.6 C 59 L 23 87 L 08/23/21 19:30 36.9 C 59 L 26 H 95 08/23/21 19:20 57 L 32 H 90 08/23/21 19:00 37.0 C 62 20 95 08/23/21 18:00 37.2 C 63 27 H 93 08/23/21 17:00 37.4 C 64 26 H 93 08/23/21 16:15 74 30 H 91 08/23/21 16:00 37.6 C H 62 23 130/61 97 08/23/21 15:00 38.0 C H 72 24 95 08/23/21 14:00 38.0 C H 76 24 94 08/23/21 13:00 38.1 C H 75 17 89 L 08/23/21 12:30 38.2 C H 67 20 89 L 08/23/21 12:00 38.1 C H 77 25 H 89 L 08/23/21 11:45 84 29 H 91 08/23/21 11:30 38.3 C H 73 21 94 08/23/21 11:13 74 135/64 08/23/21 11:00 38.9 C H 75 27 H 93 08/23/21 10:30 38.9 C H 78 26 H 92 Laboratory Results Laboratory Results - last 24 hr 08/23/21 08/23/21 08/23/21 00:01 04:25 04:25 WBC 8.20 RBC 3.49 L Hgb 10.6 L POC Hgb Hct 32.7 L POC Hct MCV 93.7 MCH 30.4 MCHC 32.4 RDW Std Deviation 48.8 H RDW Coeff of Nicole 14.2 Plt Count 262 MPV 11.6 H Immature Gran % (Auto) 0.5 Neut % (Auto) 91.1 Lymph % (Auto) 5.9 [place] % (Auto) 1.8 Eos % (Auto) 0.6 Baso % (Auto) 0.1 Neut # (Auto) 7.47 H Lymph # (Auto) 0.48 L [place] # (Auto) 0.15 Eos # (Auto) 0.05 Baso # (Auto) 0.01 Immature Gran # (Auto) 0.04 H RBC Morphology Unremarkable Sample Site POC pH POC pCO2 POC pO2 POC HCO3 POC Total CO2 POC Base Excess ABG pH (Temp Correct) ABG pCO2 (Temp Corrct POC ABG pO2 at Pt Temp POC ABG O2 Sat Hemanth Test O2 Delivery Device POC O2 Rate Tidal Volume PEEP POC Sodium Sodium 141 POC Potassium Potassium 4.3 Chloride 109 H Carbon Dioxide 28 Anion Gap 4.0 BUN 45 H Creatinine 0.88 Est Cr Clr Drug Dosing 101.7 Est GFR ( Amer) 110.5 Est GFR (Non-Af Amer) 95.4 BUN/Creatinine Ratio 50.8 H Glucose 137 H POC Glucose 112 H Calcium 8.3 L Phosphorus 3.0 Magnesium 2.2 Procalcitonin Beta-(1,3)-D-Glucan B-(1,3)-D-Glucan Intrp 08/23/21 08/23/21 08/23/21 04:29 04:30 07:40 WBC RBC Hgb POC Hgb 9.9 L Hct POC Hct 29 L MCV MCH MCHC RDW Std Deviation RDW Coeff of Nicole Plt Count MPV Immature Gran % (Auto) Neut % (Auto) Lymph % (Auto) [place] % (Auto) Eos % (Auto) Baso % (Auto) Neut # (Auto) Lymph # (Auto) [place] # (Auto) Eos # (Auto) Baso # (Auto) Immature Gran # (Auto) RBC Morphology Sample Site Art Line POC pH 7.42 POC pCO2 44 POC pO2 75 L POC HCO3 28 H POC Total CO2 29 POC Base Excess 3.0 H ABG pH (Temp Correct) 7.415 ABG pCO2 (Temp Corrct 44 POC ABG pO2 at Pt Temp 75 POC ABG O2 Sat 95.0 Hemanth Test NA O2 Delivery Device Ventilator POC O2 Rate 24 Tidal Volume 450 PEEP 8 POC Sodium 144 Sodium POC Potassium 4.4 Potassium Chloride Carbon Dioxide Anion Gap BUN Creatinine Est Cr Clr Drug Dosing Est GFR ( Amer) Est GFR (Non-Af Amer) BUN/Creatinine Ratio Glucose POC Glucose 126 H 124 H Calcium Phosphorus Magnesium Procalcitonin Beta-(1,3)-D-Glucan B-(1,3)-D-Glucan Intrp 08/23/21 08/23/21 08/23/21 11:47 11:47 11:47 WBC RBC Hgb POC Hgb Hct POC Hct MCV MCH MCHC RDW Std Deviation RDW Coeff of Nicole Plt Count MPV Immature Gran % (Auto) Neut % (Auto) Lymph % (Auto) [place] % (Auto) Eos % (Auto) Baso % (Auto) Neut # (Auto) Lymph # (Auto) [place] # (Auto) Eos # (Auto) Baso # (Auto) Immature Gran # (Auto) RBC Morphology Sample Site POC pH POC pCO2 POC pO2 POC HCO3 POC Total CO2 POC Base Excess ABG pH (Temp Correct) ABG pCO2 (Temp Corrct POC ABG pO2 at Pt Temp POC ABG O2 Sat Hemanth Test O2 Delivery Device POC O2 Rate Tidal Volume PEEP POC Sodium Sodium POC Potassium Potassium Chloride Carbon Dioxide Anion Gap BUN Creatinine Est Cr Clr Drug Dosing Est GFR ( Amer) Est GFR (Non-Af Amer) BUN/Creatinine Ratio Glucose POC Glucose 156 H Calcium Phosphorus Magnesium Procalcitonin 0.91 H Beta-(1,3)-D-Glucan Pending B-(1,3)-D-Glucan Intrp Pending 08/23/21 08/23/21 15:24 17:28 WBC RBC Hgb POC Hgb Hct POC Hct MCV MCH MCHC RDW Std Deviation RDW Coeff of Nicole Plt Count MPV Immature Gran % (Auto) Neut % (Auto) Lymph % (Auto) [place] % (Auto) Eos % (Auto) Baso % (Auto) Neut # (Auto) Lymph # (Auto) [place] # (Auto) Eos # (Auto) Baso # (Auto) Immature Gran # (Auto) RBC Morphology Sample Site POC pH POC pCO2 POC pO2 POC HCO3 POC Total CO2 POC Base Excess ABG pH (Temp Correct) ABG pCO2 (Temp Corrct POC ABG pO2 at Pt Temp POC ABG O2 Sat Hemanth Test O2 Delivery Device POC O2 Rate Tidal Volume PEEP POC Sodium Sodium POC Potassium Potassium Chloride Carbon Dioxide Anion Gap BUN Creatinine Est Cr Clr Drug Dosing Est GFR ( Amer) Est GFR (Non-Af Amer) BUN/Creatinine Ratio Glucose POC Glucose 148 H 125 H Calcium Phosphorus Magnesium Procalcitonin Beta-(1,3)-D-Glucan B-(1,3)-D-Glucan Intrp Medications Administered Current Inpatient Medications Acetaminophen (Acetaminophen Susp 325 Mg/10.15 Ml Udc) 650 mg PO Q6H PRN PRN Reason: Fever Stop: 09/20/21 00:59 Last Admin: 08/23/21 11:01 Dose: 650 mg Documented by: Albuterol (Albut/Ipratrop 3mg/0.5mg Neb 3 Ml Vial) 3 ml NEB Q4R PRN PRN Reason: Wheezing Stop: 09/19/21 02:59 Last Admin: 08/21/21 09:52 Dose: 3 ml Documented by: Atropine Sulfate (Atropine Sulfate 0.1 Mg/Ml 10ml Syr) 1 mg IV ONE PRN PRN Reason: BRADYCARDIA Stop: 09/22/21 16:22 Clonazepam (Clonazepam 0.5 Mg Tab) 0.5 mg PO BID JULIANA Stop: 09/22/21 11:14 Last Admin: 08/23/21 19:50 Dose: 0.5 mg Documented by: Dextrose (Dextrose 50% 50 Ml Syringe) 25 - 50 ml IV UD PRN; Protocol PRN Reason: Hypoglycemia Protocol Stop: 09/15/21 10:29 Docusate Sodium (Docusate Sodium Syrup 100 Mg/10 Ml Udc) 100 mg PO BID JULIANA Stop: 09/17/21 09:59 Last Admin: 08/23/21 19:51 Dose: 100 mg Documented by: Fentanyl Citrate (Fentanyl Bolus From Bag) 50 mcg IV Q60M PRN PRN Reason: Pain or Agitation Stop: 08/27/21 21:27 Last Admin: 08/23/21 01:00 Dose: 50 mcg Documented by: Glucagon (Glucagon For Inj 1 Mg Vial) 1 mg IM UD PRN; Protocol PRN Reason: Hypoglycemia Protocol Stop: 09/15/21 10:29 Glucose (Glucose 40% Gel 15 Gm Tube) 15 - 30 gm PO UD PRN; Protocol PRN Reason: Hypoglycemia Protocol Stop: 09/15/21 10:29 Glucose (Glucose 10 Tabs/Tube) 4 - 8 tabs PO UD PRN; Protocol PRN Reason: Hypoglycemia Protocol Stop: 09/15/21 10:29 Pantoprazole Sodium 40 mg/ (Syringe) 10 mls @ 5 mls/min IV DAILY@1100 [facility] Stop: 09/14/21 10:59 Last Admin: 08/23/21 11:54 Dose: 5 mls/min Documented by: Midazolam HCl (Versed) 125 mg in 250 mls @ 8 mls/hr IV .[id number] PRN; Protocol PRN Reason: increased agitation Stop: 09/14/21 14:43 Last Titration: 08/23/21 20:00 Dose: 4 mg/hr, 8 mls/hr Documented by: Fentanyl Citrate (Fentanyl Citrate) 2,500 mcg in 250 mls @ 20 mls/hr IV .[id number] [facility]; Protocol Stop: 08/30/21 12:14 Last Titration: 08/23/21 18:48 Dose: 200 mcg/hr, 20 mls/hr Documented by: Dexmedetomidine HCl 400 mcg/ (Sodium Chloride) 100 mls @ 0 mls/hr IV .Q0M [facility]; Protocol Stop: 08/25/21 19:44 Last Admin: 08/23/21 20:29 Dose: Not Given Documented by: Dexamethasone 6 mg/ Syringe 1.5 mls @ 1 mls/min IV Q24H [facility] Stop: 09/22/21 08:59 Last Admin: 08/23/21 07:34 Dose: 1 mls/min Documented by: Voriconazole 525 mg/ Sodium (Chloride) 250 mls @ 125 mls/hr IV Q12H [facility] Stop: 08/24/21 04:59 Last Infusion: 08/23/21 17:35 Dose: Infused Documented by: Voriconazole 350 mg/ Sodium (Chloride) 100 mls @ 100 mls/hr IV Q12H [facility] Stop: 08/31/21 13:59 Insulin Aspart (Insulin Aspart 100 Units/Ml 3 Ml Pen) 0 units SC Q6 [facility] Stop: 09/22/21 17:59 Last Admin: 08/23/21 17:31 Dose: Not Given Documented by: Lactulose (Lactulose Syrup 20 Gm/30 Ml Udc) 20 gm PO BID [facility] Stop: 09/22/21 11:59 Last Admin: 08/23/21 19:50 Dose: 20 gm Documented by: Midazolam HCl (Midazolam Bolus From Bag) 2 mg IV Q60M PRN PRN Reason: Sedation Stop: 09/14/21 14:43 Last Admin: 08/23/21 01:00 Dose: 2 mg Documented by: Miscellaneous (Carbohydrates For Hypoglycemia ) 15 - 30 gm PO UD PRN PRN Reason: Hypoglycemia Treatment Stop: 09/15/21 10:29 Multi-Ingredient Cream (Artificial Tears Op Oint 3.5 Gm Tube) 1 appln OP Q4H JULIANA Stop: 09/20/21 10:59 Last Admin: 08/23/21 19:21 Dose: Not Given Documented by: Mupirocin (Mupirocin 2% Oint 22 Gm Tube) 1 appln EXT BID [facility] Stop: 09/10/21 08:59 Last Admin: 08/23/21 19:22 Dose: 1 appln Documented by: Nutritional Formula (Peptamen Intense Vhp 1.0 Porter 1,000 Ml Bag) 1,000 ml OG CONT [facility]; Protocol Stop: 09/13/21 15:44 Last Admin: 08/23/21 04:17 Dose: 1,000 ml Documented by: Ondansetron HCl (Ondansetron Inj 2 Mg/Ml 2 Ml Vial) 4 mg IV Q4H PRN PRN Reason: Nausea Stop: 09/11/21 17:50 Last Admin: 08/13/21 06:23 Dose: 4 mg Documented by: Oxycodone HCl (Oxycodone Hcl Soln 5 Mg/5 Ml Udc) 5 mg PO Q6 [facility] Stop: 09/06/21 11:59 Last Admin: 08/23/21 17:35 Dose: 5 mg Documented by: Polyethylene Glycol (Polyethylene (Miralax) 17 Gm Pack) 17 gm PO DAILY [facility] Stop: 09/20/21 08:59 Last Admin: 08/23/21 07:34 Dose: 17 gm Documented by: Quetiapine Fumarate (Quetiapine Fumarate 25 Mg Tablet) 25 mg PO BID [facility] Stop: 09/22/21 11:14 Last Admin: 08/23/21 19:51 Dose: 25 mg Documented by: Sennosides (Sennosides 8.8 Mg/5 Ml Udc) 8.8 mg PO QAM [facility] Stop: 09/17/21 09:59 Last Admin: 08/23/21 07:34 Dose: 8.8 mg Documented by: Sennosides (Senna 8.6 Mg Tab) 17.2 mg PO QAM [facility] Stop: 09/20/21 08:59 Last Admin: 08/23/21 07:33 Dose: 17.2 mg Documented by: Sterile Water (Tube Feeding Water Flush) 60 ml OG Q4H [facility] Stop: 09/17/21 10:44 Last Admin: 08/23/21 17:32 Dose: 60 ml Documented by: PG Care Time/CCT Total # of Minutes Spent Total Time Spent with Patient: Total time spent is greater than 50% in coordination of care (as documented) at patient's floor/unit and/or counseling patient: Coding Level of Care Code 87001 Subseq Hosp Care Lvl 2 Diagnoses Acute respiratory failure with hypoxia J96.01 2019 novel coronavirus-infected pneumonia (NCIP) U07.1; J12.82 Anxiety F41.9 Sleep apnea, unspecified G47.30
[2021-08-24] MEDS: MIDAZOLAM BOLUS FROM BAG IV PRN ×3 (02:17→05:43)
[2021-08-24] MEDS: VORICONAZOLE IV SCH (03:22)
[2021-08-24] MEDS: SODIUM CHLORIDE 0.9% IV SCH (03:22)
[2021-08-24] MEDS: ARTIFICIAL TEARS OP OINT 3.5 GM TUBE OP SCH ×6 (03:23→23:15)
[2021-08-24] MEDS: TUBE FEEDING WATER FLUSH OG SCH ×6 (03:40→23:16)
[2021-08-24 04:18] LABS: iSTAT Arterial Blood Gas HCO3 27 meg/L (19-24); iSTAT Arterial Blood Gas pCO2 40 mmHg (35-46); iSTAT Arterial Blood Gas pH 7.44 (7.35-7.45); iSTAT Arterial Blood Gas pO2 52 mmHg (80-95); iSTAT Carbon Dioxide 28 mmol/L (24-31); iSTAT FiO2 40 %; iSTAT Site Art Line
[2021-08-24 05:05] LABS: Basophils # (auto) 0.01 K/uL (0-0.2); Basophils % (auto) 0.1 %; Eosinophils # (auto) 0.09 K/uL (0-0.5); Hematocrit (blood only) 31.2 % (42-52); Hemoglobin 10.3 g/dL (14.0-18.0); Immature Granulocytes # (auto) 0.05 K/uL (0.00-0.02); Immature Granulocytes % (auto) 0.5 %; Lymphocytes # (auto) 0.81 K/uL (1.2-3.4); Lymphocytes % (auto) 8.9 %; Mean Corpuscular Hemoglobin 30.3 pg (25-34); Mean Corpuscular Volume 91.8 fL (80-100); Mean Platelet Volume 11.5 fL (7.4-10.4); Monocytes % (auto) 2.2 %; Neutrophils # (auto) 7.97 K/uL (1.4-6.5); Neutrophils % (auto) 87.3 %; Platelet Count 260 K/uL (130-400); RDW Coefficient of Variation 13.9 % (11.5-14.5); RDW Standard Deviation 46.6 fL (36.4-46.3); White Blood Count 9.13 K/uL (4.8-10.8)
[2021-08-24 05:34] LABS: BUN Creatinine Ratio 55.4 (10-20); Calcium 8.3 mg/dl (8.5-10.1); Creatinine Clr Calc Pharmacy 117.7 ml/min; Est GFR (African American) 117.4 ml/min; Est GFR (Non-African American) 101.3 ml/min; Potassium 4.1 mmol/L (3.5-5.1)
[2021-08-24 05:35] LABS: Phosphorus 3.8 mg/dl (2.5-4.9)
[2021-08-24] MEDS: INSULIN ASPART 100 UNITS/ML 3 ML PEN SC SCH ×4 (05:42→23:15)
[2021-08-24] MEDS: oxyCODONE HCL SOLN 5 MG/5 ML UDC PO SCH ×4 (05:43→23:16)
[2021-08-24] MEDS: ACETAMINOPHEN SUSP 325 MG/10.15 ML UDC PO PRN (05:43)
[2021-08-24] MEDS: PANTOprazole 40 MG in SYRINGE 0 ML IV SCH (07:47)
[2021-08-24] MEDS: dexAMETHasone 6 MG in SYRINGE 0 ML IV SCH (07:47)
[2021-08-24] MEDS: POLYETHYLENE (MIRALAX) 17 GM PACK PO SCH ×2 (07:47→07:56)
[2021-08-24] MEDS: DOCUSATE SODIUM SYRUP 100 MG/10 ML UDC PO SCH ×2 (07:48→19:57)
[2021-08-24] MEDS: SENNA 8.6 MG TAB PO SCH ×2 (07:48→07:56)
[2021-08-24] MEDS: LACTULOSE SYRUP 20 GM/30 ML UDC PO SCH ×2 (07:48→19:57)
[2021-08-24] MEDS: QUEtiapine FUMARATE 25 MG TABLET PO SCH ×2 (07:48→20:02)
[2021-08-24] MEDS: SENNOSIDES 8.8 MG/5 ML UDC PO SCH (07:49)
[2021-08-24] MEDS: MUPIROCIN 2% OINT 22 GM TUBE EXT SCH ×2 (07:49→20:02)
[2021-08-24] MEDS: clonazePAM 0.5 MG TAB PO SCH ×2 (07:50→19:57)
--- NOTE | 2021-08-24 08:21 | XRay Report ---
XR chest 1V portable CLINICAL HISTORY: Respiratory failure. COMPARISON STUDY: Chest radiograph August 23, 2021. FINDINGS: Tip of the endotracheal tube is 4.1 cm above the lizzy. Tip of nasogastric tube is within the body of the stomach. There is no pneumothorax or pleural effusion. Extensive bilateral airspace o pacities are noted. Left lung opacity is slightly progressed. Cardiac size is stable. Mediastinal con tours are stable. IMPRESSION: 1. Satisfactory positioning of lines and tubes. 2. Extensive bilateral airspace opacities, slightly increased since prior exam. ACT 112: Negative or not required by law. Electronically signed by: Alexi Mosley M.D. 08/24/2021 8:20 AM
[2021-08-24] MEDS: fentaNYL citrate 2,500 MCG/250 ML BAG IV SCH ×2 (08:33→20:58)
[2021-08-24] MEDS ORDERED: ENOXAPARIN INJ 30 MG/0.3 ML SYR SQ ONE (11:00)
[2021-08-24] MEDS: ceFAZolin 2000MG 2,000 MG/15 ML SYR IV SCH ×2 (11:28→18:42)
--- NOTE | 2021-08-24 11:43 | Critical Care Progress Note ---
Date of Service August 24, 2021 Assessment & Plan (1) ARDS (adult respiratory distress syndrome): (2) 2019 novel coronavirus-infected pneumonia (NCIP): (3) Acute respiratory failure with hypoxia: (4) Breath shortness: (5) Positive blood cultures: (6) Nightmare disorder: Plan: Impression: 56-year-old male with a noncontributory past medical history presenting to the hospital due to COVID-19 viral pneumonia and was intubated on 08/13/2021 due to worsening ARDS. 24 Hour events: ID consultation completed yesterday. Patient was initiated on antibiotics in the form of Ancef and voriconazole. Has been weaned off of pressors. His fever curve is better today. He is on minimal vent settings. We are weaning his sedation. Patient had some sinus pauses and Precedex was discontinued. He is in sinus rhythm currently. Recommendations: Neurologic: Weaning fentanyl and Versed to off goal RASS of 0-1. Continue oral clonazepam which should help with night terrors. Oral oxycodone as well. Low dose seroquel for agitated delirium. Pulmonary: Severe ARDS secondary to Covid. Intubated 08/13/2021. Currently tolerating a CPAP trial at 8 cm of water with an FiO2 of 0.4. His RSBI currently is about 30. He was on baricitinib earlier in the course of his hospitalization due to the severity of his COVID-19 viral illness. Currently on 6 mg daily of dexamethasone. Intubated 08/13 - D#12 MV - tried to reach daughter for updates but no answer. Will try to contact later. Initially were considering tracheostomy today but given the fact the patient has made significant progress over the last 24 hours, will hold off for now. If he completes his spontaneous breathing trial, may consider extubation. The patient may require CPAP or high flow post extubation. Cardiovascular: Mildly hypotensive likely secondary to sedation. Continue to maintain mean arterial pressures above 65. Now off pressor Gastrointestinal: Continue Protonix tube feeds on hold for possible extubation. Successful bowel movement. De-escalate bowel regimen. Renal: Creatinine and electrolytes are stable. BUN is elevated, but trending downward. Likely related to mineralocorticoid excess and diuresis. We will give a dose of 20 mg IV Lasix today to maintain a net negative fluid balance. Infectious disease: Appreciate ID consultation. Has been placed on Ancef and will complete 14 days of total therapy for bacteremia. Surveillance cultures have been negative. He is also placed on voriconazole given Aspergillus in the lung sample. Repeat tracheal aspirate from yesterday appears to be growing a fungus as well. Duration of voriconazole will be determined by ID. Hematologic: Continue Lovenox 30 mg twice daily. Mild anemia seen no evidence of blood loss or indication for transfusion. Endocrine: ICU pharmacist to assist with hyperglycemia management. TSH within normal limits from 08/21/2021. VTE prophylaxis: Lovenox for DVT prophylaxis. CODE STATUS: Full code POA updated by phone. Disposition: Remain in the ICU I have personally spent 47 minutes of critical care time in the direct management of this patient. This is a life/limb threatening event. This includes time spent evaluating patient, direct bedside care, chart review, placing orders, interpretation of diagnostic studies, discussion with consultants, patient, and family members, as well as other required patient management activities. This time is exclusive of all separately billable procedures, and teaching time and separate from and in addition to any other critical care service time. Admission and Anticipated Discharge Date Admission Date: August 10, 2021 Subjective Patient is intubated and sedated but is much more awake today. He is able to follow commands and wiggle toes bilaterally as well as squeeze hands bilaterally. His vent settings have decreased. He is hemodynamically stable Review of Systems Review of Systems: Unobtainable due to endotracheal tube Physical Exam Neck: trachea midline, no thyromegaly Cardiovascular: RRR, no murmur, no edema Gastrointestinal (Abdomen): normal bowel sounds, soft, nontender, no hepatosplenomegaly Musculoskeletal: Extremities: extremities normal to inspection Skin: no rashes, warm and dry Lymphatic: no cervical lymphadenopathy Results & Data Results & Data ([facility]) Vital Signs (Past 12 Hours) Vital Signs Temp Pulse Resp BP Pulse Ox 08/24/21 11:35 75 18 92 08/24/21 09:00 37.4 C 75 23 111/55 L 93 08/24/21 08:30 37.4 C 70 24 94 08/24/21 08:00 37.5 C 71 24 119/64 95 08/24/21 07:30 37.6 C H 65 24 93 08/24/21 07:24 75 28 H 95 08/24/21 07:00 37.7 C H 78 19 95 08/24/21 05:30 37.8 C H 88 21 100 08/24/21 05:00 37.7 C H 92 H 26 H 92 08/24/21 04:30 37.6 C H 74 25 H 94 08/24/21 04:00 37.5 C 74 24 93 08/24/21 03:39 70 27 H 90 08/24/21 03:30 37.5 C 86 25 H 88 L 08/24/21 03:00 37.4 C 64 23 95 08/24/21 02:30 37.4 C 68 20 95 08/24/21 02:00 37.3 C 71 24 93 08/24/21 01:30 37.3 C 58 L 22 93 08/24/21 01:00 37.2 C 66 22 93 08/24/21 00:30 37.2 C 61 25 H 94 08/24/21 00:00 37.1 C 59 L 24 93 Critical Care Results & Data Vital Signs (Past 12 Hours) Vital Signs Temp Pulse Resp BP Pulse Ox 08/24/21 11:35 75 18 92 08/24/21 09:00 37.4 C 75 23 111/55 L 93 08/24/21 08:30 37.4 C 70 24 94 08/24/21 08:00 37.5 C 71 24 119/64 95 08/24/21 07:30 37.6 C H 65 24 93 08/24/21 07:24 75 28 H 95 08/24/21 07:00 37.7 C H 78 19 95 08/24/21 05:30 37.8 C H 88 21 100 08/24/21 05:00 37.7 C H 92 H 26 H 92 08/24/21 04:30 37.6 C H 74 25 H 94 08/24/21 04:00 37.5 C 74 24 93 08/24/21 03:39 70 27 H 90 08/24/21 03:30 37.5 C 86 25 H 88 L 08/24/21 03:00 37.4 C 64 23 95 08/24/21 02:30 37.4 C 68 20 95 08/24/21 02:00 37.3 C 71 24 93 08/24/21 01:30 37.3 C 58 L 22 93 08/24/21 01:00 37.2 C 66 22 93 08/24/21 00:30 37.2 C 61 25 H 94 08/24/21 00:00 37.1 C 59 L 24 93 Lab & Micro Results (Past 24 Hours) RBC 3.40 M/uL (4.7-6.1) L 08/24/21 WBC 9.13 K/uL (4.8-10.8) 08/24/21 Hgb 10.3 g/dL (14.0-18.0) L 08/24/21 Hct 31.2 % (42-52) L 08/24/21 MCV 91.8 fL (80-100) 08/24/21 MCH 30.3 pg (25-34) 08/24/21 MCHC 33.0 g/dL (32-36) 08/24/21 RDW Standard Deviation 46.6 fL (36.4-46.3) H 08/24/21 RDW Coefficient of Variation 13.9 % (11.5-14.5) 08/24/21 Plt Count 260 K/uL (130-400) 08/24/21 MPV 11.5 fL (7.4-10.4) H 08/24/21 Neutrophils (%) (Auto) 87.3 % 08/24/21 Lymphocytes (%) (Auto) 8.9 % 08/24/21 Monocytes # (Auto) 0.20 K/uL (0.11-0.59) 08/24/21 Eosinophils # (Auto) 0.09 K/uL (0-0.5) 08/24/21 Immature Granulocyte % (Auto) 0.5 % 08/24/21 Neutrophils # (Auto) 7.97 K/uL (1.4-6.5) H 08/24/21 Lymphocytes # (Auto) 0.81 K/uL (1.2-3.4) L 08/24/21 Monocytes # (Auto) 0.20 K/uL (0.11-0.59) 08/24/21 Eosinophils # (Auto) 0.09 K/uL (0-0.5) 08/24/21 Basophils # (Auto) 0.01 K/uL (0-0.2) 08/24/21 Immature Granulocyte # (Auto) 0.05 K/uL (0.00-0.02) H 08/24/21 Na 142 mmol/L (136-145) 08/24/21 K 4.1 mmol/L (3.5-5.1) 08/24/21 Cl 110 mmol/L (98-107) H 08/24/21 CO2 27 mmol/L (21-32) 08/24/21 Anion Gap 5.0 (3-11) 08/24/21 BUN 42 mg/dl (7-18) H 08/24/21 Creatinine 0.76 mg/dl (0.6-1.4) 08/24/21 Estimated GFR ( Amer) 117.4 ml/min 08/24/21 Estimated GFR (Non-Af Amer) 101.3 ml/min 08/24/21 BUN/Creatinine Ratio 55.4 (10-20) H 08/24/21 Glu 101 mg/dl (70-99) H 08/24/21 Ca 8.3 mg/dl (8.5-10.1) L 08/24/21 Phosphorus Level 3.8 mg/dl (2.5-4.9) 08/24/21 Mg 2.0 mg/dl (1.8-2.4) 08/24/21 04:54 08/24/21 Calcium Level 8.3 mg/dl (8.5-10.1) L 08/24/21 04:54 08/24/21 Hemanth Test NA 08/24/21 04:02 08/24/21 Microbiology 08/23/21 11:15 Gram Stain - Final Sputum,Vent Suction Sputum Culture - Preliminary Fungus- ident.to follow 08/19/21 10:37 Aerobic Blood Culture - Final Blood No growth in Aerobic bottle after 5 days. Anaerobic Blood Culture - Final No growth in Anaerobic bottle after 5 days. 08/19/21 10:26 Aerobic Blood Culture - Final Blood No growth in Aerobic bottle after 5 days. Anaerobic Blood Culture - Final No growth in Anaerobic bottle after 5 days. 08/23/21 11:30 Fungal Smear - Final Blood 08/21/21 Unknown Urine Culture - Final Urine,Clean Catch No growth - less than 1,000 colonies/mL. 08/20/21 15:30 Gram Stain - Final Sputum,Vent Suction Sputum Culture - Final Aspergillus fumigatus Diagnostic Findings (Past 24 Hours) Chest X-Ray 08/24/21 07:00 XR chest 1V portable CLINICAL HISTORY: Respiratory failure. COMPARISON STUDY: Chest radiograph August 23, 2021. FINDINGS: Tip of the endotracheal tube is 4.1 cm above the lizzy. Tip of n asogastric tube is within the body of the stomach. There is no pneumothorax or pleural effusion. Extensive bilateral airspace opacities are noted. Left lung opacity is slightly progressed. Cardiac size is stable. Mediastinal contours are stable. IMPRESSION: 1. Satisfactory positioning of lines and tubes. 2. Extensive bilateral airspace opacities, slightly increased since prior exam. ACT 112: Negative or not required by law. Electronically signed by: Alexi Mosley M.D. 08/24/2021 8:20 AM I & O Totals 24 Hours 08/23/21 08/24/21 08/25/21 06:59 06:59 06:59 Intake Total 3115.679 / 3115.679 2133.655 / 2133.655 21.875 / 21.875 Output Total 2350 / 2350 1825 / 2025 200 / 200 Balance 765.679 / 765.679 307.655 / 107.655 -178.125 / -178.125 Cumulative 08/09/21 15:39 thru 08/24/21 08:33 Intake Total 82088.153 Output Total 98429 Balance -2913.847 RT Ventilator Mngmt (Last Documented) Ventilator Ordered Settings Ventilator Support Mode CPAP 08/24/21 11:35 Respiratory Rate 18 08/24/21 11:35 Ventilator Tidal Volume 450 08/24/21 08:00 Setting Minute Ventilation 12.6 08/24/21 11:35 Ventilator Positive Pressure 0 08/24/21 11:35 Support Setting Positive End Expiratory 8 08/24/21 11:35 Pressure Fraction of Inspired Oxygen 40 08/24/21 11:35 Biphasic High 24 08/20/21 11:15 Machine Comment settings changed by Dr. Villeda 08/24/21 11:35 Ventilator - PT Measurements Respiratory Rate 18 Exhaled Tidal Volume 750 Minute Ventilation 12.6 Peak Inspiratory Airway 13 Pressure Plateau Pressure 24 Respiratory Cycle Inspiratory: 1:2.6 Expiratory Ratio Inspiratory Phase Time 0.7 End-Tidal CO2 27 Static Lung Compliance 26.25 Dynamic Lung Compliance 150.00 Normal Static Lung Compliance 50.00 Patient Measurements Comment Probes cleaned on heater Coding Level of Care Code Critical Care 1st 30-74 mins Diagnoses ARDS (adult respiratory distress syndrome) J80 2019 novel coronavirus-infected pneumonia (NCIP) U07.1; J12.82 Acute respiratory failure with hypoxia J96.01 Breath shortness R06.02 Positive blood cultures R78.81 Nightmare disorder F51.5
[2021-08-24] MEDS: PEPTAMEN INTENSE VHP 1.0 CAL 1,000 ML BAG OG SCH (13:39)
[2021-08-24 13:48] LABS: iSTAT Arterial Blood Gas HCO3 24 meg/L (19-24); iSTAT Arterial Blood Gas pCO2 32 mmHg (35-46); iSTAT Arterial Blood Gas pH 7.48 (7.35-7.45); iSTAT Arterial Blood Gas pO2 62 mmHg (80-95); iSTAT Carbon Dioxide 25 mmol/L (24-31); iSTAT FiO2 60 %; iSTAT Site Art Line
[2021-08-24] MEDS: VORICONAZOLE 350 MG in 0.9 % SODIUM CHLORIDE 65 ML IV SCH (16:51)
[2021-08-24] MEDS: hydrALAZINE HCL 20 MG/ML VIAL IV PRN (17:48)
[2021-08-24] MEDS: DEXMEDETOMIDINE HCL 400 MCG in 0.9 % SODIUM CHLORIDE 96 ML IV SCH ×3 (19:54→21:20)
[2021-08-24] MEDS: ENOXAPARIN INJ 30 MG/0.3 ML SYR SQ SCH (20:20)
--- NOTE | 2021-08-24 21:49 | Hospitalist Progress Note ---
Date of Service August 24, 2021 Assessment & Plan (1) Acute respiratory failure with hypoxia: Plan: 56 y/o male w/ PMHx of anxiety and GERMAN who presents w/ acute hypoxic respiratory failure secondary to covid-19 pneumonia on day 9 of symptoms (08/01/21 onset) was stable on 40L and 80% for two days, declined in status on 08/13, up to 60L and 100% placed on BIPAP 15/8 and FiO2 70%, did not tolerate, got more confused, saturations dropping Dr. Underwood intubated patient at night on 08/13 dexamethasone, day 10 of steroids baricitinib 4mg daily initially, stopped when intubated CTA chest negative for PE, showed bilateral viral pneumonia CRP was quite elevated CXR 08/13 and 08/14 with worsening opacities [facility], age cutoff is 55, other facilities it is lower at 45, could not transfer patient patient did relatively well with spontaneous breathing trial on 08/24 extubated around noon on 08/24, directly to BIPAP/CPAP will see if he can be weaned off NIPPV on 08/25 (2) 2019 novel coronavirus-infected pneumonia (NCIP): Plan: sick since 08/01 continue ARDSnet protocol, supine continue dexamethasone extubated on 08/24, now on NIPPV (3) Positive blood cultures: Plan: ID consult appreciated will continue on Ancef, Voriconazole, defer to ID on duration (4) Anxiety: Plan: clonazepam (5) Sleep apnea, unspecified: Plan: - per patient, had trialed cpap in past, but could not tolerate mask Plan: FEN/GI: trickle tube feeds ppx: Lovenox, Protonix code: full dispo:ICU status Admission and Anticipated Discharge Date Admission Date: August 10, 2021 Subjective patient improved over the past 24 hours, sedation down significantly, placed on CPAP trial did relatively well, Dr. Villeda spoke with patient's and daughter made the decision to extubate and placed on CPAP/BIPAP extubated around noon, did well through the afternoon, family was able to visit at the door, speak with patient over the phone reviewed labs d/w Dr. Villeda, appreciate his management of this patient Review of Systems Review of Systems: Unobtainable due to reduced consciousness (not in distress) Physical Exam Physical Exam: General: well developed, well nourished, ill appearing, on BIPAP Neck: supple, trachea midline, normal thyroid Lungs: clear to auscultation bilaterally, + tachypnea, + accessory muscle use, on BIPAP Heart: regular S1 and S2, no murmur, peripheral pulses normal, capillary refill normal, no edema Abdomen: soft, NT, ND, + bowel sounds Extremities: normal in appearance, no cyanosis, no petechiae Neuro: moving extremities, CN II-XII intact, no focal deficits Skin: warm, dry, no rash, normal turgor Psych: lethargic, not agitated Results & Data Results & Data ([facility]) Vital Signs (Past 12 Hours) Vital Signs Temp Pulse Resp BP Pulse Ox 08/24/21 21:00 84 30 H 92 08/24/21 20:30 88 29 H 92 08/24/21 20:00 81 25 H 94 08/24/21 19:30 37.1 C 77 21 95 08/24/21 19:00 89 36 H 93 08/24/21 18:30 88 27 H 95 08/24/21 18:00 104 H 24 93 08/24/21 17:30 109 H 25 H 93 08/24/21 17:00 108 H 26 H 93 08/24/21 16:30 108 H 28 H 93 08/24/21 16:00 104 H 29 H 94 08/24/21 15:30 95 H 21 95 08/24/21 15:00 81 19 94 08/24/21 14:30 37.7 C H 97 H 23 92 08/24/21 14:00 37.7 C H 94 H 23 151/86 H 94 08/24/21 13:30 37.8 C H 110 H 28 H 94 08/24/21 13:00 37.7 C H 96 H 22 185/88 H 91 08/24/21 12:30 37.7 C H 102 H 27 H 91 08/24/21 12:00 37.7 C H 103 H 25 H 95 08/24/21 11:35 75 18 92 08/24/21 11:30 37.6 C H 75 18 93 08/24/21 11:00 37.6 C H 81 20 140/79 94 08/24/21 10:30 37.5 C 64 21 92 08/24/21 10:00 37.4 C 76 21 92 Laboratory Results Laboratory Results - last 24 hr 08/23/21 08/24/21 08/24/21 23:11 04:02 04:54 WBC 9.13 RBC 3.40 L Hgb 10.3 L Hct 31.2 L MCV 91.8 MCH 30.3 MCHC 33.0 RDW Std Deviation 46.6 H RDW Coeff of Nicole 13.9 Plt Count 260 MPV 11.5 H Immature Gran % (Auto) 0.5 Neut % (Auto) 87.3 Lymph % (Auto) 8.9 [place] % (Auto) 2.2 Eos % (Auto) 1.0 Baso % (Auto) 0.1 Neut # (Auto) 7.97 H Lymph # (Auto) 0.81 L [place] # (Auto) 0.20 Eos # (Auto) 0.09 Baso # (Auto) 0.01 Immature Gran # (Auto) 0.05 H Sample Site Art Line POC pH 7.44 POC pCO2 40 POC pO2 52 L POC HCO3 27 H POC Total CO2 28 POC Base Excess 3.0 H POC ABG O2 Sat 87.0 L Hemanth Test NA O2 Delivery Device Ventilator POC O2 Rate 24 POC FiO2 40 Tidal Volume 450 PEEP 5 IPAP Sodium Potassium Chloride Carbon Dioxide Anion Gap BUN Creatinine Est Cr Clr Drug Dosing Est GFR ( Amer) Est GFR (Non-Af Amer) BUN/Creatinine Ratio Glucose POC Glucose 111 H Calcium Phosphorus Magnesium 08/24/21 08/24/21 08/24/21 04:54 04:57 11:57 WBC RBC Hgb Hct MCV MCH MCHC RDW Std Deviation RDW Coeff of Nicole Plt Count MPV Immature Gran % (Auto) Neut % (Auto) Lymph % (Auto) [place] % (Auto) Eos % (Auto) Baso % (Auto) Neut # (Auto) Lymph # (Auto) [place] # (Auto) Eos # (Auto) Baso # (Auto) Immature Gran # (Auto) Sample Site POC pH POC pCO2 POC pO2 POC HCO3 POC Total CO2 POC Base Excess POC ABG O2 Sat Hemanth Test O2 Delivery Device POC O2 Rate POC FiO2 Tidal Volume PEEP IPAP Sodium 142 Potassium 4.1 Chloride 110 H Carbon Dioxide 27 Anion Gap 5.0 BUN 42 H Creatinine 0.76 Est Cr Clr Drug Dosing 117.7 Est GFR ( Amer) 117.4 Est GFR (Non-Af Amer) 101.3 BUN/Creatinine Ratio 55.4 H Glucose 101 H POC Glucose 92 129 H Calcium 8.3 L Phosphorus 3.8 Magnesium 2.0 08/24/21 08/24/21 13:21 17:45 WBC RBC Hgb Hct MCV MCH MCHC RDW Std Deviation RDW Coeff of Nicole Plt Count MPV Immature Gran % (Auto) Neut % (Auto) Lymph % (Auto) [place] % (Auto) Eos % (Auto) Baso % (Auto) Neut # (Auto) Lymph # (Auto) [place] # (Auto) Eos # (Auto) Baso # (Auto) Immature Gran # (Auto) Sample Site Art Line POC pH 7.48 H POC pCO2 32 L POC pO2 62 L POC HCO3 24 POC Total CO2 25 POC Base Excess 0.0 POC ABG O2 Sat 93.0 Hemanth Test NA O2 Delivery Device BIPAP POC O2 Rate POC FiO2 60 Tidal Volume PEEP IPAP 12 Sodium Potassium Chloride Carbon Dioxide Anion Gap BUN Creatinine Est Cr Clr Drug Dosing Est GFR ( Amer) Est GFR (Non-Af Amer) BUN/Creatinine Ratio Glucose POC Glucose 113 H Calcium Phosphorus Magnesium Medications Administered Current Inpatient Medications Acetaminophen (Acetaminophen Susp 325 Mg/10.15 Ml Udc) 650 mg PO Q6H PRN PRN Reason: Fever Stop: 09/20/21 00:59 Last Admin: 08/24/21 05:43 Dose: 650 mg Documented by: Albuterol (Albut/Ipratrop 3mg/0.5mg Neb 3 Ml Vial) 3 ml NEB Q4R PRN PRN Reason: Wheezing Stop: 09/19/21 02:59 Last Admin: 08/21/21 09:52 Dose: 3 ml Documented by: Atropine Sulfate (Atropine Sulfate 0.1 Mg/Ml 10ml Syr) 1 mg IV ONE PRN PRN Reason: BRADYCARDIA Stop: 09/22/21 16:22 Clonazepam (Clonazepam 0.5 Mg Tab) 0.5 mg PO BID JULIANA Stop: 09/22/21 11:14 Last Admin: 08/24/21 19:57 Dose: Not Given Documented by: Dextrose (Dextrose 50% 50 Ml Syringe) 25 - 50 ml IV UD PRN; Protocol PRN Reason: Hypoglycemia Protocol Stop: 09/15/21 10:29 Docusate Sodium (Docusate Sodium Syrup 100 Mg/10 Ml Udc) 100 mg PO BID JULIANA Stop: 09/17/21 09:59 Last Admin: 08/24/21 19:57 Dose: Not Given Documented by: Enoxaparin Sodium (Enoxaparin Inj 30 Mg/0.3 Ml Syr) 30 mg SQ Q12 [facility] Stop: 09/23/21 20:59 Last Admin: 08/24/21 20:20 Dose: 30 mg Documented by: Fentanyl Citrate (Fentanyl Bolus From Bag) 50 mcg IV Q60M PRN PRN Reason: Pain or Agitation Stop: 08/27/21 21:27 Last Admin: 08/24/21 05:44 Dose: 50 mcg Documented by: Glucagon (Glucagon For Inj 1 Mg Vial) 1 mg IM UD PRN; Protocol PRN Reason: Hypoglycemia Protocol Stop: 09/15/21 10:29 Glucose (Glucose 40% Gel 15 Gm Tube) 15 - 30 gm PO UD PRN; Protocol PRN Reason: Hypoglycemia Protocol Stop: 09/15/21 10:29 Glucose (Glucose 10 Tabs/Tube) 4 - 8 tabs PO UD PRN; Protocol PRN Reason: Hypoglycemia Protocol Stop: 09/15/21 10:29 Hydralazine HCl (Hydralazine Hcl 20 Mg/Ml Vial) 10 mg IV Q4 PRN PRN Reason: Hypertension Stop: 09/23/21 16:27 Last Admin: 08/24/21 17:48 Dose: 10 mg Documented by: Pantoprazole Sodium 40 mg/ (Syringe) 10 mls @ 5 mls/min IV DAILY@1100 JULIANA Stop: 09/14/21 10:59 Last Admin: 08/24/21 07:47 Dose: 5 mls/min Documented by: Midazolam HCl (Versed) 125 mg in 250 mls @ 4 mls/hr IV .[id number] PRN; Protocol PRN Reason: increased agitation Stop: 09/14/21 14:43 Last Titration: 08/24/21 18:52 Dose: 2 mg/hr, 4 mls/hr Documented by: Fentanyl Citrate (Fentanyl Citrate) 2,500 mcg in 250 mls @ 20 mls/hr IV .[id number] [facility]; Protocol Stop: 08/30/21 12:14 Last Admin: 08/24/21 20:58 Dose: Not Given Documented by: Dexmedetomidine HCl 400 mcg/ (Sodium Chloride) 100 mls @ 28.015 mls/hr IV .Q3H35M [facility]; Protocol Stop: 08/25/21 19:44 Last Admin: 08/24/21 21:20 Dose: 1.3 mcg/kg/hr, 28 mls/hr Documented by: Dexamethasone 6 mg/ Syringe 1.5 mls @ 1 mls/min IV Q24H [facility] Stop: 09/22/21 08:59 Last Admin: 08/24/21 07:47 Dose: 1 mls/min Documented by: Voriconazole 350 mg/ Sodium (Chloride) 100 mls @ 100 mls/hr IV Q12H [facility] Stop: 08/31/21 13:59 Last Infusion: 08/24/21 17:53 Dose: Infused Documented by: Cefazolin Sodium (Ancef 2000mg) 2,000 mg in 15 mls @ 3.75 mls/min IV Q8H [facility] Stop: 08/31/21 10:59 Last Admin: 08/24/21 18:42 Dose: 3.75 mls/min Documented by: Insulin Aspart (Insulin Aspart 100 Units/Ml 3 Ml Pen) 0 units SC Q6 [facility] Stop: 09/22/21 17:59 Last Admin: 08/24/21 17:50 Dose: Not Given Documented by: Lactulose (Lactulose Syrup 20 Gm/30 Ml Udc) 20 gm PO BID [facility] Stop: 09/22/21 11:59 Last Admin: 08/24/21 19:57 Dose: Not Given Documented by: Midazolam HCl (Midazolam Bolus From Bag) 2 mg IV Q60M PRN PRN Reason: Sedation Stop: 09/14/21 14:43 Last Admin: 08/24/21 05:43 Dose: 2 mg Documented by: Miscellaneous (Carbohydrates For Hypoglycemia ) 15 - 30 gm PO UD PRN PRN Reason: Hypoglycemia Treatment Stop: 09/15/21 10:29 Multi-Ingredient Cream (Artificial Tears Op Oint 3.5 Gm Tube) 1 appln OP Q4H [facility] Stop: 09/20/21 10:59 Last Admin: 08/24/21 19:57 Dose: Not Given Documented by: Mupirocin (Mupirocin 2% Oint 22 Gm Tube) 1 appln EXT BID [facility] Stop: 09/10/21 08:59 Last Admin: 08/24/21 20:02 Dose: 1 appln Documented by: Nutritional Formula (Peptamen Intense Vhp 1.0 Porter 1,000 Ml Bag) 1,000 ml OG CONT JULIANA; Protocol Stop: 09/13/21 15:44 Last Admin: 08/24/21 13:39 Dose: Not Given Documented by: Ondansetron HCl (Ondansetron Inj 2 Mg/Ml 2 Ml Vial) 4 mg IV Q4H PRN PRN Reason: Nausea Stop: 09/11/21 17:50 Last Admin: 08/13/21 06:23 Dose: 4 mg Documented by: Oxycodone HCl (Oxycodone Hcl Soln 5 Mg/5 Ml Udc) 5 mg PO Q6 [facility] Stop: 09/06/21 11:59 Last Admin: 08/24/21 16:51 Dose: Not Given Documented by: Quetiapine Fumarate (Quetiapine Fumarate 25 Mg Tablet) 25 mg PO BID [facility] Stop: 09/22/21 11:14 Last Admin: 08/24/21 20:02 Dose: Not Given Documented by: Sennosides (Sennosides 8.8 Mg/5 Ml Udc) 8.8 mg PO QAM [facility] Stop: 09/17/21 09:59 Last Admin: 08/24/21 07:49 Dose: 8.8 mg Documented by: Sterile Water (Tube Feeding Water Flush) 60 ml OG Q4H [facility] Stop: 09/17/21 10:44 Last Admin: 08/24/21 20:02 Dose: Not Given Documented by: PG Care Time/CCT Total # of Minutes Spent Total Time Spent with Patient: Total time spent is greater than 50% in coordination of care (as documented) at patient's floor/unit and/or counseling patient: Coding Level of Care Code 69004 Subseq Hosp Care Lvl 2 Diagnoses Acute respiratory failure with hypoxia J96.01 2019 novel coronavirus-infected pneumonia (NCIP) U07.1; J12.82 Anxiety F41.9 Sleep apnea, unspecified G47.30 Positive blood cultures R78.81
[2021-08-25] MEDS: DEXMEDETOMIDINE HCL 400 MCG in 0.9 % SODIUM CHLORIDE 96 ML IV SCH ×7 (00:50→19:42)
[2021-08-25] MEDS: TUBE FEEDING WATER FLUSH OG SCH ×5 (02:07→20:31)
[2021-08-25] MEDS: ARTIFICIAL TEARS OP OINT 3.5 GM TUBE OP SCH ×2 (02:08→07:51)
[2021-08-25] MEDS: oxyCODONE HCL SOLN 5 MG/5 ML UDC PO SCH (02:08)
[2021-08-25] MEDS: ceFAZolin 2000MG 2,000 MG/15 ML SYR IV SCH ×3 (03:31→17:28)
[2021-08-25] MEDS: VORICONAZOLE 350 MG in 0.9 % SODIUM CHLORIDE 65 ML IV SCH ×2 (04:22→16:29)
[2021-08-25 05:05] LABS: Basophils # (auto) 0.02 K/uL (0-0.2); Basophils % (auto) 0.2 %; Eosinophils # (auto) 0.02 K/uL (0-0.5); Eosinophils % (auto) 0.2 %; Hematocrit (blood only) 32.3 % (42-52); Hemoglobin 10.7 g/dL (14.0-18.0); Immature Granulocytes # (auto) 0.03 K/uL (0.00-0.02); Immature Granulocytes % (auto) 0.4 %; Lymphocytes # (auto) 0.92 K/uL (1.2-3.4); Lymphocytes % (auto) 11.3 %; Mean Corpuscular Hemoglobin 29.6 pg (25-34); Mean Corpuscular Hgb Conc 33.1 g/dL (32-36); Mean Corpuscular Volume 89.2 fL (80-100); Mean Platelet Volume 11.3 fL (7.4-10.4); Monocytes # (auto) 0.21 K/uL (0.11-0.59); Monocytes % (auto) 2.6 %; Neutrophils # (auto) 6.95 K/uL (1.4-6.5); Neutrophils % (auto) 85.3 %; Platelet Count 291 K/uL (130-400); RDW Coefficient of Variation 13.6 % (11.5-14.5); RDW Standard Deviation 44.9 fL (36.4-46.3); Red Blood Count 3.62 M/uL (4.7-6.1); White Blood Count 8.15 K/uL (4.8-10.8)
[2021-08-25] MEDS: INSULIN ASPART 100 UNITS/ML 3 ML PEN SC SCH ×3 (05:15→17:35)
[2021-08-25 05:23] LABS: BUN Creatinine Ratio 36.8 (10-20); Calcium 8.1 mg/dl (8.5-10.1); Creatinine Clr Calc Pharmacy 102.8 ml/min; Est GFR (Non-African American) 95.8 ml/min; Magnesium 2.2 mg/dl (1.8-2.4); Potassium 4.1 mmol/L (3.5-5.1)
[2021-08-25 05:24] LABS: Phosphorus 3.9 mg/dl (2.5-4.9)
[2021-08-25] MEDS: fentaNYL citrate 2,500 MCG/250 ML BAG IV SCH (07:34)
[2021-08-25] MEDS: clonazePAM 0.5 MG TAB PO SCH (07:42)
[2021-08-25] MEDS: DOCUSATE SODIUM SYRUP 100 MG/10 ML UDC PO SCH ×2 (07:42→20:31)
[2021-08-25] MEDS: LACTULOSE SYRUP 20 GM/30 ML UDC PO SCH ×2 (07:42→20:31)
[2021-08-25] MEDS: SENNOSIDES 8.8 MG/5 ML UDC PO SCH (07:43)
[2021-08-25] MEDS: QUEtiapine FUMARATE 25 MG TABLET PO SCH (07:43)
[2021-08-25] MEDS: ENOXAPARIN INJ 30 MG/0.3 ML SYR SQ SCH ×2 (07:50→21:17)
[2021-08-25] MEDS: dexAMETHasone 6 MG in SYRINGE 0 ML IV SCH (07:50)
[2021-08-25] MEDS: MUPIROCIN 2% OINT 22 GM TUBE EXT SCH ×2 (07:51→20:31)
[2021-08-25] MEDS: hydrALAZINE HCL 20 MG/ML VIAL IV PRN (09:37)
--- NOTE | 2021-08-25 09:39 | XRay Report ---
XR chest 1V portable CLINICAL HISTORY: RESP FAILURE TECHNIQUE: Single frontal radiograph of the chest was obtained. Comparison: Comparison is made to chest one view 08/24/2021 FINDINGS: No lines and tubes are seen. The cardiomediastinal silhouette is normal. There is prominence and ceph alization of the vasculature with Luis B lines seen. Lungs are underinflated. Bilateral lower lung airspace opacities are again seen. No evidence of pleural effusion or pneumothorax. IMPRESSION: 1. Bilateral airspace opacities may represent atelectasis, pneumonia, and/or aspiration. 2. Likely moderate pulmonary edema. ACT 112: Negative or not required by law. Electronically signed by: Zak Chappell M.D. 08/25/2021 9:37 AM
--- NOTE | 2021-08-25 10:12 | Critical Care Progress Note ---
Date of Service August 25, 2021 Assessment & Plan (1) ARDS (adult respiratory distress syndrome): (2) 2019 novel coronavirus-infected pneumonia (NCIP): (3) Acute respiratory failure with hypoxia: (4) Breath shortness: (5) Positive blood cultures: (6) Nightmare disorder: Plan: Impression: 56-year-old male with a noncontributory past medical history presenting to the hospital due to COVID-19 viral pneumonia and was intubated on 08/13/2021 due to worsening ARDS. 24 Hour events: Patient extubated. Transitioned to bilevel with increased work of breathing. Had to restart Precedex and Versed infusions overnight due to agitation. Versed now off. Recommendations: Neurologic: Work on weaning his sedatives as much as possible. Discontinue fentanyl and Versed drips. We will leave fentanyl pushes on an as-needed basis. Work on weaning Precedex. If agitated delirium persists, low-dose antipsychotic. Pulmonary: Severe ARDS secondary to Covid. Intubated 08/13/2021. Extubated. Intermittently requiring BiPAP. Will transition between heated high flow and BiPAP as tolerated. He has been on a prolonged course of steroids. We will start to wean them. Decrease to 4 mg for a few days with hopes to get him off over the next 7 to 10 days. If the patient were to require reintubation, would strongly recommend tracheostomy at that point time Cardiovascular: Now hypertensive. Continue as needed hydralazine. Initiate diuresis Gastrointestinal: Continue Protonix. Hopefully his mental status improves to the point that we can perform a swallow study and potentially start nutritional support. If unable to resolve over the next 24 to 48 hours, consider nasoenteric access Renal: Creatinine and electrolytes are stable. Initiate daily Lasix 40 IV daily. Infectious disease: Appreciate ID consultation. Surveillance cultures have been negative. He is also placed on voriconazole given Aspergillus in the tracheal aspirate x 2. Defer duration of abx to ID Hematologic: Lovenox 40 mg daily. Mild anemia seen no evidence of blood loss or indication for transfusion. Endocrine: Glycemic control per protocol. TSH within normal limits from 08/21/2021. VTE prophylaxis: Lovenox for DVT prophylaxis. We will need aggressive PT OT and speech therapy evaluations once mental status improves and the patient is more functional CODE STATUS: Full code Family updated at bedside yesterday. Disposition: Remain in the ICU pending improvement of respiratory status Patient was discussed on multidisciplinary rounds and with the critical care bedside nurse. Admission and Anticipated Discharge Date Admission Date: August 10, 2021 Subjective Patient sedated on Precedex and Versed on BiPAP. He does not respond to verbal commands. He is on 60% FiO2. Review of Systems Review of Systems: Unobtainable due to reduced consciousness Physical Exam Neck: trachea midline, no thyromegaly Cardiovascular: RRR, no murmur, no edema Gastrointestinal (Abdomen): normal bowel sounds, soft, nontender, no hepatosplenomegaly Musculoskeletal: Extremities: extremities normal to inspection Skin: no rashes, warm and dry Lymphatic: no cervical lymphadenopathy Results & Data Results & Data ([facility]) Vital Signs (Past 12 Hours) Vital Signs Temp Pulse Pulse Resp BP Pulse Ox 08/25/21 09:14 66 182/80 H 08/25/21 09:05 69 24 92 08/25/21 09:00 60 27 H 93 08/25/21 08:00 73 34 H 91 08/25/21 07:50 66 33 H 91 08/25/21 07:00 50 L 21 91 08/25/21 06:46 61 28 H 86 L 08/25/21 06:30 67 31 H 90 08/25/21 06:00 60 24 91 08/25/21 05:30 59 L 22 96 08/25/21 05:00 51 L 20 94 08/25/21 04:30 36.8 C 52 L 26 H 93 08/25/21 04:00 57 L 26 H 91 08/25/21 03:43 56 L 26 H 91 08/25/21 03:30 56 L 32 H 92 08/25/21 03:00 52 L 25 H 91 08/25/21 02:30 54 L 25 H 92 08/25/21 02:00 60 23 100 08/25/21 01:30 53 L 27 H 92 08/25/21 01:00 65 35 H 88 L 08/25/21 00:30 55 L 27 H 94 08/25/21 00:00 36.9 C 60 27 H 94 08/24/21 23:30 36.9 C 66 28 H 89 L 08/24/21 23:29 62 08/24/21 23:20 86 28 H 89 L 08/24/21 23:00 36.9 C 81 45 H 90 08/24/21 22:30 65 27 H 94 Critical Care Results & Data Vital Signs (Past 12 Hours) Vital Signs Temp Pulse Pulse Resp BP Pulse Ox 08/25/21 09:14 66 182/80 H 08/25/21 09:05 69 24 92 08/25/21 09:00 60 27 H 93 08/25/21 08:00 73 34 H 91 08/25/21 07:50 66 33 H 91 08/25/21 07:00 50 L 21 91 08/25/21 06:46 61 28 H 86 L 08/25/21 06:30 67 31 H 90 08/25/21 06:00 60 24 91 08/25/21 05:30 59 L 22 96 08/25/21 05:00 51 L 20 94 08/25/21 04:30 36.8 C 52 L 26 H 93 08/25/21 04:00 57 L 26 H 91 08/25/21 03:43 56 L 26 H 91 08/25/21 03:30 56 L 32 H 92 08/25/21 03:00 52 L 25 H 91 08/25/21 02:30 54 L 25 H 92 08/25/21 02:00 60 23 100 08/25/21 01:30 53 L 27 H 92 08/25/21 01:00 65 35 H 88 L 08/25/21 00:30 55 L 27 H 94 08/25/21 00:00 36.9 C 60 27 H 94 08/24/21 23:30 36.9 C 66 28 H 89 L 08/24/21 23:29 62 08/24/21 23:20 86 28 H 89 L 08/24/21 23:00 36.9 C 81 45 H 90 08/24/21 22:30 65 27 H 94 Lab & Micro Results (Past 24 Hours) RBC 3.62 M/uL (4.7-6.1) L 08/25/21 WBC 8.15 K/uL (4.8-10.8) 08/25/21 Hgb 10.7 g/dL (14.0-18.0) L 08/25/21 Hct 32.3 % (42-52) L 08/25/21 MCV 89.2 fL (80-100) 08/25/21 MCH 29.6 pg (25-34) 08/25/21 MCHC 33.1 g/dL (32-36) 08/25/21 RDW Standard Deviation 44.9 fL (36.4-46.3) 08/25/21 RDW Coefficient of Variation 13.6 % (11.5-14.5) 08/25/21 Plt Count 291 K/uL (130-400) 08/25/21 MPV 11.3 fL (7.4-10.4) H 08/25/21 Neutrophils (%) (Auto) 85.3 % 08/25/21 Lymphocytes (%) (Auto) 11.3 % 08/25/21 Monocytes # (Auto) 0.21 K/uL (0.11-0.59) 08/25/21 Eosinophils # (Auto) 0.02 K/uL (0-0.5) 08/25/21 Immature Granulocyte % (Auto) 0.4 % 08/25/21 Neutrophils # (Auto) 6.95 K/uL (1.4-6.5) H 08/25/21 Lymphocytes # (Auto) 0.92 K/uL (1.2-3.4) L 08/25/21 Monocytes # (Auto) 0.21 K/uL (0.11-0.59) 08/25/21 Eosinophils # (Auto) 0.02 K/uL (0-0.5) 08/25/21 Basophils # (Auto) 0.02 K/uL (0-0.2) 08/25/21 Immature Granulocyte # (Auto) 0.03 K/uL (0.00-0.02) H 08/25/21 Na 141 mmol/L (136-145) 08/25/21 K 4.1 mmol/L (3.5-5.1) 08/25/21 Cl 110 mmol/L (98-107) H 08/25/21 CO2 26 mmol/L (21-32) 08/25/21 Anion Gap 5.0 (3-11) 08/25/21 BUN 32 mg/dl (7-18) H 08/25/21 Creatinine 0.87 mg/dl (0.6-1.4) 08/25/21 Estimated GFR ( Amer) 111.0 ml/min 08/25/21 Estimated GFR (Non-Af Amer) 95.8 ml/min 08/25/21 BUN/Creatinine Ratio 36.8 (10-20) H 08/25/21 Glu 95 mg/dl (70-99) 08/25/21 Ca 8.1 mg/dl (8.5-10.1) L 08/25/21 Phosphorus Level 3.9 mg/dl (2.5-4.9) 08/25/21 Mg 2.2 mg/dl (1.8-2.4) 08/25/21 04:53 08/25/21 Calcium Level 8.1 mg/dl (8.5-10.1) L 08/25/21 04:53 08/25/21 Hemanth Test NA 08/24/21 13:21 08/24/21 Microbiology 08/23/21 11:15 Urine Culture - Preliminary Urine,Indwelling Cath No growth - Less than 1,000 colonies/mL, Final report to follow. 08/23/21 11:46 Aerobic Blood Culture - Preliminary Blood No growth in Aerobic bottle after 24 hours. Anaerobic Blood Culture - Preliminary No growth in Anaerobic bottle after 24 hours. 08/23/21 11:30 Aerobic Blood Culture - Preliminary Blood No growth in Aerobic bottle after 24 hours. Anaerobic Blood Culture - Preliminary No growth in Anaerobic bottle after 24 hours. 08/23/21 11:15 Gram Stain - Final Sputum,Vent Suction Sputum Culture - Preliminary Fungus- ident.to follow 08/19/21 10:37 Aerobic Blood Culture - Final Blood No growth in Aerobic bottle after 5 days. Anaerobic Blood Culture - Final No growth in Anaerobic bottle after 5 days. 08/19/21 10:26 Aerobic Blood Culture - Final Blood No growth in Aerobic bottle after 5 days. Anaerobic Blood Culture - Final No growth in Anaerobic bottle after 5 days. Diagnostic Findings (Past 24 Hours) Chest X-Ray 08/25/21 07:45 XR chest 1V portable CLINICAL HISTORY: RESP FAILURE TECHNIQUE: Single frontal radiograph of the chest was obtained. Comparison: Comparison is made to chest one view 08/24/2021 FINDINGS: No lines and tubes are seen. The cardiomediastinal silhouette is normal. There is prominence and cephalization of the vasculature with Luis B lines seen. Lungs are underinflated. Bilateral lower lung airspace opacities are again seen. No evidence of pleural effusion or pneumothorax. IMPRESSION: 1. Bilateral airspace opacities may represent atelectasis, pneumonia, and/or aspiration. 2. Likely moderate pulmonary edema. ACT 112: Negative or not required by law. Electronically signed by: Zak Chappell M.D. 08/25/2021 9:37 AM I & O Totals 24 Hours 08/24/21 08/25/21 08/26/21 06:59 06:59 06:59 Intake Total 2133.655 / 2133.655 671.191 / 671.191 51.4 / 51.4 Output Total 1825 Balance 307.655 / 107.655 -1378.809 / -1378.809 51.4 / 51.4 Cumulative 08/09/21 15:39 thru 08/25/21 09:36 Intake Total 31073.869 Output Total 10904 Balance -4063.131 RT Ventilator Mngmt (Last Documented) Ventilator Ordered Settings Ventilator Support Mode CPAP 08/24/21 11:35 Respiratory Rate 24 08/25/21 09:05 Ventilator Tidal Volume 450 08/24/21 08:00 Setting Minute Ventilation 12.6 08/24/21 11:35 Ventilator Positive Pressure 0 08/24/21 11:35 Support Setting Positive End Expiratory 8 08/24/21 11 :35 Pressure Fraction of Inspired Oxygen 100 08/25/21 10:02 Biphasic High 24 08/20/21 11:15 Machine Comment settings changed by Dr. Tuttle 08/24/21 11:35 Ventilator - PT Measurements Respiratory Rate 24 Exhaled Tidal Volume 750 Minute Ventilation 12.6 Peak Inspiratory Airway 13 Pressure Plateau Pressure 24 Respiratory Cycle Inspiratory: 1:2.6 Expiratory Ratio Inspiratory Phase Time 0.7 End-Tidal CO2 27 Static Lung Compliance 26.25 Dynamic Lung Compliance 150.00 Normal Static Lung Compliance 50.00 Patient Measurements Comment PT EXTUBATED AT THIS TIME PER DR TUTTLE TO OXYMASK . PT DESATURATED, PLACED ON BIPAP Coding Level of Care Code 28937 Subseq Hosp Care Lvl 3 Diagnoses ARDS (adult respiratory distress syndrome) J80 2019 novel coronavirus-infected pneumonia (NCIP) U07.1; J12.82 Acute respiratory failure with hypoxia J96.01 Breath shortness R06.02 Positive blood cultures R78.81 Nightmare disorder F51.5
[2021-08-25] MEDS ORDERED: OLANZapine 10 MG/2.1 ML SDV IM PRN (11:03)
[2021-08-25] MEDS: PANTOprazole 40 MG in SYRINGE 0 ML IV SCH (11:19)
[2021-08-25] MEDS: FUROSEMIDE 40 MG/4 ML VIAL IV SCH (11:19)
[2021-08-25] MEDS ORDERED: ETOMIDATE 2 MG/ML 20 ML VIAL IV ONE ×2 (12:16→14:29)
[2021-08-25] MEDS ORDERED: STAT IV Infusion **Titration per Protocol STA (12:36)
--- NOTE | 2021-08-25 12:40 | Procedure Note ---
Procedure Note Date of Service August 25, 2021 Note INTUBATION PROCEDURE NOTE: Provider: Dilan Villeda MD A time-out was completed verifying correct patient, procedure, site, positioning. Patient was evaluated and required intubation for progressive increased work of breathing, hypoxemic respiratory failure. Sedative agent used: 5 mg Versed, 100 mcg fentanyl, and 40 mg etomidate Paralysis agent used: None Emergent consent was implied given patients rapidly declining clinical status and need for airway protection. Patient is unable to provide consent given his clinical condition. I did discuss with the patient's and daughter prior to proceeding The patient was prepared in the appropriate fashion. Sedation was achieved utilizing Versed, fentanyl and etomidate. The patient was preoxygenated using noninvasive positive pressure ventilation. Once sedation was achieved, indirect laryngoscopy was performed using a video laryngoscope. The cords were easily visualized. A 7.5 endotracheal tube was placed under video laryngoscopy guidance to 23cm at the lip. The stylette was removed and balloon was inflated with 10mL of air. Appropriate Colorimetric change was appreciated. Bilateral breath sounds were heard without air sounds in the abdomen. Post Intubation Chest X-ray pending Patient tolerated the procedure well and there were no immediate complications. Given the patient's extensive need for mechanical ventilation and failure post extubation, recommended to family percutaneous dilatation of tracheostomy. They are in agreement to proceed. This will be scheduled as soon as possible. Coding CPT Codes Resuscitation - Resuscitation: 03946 Endotracheal Intubation, emergency ([id number]) [facility] Procedure Codes (Charges) Resuscitation Resuscitation: 65923 Endotracheal Intubation, emergency
[2021-08-25] MEDS: propofoL 1,000 MG/100 ML VIAL IV SCH ×4 (12:59→21:34)
--- NOTE | 2021-08-25 13:08 | XRay Report ---
XR chest 1V portable CLINICAL HISTORY: intubation COMPARISON STUDY: Chest radiograph August 25, 2021 at 8:51 AM. FINDINGS: Tip of the endotracheal tube is 3.4 cm above the lizzy. Tip of feeding tube is within the body of the stomach. Extensive bilateral airspace opacities are noted. Left lung opacity has slightly increased. There is no pneumothorax or pleural effusion. IMPRESSION: 1. Satisfactory positioning of lines and tubes. 2. Slight increase in extensive bilateral airspace opacities. ACT 112: Negative or not required by law. Electronically signed by: Alexi Mosley M.D. 08/25/2021 1:07 PM
--- NOTE | 2021-08-25 15:13 | Hospitalist Progress Note ---
Date of Service August 25, 2021 Assessment & Plan (1) Acute respiratory failure with hypoxia: Plan: 56 y/o male w/ PMHx of anxiety and GERMAN who presents w/ acute hypoxic respiratory failure secondary to covid-19 pneumonia on day 9 of symptoms (08/01/21 onset) was stable on 40L and 80% for two days, declined in status on 08/13, up to 60L and 100% placed on BIPAP 15/8 and FiO2 70%, did not tolerate, got more confused, saturations dropping Dr. Underwood intubated patient at night on 08/13 dexamethasone, day 10 of steroids baricitinib 4mg daily initially, stopped when intubated CTA chest negative for PE, showed bilateral viral pneumonia CRP was quite elevated CXR 08/13 and 08/14 with worsening opacities [facility], age cutoff is 55, other facilities it is lower at 45, could not transfer patient patient did relatively well with spontaneous breathing trial on 08/24 extubated around noon on 08/24, directly to BIPAP/CPAP could not maintain oxygen saturations, very tachypneic and agitated on 08/25 he was re-intubated, plan for tracheostomy tomorrow (2) 2019 novel coronavirus-infected pneumonia (NCIP): Plan: sick since 08/01 continue ARDSnet protocol, supine continue dexamethasone extubated on 08/24, now re-intubated and ventilated on 08/25 tracheostomy planned (3) Positive blood cultures: Plan: ID consult appreciated will continue on Ancef, Voriconazole, defer to ID on duration (4) Anxiety: Plan: clonazepam (5) Sleep apnea, unspecified: Plan: - per patient, had trialed cpap in past, but could not tolerate mask Plan: FEN/GI: trickle tube feeds ppx: Lovenox, Protonix code: full dispo:ICU status Admission and Anticipated Discharge Date Admission Date: August 10, 2021 Subjective patient became very tachypneic and agitated on BIPAP RR was in the high 30's, could not sustain, decision made to intubate, no complications now plan for tracheostomy tomorrow with Dr. Villeda reviewed labs d/w ICU staff Review of Systems Review of Systems: Unobtainable due to endotracheal tube Physical Exam Physical Exam: General: well developed, well nourished, ill appearing, mechanically ventilated Neck: supple, trachea midline, normal thyroid Lungs: clear to auscultation bilaterally, symmetric chest movement on ventilation Heart: regular S1 and S2, no murmur, peripheral pulses normal, capillary refill normal, no edema Abdomen: soft, NT, ND, + bowel sounds Extremities: normal in appearance, no cyanosis, no petechiae Neuro: moving extremities, CN II-XII intact, no focal deficits Skin: warm, dry, no rash, normal turgor Psych: sedated Results & Data Results & Data ([facility]) Vital Signs (Past 12 Hours) Vital Signs Temp Pulse Pulse Resp BP Pulse Ox 08/25/21 13:00 100 H 42 H 92 08/25/21 12:13 83 176/85 H 08/25/21 10:50 83 39 H 92 08/25/21 09:14 66 182/80 H 08/25/21 09:05 69 24 92 08/25/21 09:00 60 27 H 93 08/25/21 08:00 73 34 H 91 08/25/21 07:50 66 33 H 91 08/25/21 07:00 50 L 21 91 08/25/21 06:46 61 28 H 86 L 08/25/21 06:30 67 31 H 90 08/25/21 06:00 60 24 91 08/25/21 05:30 59 L 22 96 08/25/21 05:00 51 L 20 94 08/25/21 04:30 36.8 C 52 L 26 H 93 08/25/21 04:00 57 L 26 H 91 08/25/21 03:43 56 L 26 H 91 08/25/21 03:30 56 L 32 H 92 Laboratory Results Laboratory Results - last 24 hr 08/24/21 08/24/21 08/25/21 17:45 23:03 04:39 WBC RBC Hgb Hct MCV MCH MCHC RDW Std Deviation RDW Coeff of Nicole Plt Count MPV Immature Gran % (Auto) Neut % (Auto) Lymph % (Auto) Becker % (Auto) Eos % (Auto) Baso % (Auto) Neut # (Auto) Lymph # (Auto) Becker # (Auto) Eos # (Auto) Baso # (Auto) Immature Gran # (Auto) Sodium Potassium Chloride Carbon Dioxide Anion Gap BUN Creatinine Est Cr Clr Drug Dosing Est GFR ( Amer) Est GFR (Non-Af Amer) BUN/Creatinine Ratio Glucose POC Glucose 113 H 99 85 Calcium Phosphorus Magnesium 08/25/21 08/25/21 08/25/21 04:53 04:53 13:23 WBC 8.15 RBC 3.62 L Hgb 10.7 L Hct 32.3 L MCV 89.2 MCH 29.6 MCHC 33.1 RDW Std Deviation 44.9 RDW Coeff of Nicole 13.6 Plt Count 291 MPV 11.3 H Immature Gran % (Auto) 0.4 Neut % (Auto) 85.3 Lymph % (Auto) 11.3 Becker % (Auto) 2.6 Eos % (Auto) 0.2 Baso % (Auto) 0.2 Neut # (Auto) 6.95 H Lymph # (Auto) 0.92 L Becker # (Auto) 0.21 Eos # (Auto) 0.02 Baso # (Auto) 0.02 Immature Gran # (Auto) 0.03 H Sodium 141 Potassium 4.1 Chloride 110 H Carbon Dioxide 26 Anion Gap 5.0 BUN 32 H Creatinine 0.87 Est Cr Clr Drug Dosing 102.8 Est GFR ( Amer) 111.0 Est GFR (Non-Af Amer) 95.8 BUN/Creatinine Ratio 36.8 H Glucose 95 POC Glucose 113 H Calcium 8.1 L Phosphorus 3.9 Magnesium 2.2 Medications Administered Current Inpatient Medications Acetaminophen (Acetaminophen Susp 325 Mg/10.15 Ml Udc) 650 mg PO Q6H PRN PRN Reason: Fever Stop: 09/20/21 00:59 Last Admin: 08/24/21 05:43 Dose: 650 mg Documented by: Albuterol (Albut/Ipratrop 3mg/0.5mg Neb 3 Ml Vial) 3 ml NEB Q4R PRN PRN Reason: Wheezing Stop: 09/19/21 02:59 Last Admin: 08/21/21 09:52 Dose: 3 ml Documented by: Atropine Sulfate (Atropine Sulfate 0.1 Mg/Ml 10ml Syr) 1 mg IV ONE PRN PRN Reason: BRADYCARDIA: HR < 40 Stop: 09/22/21 16:22 Dextrose (Dextrose 50% 50 Ml Syringe) 25 - 50 ml IV UD PRN; Protocol PRN Reason: Hypoglycemia Protocol Stop: 09/15/21 10:29 Docusate Sodium (Docusate Sodium Syrup 100 Mg/10 Ml Udc) 100 mg PO BID [facility] Stop: 09/17/21 09:59 Last Admin: 08/25/21 07:42 Dose: Not Given Documented by: Enoxaparin Sodium (Enoxaparin Inj 30 Mg/0.3 Ml Syr) 30 mg SQ Q12 [facility] Stop: 08/25/21 23:59 Last Admin: 08/25/21 07:50 Dose: 30 mg Documented by: Enoxaparin Sodium (Enoxaparin Inj 40 Mg/0.4 Ml Syr) 40 mg SQ QAM [facility] Stop: 09/25/21 08:59 Fentanyl Citrate (Fentanyl Citrate 100 Mcg/2 Ml Vial) 50 mcg IV Q2H PRN PRN Reason: Moderate Pain (4,5,6) on NRS Stop: 09/08/21 13:50 Furosemide (Furosemide 40 Mg/4 Ml Vial) 40 mg IV DAILY [facility] Stop: 09/24/21 10:59 Last Admin: 08/25/21 11:19 Dose: 40 mg Documented by: Glucagon (Glucagon For Inj 1 Mg Vial) 1 mg IM UD PRN; Protocol PRN Reason: Hypoglycemia Protocol Stop: 09/15/21 10:29 Glucose (Glucose 40% Gel 15 Gm Tube) 15 - 30 gm PO UD PRN; Protocol PRN Reason: Hypoglycemia Protocol Stop: 09/15/21 10:29 Glucose (Glucose 10 Tabs/Tube) 4 - 8 tabs PO UD PRN; Protocol PRN Reason: Hypoglycemia Protocol Stop: 09/15/21 10:29 Hydralazine HCl (Hydralazine Hcl 20 Mg/Ml Vial) 10 mg IV Q4 PRN PRN Reason: Hypertension Stop: 09/23/21 16:27 Last Admin: 08/25/21 09:37 Dose: 10 mg Documented by: Pantoprazole Sodium 40 mg/ (Syringe) 10 mls @ 5 mls/min IV DAILY@1100 [facility] Stop: 09/14/21 10:59 Last Admin: 08/25/21 11:19 Dose: 5 mls/min Documented by: Dexmedetomidine HCl 400 mcg/ (Sodium Chloride) 100 mls @ 21.55 mls/hr IV .Q4H39M [facility]; Protocol Stop: 08/25/21 19:44 Last Admin: 08/25/21 14:25 Dose: Not Given Documented by: Voriconazole 350 mg/ Sodium (Chloride) 100 mls @ 100 mls/hr IV Q12H [facility] Stop: 08/31/21 13:59 Last Infusion: 08/25/21 05:22 Dose: Infused Documented by: Cefazolin Sodium (Ancef 2000mg) 2,000 mg in 15 mls @ 3.75 mls/min IV Q8H [facility] Stop: 08/31/21 10:59 Last Admin: 08/25/21 11:19 Dose: 3.75 mls/min Documented by: Dexamethasone 4 mg/ Syringe 1 mls @ 1 mls/min IV Q24H [facility] Stop: 09/25/21 08:59 Propofol (Diprivan) 1,000 mg in 100 mls @ 10.464 mls/hr IV .Q9H34M [facility]; Protocol Stop: 08/28/21 12:44 Last Titration: 08/25/21 14:26 Dose: 20 mcg/kg/min, 10.5 mls/hr Documented by: Insulin Aspart (Insulin Aspart 100 Units/Ml 3 Ml Pen) 0 units SC Q6 [facility] Stop: 09/22/21 17:59 Last Admin: 08/25/21 13:27 Dose: Not Given Documented by: Lactulose (Lactulose Syrup 20 Gm/30 Ml Udc) 20 gm PO BID [facility] Stop: 09/22/21 11:59 Last Admin: 08/25/21 07:42 Dose: Not Given Documented by: Miscellaneous (Carbohydrates For Hypoglycemia ) 15 - 30 gm PO UD PRN PRN Reason: Hypoglycemia Treatment Stop: 09/15/21 10:29 Mupirocin (Mupirocin 2% Oint 22 Gm Tube) 1 appln EXT BID [facility] Stop: 09/10/21 08:59 Last Admin: 08/25/21 07:51 Dose: 1 appln Documented by: Nutritional Formula (Peptamen Intense Vhp 1.0 Porter 1,000 Ml Bag) 1,000 ml OG CONT [facility]; Protocol Stop: 09/13/21 15:44 Last Admin: 08/24/21 13:39 Dose: Not Given Documented by: Olanzapine (Olanzapine 10 Mg/2.1 Ml Sdv) 5 mg IM BID PRN PRN Reason: Agitation Stop: 09/24/21 11:02 Last Admin: 08/25/21 11:19 Dose: 5 mg Documented by: Ondansetron HCl (Ondansetron Inj 2 Mg/Ml 2 Ml Vial) 4 mg IV Q4H PRN PRN Reason: Nausea Stop: 09/11/21 17:50 Last Admin: 08/13/21 06:23 Dose: 4 mg Documented by: Propofol (Propofol Bolus From Bag) 20 mg IV Q5M PRN PRN Reason: Sedation Stop: 08/28/21 12:35 Sennosides (Sennosides 8.8 Mg/5 Ml Udc) 8.8 mg PO QAM [facility] Stop: 09/17/21 09:59 Last Admin: 08/25/21 07:43 Dose: Not Given Documented by: Sterile Water (Tube Feeding Water Flush) 60 ml OG Q4H [facility] Stop: 09/17/21 10:44 Last Admin: 08/25/21 13:27 Dose: 60 ml Documented by: PG Care Time/CCT Total # of Minutes Spent Total Time Spent with Patient: Total time spent is greater than 50% in coordination of care (as documented) at patient's floor/unit and/or counseling patient: Coding Level of Care Code 67402 Subseq Hosp Care Lvl 2 Diagnoses Acute respiratory failure with hypoxia J96.01 2019 novel coronavirus-infected pneumonia (NCIP) U07.1; J12.82 Positive blood cultures R78.81 Anxiety F41.9 Sleep apnea, unspecified G47.30
[2021-08-25] MEDS: PEPTAMEN INTENSE VHP 1.0 CAL 1,000 ML BAG OG SCH (16:29)
[2021-08-25] MEDS ORDERED: amLODIPine BESYLATE 5 MG TAB PO ONE ×2 (19:10→19:21)
[2021-08-25] MEDS: PROPOFOL BOLUS FROM BAG IV PRN ×2 (19:15→19:30)
[2021-08-26] MEDS: INSULIN ASPART 100 UNITS/ML 3 ML PEN SC SCH ×5 (00:21→23:17)
[2021-08-26] MEDS: TUBE FEEDING WATER FLUSH OG SCH ×6 (00:22→20:51)
[2021-08-26] MEDS: propofoL 1,000 MG/100 ML VIAL IV SCH ×8 (01:37→22:48)
[2021-08-26] MEDS: VORICONAZOLE 350 MG in 0.9 % SODIUM CHLORIDE 65 ML IV SCH ×2 (03:17→15:52)
[2021-08-26] MEDS: ceFAZolin 2000MG 2,000 MG/15 ML SYR IV SCH ×3 (03:17→18:02)
[2021-08-26] MEDS: PROPOFOL BOLUS FROM BAG IV PRN ×6 (03:20→11:25)
[2021-08-26 04:52] LABS: iSTAT Allen Test Pass; iSTAT Arterial Blood Gas HCO3 25 meg/L (19-24); iSTAT Arterial Blood Gas pCO2 35 mmHg (35-46); iSTAT Arterial Blood Gas pH 7.46 (7.35-7.45); iSTAT Arterial Blood Gas pO2 63 mmHg (80-95); iSTAT Carbon Dioxide 26 mmol/L (24-31); iSTAT FiO2 80 %; iSTAT Site Art Line
[2021-08-26 06:10] LABS: Hematocrit (blood only) 34.9 % (42-52); Mean Corpuscular Hemoglobin 30.6 pg (25-34); Mean Corpuscular Hgb Conc 34.4 g/dL (32-36); Mean Platelet Volume 11.1 fL (7.4-10.4); Platelet Count 462 K/uL (130-400); RDW Coefficient of Variation 14.3 % (11.5-14.5); RDW Standard Deviation 46.7 fL (36.4-46.3); Red Blood Count 3.92 M/uL (4.7-6.1); White Blood Count 17.48 K/uL (4.8-10.8)
[2021-08-26 06:17] LABS: Basophils # (auto) 0.02 K/uL (0-0.2); Basophils % (auto) 0.1 %; Eosinophils # (auto) 0.08 K/uL (0-0.5); Eosinophils % (auto) 0.5 %; Immature Granulocytes # (auto) 0.06 K/uL (0.00-0.02); Immature Granulocytes % (auto) 0.3 %; Lymphocytes # (auto) 1.09 K/uL (1.2-3.4); Lymphocytes % (auto) 6.2 %; Monocytes # (auto) 0.32 K/uL (0.11-0.59); Monocytes % (auto) 1.8 %; Neutrophils # (auto) 15.91 K/uL (1.4-6.5); Neutrophils % (auto) 91.1 %
[2021-08-26 06:21] LABS: BUN Creatinine Ratio 37.5 (10-20); Calcium 8.5 mg/dl (8.5-10.1); Creatinine Clr Calc Pharmacy 96.2 ml/min; Est GFR (African American) 105.2 ml/min; Est GFR (Non-African American) 90.8 ml/min; Magnesium 2.2 mg/dl (1.8-2.4); Phosphorus 3.8 mg/dl (2.5-4.9); Potassium 3.9 mmol/L (3.5-5.1)
[2021-08-26] MEDS: fentaNYL citrate 100 MCG/2 ML VIAL IV PRN ×2 (07:47→10:34)
[2021-08-26] MEDS: ENOXAPARIN INJ 40 MG/0.4 ML SYR SQ SCH (07:48)
[2021-08-26] MEDS: MUPIROCIN 2% OINT 22 GM TUBE EXT SCH ×2 (07:48→20:50)
[2021-08-26] MEDS: dexAMETHasone 4 MG in SYRINGE 0 ML IV SCH (07:49)
[2021-08-26] MEDS: FUROSEMIDE 40 MG/4 ML VIAL IV SCH (07:51)
--- NOTE | 2021-08-26 08:59 | XRay Report ---
XR chest 1V portable CLINICAL HISTORY: Resp failure TECHNIQUE: Single frontal radiograph of the chest was obtained. Comparison: Comparison is made to chest one view 08/25/2021 FINDINGS: Lines and tubes are stable. The cardiomediastinal silhouette is obscured. Bilateral lower lung predom inant airspace opacities are seen. No evidence of pleural effusion or pneumothorax. IMPRESSION: Stable bilateral lower lung predominant airspace opacities. Lines and tubes are stable. ACT 112: Negative or not required by law. Electronically signed by: Zak Chappell M.D. 08/26/2021 8:58 AM
[2021-08-26] MEDS: DOCUSATE SODIUM SYRUP 100 MG/10 ML UDC PO SCH ×2 (10:15→20:50)
[2021-08-26] MEDS: SENNOSIDES 8.8 MG/5 ML UDC PO SCH (10:15)
[2021-08-26] MEDS: LACTULOSE SYRUP 20 GM/30 ML UDC PO SCH ×2 (10:15→20:50)
[2021-08-26] MEDS: PANTOprazole 40 MG in SYRINGE 0 ML IV SCH (10:36)
--- NOTE | 2021-08-26 11:17 | Critical Care Progress Note ---
Date of Service August 26, 2021 Assessment & Plan (1) ARDS (adult respiratory distress syndrome): (2) 2019 novel coronavirus-infected pneumonia (NCIP): (3) Acute respiratory failure with hypoxia: (4) Breath shortness: (5) Positive blood cultures: (6) Nightmare disorder: Plan: Impression: 56-year-old male with a noncontributory past medical history presenting to the hospital due to COVID-19 viral pneumonia and was intubated on 08/13/2021 due to worsening ARDS. 24 Hour events: Patient failed a trial of extubation and had to be reintubated yesterday afternoon. Propofol was restarted as a sedative. Overnight he has had increasing oxygen requirement and remains tachypneic despite sedation with propofol. Recommendations: Neurologic: Continue propofol. Will place back on oral clonazepam, oxycodone, and Seroquel. May consider restarting Precedex if needed. Pulmonary: Severe ARDS secondary to Covid. Intubated 08/13/2021. Ovsxqqrtv21/10 and reintubated due to respiratory failure. Given his recurrent failure, recommend tracheostomy once vent settings are established. He is on high FiO2 and PEEP currently. Continue efforts at diuresis. Continue dexamethasone at 4 mg for a few days with hopes to get him off over the next 7 to 10 days. Current settings PRVC 24/380/10/0.8 Pplat unreliable due to patient tachypnea. Wean per High Fio2, low PEEP ARDSnet protocol. Continue to try to keep him net negative. Cardiovascular: Now hypertensive. Continue as needed hydralazine. Continue diuresis Gastrointestinal: Continue Protonix. Continue TF via coresafe. Renal: Creatinine and electrolytes are stable. Continue daily Lasix 40 IV daily. Infectious disease: Appreciate ID consultation. Surveillance cultures have been negative and he is on Ancef. He is also placed on voriconazole given Aspergillus in the tracheal aspirate x 2. Defer duration of abx to ID Hematologic: Lovenox 40 mg daily. Mild anemia seen no evidence of blood loss or indication for transfusion. Endocrine: Glycemic control per protocol. TSH within normal limits from 08/21/2021. VTE prophylaxis: Lovenox for DVT prophylaxis. We will need aggressive PT OT and speech therapy evaluations once mental status improves and the patient is more functional CODE STATUS: Full code Family updated yesterday. Disposition: Remain in the ICU pending improvement of respiratory status Patient was discussed on multidisciplinary rounds and with the critical care bedside nurse and with the ICU pharmacist. Remains critically ill with possibility of . 45 min CC time Admission and Anticipated Discharge Date Admission Date: August 10, 2021 Subjective intubated and sedated. Review of Systems Review of Systems: Unobtainable due to endotracheal tube Physical Exam Neck: trachea midline, no thyromegaly Respiratory: + tachypneic Auscultation: no wheezes coarse breaths sounds bilaterally. On MV. Cardiovascular: RRR, no murmur, no edema Gastrointestinal (Abdomen): normal bowel sounds, soft, nontender, no hepatosplenomegaly Musculoskeletal: Extremities: extremities normal to inspection Skin: no rashes, warm and dry Lymphatic: no cervical lymphadenopathy Results & Data Results & Data ([facility]) Vital Signs (Past 12 Hours) Vital Signs Temp Pulse Resp Pulse Ox 08/26/21 10:00 106 H 31 H 88 L 08/26/21 09:30 107 H 31 H 88 L 08/26/21 09:00 104 H 30 H 88 L 08/26/21 08:30 107 H 30 H 89 L 08/26/21 08:00 36.7 C 103 H 30 H 90 08/26/21 07:40 103 H 30 H 90 08/26/21 07:30 103 H 36 H 87 L 08/26/21 07:00 108 H 35 H 89 L 08/26/21 06:30 101 H 29 H 92 08/26/21 06:00 100 H 29 H 92 08/26/21 05:30 105 H 24 90 08/26/21 05:00 105 H 28 H 89 L 08/26/21 04:30 37.5 C 103 H 30 H 91 08/26/21 04:00 104 H 29 H 92 08/26/21 03:30 37.5 C 113 H 22 91 08/26/21 03:00 105 H 28 H 90 08/26/21 02:59 101 H 08/26/21 02:40 108 H 30 H 90 08/26/21 02:30 105 H 28 H 91 08/26/21 02:00 97 H 43 H 92 08/26/21 01:30 105 H 30 H 92 08/26/21 01:00 105 H 32 H 91 08/26/21 00:30 102 H 29 H 93 08/26/21 00:00 37.1 C 103 H 28 H 93 08/25/21 23:30 103 H 30 H 91 08/25/21 23:16 103 H 31 H 91 Critical Care Results & Data Vital Signs (Past 12 Hours) Vital Signs Temp Pulse Resp Pulse Ox 08/26/21 10:00 106 H 31 H 88 L 08/26/21 09:30 107 H 31 H 88 L 08/26/21 09:00 104 H 30 H 88 L 08/26/21 08:30 107 H 30 H 89 L 08/26/21 08:00 36.7 C 103 H 30 H 90 08/26/21 07:40 103 H 30 H 90 08/26/21 07:30 103 H 36 H 87 L 08/26/21 07:00 108 H 35 H 89 L 08/26/21 06:30 101 H 29 H 92 08/26/21 06:00 100 H 29 H 92 08/26/21 05:30 105 H 24 90 08/26/21 05:00 105 H 28 H 89 L 08/26/21 04:30 37.5 C 103 H 30 H 91 08/26/21 04:00 104 H 29 H 92 08/26/21 03:30 37.5 C 113 H 22 91 08/26/21 03:00 105 H 28 H 90 08/26/21 02:59 101 H 08/26/21 02:40 108 H 30 H 90 08/26/21 02:30 105 H 28 H 91 08/26/21 02:00 97 H 43 H 92 08/26/21 01:30 105 H 30 H 92 08/26/21 01:00 105 H 32 H 91 08/26/21 00:30 102 H 29 H 93 08/26/21 00:00 37.1 C 103 H 28 H 93 08/25/21 23:30 103 H 30 H 91 08/25/21 23:16 103 H 31 H 91 Lab & Micro Results (Past 24 Hours) RBC 3.92 M/uL (4.7-6.1) L 08/26/21 WBC 17.48 K/uL (4.8-10.8) H 08/26/21 Hgb 12.0 g/dL (14.0-18.0) L 08/26/21 Hct 34.9 % (42-52) L 08/26/21 MCV 89.0 fL (80-100) 08/26/21 MCH 30.6 pg (25-34) 08/26/21 MCHC 34.4 g/dL (32-36) 08/26/21 RDW Standard Deviation 46.7 fL (36.4-46.3) H 08/26/21 RDW Coefficient of Variation 14.3 % (11.5-14.5) 08/26/21 Plt Count 462 K/uL (130-400) H 08/26/21 MPV 11.1 fL (7.4-10.4) H 08/26/21 Neutrophils (%) (Auto) 91.1 % 08/26/21 Lymphocytes (%) (Auto) 6.2 % 08/26/21 Monocytes # (Auto) 0.32 K/uL (0.11-0.59) 08/26/21 Eosinophils # (Auto) 0.08 K/uL (0-0.5) 08/26/21 Immature Granulocyte % (Auto) 0.3 % 08/26/21 Neutrophils # (Auto) 15.91 K/uL (1.4-6.5) H 08/26/21 Lymphocytes # (Auto) 1.09 K/uL (1.2-3.4) L 08/26/21 Monocytes # (Auto) 0.32 K/uL (0.11-0.59) 08/26/21 Eosinophils # (Auto) 0.08 K/uL (0-0.5) 08/26/21 Basophils # (Auto) 0.02 K/uL (0-0.2) 08/26/21 Immature Granulocyte # (Auto) 0.06 K/uL (0.00-0.02) H 08/26/21 Na 137 mmol/L (136-145) 08/26/21 K 3.9 mmol/L (3.5-5.1) 08/26/21 Cl 106 mmol/L (98-107) 08/26/21 CO2 26 mmol/L (21-32) 08/26/21 Anion Gap 5.0 (3-11) 08/26/21 BUN 35 mg/dl (7-18) H 08/26/21 Creatinine 0.93 mg/dl (0.6-1.4) 08/26/21 Estimated GFR ( Amer) 105.2 ml/min 08/26/21 Estimated GFR (Non-Af Amer) 90.8 ml/min 08/26/21 BUN/Creatinine Ratio 37.5 (10-20) H 08/26/21 Glu 120 mg/dl (70-99) H 08/26/21 Ca 8.5 mg/dl (8.5-10.1) 08/26/21 Phosphorus Level 3.8 mg/dl (2.5-4.9) 08/26/21 Mg 2.2 mg/dl (1.8-2.4) 08/26/21 05:22 08/26/21 Calcium Level 8.5 mg/dl (8.5-10.1) 08/26/21 05:22 08/26/21 Hemanth Test Pass 08/26/21 04:38 08/26/21 Microbiology 08/23/21 11:15 Gram Stain - Final Sputum,Vent Suction Sputum Culture - Final Aspergillus fumigatus 08/23/21 11:46 Aerobic Blood Culture - Preliminary Blood No growth in Aerobic bottle after 48 hours. Anaerobic Blood Culture - Preliminary No growth in Anaerobic bottle after 48 hours. 08/23/21 11:30 Aerobic Blood Culture - Preliminary Blood No growth in Aerobic bottle after 48 hours. Anaerobic Blood Culture - Preliminary No growth in Anaerobic bottle after 48 hours. 08/23/21 11:15 Urine Culture - Final Urine,Indwelling Cath No growth - less than 1,000 colonies/mL. Diagnostic Findings (Past 24 Hours) Chest X-Ray 08/25/21 12:36 XR chest 1V portable CLINICAL HISTORY: intubation COMPARISON STUDY: Chest radiograph August 25, 2021 at 8:51 AM. FINDINGS: Tip of the endotracheal tube is 3.4 cm above the lizzy. Tip of feeding tube is within the body of the stomach. Extensive bilateral airspace opacities are noted. Left lung opacity has slightly increased. There is no pneumothorax or pleural effusion. IMPRESSION: 1. Satisfactory positioning of lines and tubes. 2. Slight increase in extensive bilateral airspace opacities. ACT 112: Negative or not required by law. Electronically signed by: Alexi Mosley M.D. 08/25/2021 1:07 PM Chest X-Ray 08/26/21 07:00 XR chest 1V portable CLINICAL HISTORY: Resp failure TECHNIQUE: Single frontal radiograph of the chest was obtained. Comparison: Comparison is made to chest one view 08/25/2021 FINDINGS: Lines and tubes are stable. The cardiomediastinal silhouette is obscured. Bilateral lower lung predominant airspace opacities are seen. No evidence of pleural effusion or pneumothorax. IMPRESSION: Stable bilateral lower lung predominant airspace opacities. Lines and tubes are stable. ACT 112: Negative or not required by law. Electronically signed by: Zak Chappell M.D. 08/26/2021 8:58 AM I & O Totals 24 Hours 08/25/21 08/26/21 08/27/21 06:59 06:59 06:59 Intake Total 671.191 / 584.518 8200.658 / 1412.658 143.143 / 143.143 Output Total 2049 / 2049 3001 / 3082 557 / 557 Balance -1378.809 / -1378.809 -1588.342 / -1669.342 -413.857 / -413.857 Cumulative 08/09/21 15:39 thru 08/26/21 09:00 Intake Total 63547.270 Output Total 78119 Balance -6116.730 RT Ventilator Mngmt (Last Documented) Ventilator Ordered Settings Ventilator Support Mode PRVC 08/26/21 08:00 Respiratory Rate 31 08/26/21 10:00 Ventilator Tidal Volume 380 08/26/21 08:00 Setting Minute Ventilation 18.0 08/26/21 07:40 Ventilator Positive Pressure 0 08/24/21 11:35 Support Setting Positive End Expiratory 10 08/26/21 08:00 Pressure Fraction of Inspired Oxygen 80 08/26/21 08:00 Biphasic High 24 08/20/21 11:15 Machine Comment Placed on settings post- 08/25/21 13:00 intubation Ventilator - PT Measurements Respiratory Rate 31 Exhaled Tidal Volume 692 Minute Ventilation 18.0 Peak Inspiratory Airway 25 Pressure Plateau Pressure 21.5 Respiratory Cycle Inspiratory: 1:1.9 Expiratory Ratio Inspiratory Phase Time 0.80 End-Tidal CO2 24 Static Lung Compliance 60.17 Dynamic Lung Compliance 46.13 Normal Static Lung Compliance 48.00 Patient Measurements Comment unable to obtain Ppl as patient sedation being titrated by RN Coding Level of Care Code Critical Care 1st 30-74 mins Diagnoses ARDS (adult respiratory distress syndrome) J80 2019 novel coronavirus-infected pneumonia (NCIP) U07.1; J12.82 Acute respiratory failure with hypoxia J96.01 Breath shortness R06.02 Positive blood cultures R78.81 Nightmare disorder F51.5 Time Spent (min) 45
[2021-08-26] MEDS: clonazePAM 1 MG TAB PO SCH ×2 (11:41→20:50)
[2021-08-26] MEDS: QUEtiapine FUMARATE 200 MG TAB PO SCH (12:04)
[2021-08-26] MEDS ORDERED: STAT IV Infusion **Titration per Protocol STA (13:11)
[2021-08-26] MEDS: NOREPINEPHRINE/D5W 8 MG/508 ML BAG IV SCH (13:23)
[2021-08-26] MEDS: oxyCODONE HCL SOLN 5 MG/5 ML UDC PO SCH ×2 (15:05→20:50)
[2021-08-26] MEDS: PEPTAMEN INTENSE VHP 1.0 CAL 1,000 ML BAG OG SCH (15:25)
--- NOTE | 2021-08-26 17:50 | Hospitalist Progress Note ---
Date of Service August 26, 2021 Assessment & Plan (1) Acute respiratory failure with hypoxia: Plan: 56 y/o male w/ PMHx of anxiety and GERMAN who presents w/ acute hypoxic respiratory failure secondary to covid-19 pneumonia on day 9 of symptoms (08/01/21 onset) was stable on 40L and 80% for two days, declined in status on 08/13, up to 60L and 100% placed on BIPAP 15/8 and FiO2 70%, did not tolerate, got more confused, saturations dropping Dr. Underwood intubated patient at night on 08/13 dexamethasone, currently on 4mg, weaning off baricitinib 4mg daily initially, stopped when intubated CTA chest negative for PE, showed bilateral viral pneumonia CRP was quite elevated CXR 08/13 and 08/14 with worsening opacities [facility], age cutoff is 55, other facilities it is lower at 45, could not transfer patient patient did relatively well with spontaneous breathing trial on 08/24 extubated around noon on 08/24, directly to BIPAP/CPAP could not maintain oxygen saturations, very tachypneic and agitated on 08/25 he was re-intubated, plan for tracheostomy once PEEP and FiO2 lower, too high today (2) 2019 novel coronavirus-infected pneumonia (NCIP): Plan: sick since 08/01 continue ARDSnet protocol, supine continue dexamethasone, 4mg, taper slowly extubated on 08/24, now re-intubated and ventilated on 08/25 tracheostomy planned once PEEP and FiO2 improved (3) Positive blood cultures: Plan: ID consult appreciated will continue on Ancef, Voriconazole, defer to ID on duration repeat blood cultures clear (4) Anxiety: Plan: clonazepam, now sedated with Propofol, might need Precedex (5) Sleep apnea, unspecified: Plan: - per patient, had trialed cpap in past, but could not tolerate mask Plan: FEN/GI: ppx: Lovenox, Protonix code: full dispo:ICU status Admission and Anticipated Discharge Date Admission Date: August 10, 2021 Subjective unfortunately patient needed re-intubated yesterday he is now on Propofol, resumed clonopin, oxycodone, might need Precedex WBC 17k he in on higher PEEP and FiO2 80% and so tracheostomy on hold until settings are improved d/w Dr. Villeda today Review of Systems Review of Systems: Unobtainable due to endotracheal tube and Unobtainable due to reduced consciousness Physical Exam Physical Exam: General: well developed, well nourished, ill appearing, mechanically ventilated Neck: supple, trachea midline, normal thyroid Lungs: clear to auscultation bilaterally, symmetric chest movement on ventilation Heart: regular S1 and S2, no murmur, peripheral pulses normal, capillary refill normal, no edema Abdomen: soft, NT, ND, + bowel sounds Extremities: normal in appearance, no cyanosis, no petechiae Neuro: moving extremities, CN II-XII intact, no focal deficits Skin: warm, dry, no rash, normal turgor Psych: sedated Results & Data Results & Data ([facility]) Vital Signs (Past 12 Hours) Vital Signs Temp Pulse Resp BP Pulse Ox 08/26/21 16:00 93 H 20 93 08/26/21 15:40 94 H 34 H 95 08/26/21 15:30 95 H 27 H 94 08/26/21 15:00 93 H 20 96 08/26/21 14:30 94 H 21 95 08/26/21 14:00 91 H 22 95 08/26/21 13:30 94 H 20 89/55 L 92 08/26/21 13:20 86/59 L 08/26/21 13:10 96/55 L 08/26/21 13:00 36.8 C 85 22 91/56 L 92 08/26/21 12:48 94/56 L 08/26/21 12:46 90/59 L 08/26/21 12:42 92/63 L 08/26/21 12:30 96 H 24 94 08/26/21 12:00 97 H 27 H 130/85 93 08/26/21 11:14 100 H 31 H 91 08/26/21 11:00 105 H 30 H 135/84 91 08/26/21 10:00 106 H 31 H 122/84 88 L 08/26/21 09:30 107 H 31 H 88 L 08/26/21 09:00 104 H 30 H 139/95 88 L 08/26/21 08:30 107 H 30 H 89 L 08/26/21 08:00 36.7 C 103 H 30 H 143/102 H 90 08/26/21 07:40 103 H 30 H 90 08/26/21 07:30 103 H 36 H 87 L 08/26/21 07:00 108 H 35 H 89 L 08/26/21 06:30 101 H 29 H 92 08/26/21 06:00 100 H 29 H 92 Laboratory Results Laboratory Results - last 24 hr 08/26/21 08/26/21 08/26/21 00:16 04:38 05:22 WBC 17.48 H RBC 3.92 L Hgb 12.0 L Hct 34.9 L MCV 89.0 MCH 30.6 MCHC 34.4 RDW Std Deviation 46.7 H RDW Coeff of Nicole 14.3 Plt Count 462 H D MPV 11.1 H Immature Gran % (Auto) 0.3 Neut % (Auto) 91.1 Lymph % (Auto) 6.2 [place] % (Auto) 1.8 Eos % (Auto) 0.5 Baso % (Auto) 0.1 Neut # (Auto) 15.91 H Lymph # (Auto) 1.09 L [place] # (Auto) 0.32 Eos # (Auto) 0.08 Baso # (Auto) 0.02 Immature Gran # (Auto) 0.06 H Sample Site Art Line POC pH 7.46 H POC pCO2 35 POC pO2 63 L POC HCO3 25 H POC Total CO2 26 POC Base Excess 1.0 POC ABG O2 Sat 93.0 Hemanth Test Pass O2 Delivery Device Ventilator POC O2 Rate 26 POC FiO2 80 Tidal Volume 380 PEEP 10 Sodium Potassium Chloride Carbon Dioxide Anion Gap BUN Creatinine Est Cr Clr Drug Dosing Est GFR ( Amer) Est GFR (Non-Af Amer) BUN/Creatinine Ratio Glucose POC Glucose 126 H Calcium Phosphorus Magnesium 08/26/21 08/26/21 08/26/21 05:22 05:26 11:30 WBC RBC Hgb Hct MCV MCH MCHC RDW Std Deviation RDW Coeff of Nicole Plt Count MPV Immature Gran % (Auto) Neut % (Auto) Lymph % (Auto) [place] % (Auto) Eos % (Auto) Baso % (Auto) Neut # (Auto) Lymph # (Auto) [place] # (Auto) Eos # (Auto) Baso # (Auto) Immature Gran # (Auto) Sample Site POC pH POC pCO2 POC pO2 POC HCO3 POC Total CO2 POC Base Excess POC ABG O2 Sat Hemanth Test O2 Delivery Device POC O2 Rate POC FiO2 Tidal Volume PEEP Sodium 137 Potassium 3.9 Chloride 106 Carbon Dioxide 26 Anion Gap 5.0 BUN 35 H Creatinine 0.93 Est Cr Clr Drug Dosing 96.2 Est GFR ( Amer) 105.2 Est GFR (Non-Af Amer) 90.8 BUN/Creatinine Ratio 37.5 H Glucose 120 H POC Glucose 116 H 158 H Calcium 8.5 Phosphorus 3.8 Magnesium 2.2 08/26/21 17:32 WBC RBC Hgb Hct MCV MCH MCHC RDW Std Deviation RDW Coeff of Nicole Plt Count MPV Immature Gran % (Auto) Neut % (Auto) Lymph % (Auto) [place] % (Auto) Eos % (Auto) Baso % (Auto) Neut # (Auto) Lymph # (Auto) [place] # (Auto) Eos # (Auto) Baso # (Auto) Immature Gran # (Auto) Sample Site POC pH POC pCO2 POC pO2 POC HCO3 POC Total CO2 POC Base Excess POC ABG O2 Sat Hemanth Test O2 Delivery Device POC O2 Rate POC FiO2 Tidal Volume PEEP Sodium Potassium Chloride Carbon Dioxide Anion Gap BUN Creatinine Est Cr Clr Drug Dosing Est GFR ( Amer) Est GFR (Non-Af Amer) BUN/Creatinine Ratio Glucose POC Glucose 142 H Calcium Phosphorus Magnesium Medications Administered Current Inpatient Medications Acetaminophen (Acetaminophen Susp 325 Mg/10.15 Ml Udc) 650 mg PO Q6H PRN PRN Reason: Fever Stop: 09/20/21 00:59 Last Admin: 08/24/21 05:43 Dose: 650 mg Documented by: Albuterol (Albut/Ipratrop 3mg/0.5mg Neb 3 Ml Vial) 3 ml NEB Q4R PRN PRN Reason: Wheezing Stop: 09/19/21 02:59 Last Admin: 08/21/21 09:52 Dose: 3 ml Documented by: Atropine Sulfate (Atropine Sulfate 0.1 Mg/Ml 10ml Syr) 1 mg IV ONE PRN PRN Reason: BRADYCARDIA: HR < 40 Stop: 09/22/21 16:22 Clonazepam (Clonazepam 1 Mg Tab) 1 mg PO BID JULIANA Stop: 09/25/21 11:14 Last Admin: 08/26/21 11:41 Dose: 1 mg Documented by: Dextrose (Dextrose 50% 50 Ml Syringe) 25 - 50 ml IV UD PRN; Protocol PRN Reason: Hypoglycemia Protocol Stop: 09/15/21 10:29 Docusate Sodium (Docusate Sodium Syrup 100 Mg/10 Ml Udc) 100 mg PO BID [facility] Stop: 09/17/21 09:59 Last Admin: 08/26/21 10:15 Dose: Not Given Documented by: Enoxaparin Sodium (Enoxaparin Inj 40 Mg/0.4 Ml Syr) 40 mg SQ QAM [facility] Stop: 09/25/21 08:59 Last Admin: 08/26/21 07:48 Dose: 40 mg Documented by: Fentanyl Citrate (Fentanyl Citrate 100 Mcg/2 Ml Vial) 50 mcg IV Q2H PRN PRN Reason: Moderate Pain (4,5,6) on NRS Stop: 09/08/21 13:50 Last Admin: 08/26/21 10:34 Dose: 50 mcg Documented by: Furosemide (Furosemide 40 Mg/4 Ml Vial) 40 mg IV DAILY [facility] Stop: 09/24/21 10:59 Last Admin: 08/26/21 07:51 Dose: 40 mg Documented by: Glucagon (Glucagon For Inj 1 Mg Vial) 1 mg IM UD PRN; Protocol PRN Reason: Hypoglycemia Protocol Stop: 09/15/21 10:29 Glucose (Glucose 40% Gel 15 Gm Tube) 15 - 30 gm PO UD PRN; Protocol PRN Reason: Hypoglycemia Protocol Stop: 09/15/21 10:29 Glucose (Glucose 10 Tabs/Tube) 4 - 8 tabs PO UD PRN; Protocol PRN Reason: Hypoglycemia Protocol Stop: 09/15/21 10:29 Hydralazine HCl (Hydralazine Hcl 20 Mg/Ml Vial) 10 mg IV Q4 PRN PRN Reason: Hypertension Stop: 09/23/21 16:27 Last Admin: 08/25/21 09:37 Dose: 10 mg Documented by: Pantoprazole Sodium 40 mg/ (Syringe) 10 mls @ 5 mls/min IV DAILY@1100 [facility] Stop: 09/14/21 10:59 Last Admin: 08/26/21 10:36 Dose: 5 mls/min Documented by: Voriconazole 350 mg/ Sodium (Chloride) 100 mls @ 100 mls/hr IV Q12H [facility] Stop: 08/31/21 13:59 Last Infusion: 08/26/21 17:14 Dose: Infused Documented by: Cefazolin Sodium (Ancef 2000mg) 2,000 mg in 15 mls @ 3.75 mls/min IV Q8H [facility] Stop: 08/31/21 10:59 Last Admin: 08/26/21 10:35 Dose: 3.75 mls/min Documented by: Dexamethasone 4 mg/ Syringe 1 mls @ 1 mls/min IV Q24H JULIANA Stop: 09/25/21 08:59 Last Admin: 08/26/21 07:49 Dose: 1 mls/min Documented by: Propofol (Diprivan) 1,000 mg in 100 mls @ 26.16 mls/hr IV .Q3H50M [facility]; Protocol Stop: 08/28/21 12:44 Last Admin: 08/26/21 15:22 Dose: 50 mcg/kg/min, 26.2 mls/hr Documented by: Norepinephrine Bitartrate (Levophed/D5w) 8 mg in 508 mls @ 6.447 mls/hr IV .Q24H [facility]; Protocol Stop: 09/25/21 13:14 Last Titration: 08/26/21 13:39 Dose: 0.02 mcg/kg/min, 6.4 mls/hr Documented by: Insulin Aspart (Insulin Aspart 100 Units/Ml 3 Ml Pen) 0 units SC Q6 [facility] Stop: 09/22/21 17:59 Last Admin: 08/26/21 17:35 Dose: Not Given Documented by: Lactulose (Lactulose Syrup 20 Gm/30 Ml Udc) 20 gm PO BID [facility] Stop: 09/22/21 11:59 Last Admin: 08/26/21 10:15 Dose: Not Given Documented by: Miscellaneous (Carbohydrates For Hypoglycemia ) 15 - 30 gm PO UD PRN PRN Reason: Hypoglycemia Treatment Stop: 09/15/21 10:29 Mupirocin (Mupirocin 2% Oint 22 Gm Tube) 1 appln EXT BID [facility] Stop: 09/10/21 08:59 Last Admin: 08/26/21 07:48 Dose: 1 appln Documented by: Nutritional Formula (Peptamen Intense Vhp 1.0 Porter 1,000 Ml Bag) 1,000 ml OG CONT [facility]; Protocol Stop: 09/13/21 15:44 Last Admin: 08/26/21 15:25 Dose: 1,000 ml Documented by: Olanzapine (Olanzapine 10 Mg/2.1 Ml Sdv) 5 mg IM BID PRN PRN Reason: Agitation Stop: 09/24/21 11:02 Last Admin: 08/25/21 11:19 Dose: 5 mg Documented by: Ondansetron HCl (Ondansetron Inj 2 Mg/Ml 2 Ml Vial) 4 mg IV Q4H PRN PRN Reason: Nausea Stop: 09/11/21 17:50 Last Admin: 08/13/21 06:23 Dose: 4 mg Documented by: Oxycodone HCl (Oxycodone Hcl Soln 5 Mg/5 Ml Udc) 10 mg PO Q8 JULIANA Stop: 09/09/21 13:59 Last Admin: 08/26/21 15:05 Dose: 10 mg Documented by: Propofol (Propofol Bolus From Bag) 20 mg IV Q5M PRN PRN Reason: Sedation Stop: 08/28/21 12:35 Last Admin: 08/26/21 11:25 Dose: 20 mg Documented by: Quetiapine Fumarate (Quetiapine Fumarate 200 Mg Tab) 200 mg PO DAILY [facility] Stop: 09/25/21 11:14 Last Admin: 08/26/21 12:04 Dose: 200 mg Documented by: Sennosides (Sennosides 8.8 Mg/5 Ml Udc) 8.8 mg PO QAM [facility] Stop: 09/17/21 09:59 Last Admin: 08/26/21 10:15 Dose: Not Given Documented by: Sterile Water (Tube Feeding Water Flush) 60 ml OG Q4H [facility] Stop: 09/17/21 10:44 Last Admin: 08/26/21 15:05 Dose: 60 ml Documented by: PG Care Time/CCT Total # of Minutes Spent Total Time Spent with Patient: Total time spent is greater than 50% in coordination of care (as documented) at patient's floor/unit and/or counseling patient: Coding Level of Care Code 36199 Subseq Hosp Care Lvl 2 Diagnoses Acute respiratory failure with hypoxia J96.01 2019 novel coronavirus-infected pneumonia (NCIP) U07.1; J12.82 Positive blood cultures R78.81 Anxiety F41.9 Sleep apnea, unspecified G47.30
[2021-08-27] MEDS: propofoL 1,000 MG/100 ML VIAL IV SCH ×8 (02:49→18:37)
[2021-08-27] MEDS: ceFAZolin 2000MG 2,000 MG/15 ML SYR IV SCH ×3 (03:38→18:19)
[2021-08-27] MEDS: TUBE FEEDING WATER FLUSH OG SCH ×6 (03:38→23:54)
[2021-08-27] MEDS: VORICONAZOLE 350 MG in 0.9 % SODIUM CHLORIDE 65 ML IV SCH ×2 (03:39→15:18)
[2021-08-27] MEDS ORDERED: LIDOCAINE 1% LOCAL 20 ML VIAL INFIL ONE (05:14)
[2021-08-27] MEDS: oxyCODONE HCL SOLN 5 MG/5 ML UDC PO SCH ×3 (05:19→20:10)
[2021-08-27] MEDS: INSULIN ASPART 100 UNITS/ML 3 ML PEN SC SCH ×4 (05:49→23:55)
[2021-08-27 05:52] LABS: Basophils # (auto) 0.02 K/uL (0-0.2); Basophils % (auto) 0.2 %; Eosinophils % (auto) 3.3 %; Hematocrit (blood only) 30.4 % (42-52); Hemoglobin 9.9 g/dL (14.0-18.0); Immature Granulocytes # (auto) 0.06 K/uL (0.00-0.02); Immature Granulocytes % (auto) 0.5 %; Lymphocytes # (auto) 1.19 K/uL (1.2-3.4); Lymphocytes % (auto) 9.9 %; Mean Corpuscular Hemoglobin 29.9 pg (25-34); Mean Corpuscular Hgb Conc 32.6 g/dL (32-36); Mean Corpuscular Volume 91.8 fL (80-100); Monocytes # (auto) 0.06 K/uL (0.11-0.59); Monocytes % (auto) 0.5 %; Neutrophils # (auto) 10.28 K/uL (1.4-6.5); Neutrophils % (auto) 85.6 %; Platelet Count 370 K/uL (130-400); RDW Standard Deviation 47.2 fL (36.4-46.3); Red Blood Count 3.31 M/uL (4.7-6.1); White Blood Count 12.01 K/uL (4.8-10.8)
[2021-08-27] MEDS ORDERED: VECURONIUM BROMIDE 10 MG VIAL IV ONE ×2 (05:58→07:00)
[2021-08-27 05:59] LABS: iSTAT Art Bld Gas pCO2 Correct 38 mmHg (35-46); iSTAT Art Bld Gas pH Corrected 7.476 (7.35-7.45); iSTAT Arterial Blood Gas HCO3 28 meg/L (19-24); iSTAT Arterial Blood Gas pCO2 38 mmHg (35-46); iSTAT Arterial Blood Gas pH 7.48 (7.35-7.45); iSTAT Arterial Blood Gas pO2 55 mmHg (80-95); iSTAT Arterial Blood Gas pO2 C 55; iSTAT Carbon Dioxide 29 mmol/L (24-31); iSTAT Hematocrit 28 % (42-52); iSTAT Hemoglobin 9.5 g/dl (14.0-18.0); iSTAT Potassium 3.7 mmol/L (3.3-5.0); iSTAT Site Art Line; iSTAT Sodium 140 mmol/L (135-144)
[2021-08-27 06:19] LABS: BUN Creatinine Ratio 62.1 (10-20); Calcium 8.4 mg/dl (8.5-10.1); Creatinine Clr Calc Pharmacy 119.3 ml/min; Est GFR (Non-African American) 101.8 ml/min; Magnesium 2.5 mg/dl (1.8-2.4); Potassium 3.7 mmol/L (3.5-5.1)
[2021-08-27 06:26] LABS: Phosphorus 2.9 mg/dl (2.5-4.9)
[2021-08-27] MEDS ORDERED: MIDAZOLAM HCL 5 MG/ML 1 ML VIAL IV STA (06:56)
[2021-08-27] MEDS ORDERED: fentaNYL citrate 100 MCG/2 ML VIAL IV ONE (06:56)
[2021-08-27] MEDS ORDERED: MIDAZOLAM HCL 1 MG/ML 2ML VIAL ONE (06:57)
--- NOTE | 2021-08-27 07:59 | Procedure Note ---
Procedure Note Date of Service August 27, 2021 Note Procedure: Flexible Bronchoscopy for Percutaneous Tracheostomy Tube Placement Attending/Cyber Systems Administrator: Dr. Villeda, Justus Serrano PA-C Anesthetic/Sedation: Per Dr. Villeda Indication: Respiratory failure with need for tracheostomy tube placement. Consent was signed and placed on the chart prior to procedure. Indication, risks, and benefits were explained at length. A time-out was completed verifying correct patient, procedure, site, positioning, and implant(s) or special equipment if applicable. Findings: After Dr. Villeda had repaired the patient, the bronchoscope was advanced into the ET tube to evaluate airway. The cuff of the ET tube was deflated and the bronchoscope was held at the distal portion of the ET tube while the tube was withdrawn to appropriate level. Eventually, when we were able to visualize point of entry for percutaneous tracheostomy site, the bronchoscope and ET tube are held in place. Needle puncture was visualized to enter through the anterior aspect of the trachea without penetration to the posterior aspect. The guidewire was visualized advancing down the trachea. Appropriate dilation w ithout penetration of the posterior wall was noted. After cuffed tube was placed, the bronchoscope was advanced into the tracheostomy tube and visualized in appropriate position. No bleeding noted. Patient tolerated procedure well. No immediate complications were noted. Coding CPT Codes Pulmonary/Thoracic - Pulmonary and Thoracic: 40419 Bronchoscopy, clear airways ([id number]) [facility] [facility] [place] Codes (Charges[place] Pulmonary/Thoracic Procedure 1: Pulmonary and Thoracic: 31925 Bronchoscopy, clear airways
--- NOTE | 2021-08-27 08:22 | Procedure Note ---
Procedure Note Date of Service August 27, 2021 Note Procedure: 1. Percutaneous dilatation of 6.o Shiley tracheostomy 2. Bronchoscopy with brushing Indication respiratory failure Liquor Runner Dr. Dilan Villeda Anesthesia: Patient was maintained on a propofol infusion. 10 mL bolus was ad ministered as well as infusion at continuous rate. 2 mg Versed administered. 10 mg vecuronium. Consent: Risks and benefits were discussed with the patient's . Consent was verified and timeout was performed prior to starting the procedure. Groover Operator: SIOMARA Serrano Estimated blood loss: Less than 10 mL Procedure: The patient is in the ICU intubated and on the ventilator. He is placed on her percent FiO2. A timeout was performed. Consent was verified. Patient was paralyzed and sedation maintained. Once anesthesia was appropriate, neck roll was placed under the shoulders to allow for extension of the neck. Landmarks were easily palpable. An area approximately 1 cm below the cricoid cartilage was cleaned and draped using chlorhexidine. A sterile field was established. Using an 11 blade scalpel, a 1.5 cm longitudinal incision of the trachea was made. Blunt dissection with my index finger and the curved hemostats was conducted down until I could palpate tracheal rings with my index finger. At that point in time, SIOMARA Serrano advanced the bronchoscope through the existing endotracheal tube. The bronchoscope was left at the tip of the ET tube. The cuff was deflated and the bronchoscope and endotracheal tube were withdrawn to a level just below the glottis. I was able to observe external ballottement using a curved forceps. Using an 18-gauge over the needle Angiocat h, the trachea was entered between the second and third cartilaginous ring. A wire was passed through the catheter into the distal airway and visualized bronchoscopically to be distending into the lower airways. Catheter was removed leaving the wire in place. Stiff dilator was used to dilate the tract and then the Rhino dilator and guiding catheter were advanced over the wire into the airway. The Rhino dilator was removed leaving the wire and guiding catheter in place. A previously tested 6 oh Shiley cuffed tracheostomy had been lubricated and loading on a 26 Cameroonian delivery catheter. This was advanced over the wire and guiding catheter into the airway. Once the tracheostomy was in place, the loading catheter, guiding catheter, and wire were removed. The bronchoscope was then removed from the endotracheal tube and advanced through the newly placed tracheostomy tube and verified to be within the airway. The balloon was inflated. The inner cannula was replaced and the patient was attached to the ventilator. Good return tidal volumes were obtained. 3 Vicryl stay sutures were placed in the newly placed tracheostomy through the eyelids and at the 6 o'clock position. A drain sponge was placed and trach ties were attached. The roll under the shoulder blades was removed. Patient tolerated the procedure well. Once the tracheostomy was complete secured and the patient attached to the ventilator, the fiberoptic scope was then advanced through the newly placed tracheostomy. Formal bronchoscopy was conducted. There were several ulcerated nodules in the airways as well as some plaque-like material adherent to the airway in the right lower lobe. Under bronchoscopic guidance, brushings were taken of the ulcers x3. We will send for cytologic and viral analysis. The patient tolerated the procedure well with very transient oxygen desaturations lasting less than 2 minutes. Coding CPT Codes ENT - ENT: 45272 Incision of windpipe ([id number]) Pulmonary/Thoracic - Pulmonary and Thoracic: 64584 Dx bronchoscopy/brush ([id number]) [facility] [place] Procedure Codes (Charges) ENT ENT: 08451 Incision of windpipe Pulmonary/Thoracic Procedure 2: Pulmonary and Thoracic: 31560 Dx bronchoscopy/brush
[2021-08-27] MEDS: clonazePAM 1 MG TAB PO SCH ×2 (10:13→20:07)
[2021-08-27] MEDS: dexAMETHasone 4 MG in SYRINGE 0 ML IV SCH (10:13)
[2021-08-27] MEDS: DOCUSATE SODIUM SYRUP 100 MG/10 ML UDC PO SCH ×2 (10:13→20:09)
[2021-08-27] MEDS: LACTULOSE SYRUP 20 GM/30 ML UDC PO SCH ×2 (10:13→20:10)
[2021-08-27] MEDS: SENNOSIDES 8.8 MG/5 ML UDC PO SCH (10:13)
[2021-08-27] MEDS: MUPIROCIN 2% OINT 22 GM TUBE EXT SCH ×2 (10:14→20:10)
[2021-08-27] MEDS: ENOXAPARIN INJ 40 MG/0.4 ML SYR SQ SCH (10:14)
[2021-08-27] MEDS: FUROSEMIDE 40 MG/4 ML VIAL IV SCH (10:14)
[2021-08-27] MEDS: QUEtiapine FUMARATE 200 MG TAB PO SCH (10:15)
--- NOTE | 2021-08-27 11:33 | Critical Care Progress Note ---
Date of Service August 27, 2021 Assessment & Plan (1) ARDS (adult respiratory distress syndrome): (2) 2019 novel coronavirus-infected pneumonia (NCIP): (3) Acute respiratory failure with hypoxia: (4) Breath shortness: (5) Positive blood cultures: (6) Nightmare disorder: Plan: Impression: 56-year-old male with a noncontributory past medical history presenting to the hospital due to COVID-19 viral pneumonia and was intubated on 08/13/2021 due to worsening ARDS. 24 Hour events: Oxygenation improved significantly overnight and the patient underwent bedside percutaneous dilatation of tracheostomy this morning. Bronchoscopy was also performed. There were some shallow-based ulcers identified in the trachea and mainstem bronchi which were brushed. Samples were sent for cytologic analysis and viral studies. Recommendations: Neurologic: Status post tracheostomy. Should be able to wean propofol and Precedex to off. Continue oral clonazepam, oxycodone, and Seroquel. May consi jyothi restarting Precedex if needed. Pulmonary: Severe ARDS secondary to Covid. Intubated 08/13/2021. Extubated 08/25 and [id number] due to respiratory failure. Status post tracheostomy 08/27/2021. Ulcers identified on bronchoscopy status post brushing. Await cytologic and viral studies. Hold on antiviral therapy for now. Continue efforts at diuresis. Wean dexamethasone down to 2 mg for a few days with hopes to get him off over the next 7 to 10 days. Continue to wean vent support as tolerated with plans to proceed to pressure support trials as tolerated. Cardiovascular: Hemodynamically stable. Continue as needed hydralazine. Continue attempts to keep input and output even Gastrointestinal: Continue Protonix. Continue TF via coresafe. Per case management, the patient may require PEG tube before transfer to LTAC. We will see how he does through the weekend and consider GI evaluation for PEG early next week if unable to make progress. Renal: Creatinine and electrolytes are stable. Continue daily Lasix 40 IV daily. Infectious disease: Appreciate ID consultation. Surveillance cultures have been negative and he is on Ancef. He is also placed on voriconazole given Aspergillus in the tracheal aspirate x 2. Reviewed with ID today. They recommended at least 12 weeks of voriconazole and likely 6 months of therapy. Ancef is 14 days from negative cultures and I think he needs another week or so. Fever curve better and white count decreasing. Await results from brushings from the tracheal ulcers today ? HSV. Hematologic: Lovenox 40 mg daily. Mild anemia seen no evidence of blood loss or indication for transfusion. Endocrine: Glycemic control per protocol. TSH within normal limits from 08/21/2021. VTE prophylaxis: Lovenox for DVT prophylaxis. We will need aggressive PT OT and speech therapy evaluations as tolerated by his weaning status and neurological status CODE STATUS: Full code Family updated yesterday at bedside Disposition: Remain in the ICU pending improvement of respiratory status Patient was discussed on multidisciplinary rounds and with the critical care bedside nurse and with the ICU pharmacist as well as with the offsite ID specialist Remains critically ill with possibility of . 55 min CC time Admission and Anticipated Discharge Date Admission Date: August 10, 2021 Subjective Patient seen and examined. EMR reviewed. Discussed on multidisciplinary rounds. Patient has had his oxygen requirement weaned overnight. He underwent bedside percutaneous dilatation of tracheostomy this morning which was uneventful. Review of Systems Review of Systems: Unobtainable due to endotracheal tube Physical Exam ENMT: Trach clean dry and intact Neck: trachea midline, no thyromegaly Respiratory: + tachypneic Auscultation: no wheezes Cardiovascular: RRR, no murmur, no edema Gastrointestinal (Abdomen): normal bowel sounds, soft, nontender, no hepatosplenomegaly Musculoskeletal: Extremities: extremities normal to inspection Skin: no rashes, warm and dry Lymphatic: no cervical lymphadenopathy Results & Data Results & Data ([facility]) Vital Signs (Past 12 Hours) Vital Signs Pulse Resp BP Pulse Ox 08/27/21 11:00 81 21 99/69 L 91 08/27/21 10:30 79 27 H 96 08/27/21 10:00 79 26 H 95 08/27/21 09:30 79 27 H 94 08/27/21 09:00 82 31 H 90 08/27/21 08:30 93 H 30 H 94 08/27/21 08:13 88 30 H 94 08/27/21 08:00 80 22 93 08/27/21 07:30 73 26 H 93 08/27/21 07:00 67 27 H 88 L 08/27/21 06:30 74 23 89 L 08/27/21 06:00 77 26 H 88 L 08/27/21 05:30 71 23 89 L 08/27/21 05:00 76 29 H 89 L 08/27/21 04:30 78 31 H 89 L 08/27/21 04:00 73 29 H 122/60 90 08/27/21 03:30 76 27 H 88 L 08/27/21 03:00 74 23 89 L 08/27/21 02:55 72 29 H 91 08/27/21 02:30 67 23 92 08/27/21 02:00 77 26 H 91 08/27/21 01:30 79 29 H 91 08/27/21 01:00 79 29 H 90 08/27/21 00:00 80 30 H 127/65 90 08/26/21 23:32 71 29 H 91 Critical Care Results & Data Vital Signs (Past 12 Hours) Vital Signs Pulse Resp BP Pulse Ox 08/27/21 11:00 81 21 99/69 L 91 08/27/21 10:30 79 27 H 96 08/27/21 10:00 79 26 H 95 08/27/21 09:30 79 27 H 94 08/27/21 09:00 82 31 H 90 08/27/21 08:30 93 H 30 H 94 08/27/21 08:13 88 30 H 94 08/27/21 08:00 80 22 93 08/27/21 07:30 73 26 H 93 08/27/21 07:00 67 27 H 88 L 08/27/21 06:30 74 23 89 L 08/27/21 06:00 77 26 H 88 L 08/27/21 05:30 71 23 89 L 08/27/21 05:00 76 29 H 89 L 08/27/21 04:30 78 31 H 89 L 08/27/21 04:00 73 29 H 122/60 90 08/27/21 03:30 76 27 H 88 L 08/27/21 03:00 74 23 89 L 08/27/21 02:55 72 29 H 91 08/27/21 02:30 67 23 92 08/27/21 02:00 77 26 H 91 08/27/21 01:30 79 29 H 91 08/27/21 01:00 79 29 H 90 08/27/21 00:00 80 30 H 127/65 90 08/26/21 23:32 71 29 H 91 Lab & Micro Results (Past 24 Hours) RBC 3.31 M/uL (4.7-6.1) L 08/27/21 WBC 12.01 K/uL (4.8-10.8) H 08/27/21 Hgb 9.9 g/dL (14.0-18.0) L 08/27/21 Hct 30.4 % (42-52) L 08/27/21 MCV 91.8 fL (80-100) 08/27/21 MCH 29.9 pg (25-34) 08/27/21 MCHC 32.6 g/dL (32-36) 08/27/21 RDW Standard Deviation 47.2 fL (36.4-46.3) H 08/27/21 RDW Coefficient of Variation 14.0 % (11.5-14.5) 08/27/21 Plt Count 370 K/uL (130-400) 08/27/21 MPV 11.0 fL (7.4-10.4) H 08/27/21 Neutrophils (%) (Auto) 85.6 % 08/27/21 Lymphocytes (%) (Auto) 9.9 % 08/27/21 Monocytes # (Auto) 0.06 K/uL (0.11-0.59) L 08/27/21 Eosinophils # (Auto) 0.40 K/uL (0-0.5) 08/27/21 Immature Granulocyte % (Auto) 0.5 % 08/27/21 Neutrophils # (Auto) 10.28 K/uL (1.4-6.5) H 08/27/21 Lymphocytes # (Auto) 1.19 K/uL (1.2-3.4) L 08/27/21 Monocytes # (Auto) 0.06 K/uL (0.11-0.59) L 08/27/21 Eosinophils # (Auto) 0.40 K/uL (0-0.5) 08/27/21 Basophils # (Auto) 0.02 K/uL (0-0.2) 08/27/21 Immature Granulocyte # (Auto) 0.06 K/uL (0.00-0.02) H 08/27/21 Na 137 mmol/L (136-145) 08/27/21 K 3.7 mmol/L (3.5-5.1) 08/27/21 Cl 105 mmol/L (98-107) 08/27/21 CO2 27 mmol/L (21-32) 08/27/21 Anion Gap 5.0 (3-11) 08/27/21 BUN 46 mg/dl (7-18) H 08/27/21 Creatinine 0.75 mg/dl (0.6-1.4) 08/27/21 Estimated GFR ( Amer) 118.0 ml/min 08/27/21 Estimated GFR (Non-Af Amer) 101.8 ml/min 08/27/21 BUN/Creatinine Ratio 62.1 (10-20) H 08/27/21 Glu 125 mg/dl (70-99) H 08/27/21 Ca 8.4 mg/dl (8.5-10.1) L 08/27/21 Phosphorus Level 2.9 mg/dl (2.5-4.9) 08/27/21 Mg 2.5 mg/dl (1.8-2.4) H 08/27/21 05:22 08/27/21 Calcium Level 8.4 mg/dl (8.5-10.1) L 08/27/21 05:22 08/27/21 Hemanth Test NA 08/27/21 05:44 08/27/21 Microbiology 08/23/21 11:15 Gram Stain - Final Sputum,Vent Suction Sputum Culture - Final Aspergillus fumigatus I & O Totals 24 Hours 08/26/21 08/27/21 08/28/21 06:59 06:59 06:59 Intake Total 1412.658 / 4580.037 3828.600 / 2541.600 176.066 / 176.066 Output Total 3001 / 3082 2425 / 2425 100 / 100 Balance -1588.342 / -1669.342 116.600 / 116.600 76.066 / 76.066 Cumulative 08/09/21 15:39 thru 08/27/21 10:39 Intake Total 85916.793 Output Total 58286 Balance -5510.207 RT Ventilator Mngmt (Last Documented) Ventilator Ordered Settings Ventilator Support Mode PRVC 08/27/21 08:13 Respiratory Rate 21 08/27/21 11:00 Ventilator Tidal Volume 380 08/27/21 08:13 Setting Minute Ventilation 9.7 08/27/21 08:13 Ventilator Positive Pressure 0 08/24/21 11:35 Support Setting Positive End Expiratory 8 08/27/21 08:13 Pressure Fraction of Inspired Oxygen 100 08/27/21 10:00 Biphasic High 24 08/20/21 11:15 Machine Comment DECREASED TO 6 PEEP 08/26/21 23:32 Ventilator - PT Measurements Respiratory Rate 21 Exhaled Tidal Volume 392 Minute Ventilation 9.7 Peak Inspiratory Airway 14 Pressure Plateau Pressure 13 Respiratory Cycle Inspiratory: 1:1.9 Expiratory Ratio Inspiratory Phase Time 0.8 End-Tidal CO2 40 Static Lung Compliance 78.40 Dynamic Lung Compliance 65.33 Normal Static Lung Compliance 49.00 Patient Measurements Comment weaned settings at this time Coding Level of Care Code Critical Care 1st 30-74 mins Diagnoses ARDS (adult respiratory distress syndrome) J80 2019 novel coronavirus-infected pneumonia (NCIP) U07.1; J12.82 Acute respiratory failure with hypoxia J96.01 Breath shortness R06.02 Positive blood cultures R78.81 Nightmare disorder F51.5 Time Spent (min) 55
[2021-08-27] MEDS: PANTOprazole 40 MG in SYRINGE 0 ML IV SCH (12:11)
--- NOTE | 2021-08-27 14:06 | XRay Report ---
XR chest 1V portable CLINICAL HISTORY: RESP FAILURE. New tracheostomy tube has been placed. COMPARISON STUDY: 08/26/2021 TECHNIQUE: 1 view of the chest FINDINGS: Single frontal view of the chest demonstrates the cardiomediastinal silhouette to be within normal li mits. Compared to previous examination, tracheostomy tube is now in place and in anatomic position. D iffuse interstitial and alveolar opacities are again seen bilaterally and unchanged. Findings are aga in most characteristic of a viral type pneumonitis and probable Covid pneumonia. There is no evidence for pleural effusion. There is no evidence for vascular congestion. There is no acute osseous pathol ogy. IMPRESSION: Interval placement of a tracheostomy tube in anatomic position. No significant interval c hange in bilateral interstitial and alveolar opacities. ACT 112: Negative or not required by law. Electronically signed by: Barry Saavedra M.D. 08/27/2021 2:05 PM
--- NOTE | 2021-08-27 14:47 | Hospitalist Progress Note ---
Date of Service August 27, 2021 Assessment & Plan (1) Acute respiratory failure with hypoxia: Plan: 56 y/o male w/ PMHx of anxiety and GER[place] who presented with acute hypoxic respiratory failure secondary to COVID-19 pneumonia on day 9 of symptoms (08/01/21 onset) initially on Vapotherm, status declined on 08/13 placed on BIPAP, did not tolerate, got more confused, saturations dropping Dr. Underwood intubated patient at night on 08/13 dexamethasone, currently weaning off baricitinib 4mg daily initially, stopped when intubated CTA chest negative for PE, showed bilateral viral pneumonia CRP was quite elevated [facility], age cutoff is 55, other facilities it is lower at 45, could not transfer patient patient did relatively well with spontaneous breathing trial on 08/24 extubated around noon on 08/24, directly to BIPAP/CPAP could not maintain oxygen saturations, very tachypneic and agitated on 08/25 he was re-intubated on 08/25 tracheostomy performed on 08/[address] Villeda will work towards LTACH placement, won't happen until next week (2) 2019 novel coronavirus-infected pneumonia (NCIP): Plan: sick since 08/01 continue ARDSnet protocol, supine continue dexamethasone, 4mg, taper slowly extubated on 08/24, then re-intubated and ventilated on 08/25 tracheostomy done on 08/27, tolerated well (3) Positive blood cultures: Plan: ID consult appreciated currently on Ancef, Voriconazole is for Aspergillus on tracheal aspirates repeat blood cultures clear Dr. Villeda d/w ID at [facility] today, They recommended at least 12 weeks of voriconazole and likely 6 months of therapy. Ancef is 14 days from negative cultures (4) Anxiety: Plan: clonazepam, now sedated with Propofol, might need Precedex Plan: FEN/GI: ppx: Lovenox, Protonix code: full dispo:ICU status Admission and Anticipated Discharge Date Admission Date: August 10, 2021 Subjective PEEP down to 5, FiO2 55% this morning tracheostomy performed at the bedside by Dr. Villeda, no complications family made aware d/w cyanide case hardener, will need to work towards LTACH next week reviewed labs, mild leukocytosis and anemic, BMP normal Review of Systems Review of Systems: Unobtainable due to endotracheal tube and Unobtainable due to reduced consciousness Physical Exam Physical Exam: General: well developed, well nourished, ill appearing, mechanically ventilated via trach Neck: supple, tracheostomy present Lungs: clear to auscultation bilaterally, symmetric chest movement on ventilation Heart: regular S1 and S2, no murmur, peripheral pulses normal, capillary refill normal, no edema Abdomen: soft, NT, ND, + bowel sounds Extremities: normal in appearance, no cyanosis, no petechiae Neuro: moving extremities, CN II-XII intact, no focal deficits Skin: warm, dry, no rash, normal turgor Psych: sedated Results & Data Results & Data ([facility]) Vital Signs (Past 12 Hours) Vital Signs Temp Pulse Resp BP Pulse Ox 08/27/21 12:30 79 26 H 94 08/27/21 12:00 36.7 C 82 24 112/77 94 08/27/21 11:30 81 27 H 93 08/27/21 11:00 81 21 99/69 L 91 08/27/21 10:30 79 27 H 96 08/27/21 10:00 79 26 H 95 08/27/21 09:30 79 27 H 94 08/27/21 09:00 82 31 H 90 08/27/21 08:30 93 H 30 H 94 08/27/21 08:13 88 30 H 94 08/27/21 08:00 80 22 93 08/27/21 07:30 73 26 H 93 08/27/21 07:00 67 27 H 88 L 08/27/21 06:30 74 23 89 L 08/27/21 06:00 77 26 H 88 L 08/27/21 05:30 71 23 89 L 08/27/21 05:00 76 29 H 89 L 08/27/21 04:30 78 31 H 89 L 08/27/21 04:00 73 29 H 122/60 90 08/27/21 03:30 76 27 H 88 L 08/27/21 03:00 74 23 89 L 08/27/21 02:55 72 29 H 91 Laboratory Results Laboratory Results - last 24 hr 08/26/21 08/26/21 08/27/21 17:32 23:10 05:22 WBC 12.01 H RBC 3.31 L Hgb 9.9 L POC Hgb Hct 30.4 L POC Hct MCV 91.8 MCH 29.9 MCHC 32.6 RDW Std Deviation 47.2 H RDW Coeff of Nicole 14.0 Plt Count 370 MPV 11.0 H Immature Gran % (Auto) 0.5 Neut % (Auto) 85.6 Lymph % (Auto) 9.9 [place] % (Auto) 0.5 Eos % (Auto) 3.3 Baso % (Auto) 0.2 Neut # (Auto) 10.28 H Lymph # (Auto) 1.19 L [place] # (Auto) 0.06 L Eos # (Auto) 0.40 Baso # (Auto) 0.02 Immature Gran # (Auto) 0.06 H Sample Site POC pH POC pCO2 POC pO2 POC HCO3 POC Total CO2 POC Base Excess ABG pH (Temp Correct) ABG pCO2 (Temp Corrct POC ABG pO2 at Pt Temp POC ABG O2 Sat Hemanth Test POC Sodium Sodium POC Potassium Potassium Chloride Carbon Dioxide Anion Gap BUN Creatinine Est Cr Clr Drug Dosing Est GFR ( Amer) Est GFR (Non-Af Amer) BUN/Creatinine Ratio Glucose POC Glucose 142 H 135 H Calcium Phosphorus Magnesium 08/27/21 08/27/21 08/27/21 05:22 05:23 05:44 WBC RBC Hgb POC Hgb 9.5 L Hct POC Hct 28 L MCV MCH MCHC RDW Std Deviation RDW Coeff of Nicole Plt Count MPV Immature Gran % (Auto) Neut % (Auto) Lymph % (Auto) [place] % (Auto) Eos % (Auto) Baso % (Auto) Neut # (Auto) Lymph # (Auto) [place] # (Auto) Eos # (Auto) Baso # (Auto) Immature Gran # (Auto) Sample Site Art Line POC pH 7.48 H POC pCO2 38 POC pO2 55 L POC HCO3 28 H POC Total CO2 29 POC Base Excess 5.0 H ABG pH (Temp Correct) 7.476 H ABG pCO2 (Temp Corrct 38 POC ABG pO2 at Pt Temp 55 POC ABG O2 Sat 90.0 Hemanth Test NA POC Sodium 140 Sodium 137 POC Potassium 3.7 Potassium 3.7 Chloride 105 Carbon Dioxide 27 Anion Gap 5.0 BUN 46 H Creatinine 0.75 Est Cr Clr Drug Dosing 119.3 Est GFR ( Amer) 118.0 Est GFR (Non-Af Amer) 101.8 BUN/Creatinine Ratio 62.1 H Glucose 125 H POC Glucose 115 H Calcium 8.4 L Phosphorus 2.9 Magnesium 2.5 H 08/27/21 12:16 WBC RBC Hgb POC Hgb Hct POC Hct MCV MCH MCHC RDW Std Deviation RDW Coeff of Nicole Plt Count MPV Immature Gran % (Auto) Neut % (Auto) Lymph % (Auto) [place] % (Auto) Eos % (Auto) Baso % (Auto) Neut # (Auto) Lymph # (Auto) [place] # (Auto) Eos # (Auto) Baso # (Auto) Immature Gran # (Auto) Sample Site POC pH POC pCO2 POC pO2 POC HCO3 POC Total CO2 POC Base Excess ABG pH (Temp Correct) ABG pCO2 (Temp Corrct POC ABG pO2 at Pt Temp POC ABG O2 Sat Hemanth Test POC Sodium Sodium POC Potassium Potassium Chloride Carbon Dioxide Anion Gap BUN Creatinine Est Cr Clr Drug Dosing Est GFR ( Amer) Est GFR (Non-Af Amer) BUN/Creatinine Ratio Glucose POC Glucose 115 H Calcium Phosphorus Magnesium Medications Administered Current Inpatient Medications Acetaminophen (Acetaminophen Susp 325 Mg/10.15 Ml Udc) 650 mg PO Q6H PRN PRN Reason: Fever Stop: 09/20/21 00:59 Last Admin: 08/24/21 05:43 Dose: 650 mg Documented by: Albuterol (Albut/Ipratrop 3mg/0.5mg Neb 3 Ml Vial) 3 ml NEB Q4R PRN PRN Reason: Wheezing Stop: 09/19/21 02:59 Last Admin: 08/21/21 09:52 Dose: 3 ml Documented by: Atropine Sulfate (Atropine Sulfate 0.1 Mg/Ml 10ml Syr) 1 mg IV ONE PRN PRN Reason: BRADYCARDIA: HR < 40 Stop: 09/22/21 16:22 Clonazepam (Clonazepam 1 Mg Tab) 1 mg PO BID JULIANA Stop: 09/25/21 11:14 Last Admin: 08/27/21 10:13 Dose: 1 mg Documented by: Dextrose (Dextrose 50% 50 Ml Syringe) 25 - 50 ml IV UD PRN; Protocol PRN Reason: Hypoglycemia Protocol Stop: 09/15/21 10:29 Docusate Sodium (Docusate Sodium Syrup 100 Mg/10 Ml Udc) 100 mg PO BID JULIANA Stop: 09/17/21 09:59 Last Admin: 08/27/21 10:13 Dose: 100 mg Documented by: Enoxaparin Sodium (Enoxaparin Inj 40 Mg/0.4 Ml Syr) 40 mg SQ QAM JULIANA Stop: 09/25/21 08:59 Last Admin: 08/27/21 10:14 Dose: 40 mg Documented by: Fentanyl Citrate (Fentanyl Citrate 100 Mcg/2 Ml Vial) 50 mcg IV Q2H PRN PRN Reason: Moderate Pain (4,5,6) on NRS Stop: 09/08/21 13:50 Last Admin: 08/26/21 10:34 Dose: 50 mcg Documented by: Furosemide (Furosemide 40 Mg/4 Ml Vial) 40 mg IV DAILY JULIANA Stop: 09/24/21 10:59 Last Admin: 08/27/21 10:14 Dose: 40 mg Documented by: Glucagon (Glucagon For Inj 1 Mg Vial) 1 mg IM UD PRN; Protocol PRN Reason: Hypoglycemia Protocol Stop: 09/15/21 10:29 Glucose (Glucose 40% Gel 15 Gm Tube) 15 - 30 gm PO UD PRN; Protocol PRN Reason: Hypoglycemia Protocol Stop: 09/15/21 10:29 Glucose (Glucose 10 Tabs/Tube) 4 - 8 tabs PO UD PRN; Protocol PRN Reason: Hypoglycemia Protocol Stop: 09/15/21 10:29 Hydralazine HCl (Hydralazine Hcl 20 Mg/Ml Vial) 10 mg IV Q4 PRN PRN Reason: Hypertension Stop: 09/23/21 16:27 Last Admin: 08/25/21 09:37 Dose: 10 mg Documented by: Pantoprazole Sodium 40 mg/ (Syringe) 10 mls @ 5 mls/min IV DAILY@1100 [facility] Stop: 09/14/21 10:59 Last Admin: 08/27/21 12:11 Dose: 5 mls/min Documented by: Voriconazole 350 mg/ Sodium (Chloride) 100 mls @ 100 mls/hr IV Q12H [facility] Stop: 08/31/21 13:59 Last Infusion: 08/27/21 04:39 Dose: Infused Documented by: Cefazolin Sodium (Ancef 2000mg) 2,000 mg in 15 mls @ 3.75 mls/min IV Q8H [facility] Stop: 08/31/21 10:59 Last Admin: 08/27/21 12:11 Dose: 3.75 mls/min Documented by: Dexamethasone 4 mg/ Syringe 1 mls @ 1 mls/min IV Q24H [facility] Stop: 09/25/21 08:59 Last Admin: 08/27/21 10:13 Dose: 1 mls/min Documented by: Propofol (Diprivan) 1,000 mg in 100 mls @ 7.848 mls/hr IV .[id number] [facility]; Protocol Stop: 08/28/21 12:44 Last Admin: 08/27/21 14:34 Dose: Not Given Documented by: Norepinephrine Bitartrate (Levophed/D5w) 8 mg in 508 mls @ 0 mls/hr IV .Q0M [facility]; Protocol Stop: 09/25/21 13:14 Last Titration: 08/26/21 18:51 Dose: 0 mcg/kg/min, 0 mls/hr Documented by: Insulin Aspart (Insulin Aspart 100 Units/Ml 3 Ml Pen) 0 units SC Q6 [facility] Stop: 09/22/21 17:59 Last Admin: 08/27/21 12:36 Dose: Not Given Documented by: Lactulose (Lactulose Syrup 20 Gm/30 Ml Udc) 20 gm PO BID [facility] Stop: 09/22/21 11:59 Last Admin: 08/27/21 10:13 Dose: 20 gm Documented by: Miscellaneous (Carbohydrates For Hypoglycemia ) 15 - 30 gm PO UD PRN PRN Reason: Hypoglycemia Treatment Stop: 09/15/21 10:29 Mupirocin (Mupirocin 2% Oint 22 Gm Tube) 1 appln EXT BID [facility] Stop: 09/10/21 08:59 Last Admin: 08/27/21 10:14 Dose: 1 appln Documented by: Nutritional Formula (Peptamen Intense Vhp 1.0 Porter 1,000 Ml Bag) 1,000 ml OG CONT [facility]; Protocol Stop: 09/13/21 15:44 Last Admin: 08/26/21 15:25 Dose: 1,000 ml Documented by: Ondansetron HCl (Ondansetron Inj 2 Mg/Ml 2 Ml Vial) 4 mg IV Q4H PRN PRN Reason: Nausea Stop: 09/11/21 17:50 Last Admin: 08/13/21 06:23 Dose: 4 mg Documented by: Oxycodone HCl (Oxycodone Hcl Soln 5 Mg/5 Ml Udc) 10 mg PO Q8 [facility] Stop: 09/09/21 13:59 Last Admin: 08/27/21 13:40 Dose: 10 mg Documented by: Propofol (Propofol Bolus From Bag) 20 mg IV Q5M PRN PRN Reason: Sedation Stop: 08/28/21 12:35 Last Admin: 08/26/21 11:25 Dose: 20 mg Documented by: Quetiapine Fumarate (Quetiapine Fumarate 200 Mg Tab) 200 mg PO DAILY [facility] Stop: 09/25/21 11:14 Last Admin: 08/27/21 10:15 Dose: 200 mg Documented by: Sennosides (Sennosides 8.8 Mg/5 Ml Udc) 8.8 mg PO QAM [facility] Stop: 09/17/21 09:59 Last Admin: 08/27/21 10:13 Dose: 8.8 mg Documented by: Sterile Water (Tube Feeding Water Flush) 60 ml OG Q4H [facility] Stop: 09/17/21 10:44 Last Admin: 08/27/21 12:11 Dose: 60 ml Documented by: PG Care Time/CCT Total # of Minutes Spent Total Time Spent with Patient: Total time spent is greater than 50% in coordination of care (as documented) at patient's floor/unit and/or counseling patient: Coding Level of Care Code 60000 Subseq Hosp Care Lvl 2 Diagnoses Acute respiratory failure with hypoxia J96.01 2019 novel coronavirus-infected pneumonia (NCIP) U07.1; J12.82 Positive blood cultures R78.81 Anxiety F41.9
[2021-08-27] MEDS: PEPTAMEN INTENSE VHP 1.0 CAL 1,000 ML BAG OG SCH (15:18)
[2021-08-27] MEDS ORDERED: MIDAZOLAM HCL 1 MG/ML 2ML VIAL IV STA (19:47)
[2021-08-27] MEDS: fentaNYL citrate 100 MCG/2 ML VIAL IV PRN (23:40)
[2021-08-28] MEDS ORDERED: MIDAZOLAM HCL 1 MG/ML 2ML VIAL IV STA (00:57)
[2021-08-28] MEDS: ceFAZolin 2000MG 2,000 MG/15 ML SYR IV SCH ×3 (02:40→19:09)
[2021-08-28] MEDS: TUBE FEEDING WATER FLUSH OG SCH ×6 (02:40→23:17)
[2021-08-28 04:13] LABS: iSTAT Arterial Blood Gas HCO3 27 meg/L (19-24); iSTAT Arterial Blood Gas pCO2 42 mmHg (35-46); iSTAT Arterial Blood Gas pH 7.42 (7.35-7.45); iSTAT Arterial Blood Gas pO2 61 mmHg (80-95); iSTAT Carbon Dioxide 29 mmol/L (24-31); iSTAT FiO2 65 %; iSTAT Site Art Line
[2021-08-28] MEDS: fentaNYL citrate 100 MCG/2 ML VIAL IV PRN ×4 (04:14→23:18)
[2021-08-28] MEDS: VORICONAZOLE 350 MG in 0.9 % SODIUM CHLORIDE 65 ML IV SCH ×2 (04:14→17:22)
[2021-08-28] MEDS: oxyCODONE HCL SOLN 5 MG/5 ML UDC PO SCH ×4 (05:00→23:18)
[2021-08-28 05:30] LABS: Basophils # (auto) 0.02 K/uL (0-0.2); Basophils % (auto) 0.1 %; Eosinophils # (auto) 0.06 K/uL (0-0.5); Eosinophils % (auto) 0.4 %; Hematocrit (blood only) 32.2 % (42-52); Hemoglobin 10.5 g/dL (14.0-18.0); Immature Granulocytes # (auto) 0.09 K/uL (0.00-0.02); Immature Granulocytes % (auto) 0.6 %; Lymphocytes # (auto) 1.12 K/uL (1.2-3.4); Lymphocytes % (auto) 7.3 %; Mean Corpuscular Hemoglobin 30.1 pg (25-34); Mean Corpuscular Hgb Conc 32.6 g/dL (32-36); Mean Corpuscular Volume 92.3 fL (80-100); Mean Platelet Volume 11.3 fL (7.4-10.4); Monocytes # (auto) 0.37 K/uL (0.11-0.59); Monocytes % (auto) 2.4 %; Neutrophils # (auto) 13.62 K/uL (1.4-6.5); Neutrophils % (auto) 89.2 %; Platelet Count 392 K/uL (130-400); RDW Standard Deviation 46.5 fL (36.4-46.3); Red Blood Count 3.49 M/uL (4.7-6.1); White Blood Count 15.28 K/uL (4.8-10.8)
[2021-08-28] MEDS: NOREPINEPHRINE/D5W 8 MG/508 ML BAG IV SCH (05:40)
[2021-08-28 05:53] LABS: Creatinine Clr Calc Pharmacy 107.8 ml/min; Est GFR (African American) 113.2 ml/min; Est GFR (Non-African American) 97.7 ml/min; Magnesium 2.3 mg/dl (1.8-2.4); Potassium 3.7 mmol/L (3.5-5.1)
[2021-08-28] MEDS: INSULIN ASPART 100 UNITS/ML 3 ML PEN SC SCH ×3 (05:57→17:23)
[2021-08-28 05:59] LABS: Phosphorus 2.2 mg/dl (2.5-4.9)
[2021-08-28] MEDS ORDERED: POTASSIUM PHOS 3 MMOL/1 ML INFUSION IV STA (06:00)
[2021-08-28] MEDS ORDERED: POTASSIUM PHOSPHATE 15 MMOL in SODIUM CHLORIDE 0.9% 250 ML IV ONE (06:30)
[2021-08-28] MEDS: hydrALAZINE HCL 20 MG/ML VIAL IV PRN (08:19)
[2021-08-28] MEDS: QUEtiapine FUMARATE 200 MG TAB PO SCH (08:19)
[2021-08-28] MEDS: clonazePAM 1 MG TAB PO SCH ×2 (08:19→20:19)
[2021-08-28] MEDS: LACTULOSE SYRUP 20 GM/30 ML UDC PO SCH ×2 (08:19→20:20)
[2021-08-28] MEDS: SENNOSIDES 8.8 MG/5 ML UDC PO SCH (08:19)
[2021-08-28] MEDS: DOCUSATE SODIUM SYRUP 100 MG/10 ML UDC PO SCH ×2 (08:19→20:20)
[2021-08-28] MEDS: FUROSEMIDE 40 MG/4 ML VIAL IV SCH (08:19)
[2021-08-28] MEDS: ENOXAPARIN INJ 40 MG/0.4 ML SYR SQ SCH (08:19)
[2021-08-28] MEDS: MUPIROCIN 2% OINT 22 GM TUBE EXT SCH ×2 (08:21→20:20)
[2021-08-28] MEDS: dexAMETHasone 4 MG in SYRINGE 0 ML IV SCH (08:21)
--- NOTE | 2021-08-28 08:34 | Critical Care Progress Note ---
Date of Service August 28, 2021 Assessment & Plan (1) ARDS (adult respiratory distress syndrome): (2) 2019 novel coronavirus-infected pneumonia (NCIP): (3) Acute respiratory failure with hypoxia: (4) Breath shortness: (5) Positive blood cultures: (6) Nightmare disorder: Plan: Impression: 56-year-old male with a noncontributory past medical history presenting to the hospital due to COVID-19 viral pneumonia and was intubated on 08/13/2021 due to worsening ARDS. 24 Hour events: Post trach and bronc. He has been weaned off of most of his IV continuous sedative infusions and refusing pushes as well as oral Recommendations: Neurologic: Try and maintain off fentanyl and Versed infusions. Okay to use as needed pushes. Increase oral clonazepam, and oxycodone, and continue current dose of Seroquel. May consider restarting Precedex if needed. Pulmonary: Severe ARDS secondary to Covid. Intubated 08/13/2021. Extubated 08/25 and [id number] due to respiratory failure. Status post tracheostomy 08/27/2021. Ulcers identified on bronchoscopy status post brushing. Await cytologic and viral studies. Hold on antiviral therapy for now. Continue efforts at diuresis. Wean dexamethasone down to 2 mg for a few days with hopes to get him off over the next 7 to 10 days. Continue to wean vent support as tolerated with plans to proceed to pressure support trials as tolerated. Chest x-ray looks slightly better today. Cardiovascular: Hemodynamically stable to hypertensive currently start oral clonidine and continue as needed hydralazine. Continue attempts to keep input and output even Gastrointestinal: Continue Protonix. Continue TF via coresafe. Per case management, the patient may require PEG tube before transfer to LTAC. We will see how he does through the weekend and consider GI evaluation for PEG early next week if unable to make progress. Renal: Creatinine and electrolytes are stable. Continue daily Lasix 40 IV daily. Infectious disease: Appreciate ID consultation. Surveillance cultures have been negative and he is on Ancef for coag negative staph in the blood He is also placed on voriconazole given Aspergillus in the tracheal aspirate x 2. ID recommended at least 12 weeks of voriconazole and likely 6 months of therapy. Ancef is 14 days from negative cultures and I think he needs another week or so. Fever curve better but white count slightly elevated today. Await results from brushings from the tracheal ulcers - ? HSV, hold on acyclovir for now. Fungitell currently pending as well. Hematologic: Lovenox 40 mg daily. Mild anemia seen no evidence of blood loss or indication for transfusion. Endocrine: Glycemic control per protocol. TSH within normal limits from 08/21/2021. VTE prophylaxis: Lovenox for DVT prophylaxis. We will need aggressive PT OT and speech therapy evaluations as tolerated by his weaning status and neurological status CODE STATUS: Full code Family updated yesterday at bedside Disposition: Remain in the ICU pending improvement of respiratory status Patient was discussed with the critical care bedside nurse. Remains critically ill with possibility of clinical deterioration and . 35 min CC time Admission and Anticipated Discharge Date Admission Date: August 10, 2021 Subjective Trached and sedated. Able to wiggle toes and give thumbs up bilaterally and lift his head off the pillow. He does follow some simple commands. He denies pain. He denies significant shortness of breath. Review of Systems Review of Systems: Unobtainable due to endotracheal tube Physical Exam Constitutional: cooperative; no acute distress and not in distress Neck: trachea midline, no thyromegaly Trach site clean dry and intact Respiratory: + tachypneic Auscultation: no wheezes Cardiovascular: RRR, no murmur, no edema Gastrointestinal (Abdomen): normal bowel sounds, soft, nontender, no hepatosplenomegaly Musculoskeletal: Extremities: extremities normal to inspection Skin: no rashes, warm and dry Lymphatic: no cervical lymphadenopathy Results & Data Results & Data ([facility]) Vital Signs (Past 12 Hours) Vital Signs Temp Pulse Resp BP Pulse Ox 08/28/21 08:00 112/102 H 08/28/21 07:59 131 H 31 H 92 08/28/21 05:01 91 H 18 94 08/28/21 04:00 37.7 C H 114 H 32 H 165/108 H 87 L 08/28/21 03:46 113 H 32 H 90 08/28/21 03:00 97 H 24 91 08/28/21 02:00 117 H 27 H 89 L 08/28/21 01:00 122 H 28 H 85 L 08/28/21 00:00 37.6 C H 112 H 29 H 155/70 H 90 08/27/21 23:00 115 H 27 H 92 08/27/21 22:51 108 H 34 H 92 08/27/21 22:00 96 H 29 H 95 08/27/21 21:00 97 H 22 95 Critical Care Results & Data Vital Signs (Past 12 Hours) Vital Signs Temp Pulse Resp BP Pulse Ox 08/28/21 08:00 112/102 H 08/28/21 07:59 131 H 31 H 92 08/28/21 05:01 91 H 18 94 08/28/21 04:00 37.7 C H 114 H 32 H 165/108 H 87 L 08/28/21 03:46 113 H 32 H 90 08/28/21 03:00 97 H 24 91 08/28/21 02:00 117 H 27 H 89 L 08/28/21 01:00 122 H 28 H 85 L 08/28/21 00:00 37.6 C H 112 H 29 H 155/70 H 90 08/27/21 23:00 115 H 27 H 92 08/27/21 22:51 108 H 34 H 92 08/27/21 22:00 96 H 29 H 95 08/27/21 21:00 97 H 22 95 Lab & Micro Results (Past 24 Hours) RBC 3.49 M/uL (4.7-6.1) L 08/28/21 WBC 15.28 K/uL (4.8-10.8) H 08/28/21 Hgb 10.5 g/dL (14.0-18.0) L 08/28/21 Hct 32.2 % (42-52) L 08/28/21 MCV 92.3 fL (80-100) 08/28/21 MCH 30.1 pg (25-34) 08/28/21 MCHC 32.6 g/dL (32-36) 08/28/21 RDW Standard Deviation 46.5 fL (36.4-46.3) H 08/28/21 RDW Coefficient of Variation 14.0 % (11.5-14.5) 08/28/21 Plt Count 392 K/uL (130-400) 08/28/21 MPV 11.3 fL (7.4-10.4) H 08/28/21 Neutrophils (%) (Auto) 89.2 % 08/28/21 Lymphocytes (%) (Auto) 7.3 % 08/28/21 Monocytes # (Auto) 0.37 K/uL (0.11-0.59) 08/28/21 Eosinophils # (Auto) 0.06 K/uL (0-0.5) 08/28/21 Immature Granulocyte % (Auto) 0.6 % 08/28/21 Neutrophils # (Auto) 13.62 K/uL (1.4-6.5) H 08/28/21 Lymphocytes # (Auto) 1.12 K/uL (1.2-3.4) L 08/28/21 Monocytes # (Auto) 0.37 K/uL (0.11-0.59) 08/28/21 Eosinophils # (Auto) 0.06 K/uL (0-0.5) 08/28/21 Basophils # (Auto) 0.02 K/uL (0-0.2) 08/28/21 Immature Granulocyte # (Auto) 0.09 K/uL (0.00-0.02) H 08/28/21 Na 138 mmol/L (136-145) 08/28/21 K 3.7 mmol/L (3.5-5.1) 08/28/21 Cl 105 mmol/L (98-107) 08/28/21 CO2 30 mmol/L (21-32) 08/28/21 Anion Gap 3.0 (3-11) 08/28/21 BUN 41 mg/dl (7-18) H 08/28/21 Creatinine 0.83 mg/dl (0.6-1.4) 08/28/21 Estimated GFR ( Amer) 113.2 ml/min 08/28/21 Estimated GFR (Non-Af Amer) 97.7 ml/min 08/28/21 BUN/Creatinine Ratio 49.0 (10-20) H 08/28/21 Glu 121 mg/dl (70-99) H 08/28/21 Ca 8.0 mg/dl (8.5-10.1) L 08/28/21 Phosphorus Level 2.2 mg/dl (2.5-4.9) L 08/28/21 Mg 2.3 mg/dl (1.8-2.4) 08/28/21 05:07 08/28/21 Calcium Level 8.0 mg/dl (8.5-10.1) L 08/28/21 05:07 08/28/21 Hemanth Test NA 08/28/21 03:58 08/28/21 Diagnostic Findings (Past 24 Hours) Chest X-Ray 08/27/21 07:45 XR chest 1V portable CLINICAL HISTORY: RESP FAILURE. New tracheostomy tube has been placed. COMPARISON STUDY: 08/26/2021 TECHNIQUE: 1 view of the chest FINDINGS: Single frontal view of the chest demonstrates the cardiomediastinal silhouette to be within normal limits. Compared to previous examination, tracheostomy tube is now in place and in anatomic position. Diffuse interstitial and alveolar opacities are again seen bilaterally and unchanged. Findings are again most characteristic of a viral type pneumonitis and probable Covid pneumonia. There is no evidence for pleural effusion. There is no evidence for vascular congestion. There is no acute osseous pathology. IMPRESSION: Interval placement of a tracheostomy tube in anatomic position. No significant interval change in bilateral interstitial and alveolar opacities. ACT 112: Negative or not required by law. Electronically signed by: Barry Saavedra M.D. 08/27/2021 2:05 PM I & O Totals 24 Hours 08/27/21 08/28/21 08/29/21 06:59 06:59 06:59 Intake Total 2541.600 / 2541.600 1343.475 / 1343.475 Output Total 2425 / 2425 2475 / 2475 Balance 116.600 / 116.600 -1131.525 / -1131.525 Cumulative 08/09/21 15:39 thru 08/28/21 06:00 Intake Total 24441.202 Output Total 81737 Balance -7617.798 RT Ventilator Mngmt (Last Documented) Ventilator Ordered Settings Ventilator Support Mode PRVC 08/28/21 08:00 Respiratory Rate 31 08/28/21 07:59 Ventilator Tidal Volume 380 08/28/21 08:00 Setting Minute Ventilation 20 08/28/21 07:59 Ventilator Positive Pressure 0 08/24/21 11:35 Support Setting Positive End Expiratory 8 08/28/21 08:00 Pressure Fraction of Inspired Oxygen 100 08/28/21 08:00 Biphasic High 24 08/20/21 11:15 Machine Comment FiO2 increased post ABG due to 08/28/21 04:30 desaturation to 85%. sedation given by RN Ventilator - PT Measurements Respiratory Rate 31 Exhaled Tidal Volume 675 Minute Ventilation 20 Peak Inspiratory Airway 16 Pressure Plateau Pressure 18.2 Respiratory Cycle Inspiratory: 1:1.5 Expiratory Ratio Inspiratory Phase Time 0.8 End-Tidal CO2 25 Static Lung Compliance 59.41 Dynamic Lung Compliance 84.38 Normal Static Lung Compliance 49.00 Patient Measurements Comment unable to get accurate Plateau pressure at this time due to pt insp effort Coding Level of Care Code Critical Care 1st 30-74 mins Diagnoses ARDS (adult respiratory distress syndrome) J80 2019 novel coronavirus-infected pneumonia (NCIP) U07.1; J12.82 Acute respiratory failure with hypoxia J96.01 Breath shortness R06.02 Positive blood cultures R78.81 Nightmare disorder F51.5
--- NOTE | 2021-08-28 11:06 | XRay Report ---
XR chest 1V portable CLINICAL HISTORY: Follow-up interstitial and alveolar alveolar opacities. COMPARISON STUDY: 08/27/2021 TECHNIQUE: 1 view of the chest FINDINGS: Single frontal view of the chest demonstrates the cardiomediastinal silhouette to be within normal li mits. Tracheostomy tube is again seen. Compared to previous examination, there is no significant inte rval change in bilateral interstitial and alveolar opacities. There is no evidence for pleural effusi on. There is no evidence for vascular congestion. There is no acute osseous pathology. IMPRESSION: No significant interval change in bilateral interstitial and alveolar opacities. ACT 112: Negative or not required by law. Electronically signed by: Barry Saavedra M.D. 08/28/2021 11:05 AM
[2021-08-28] MEDS: cloNIDine HCL 0.1 MG TAB PO SCH ×2 (11:27→20:19)
[2021-08-28] MEDS: PANTOprazole 40 MG in SYRINGE 0 ML IV SCH (12:13)
[2021-08-28] MEDS: PEPTAMEN INTENSE VHP 1.0 CAL 1,000 ML BAG OG SCH (15:44)
--- NOTE | 2021-08-28 16:28 | Hospitalist Progress Note ---
Date of Service August 28, 2021 Assessment & Plan (1) Acute respiratory failure with hypoxia: Plan: 56 y/o male w/ PMHx of anxiety and GERMAN who presented with acute hypoxic respiratory failure secondary to COVID-19 pneumonia on day 9 of symptoms (08/01/21 onset) initially on Vapotherm, status declined on 08/13 placed on BIPAP, did not tolerate, got more confused, saturations dropping Dr. Underwood intubated patient at night on 08/13 dexamethasone, currently weaning off baricitinib 4mg daily initially, stopped when intubated CTA chest negative for PE, showed bilateral viral pneumonia CRP was quite elevated [facility], age cutoff is 55, other facilities it is lower at 45, could not transfer patient patient did relatively well with spontaneous breathing trial on 08/24 extubated around noon on 08/24, directly to BIPAP/CPAP could not maintain oxygen saturations, very tachypneic and agitated on 08/25 he was re-intubated on 08/25 tracheostomy performed on 08/[address] Villeda bronchoscopy on 08/27, showed ulcers, brushings sent, Fungitell sent, hold on treatment until results will work towards LTACH placement, won't happen until next week (2) 2019 novel coronavirus-infected pneumonia (NCIP): Plan: sick since 08/01 continue ARDSnet protocol, supine continue dexamethasone, 4mg, taper slowly extubated on 08/24, then re-intubated and ventilated on 08/25 tracheostomy done on 08/27, tolerated well (3) Positive blood cultures: Plan: ID consult appreciated currently on Ancef, Voriconazole is for Aspergillus on tracheal aspirates repeat blood cultures clear Dr. Villeda d/w ID at [facility] today, They recommended at least 12 weeks of voriconazole and likely 6 months of therapy. Ancef is 14 days from negative cu ltures (4) Anxiety: Plan: clonazepam, now sedated with Propofol, might need Precedex Plan: FEN/GI: ppx: Lovenox, Protonix code: full dispo:ICU status Admission and Anticipated Discharge Date Admission Date: August 10, 2021 Subjective patient stable, off of continuous sedation, using boluses, using oral pain control and sedation awaiting results of brushings from ulcers on bronchoscopy d/w Dr. Villeda down on PEEP and FiO2, RR is stable Review of Systems Review of Systems: Unobtainable due to endotracheal tube and Unobtainable due to reduced consciousness Physical Exam Physical Exam: General: well developed, well nourished, ill appearing, mechanically ventilated via trach Neck: supple, tracheostomy present Lungs: clear to auscultation bilaterally, symmetric chest movement on ventilation Heart: regular S1 and S2, no murmur, peripheral pulses normal, capillary refill normal, no edema Abdomen: soft, NT, ND, + bowel sounds Extremities: normal in appearance, no cyanosis, no petechiae Neuro: moving extremities, CN II-XII intact, no focal deficits Skin: warm, dry, no rash, normal turgor Psych: sedated Results & Data Results & Data ([facility]) Vital Signs (Past 12 Hours) Vital Signs Pulse Resp BP Pulse Ox 08/28/21 15:10 108 H 30 H 91 08/28/21 12:00 123/72 08/28/21 10:49 105 H 31 H 91 08/28/21 08:00 112/102 H 08/28/21 07:59 131 H 31 H 92 08/28/21 05:01 91 H 18 94 Laboratory Results Laboratory Results - last 24 hr 08/27/21 08/27/21 08/27/21 07:45 17:19 23:42 WBC RBC Hgb Hct MCV MCH MCHC RDW Std Deviation RDW Coeff of Nicole Plt Count MPV Immature Gran % (Auto) Neut % (Auto) Lymph % (Auto) Kerr % (Auto) Eos % (Auto) Baso % (Auto) Neut # (Auto) Lymph # (Auto) Kerr # (Auto) Eos # (Auto) Baso # (Auto) Immature Gran # (Auto) Sample Site POC pH POC pCO2 POC pO2 POC HCO3 POC Total CO2 POC Base Excess POC ABG O2 Sat Hemanth Test O2 Delivery Device POC O2 Rate POC FiO2 Tidal Volume PEEP Sodium Potassium Chloride Carbon Dioxide Anion Gap BUN Creatinine Est Cr Clr Drug Dosing Est GFR ( Amer) Est GFR (Non-Af Amer) BUN/Creatinine Ratio Glucose POC Glucose 165 H 133 H Calcium Phosphorus Magnesium Resp Virus Cult Rapid Pending Viral Specimen Source Pending 08/28/21 08/28/21 08/28/21 03:58 05:07 05:07 WBC 15.28 H RBC 3.49 L Hgb 10.5 L Hct 32.2 L MCV 92.3 MCH 30.1 MCHC 32.6 RDW Std Deviation 46.5 H RDW Coeff of Nicole 14.0 Plt Count 392 MPV 11.3 H Immature Gran % (Auto) 0.6 Neut % (Auto) 89.2 Lymph % (Auto) 7.3 Kerr % (Auto) 2.4 Eos % (Auto) 0.4 Baso % (Auto) 0.1 Neut # (Auto) 13.62 H Lymph # (Auto) 1.12 L Kerr # (Auto) 0.37 Eos # (Auto) 0.06 Baso # (Auto) 0.02 Immature Gran # (Auto) 0.09 H Sample Site Art Line POC pH 7.42 POC pCO2 42 POC pO2 61 L POC HCO3 27 H POC Total CO2 29 POC Base Excess 3.0 H POC ABG O2 Sat 91.0 Hemanth Test NA O2 Delivery Device Ventilator POC O2 Rate 26 POC FiO2 65 Tidal Volume 380 PEEP 8 Sodium 138 Potassium 3.7 Chloride 105 Carbon Dioxide 30 Anion Gap 3.0 BUN 41 H Creatinine 0.83 Est Cr Clr Drug Dosing 107.8 Est GFR ( Amer) 113.2 Est GFR (Non-Af Amer) 97.7 BUN/Creatinine Ratio 49.0 H Glucose 121 H POC Glucose Calcium 8.0 L Phosphorus 2.2 L Magnesium 2.3 Resp Virus Cult Rapid Viral Specimen Source 08/28/21 12:07 WBC RBC Hgb Hct MCV MCH MCHC RDW Std Deviation RDW Coeff of Nicole Plt Count MPV Immature Gran % (Auto) Neut % (Auto) Lymph % (Auto) Kerr % (Auto) Eos % (Auto) Baso % (Auto) Neut # (Auto) Lymph # (Auto) Kerr # (Auto) Eos # (Auto) Baso # (Auto) Immature Gran # (Auto) Sample Site POC pH POC pCO2 POC pO2 POC HCO3 POC Total CO2 POC Base Excess POC ABG O2 Sat Hemanth Test O2 Delivery Device POC O2 Rate POC FiO2 Tidal Volume PEEP Sodium Potassium Chloride Carbon Dioxide Anion Gap BUN Creatinine Est Cr Clr Drug Dosing Est GFR ( Amer) Est GFR (Non-Af Amer) BUN/Creatinine Ratio Glucose POC Glucose 194 H Calcium Phosphorus Magnesium Resp Virus Cult Rapid Viral Specimen Source Medications Administered Current Inpatient Medications Acetaminophen (Acetaminophen Susp 325 Mg/10.15 Ml Udc) 650 mg PO Q6H PRN PRN Reason: Fever Stop: 09/20/21 00:59 Last Admin: 08/24/21 05:43 Dose: 650 mg Documented by: Albuterol (Albut/Ipratrop 3mg/0.5mg Neb 3 Ml Vial) 3 ml NEB Q4R PRN PRN Reason: Wheezing Stop: 09/19/21 02:59 Last Admin: 08/21/21 09:52 Dose: 3 ml Documented by: Atropine Sulfate (Atropine Sulfate 0.1 Mg/Ml 10ml Syr) 1 mg IV ONE PRN PRN Reason: BRADYCARDIA: HR < 40 Stop: 09/22/21 16:22 Clonazepam (Clonazepam 1 Mg Tab) 1 mg PO BID JULIANA Stop: 09/25/21 11:14 Last Admin: 08/28/21 08:19 Dose: 1 mg Documented by: Clonidine HCl (Clonidine Hcl 0.1 Mg Tab) 0.1 mg PO BID JULIANA Stop: 09/27/21 08:59 Last Admin: 08/28/21 11:27 Dose: 0.1 mg Documented by: Dextrose (Dextrose 50% 50 Ml Syringe) 25 - 50 ml IV UD PRN; Protocol PRN Reason: Hypoglycemia Protocol Stop: 09/15/21 10:29 Docusate Sodium (Docusate Sodium Syrup 100 Mg/10 Ml Udc) 100 mg PO BID JULIANA Stop: 09/17/21 09:59 Last Admin: 08/28/21 08:19 Dose: 100 mg Documented by: Enoxaparin Sodium (Enoxaparin Inj 40 Mg/0.4 Ml Syr) 40 mg SQ QAM JULIANA Stop: 09/25/21 08:59 Last Admin: 08/28/21 08:19 Dose: 40 mg Documented by: Fentanyl Citrate (Fentanyl Citrate 100 Mcg/2 Ml Vial) 50 mcg IV Q2H PRN PRN Reason: Moderate Pain (4,5,6) on NRS Stop: 09/08/21 13:50 Last Admin: 08/28/21 07:12 Dose: 50 mcg Documented by: Furosemide (Furosemide 40 Mg/4 Ml Vial) 40 mg IV DAILY JULIANA Stop: 09/24/21 10:59 Last Admin: 08/28/21 08:19 Dose: 40 mg Documented by: Glucagon (Glucagon For Inj 1 Mg Vial) 1 mg IM UD PRN; Protocol PRN Reason: Hypoglycemia Protocol Stop: 09/15/21 10:29 Glucose (Glucose 40% Gel 15 Gm Tube) 15 - 30 gm PO UD PRN; Protocol PRN Reason: Hypoglycemia Protocol Stop: 09/15/21 10:29 Glucose (Glucose 10 Tabs/Tube) 4 - 8 tabs PO UD PRN; Protocol PRN Reason: Hypoglycemia Protocol Stop: 09/15/21 10:29 Hydralazine HCl (Hydralazine Hcl 20 Mg/Ml Vial) 10 mg IV Q4 PRN PRN Reason: Hypertension Stop: 09/23/21 16:27 Last Admin: 08/28/21 08:19 Dose: 10 mg Documented by: Pantoprazole Sodium 40 mg/ (Syringe) 10 mls @ 5 mls/min IV DAILY@1100 [facility] Stop: 09/14/21 10:59 Last Admin: 08/28/21 12:13 Dose: 5 mls/min Documented by: Voriconazole 350 mg/ Sodium (Chloride) 100 mls @ 100 mls/hr IV Q12H [facility] Stop: 08/31/21 13:59 Last Infusion: 08/28/21 05:14 Dose: Infused Documented by: Cefazolin Sodium (Ancef 2000mg) 2,000 mg in 15 mls @ 3.75 mls/min IV Q8H [facility] Stop: 08/31/21 10:59 Last Admin: 08/28/21 12:13 Dose: 3.75 mls/min Documented by: Dexamethasone 4 mg/ Syringe 1 mls @ 1 mls/min IV Q24H [facility] Stop: 09/25/21 08:59 Last Admin: 08/28/21 08:21 Dose: 1 mls/min Documented by: Norepinephrine Bitartrate (Levophed/D5w) 8 mg in 508 mls @ 0 mls/hr IV .Q0M JULIANA; Protocol Stop: 09/25/21 13:14 Last Admin: 08/28/21 05:40 Dose: Not Given Documented by: Insulin Aspart (Insulin Aspart 100 Units/Ml 3 Ml Pen) 0 units SC Q6 [facility] Stop: 09/22/21 17:59 Last Admin: 08/28/21 12:12 Dose: 3 units Documented by: Lactulose (Lactulose Syrup 20 Gm/30 Ml Udc) 20 gm PO BID [facility] Stop: 09/22/21 11:59 Last Admin: 08/28/21 08:19 Dose: 20 gm Documented by: Miscellaneous (Carbohydrates For Hypoglycemia ) 15 - 30 gm PO UD PRN PRN Reason: Hypoglycemia Treatment Stop: 09/15/21 10:29 Mupirocin (Mupirocin 2% Oint 22 Gm Tube) 1 appln EXT BID JULIANA Stop: 09/10/21 08:59 Last Admin: 08/28/21 08:21 Dose: 1 appln Documented by: Nutritional Formula (Peptamen Intense Vhp 1.0 Porter 1,000 Ml Bag) 1,000 ml OG CONT JULIANA; Protocol Stop: 09/13/21 15:44 Last Admin: 08/28/21 15:44 Dose: 1,000 ml Documented by: Ondansetron HCl (Ondansetron Inj 2 Mg/Ml 2 Ml Vial) 4 mg IV Q4H PRN PRN Reason: Nausea Stop: 09/11/21 17:50 Last Admin: 08/13/21 06:23 Dose: 4 mg Documented by: Oxycodone HCl (Oxycodone Hcl Soln 5 Mg/5 Ml Udc) 10 mg PO Q6 JULIANA Stop: 09/11/21 11:59 Last Admin: 08/28/21 12:11 Dose: 10 mg Documented by: Quetiapine Fumarate (Quetiapine Fumarate 200 Mg Tab) 200 mg PO DAILY [facility] Stop: 09/25/21 11:14 Last Admin: 08/28/21 08:19 Dose: 200 mg Documented by: Sennosides (Sennosides 8.8 Mg/5 Ml Udc) 8.8 mg PO QAM [facility] Stop: 09/17/21 09:59 Last Admin: 08/28/21 08:19 Dose: 8.8 mg Documented by: Sterile Water (Tube Feeding Water Flush) 60 ml OG Q4H JULIANA Stop: 09/17/21 10:44 Last Admin: 08/28/21 15:44 Dose: 60 ml Documented by: PG Care Time/CCT Total # of Minutes Spent Total Time Spent with Patient: Total time spent is greater than 50% in coordination of care (as documented) at patient's floor/unit and/or counseling patient: Coding Level of Care Code 90003 Subseq Hosp Care Lvl 2 Diagnoses Acute respiratory failure with hypoxia J96.01 2019 novel coronavirus-infected pneumonia (NCIP) U07.1; J12.82 Positive blood cultures R78.81 Anxiety F41.9
[2021-08-28 21:41] LABS: Fungitell (1-3)-B-D-Glucan 147 pg/mL
[2021-08-29] MEDS: INSULIN ASPART 100 UNITS/ML 3 ML PEN SC SCH ×5 (01:29→23:51)
[2021-08-29] MEDS: fentaNYL citrate 100 MCG/2 ML VIAL IV PRN ×3 (03:01→21:27)
[2021-08-29] MEDS: TUBE FEEDING WATER FLUSH OG SCH ×6 (03:27→23:06)
[2021-08-29] MEDS: ceFAZolin 2000MG 2,000 MG/15 ML SYR IV SCH ×3 (03:27→17:44)
[2021-08-29] MEDS: VORICONAZOLE 350 MG in 0.9 % SODIUM CHLORIDE 65 ML IV SCH ×2 (03:28→16:56)
[2021-08-29 05:06] LABS: iSTAT Arterial Blood Gas HCO3 31 meg/L (19-24); iSTAT Arterial Blood Gas pCO2 41 mmHg (35-46); iSTAT Arterial Blood Gas pH 7.49 (7.35-7.45); iSTAT Arterial Blood Gas pO2 49 mmHg (80-95); iSTAT Carbon Dioxide 33 mmol/L (24-31); iSTAT FiO2 70 %; iSTAT Site L Radial
[2021-08-29] MEDS: oxyCODONE HCL SOLN 5 MG/5 ML UDC PO SCH ×4 (05:49→23:06)
[2021-08-29 05:51] LABS: Basophils # (auto) 0.02 K/uL (0-0.2); Basophils % (auto) 0.1 %; Eosinophils # (auto) 0.17 K/uL (0-0.5); Eosinophils % (auto) 1.1 %; Hematocrit (blood only) 33.1 % (42-52); Hemoglobin 10.7 g/dL (14.0-18.0); Immature Granulocytes # (auto) 0.07 K/uL (0.00-0.02); Immature Granulocytes % (auto) 0.5 %; Lymphocytes # (auto) 1.66 K/uL (1.2-3.4); Lymphocytes % (auto) 10.9 %; Mean Corpuscular Hemoglobin 30.1 pg (25-34); Mean Corpuscular Hgb Conc 32.3 g/dL (32-36); Monocytes # (auto) 0.51 K/uL (0.11-0.59); Monocytes % (auto) 3.3 %; Neutrophils # (auto) 12.85 K/uL (1.4-6.5); Neutrophils % (auto) 84.1 %; Platelet Count 492 K/uL (130-400); RDW Coefficient of Variation 14.1 % (11.5-14.5); RDW Standard Deviation 48.3 fL (36.4-46.3); Red Blood Count 3.56 M/uL (4.7-6.1); White Blood Count 15.28 K/uL (4.8-10.8)
[2021-08-29 06:17] LABS: Albumin Level 1.6 gm/dl (3.4-5.0); BUN Creatinine Ratio 53.9 (10-20); Calcium 8.3 mg/dl (8.5-10.1); Creatinine Clr Calc Pharmacy 116.2 ml/min; Est GFR (African American) 116.8 ml/min; Est GFR (Non-African American) 100.7 ml/min; Magnesium 2.3 mg/dl (1.8-2.4); Potassium 3.8 mmol/L (3.5-5.1)
[2021-08-29 06:23] LABS: Albumin Globulin Ratio 0.3 (0.9-2); Bilirubin,Total 0.6 mg/dl (0.2-1); Phosphorus 1.6 mg/dl (2.5-4.9); Total Protein 7.6 gm/dl (6.4-8.2)
[2021-08-29] MEDS: clonazePAM 1 MG TAB PO SCH ×2 (07:43→21:26)
[2021-08-29] MEDS: ENOXAPARIN INJ 40 MG/0.4 ML SYR SQ SCH (07:43)
[2021-08-29] MEDS: cloNIDine HCL 0.1 MG TAB PO SCH ×2 (07:43→21:26)
[2021-08-29] MEDS: MUPIROCIN 2% OINT 22 GM TUBE EXT SCH ×2 (07:44→21:27)
[2021-08-29] MEDS: DOCUSATE SODIUM SYRUP 100 MG/10 ML UDC PO SCH ×2 (07:44→21:27)
[2021-08-29] MEDS: SENNOSIDES 8.8 MG/5 ML UDC PO SCH (07:44)
[2021-08-29] MEDS: FUROSEMIDE 40 MG/4 ML VIAL IV SCH (07:44)
[2021-08-29] MEDS: LACTULOSE SYRUP 20 GM/30 ML UDC PO SCH ×2 (07:44→21:27)
[2021-08-29] MEDS: QUEtiapine FUMARATE 200 MG TAB PO SCH (07:45)
[2021-08-29] MEDS: dexAMETHasone 4 MG in SYRINGE 0 ML IV SCH (07:46)
--- NOTE | 2021-08-29 08:44 | XRay Report ---
XR chest 1V portable CLINICAL HISTORY: Follow-up bilateral interstitial and alveolar opacities. COMPARISON STUDY: 08/28/2021 TECHNIQUE: 1 view of the chest FINDINGS: Single frontal view of the chest demonstrates the cardiomediastinal silhouette to be within normal li mits. Tracheostomy tube is again seen. Compared to previous examination, there is slight interval wor sening of bilateral interstitial and alveolar opacities bilaterally. There is no evidence for pleural effusion. There is no evidence for vascular congestion. There is no acute osseous pathology. IMPRESSION: Compared to previous examination, there is slight interval worsening of bilateral interst itial and alveolar opacities ACT 112: Negative or not required by law. Electronically signed by: Barry Saavedra M.D. 08/29/2021 8:42 AM
--- NOTE | 2021-08-29 10:21 | Critical Care Progress Note ---
Date of Service August 29, 2021 Assessment & Plan (1) ARDS (adult respiratory distress syndrome): (2) 2019 novel coronavirus-infected pneumonia (NCIP): (3) Acute respiratory failure with hypoxia: (4) Breath shortness: (5) Positive blood cultures: (6) Nightmare disorder: Plan: Impression: 56-year-old male with a noncontributory past medical history presenting to the hospital due to COVID-19 viral pneumonia and was intubated on 08/13/2021 due to worsening ARDS. 24 Hour events: Off all of his IV drips at this point time. Sensorium is clearing. He still has high oxygen requirement through the ventilator and not ready to proceed to tracheostomy collar or pressure support ventilation trials. Recommendations: Neurologic: As needed pushes of fentanyl and Versed. Continue oral clonazepam, and oxycodone, and current dose of Seroquel. Seems to be clearing slowly. Pulmonary: Severe ARDS secondary to Covid. Intubated 08/13/2021. Extubated 08/25 and [id number] due to respiratory failure. Status post tracheostomy 08/27/2021. Ulcers identified on bronchoscopy status post brushing. Await cytologic and viral studies. Hold on antiviral therapy for now. Continue effor ts at diuresis. Discontinue dexamethasone given Aspergillus in the lung. Continue to wean vent support as tolerated with plans to proceed to pressure support trials as tolerated. Chest x-ray looks slightly better today. Cardiovascular: Hemodynamically stable to hypertensive currently start oral clonidine and continue as needed hydralazine. Continue attempts to keep input and output even Gastrointestinal: Continue Protonix. Continue TF via coresafe. Per case management, the patient may require PEG tube before transfer to LTAC. We will see how he does through the weekend and consider GI evaluation for PEG early next week if unable to make progress. Renal: Creatinine and electrolytes are stable. Continue daily Lasix 40 IV daily. Net -1.3 L last 24 hours Infectious disease: Appreciate ID consultation. Surveillance cultures have been negative and he is on Ancef for coag negative staph in the blood He is also placed on voriconazole given Aspergillus in the tracheal aspirate x 2. ID recommended at least 12 weeks of voriconazole and likely 6 months of therapy. Ancef is 14 days from negative cultures and I think he needs another week or so. Fever curve better and white count stable. We will see what happens with discontinuation of steroids. Await results from brushings from the tracheal ulcers - ? HSV, hold on acyclovir for now. Fungitell currently pending as we ll. Hematologic: Lovenox 40 mg daily. Mild anemia seen no evidence of blood loss or indication for transfusion. Endocrine: Glycemic control per protocol. TSH within normal limits from 08/21/2021. VTE prophylaxis: Lovenox for DVT prophylaxis. We will need aggressive PT OT and speech therapy evaluations as tolerated by his weaning status and neurological status CODE STATUS: Full code Disposition: Remain in the ICU pending improvement of respiratory status Patient was discussed with the critical care bedside nurse. Remains critically ill with possibility of clinical deterioration and . 38 min CC time Admission and Anticipated Discharge Date Admission Date: August 10, 2021 Subjective Patient seen and examined. He continues to complain of intermittent anxiety. He is doing reasonably well and vent settings are weaning. He is not yet ready to proceed to trach collar trials or pressure support ventilation. Has been hemodynamically stable. He is tolerating tube feeding. Review of Systems Review of Systems: Unobtainable due to endotracheal tube Physical Exam Constitutional: cooperative; no acute distress and not in distress Neck: trachea midline, no thyromegaly Trach site clean dry and intact Respiratory: + tachypneic Auscultation: no wheezes Cardiovascular: RRR, no murmur, no edema Gastrointestinal (Abdomen): normal bowel sounds, soft, nontender, no hepatosplenomegaly Musculoskeletal: Extremities: extremities normal to inspection Skin: no rashes, warm and dry Lymphatic: no cervical lymphadenopathy Results & Data Results & Data ([facility]) Vital Signs (Past 12 Hours) Vital Signs Temp Pulse Resp BP Pulse Ox 08/29/21 07:58 115 H 36 H 90 08/29/21 07:00 77 29 H 96 08/29/21 06:00 36.7 C 122 H 25 H 93 08/29/21 05:00 123 H 15 87 L 08/29/21 04:00 106 H 27 H 115/81 91 08/29/21 03:00 123 H 55 H 93 08/29/21 02:40 115 H 32 H 90 08/29/21 02:01 120 H 64 H 84 L 08/29/21 01:00 78 36 H 94 08/29/21 00:01 83 28 H 94 08/29/21 00:00 133/75 08/28/21 23:37 103 H 30 H 92 08/28/21 23:00 114 H 33 H 90 Critical Care Results & Data Vital Signs (Past 12 Hours) Vital Signs Temp Pulse Resp BP Pulse Ox 08/29/21 07:58 115 H 36 H 90 08/29/21 07:00 77 29 H 96 08/29/21 06:00 36.7 C 122 H 25 H 93 08/29/21 05:00 123 H 15 87 L 08/29/21 04:00 106 H 27 H 115/81 91 08/29/21 03:00 123 H 55 H 93 08/29/21 02:40 115 H 32 H 90 08/29/21 02:01 120 H 64 H 84 L 08/29/21 01:00 78 36 H 94 08/29/21 00:01 83 28 H 94 08/29/21 00:00 133/75 08/28/21 23:37 103 H 30 H 92 08/28/21 23:00 114 H 33 H 90 Lab & Micro Results (Past 24 Hours) RBC 3.56 M/uL (4.7-6.1) L 08/29/21 WBC 15.28 K/uL (4.8-10.8) H 08/29/21 Hgb 10.7 g/dL (14.0-18.0) L 08/29/21 Hct 33.1 % (42-52) L 08/29/21 MCV 93.0 fL (80-100) 08/29/21 MCH 30.1 pg (25-34) 08/29/21 MCHC 32.3 g/dL (32-36) 08/29/21 RDW Standard Deviation 48.3 fL (36.4-46.3) H 08/29/21 RDW Coefficient of Variation 14.1 % (11.5-14.5) 08/29/21 Plt Count 492 K/uL (130-400) H 08/29/21 MPV 11.0 fL (7.4-10.4) H 08/29/21 Neutrophils (%) (Auto) 84.1 % 08/29/21 Lymphocytes (%) (Auto) 10.9 % 08/29/21 Monocytes # (Auto) 0.51 K/uL (0.11-0.59) 08/29/21 Eosinophils # (Auto) 0.17 K/uL (0-0.5) 08/29/21 Immature Granulocyte % (Auto) 0.5 % 08/29/21 Neutrophils # (Auto) 12.85 K/uL (1.4-6.5) H 08/29/21 Lymphocytes # (Auto) 1.66 K/uL (1.2-3.4) 08/29/21 Monocytes # (Auto) 0.51 K/uL (0.11-0.59) 08/29/21 Eosinophils # (Auto) 0.17 K/uL (0-0.5) 08/29/21 Basophils # (Auto) 0.02 K/uL (0-0.2) 08/29/21 Immature Granulocyte # (Auto) 0.07 K/uL (0.00-0.02) H 08/29/21 Na 140 mmol/L (136-145) 08/29/21 K 3.8 mmol/L (3.5-5.1) 08/29/21 Cl 105 mmol/L (98-107) 08/29/21 CO2 30 mmol/L (21-32) 08/29/21 Anion Gap 5.0 (3-11) 08/29/21 BUN 42 mg/dl (7-18) H 08/29/21 Creatinine 0.77 mg/dl (0.6-1.4) 08/29/21 Estimated GFR ( Amer) 116.8 ml/min 08/29/21 Estimated GFR (Non-Af Amer) 100.7 ml/min 08/29/21 BUN/Creatinine Ratio 53.9 (10-20) H 08/29/21 Glu 113 mg/dl (70-99) H 08/29/21 Ca 8.3 mg/dl (8.5-10.1) L 08/29/21 Phosphorus Level 1.6 mg/dl (2.5-4.9) L 08/29/21 Total Bilirubin 0.6 mg/dl (0.2-1) 08/29/21 AST 30 U/L (15-37) 08/29/21 ALT 12 U/L (12-78) 08/29/21 Alkaline Phosphatase 82 U/L (45-117) 08/29/21 TP 7.6 gm/dl (6.4-8.2) 08/29/21 Albumin 1.6 gm/dl (3.4-5.0) L 08/29/21 Globulin 6.0 gm/dl (2.5-4.0) H 08/29/21 Albumin/Globulin Ratio 0.3 (0.9-2) L 08/29/21 Mg 2.3 mg/dl (1.8-2.4) 08/29/21 05:06 08/29/21 Calcium Level 8.3 mg/dl (8.5-10.1) L 08/29/21 05:06 08/29/21 Hemanth Test NA 08/29/21 04:52 08/29/21 Microbiology 08/23/21 11:46 Aerobic Blood Culture - Final Blood No growth in Aerobic bottle after 5 days. Anaerobic Blood Culture - Final No growth in Anaerobic bottle after 5 days. 08/23/21 11:30 Aerobic Blood Culture - Final Blood No growth in Aerobic bottle after 5 days. Anaerobic Blood Culture - Final No growth in Anaerobic bottle after 5 days. Diagnostic Findings (Past 24 Hours) Chest X-Ray 08/28/21 07:00 XR chest 1V portable CLINICAL HISTORY: Follow-up interstitial and alveolar alveolar opacities. COMPARISON STUDY: 08/27/2021 TECHNIQUE: 1 view of the chest FINDINGS: Single frontal view of the chest demonstrates the cardiomediastinal silhouette to be within normal limits. Tracheostomy tube is again seen. Compared to previous examination, there is no significant interval change in bilateral interstitial and alveolar opacities. There is no evidence for pleural effusion. There is no evidence for vascular congestion. There is no acute osseous pathology. IMPRESSION: No significant interval change in bilateral interstitial and alveolar opacities. ACT 112: Negative or not required by law. Electronically signed by: Barry Saavedra M.D. 08/28/2021 11:05 AM Chest X-Ray 08/29/21 07:00 XR chest 1V portable CLINICAL HISTORY: Follow-up bilateral interstitial and alveolar opacities. COMPARISON STUDY: 08/28/2021 TECHNIQUE: 1 view of the chest FINDINGS: Single frontal view of the chest demonstrates the cardiomediastinal silhouette to be within normal limits. Tracheostomy tube is again seen. Compared to previous examination, there is slight interval worsening of bilateral interstitial and alveolar opacities bilaterally. There is no evidence for pleural effusion. There is no evidence for vascular congestion. There is no acute osseous pathology. IMPRESSION: Compared to previous examination, there is slight interval worsening of bilateral interstitial and alveolar opacities ACT 112: Negative or not required by law. Electronically signed by: Barry Saavedra M.D. 08/29/2021 8:42 AM I & O Totals 24 Hours 08/28/21 08/29/21 08/30/21 06:59 06:59 06:59 Intake Total 1343.475 / 7050.095 1610 / 1175 Output Total 2475 / 2475 2500 / 2500 Balance -1131.525 / -1131.525 -1325 / -1325 Cumulative 08/09/21 15:39 thru 08/29/21 06:00 Intake Total 86143.202 Output Total 67112 Balance -8042.798 RT Ventilator Mngmt (Last Documented) Ventilator Ordered Settings Ventilator Support Mode PRVC 08/29/21 07:58 Respiratory Rate 36 08/29/21 07:58 Ventilator Tidal Volume 30 08/29/21 07:58 Setting Minute Ventilation 19.3 08/29/21 07:58 Ventilator Positive Pressure 0 08/24/21 11 :35 Support Setting Positive End Expiratory 8 08/29/21 07:58 Pressure Fraction of Inspired Oxygen 80 08/29/21 07:58 Biphasic High 24 08/20/21 11:15 Machine Comment FiO2 increased post ABG 08/29/21 04:53 Ventilator - PT Measurements Respiratory Rate 36 Exhaled Tidal Volume 618 Minute Ventilation 19.3 Peak Inspiratory Airway 16 Pressure Plateau Pressure 16.6 Respiratory Cycle Inspiratory: 1:1.4 Expiratory Ratio Inspiratory Phase Time 0.8 End-Tidal CO2 38 Static Lung Compliance 67.56 Dynamic Lung Compliance 77.25 Normal Static Lung Compliance 49.00 Patient Measurements Comment unable to get accurate Plateau pressure at this time due to pt insp effort Coding Level of Care Code Critical Care 1st 30-74 mins Diagnoses ARDS (adult respiratory distress syndrome) J80 2019 novel coronavirus-infected pneumonia (NCIP) U07.1; J12.82 Acute respiratory failure with hypoxia J96.01 Breath shortness R06.02 Positive blood cultures R78.81 Nightmare disorder F51.5 Time Spent (min) 38
[2021-08-29] MEDS: PEPTAMEN INTENSE VHP 1.0 CAL 1,000 ML BAG OG SCH (12:38)
[2021-08-29] MEDS: PANTOprazole 40 MG in SYRINGE 0 ML IV SCH (12:38)
--- NOTE | 2021-08-29 20:24 | Hospitalist Progress Note ---
Date of Service August 29, 2021 Assessment & Plan (1) Acute respiratory failure with hypoxia: Plan: 56 y/o male w/ PMHx of anxiety and GERMAN who presented with acute hypoxic respiratory failure secondary to COVID-19 pneumonia on day 9 of symptoms (08/01/21 onset) initially on Vapotherm, status declined on 08/13 placed on BIPAP, did not tolerate, got more confused, saturations dropping Dr. Underwood intubated patient at night on 08/13 dexamethasone, currently weaning off baricitinib 4mg daily initially, stopped when intubated CTA chest negative for PE, showed bilateral viral pneumonia CRP was quite elevated [facility], age cutoff is 55, other facilities it is lower at 45, could not transfer patient patient did relatively well with spontaneous breathing trial on 08/24 extubated around noon on 08/24, directly to BIPAP/CPAP could not maintain oxygen saturations, very tachypneic and agitated on 08/25 he was re-intubated on 08/25 tracheostomy performed on 08/[address] Villeda bronchoscopy on 08/27, showed ulcers, brushings sent, Fungitell sent, hold on treatment until results will work towards LTACH placement, won't happen until next week currently off versed and fentanyl drips, on Oxycodone and Klonopin, mental status slowly improving still on too much PEEP and FiO2, not quite ready for pressure support breathing (2) 2019 novel coronavirus-infected pneumonia (NCIP): Plan: sick since 08/01 continue ARDSnet protocol, supine stopped dexamethasone given the Aspergillus in trach sputum extubated on 08/24, then re-intubated and ventilated on 08/25 tracheostomy done on 08/27, tolerated well (3) Positive blood cultures: Plan: one set was coag negative staph ID consult appreciated currently on Ancef, need to continue for 14 days from negative culture which was 08/19/21, so last day would be 09/02/21 Voriconazole is for Aspergillus on tracheal aspirates on 08/23 and 08/20 Dr. Villeda d/w ID at [place], they recommended at least 12 weeks of voriconazole and likely 6 months of therapy (4) Anxiety: Plan: clonazepam, now sedated with Propofol, might need Precedex Plan: FEN/GI: ppx: Lovenox, Protonix code: full dispo:ICU status Admission and Anticipated Discharge Date Admission Date: August 10, 2021 Subjective mental status slowly improving, down to only versed and Fentanyl pushes, drips off getting Klonopin and Oxycodone not ready for trach collar or SBT Review of Systems Review of Systems: Unobtainable due to reduced consciousness Physical Exam Physical Exam: General: well developed, well nourished, ill appearing, mechanically ventilated via trach Neck: supple, tracheostomy present Lungs: clear to auscultation bilaterally, symmetric chest movement on ventilation Heart: regular S1 and S2, no murmur, peripheral pulses normal, capillary refill normal, no edema Abdomen: soft, NT, ND, + bowel sounds Extremities: normal in appearance, no cyanosis, no petechiae Neuro: moving extremities, CN II-XII intact, no focal deficits Skin: warm, dry, no rash, normal turgor Psych: sedated Results & Data Results & Data ([facility]) Vital Signs (Past 12 Hours) Vital Signs Temp Pulse Resp BP Pulse Ox 08/29/21 18:00 37.1 C 105 H 32 H 150/87 H 91 08/29/21 17:00 110 H 60 H 147/82 H 90 08/29/21 16:00 37.2 C 78 43 H 155/78 H 91 08/29/21 15:05 113 H 35 H 91 08/29/21 15:00 113 H 36 H 148/74 H 88 L 08/29/21 14:00 37.1 C 90 30 H 91 08/29/21 13:00 108 H 43 H 167/67 H 90 08/29/21 12:00 37.1 C 98 H 22 132/79 91 08/29/21 11:26 118 H 36 H 91 08/29/21 11:00 98 H 0 L 162/42 H 94 08/29/21 10:00 96 H 3 L 158/82 H 91 08/29/21 09:00 100 H 27 H 148/68 H 94 Laboratory Results Laboratory Results - last 24 hr 08/23/21 08/28/21 08/29/21 11:47 23:20 04:52 WBC RBC Hgb Hct MCV MCH MCHC RDW Std Deviation RDW Coeff of Nicole Plt Count MPV Immature Gran % (Auto) Neut % (Auto) Lymph % (Auto) [place] % (Auto) Eos % (Auto) Baso % (Auto) Neut # (Auto) Lymph # (Auto) [place] # (Auto) Eos # (Auto) Baso # (Auto) Immature Gran # (Auto) Sample Site L Radial POC pH 7.49 H POC pCO2 41 POC pO2 49 L POC HCO3 31 H POC Total CO2 33 H POC Base Excess 8.0 H POC ABG O2 Sat 87.0 L Hemanth Test NA O2 Delivery Device Ventilator POC O2 Rate 26 POC FiO2 70 Tidal Volume 380 PEEP 8 Sodium Potassium Chloride Carbon Dioxide Anion Gap BUN Creatinine Est Cr Clr Drug Dosing Est GFR ( Amer) Est GFR (Non-Af Amer) BUN/Creatinine Ratio Glucose POC Glucose 112 H Calcium Phosphorus Magnesium Total Bilirubin AST ALT Alkaline Phosphatase Total Protein Albumin Globulin Albumin/Globulin Ratio Beta-(1,3)-D-Glucan 147 H B-(1,3)-D-Glucan Intrp POSITIVE A 08/29/21 08/29/21 08/29/21 05:06 05:06 12:32 WBC 15.28 H RBC 3.56 L Hgb 10.7 L Hct 33.1 L MCV 93.0 MCH 30.1 MCHC 32.3 RDW Std Deviation 48.3 H RDW Coeff of Nicole 14.1 Plt Count 492 H MPV 11.0 H Immature Gran % (Auto) 0.5 Neut % (Auto) 84.1 Lymph % (Auto) 10.9 [place] % (Auto) 3.3 Eos % (Auto) 1.1 Baso % (Auto) 0.1 Neut # (Auto) 12.85 H Lymph # (Auto) 1.66 [place] # (Auto) 0.51 Eos # (Auto) 0.17 Baso # (Auto) 0.02 Immature Gran # (Auto) 0.07 H Sample Site POC pH POC pCO2 POC pO2 POC HCO3 POC Total CO2 POC Base Excess POC ABG O2 Sat Hemanth Test O2 Delivery Device POC O2 Rate POC FiO2 Tidal Volume PEEP Sodium 140 Potassium 3.8 Chloride 105 Carbon Dioxide 30 Anion Gap 5.0 BUN 42 H Creatinine 0.77 Est Cr Clr Drug Dosing 116.2 Est GFR ( Amer) 116.8 Est GFR (Non-Af Amer) 100.7 BUN/Creatinine Ratio 53.9 H Glucose 113 H POC Glucose 139 H Calcium 8.3 L Phosphorus 1.6 L Magnesium 2.3 Total Bilirubin 0.6 AST 30 ALT 12 Alkaline Phosphatase 82 Total Protein 7.6 Albumin 1.6 L Globulin 6.0 H Albumin/Globulin Ratio 0.3 L Beta-(1,3)-D-Glucan B-(1,3)-D-Glucan Intrp 08/29/21 17:02 WBC RBC Hgb Hct MCV MCH MCHC RDW Std Deviation RDW Coeff of Nicole Plt Count MPV Immature Gran % (Auto) Neut % (Auto) Lymph % (Auto) [place] % (Auto) Eos % (Auto) Baso % (Auto) Neut # (Auto) Lymph # (Auto) [place] # (Auto) Eos # (Auto) Baso # (Auto) Immature Gran # (Auto) Sample Site POC pH POC pCO2 POC pO2 POC HCO3 POC Total CO2 POC Base Excess POC ABG O2 Sat Hemanth Test O2 Delivery Device POC O2 Rate POC FiO2 Tidal Volume PEEP Sodium Potassium Chloride Carbon Dioxide Anion Gap BUN Creatinine Est Cr Clr Drug Dosing Est GFR ( Amer) Est GFR (Non-Af Amer) BUN/Creatinine Ratio Glucose POC Glucose 152 H Calcium Phosphorus Magnesium Total Bilirubin AST ALT Alkaline Phosphatase Total Protein Albumin Globulin Albumin/Globulin Ratio Beta-(1,3)-D-Glucan B-(1,3)-D-Glucan Intrp Medications Administered Current Inpatient Medications Acetaminophen (Acetaminophen Susp 325 Mg/10.15 Ml Udc) 650 mg PO Q6H PRN PRN Reason: Fever Stop: 09/20/21 00:59 Last Admin: 08/24/21 05:43 Dose: 650 mg Documented by: Albuterol (Albut/Ipratrop 3mg/0.5mg Neb 3 Ml Vial) 3 ml NEB Q4R PRN PRN Reason: Wheezing Stop: 09/19/21 02:59 Last Admin: 08/21/21 09:52 Dose: 3 ml Documented by: Atropine Sulfate (Atropine Sulfate 0.1 Mg/Ml 10ml Syr) 1 mg IV ONE PRN PRN Reason: BRADYCARDIA: HR < 40 Stop: 09/22/21 16:22 Clonazepam (Clonazepam 1 Mg Tab) 1 mg PO BID [facility] Stop: 09/25/21 11:14 Last Admin: 08/29/21 07:43 Dose: 1 mg Documented by: Clonidine HCl (Clonidine Hcl 0.1 Mg Tab) 0.1 mg PO BID JULIANA Stop: 09/27/21 08:59 Last Admin: 08/29/21 07:43 Dose: 0.1 mg Documented by: Dextrose (Dextrose 50% 50 Ml Syringe) 25 - 50 ml IV UD PRN; Protocol PRN Reason: Hypoglycemia Protocol Stop: 09/15/21 10:29 Docusate Sodium (Docusate Sodium Syrup 100 Mg/10 Ml Udc) 100 mg PO BID JULIANA Stop: 09/17/21 09:59 Last Admin: 08/29/21 07:44 Dose: 100 mg Documented by: Enoxaparin Sodium (Enoxaparin Inj 40 Mg/0.4 Ml Syr) 40 mg SQ QAM JULIANA Stop: 09/25/21 08:59 Last Admin: 08/29/21 07:43 Dose: 40 mg Documented by: Fentanyl Citrate (Fentanyl Citrate 100 Mcg/2 Ml Vial) 50 mcg IV Q2H PRN PRN Reason: Moderate Pain (4,5,6) on NRS Stop: 09/08/21 13:50 Last Admin: 08/29/21 07:42 Dose: 50 mcg Documented by: Furosemide (Furosemide 40 Mg/4 Ml Vial) 40 mg IV DAILY JULIANA Stop: 09/24/21 10:59 Last Admin: 08/29/21 07:44 Dose: 40 mg Documented by: Glucagon (Glucagon For Inj 1 Mg Vial) 1 mg IM UD PRN; Protocol PRN Reason: Hypoglycemia Protocol Stop: 09/15/21 10:29 Glucose (Glucose 40% Gel 15 Gm Tube) 15 - 30 gm PO UD PRN; Protocol PRN Reason: Hypoglycemia Protocol Stop: 09/15/21 10:29 Glucose (Glucose 10 Tabs/Tube) 4 - 8 tabs PO UD PRN; Protocol PRN Reason: Hypoglycemia Protocol Stop: 09/15/21 10:29 Hydralazine HCl (Hydralazine Hcl 20 Mg/Ml Vial) 10 mg IV Q4 PRN PRN Reason: Hypertension Stop: 09/23/21 16:27 Last Admin: 08/28/21 08:19 Dose: 10 mg Documented by: Pantoprazole Sodium 40 mg/ (Syringe) 10 mls @ 5 mls/min IV DAILY@1100 [facility] Stop: 09/14/21 10:59 Last Admin: 08/29/21 12:38 Dose: 5 mls/min Documented by: Voriconazole 350 mg/ Sodium (Chloride) 100 mls @ 100 mls/hr IV Q12H [facility] Stop: 08/31/21 13:59 Last Infusion: 08/29/21 18:03 Dose: Infused Documented by: Cefazolin Sodium (Ancef 2000mg) 2,000 mg in 15 mls @ 3.75 mls/min IV Q8H [facility] Stop: 08/31/21 10:59 Last Admin: 08/29/21 17:44 Dose: 3.75 mls/min Documented by: Norepinephrine Bitartrate (Levophed/D5w) 8 mg in 508 mls @ 0 mls/hr IV .Q0M [facility]; Protocol Stop: 09/25/21 13:14 Last Admin: 08/28/21 05:40 Dose: Not Given Documented by: Insulin Aspart (Insulin Aspart 100 Units/Ml 3 Ml Pen) 0 units SC Q6 [facility] Stop: 09/22/21 17:59 Last Admin: 08/29/21 17:44 Dose: 1 units Documented by: Lactulose (Lactulose Syrup 20 Gm/30 Ml Udc) 20 gm PO BID [facility] Stop: 09/22/21 11:59 Last Admin: 08/29/21 07:44 Dose: 20 gm Documented by: Miscellaneous (Carbohydrates For Hypoglycemia ) 15 - 30 gm PO UD PRN PRN Reason: Hypoglycemia Treatment Stop: 09/15/21 10:29 Mupirocin (Mupirocin 2% Oint 22 Gm Tube) 1 appln EXT BID [facility] Stop: 09/10/21 08:59 Last Admin: 08/29/21 07:44 Dose: 1 appln Documented by: Nutritional Formula (Peptamen Intense Vhp 1.0 Porter 1,000 Ml Bag) 1,000 ml OG CONT [facility]; Protocol Stop: 09/13/21 15:44 Last Admin: 08/29/21 12:38 Dose: 1,000 ml Documented by: Ondansetron HCl (Ondansetron Inj 2 Mg/Ml 2 Ml Vial) 4 mg IV Q4H PRN PRN Reason: Nausea Stop: 09/11/21 17:50 Last Admin: 08/13/21 06:23 Dose: 4 mg Documented by: Oxycodone HCl (Oxycodone Hcl Soln 5 Mg/5 Ml Udc) 10 mg PO Q6 [facility] Stop: 09/11/21 11:59 Last Admin: 08/29/21 17:44 Dose: 10 mg Documented by: Quetiapine Fumarate (Quetiapine Fumarate 200 Mg Tab) 200 mg PO DAILY [facility] Stop: 09/25/21 11:14 Last Admin: 08/29/21 07:45 Dose: 200 mg Documented by: Sennosides (Sennosides 8.8 Mg/5 Ml Udc) 8.8 mg PO QAM [facility] Stop: 09/17/21 09:59 Last Admin: 08/29/21 07:44 Dose: 8.8 mg Documented by: Sterile Water (Tube Feeding Water Flush) 60 ml OG Q4H [facility] Stop: 09/17/21 10:44 Last Admin: 08/29/21 17:44 Dose: 60 ml Documented by: PG Care Time/CCT Total # of Minutes Spent Total Time Spent with Patient: Total time spent is greater than 50% in coordination of care (as documented) at patient's floor/unit and/or counseling patient: Coding Level of Care Code 47796 Subseq Hosp Care Lvl 2 Diagnoses Acute respiratory failure with hypoxia J96.01 2019 novel coronavirus-infected pneumonia (NCIP) U07.1; J12.82 Positive blood cultures R78.81 Anxiety F41.9
[2021-08-30] MEDS: ceFAZolin 2000MG 2,000 MG/15 ML SYR IV SCH ×3 (03:10→20:24)
[2021-08-30] MEDS: TUBE FEEDING WATER FLUSH OG SCH ×5 (03:10→20:24)
[2021-08-30] MEDS: VORICONAZOLE 350 MG in 0.9 % SODIUM CHLORIDE 65 ML IV SCH ×2 (03:11→16:15)
[2021-08-30 04:40] LABS: iSTAT Art Bld Gas pCO2 Correct 38 mmHg (35-46); iSTAT Art Bld Gas pH Corrected 7.529 (7.35-7.45); iSTAT Arterial Blood Gas HCO3 32 meg/L (19-24); iSTAT Arterial Blood Gas pCO2 39 mmHg (35-46); iSTAT Arterial Blood Gas pH 7.53 (7.35-7.45); iSTAT Arterial Blood Gas pO2 49 mmHg (80-95); iSTAT Arterial Blood Gas pO2 C 48; iSTAT Carbon Dioxide 33 mmol/L (24-31); iSTAT FiO2 65 %; iSTAT Hematocrit 30 % (42-52); iSTAT Hemoglobin 10.2 g/dl (14.0-18.0); iSTAT Site Art Line; iSTAT Sodium 143 mmol/L (135-144)
[2021-08-30] MEDS ORDERED: MIDAZOLAM HCL 1 MG/ML 2ML VIAL IV STA (05:29)
[2021-08-30 05:30] LABS: Basophils # (auto) 0.02 K/uL (0-0.2); Basophils % (auto) 0.2 %; Eosinophils # (auto) 0.07 K/uL (0-0.5); Eosinophils % (auto) 0.6 %; Hematocrit (blood only) 31.6 % (42-52); Hemoglobin 10.2 g/dL (14.0-18.0); Immature Granulocytes # (auto) 0.05 K/uL (0.00-0.02); Immature Granulocytes % (auto) 0.4 %; Lymphocytes # (auto) 1.57 K/uL (1.2-3.4); Lymphocytes % (auto) 13.7 %; Mean Corpuscular Hemoglobin 30.3 pg (25-34); Mean Corpuscular Hgb Conc 32.3 g/dL (32-36); Mean Corpuscular Volume 93.8 fL (80-100); Mean Platelet Volume 10.6 fL (7.4-10.4); Monocytes # (auto) 0.41 K/uL (0.11-0.59); Monocytes % (auto) 3.6 %; Neutrophils % (auto) 81.5 %; Platelet Count 459 K/uL (130-400); RDW Coefficient of Variation 14.1 % (11.5-14.5); RDW Standard Deviation 48.1 fL (36.4-46.3); Red Blood Count 3.37 M/uL (4.7-6.1); White Blood Count 11.42 K/uL (4.8-10.8)
[2021-08-30] MEDS ORDERED: MIDAZOLAM HCL 1 MG/ML 2ML VIAL ONE (05:35)
[2021-08-30] MEDS: fentaNYL citrate 100 MCG/2 ML VIAL IV PRN ×2 (05:39→08:09)
[2021-08-30] MEDS: oxyCODONE HCL SOLN 5 MG/5 ML UDC PO SCH ×3 (05:40→16:16)
[2021-08-30 05:56] LABS: Albumin Level 1.5 gm/dl (3.4-5.0); BUN Creatinine Ratio 53.7 (10-20); Calcium 8.5 mg/dl (8.5-10.1); Creatinine Clr Calc Pharmacy 117.7 ml/min; Est GFR (African American) 117.4 ml/min; Est GFR (Non-African American) 101.3 ml/min; Magnesium 2.5 mg/dl (1.8-2.4); Potassium 3.9 mmol/L (3.5-5.1)
[2021-08-30 05:59] LABS: Albumin Globulin Ratio 0.2 (0.9-2); Bilirubin,Total 0.7 mg/dl (0.2-1); Globulin 6.3 gm/dl (2.5-4.0); Phosphorus 1.9 mg/dl (2.5-4.9); Total Protein 7.8 gm/dl (6.4-8.2)
[2021-08-30] MEDS: INSULIN ASPART 100 UNITS/ML 3 ML PEN SC SCH ×3 (06:01→17:07)
[2021-08-30] MEDS: cloNIDine HCL 0.1 MG TAB PO SCH ×2 (08:09→20:25)
[2021-08-30] MEDS: ENOXAPARIN INJ 40 MG/0.4 ML SYR SQ SCH (08:09)
[2021-08-30] MEDS: clonazePAM 1 MG TAB PO SCH ×2 (08:09→20:24)
[2021-08-30] MEDS: QUEtiapine FUMARATE 200 MG TAB PO SCH (08:09)
[2021-08-30] MEDS: FUROSEMIDE 40 MG/4 ML VIAL IV SCH (08:09)
[2021-08-30] MEDS: LACTULOSE SYRUP 20 GM/30 ML UDC PO SCH ×2 (08:10→20:25)
[2021-08-30] MEDS: SENNOSIDES 8.8 MG/5 ML UDC PO SCH (08:10)
[2021-08-30] MEDS: MUPIROCIN 2% OINT 22 GM TUBE EXT SCH (08:10)
[2021-08-30] MEDS: DOCUSATE SODIUM SYRUP 100 MG/10 ML UDC PO SCH ×2 (08:10→20:25)
--- NOTE | 2021-08-30 08:36 | XRay Report ---
XR chest 1V portable HISTORY: Respiratory failure. COMPARISON: Chest 08/29/2021. FINDINGS: No pneumothorax. Nasogastric tube terminates below the diaphragm. The tip is not included o n this study. Tracheostomy tube is in good position. The heart is normal in size. Interstitial thicke atiya and patchy bilateral airspace opacities remain unchanged. Suspect trace bilateral pleural effusi ons. IMPRESSION: No change in the bilateral airspace opacities likely representing a pneumonia. Satisfactory support l ine placement. ACT 112: Negative or not required by law. Electronically signed by: Cory Rousseau M.D. 08/30/2021 8:35 AM
[2021-08-30] MEDS ORDERED: POTASSIUM PHOSPHATE 15 MMOL in SODIUM CHLORIDE 0.9% 250 ML IV ONE (11:00)
[2021-08-30] MEDS: PEPTAMEN INTENSE VHP 1.0 CAL 1,000 ML BAG OG SCH (11:40)
[2021-08-30] MEDS: PANTOprazole 40 MG in SYRINGE 0 ML IV SCH (11:40)
--- NOTE | 2021-08-30 12:59 | Electrocardiogram Report ---
Test Reason : Blood Pressure : / mmHG Vent. Rate : 106 BPM Atrial Rate : 106 BPM P-R Int : 134 ms QRS Dur : 104 ms QT Int : 338 ms P-R-T Axes : 038 -27 008 degrees QTc Int : 448 ms Sinus tachycardia Left atrial enlargement Incomplete right bundle branch block Left ventricular hypertrophy Nonspecific ST and T wave abnormality Abnormal ECG When compared with ECG of 09-AUG-2021 16:06, No significant change Confirmed by Durga Pastor ([id number]) on 08/30/2021 12:59:28 PM Referred By: REFERRED SELF Confirmed By:Durga Pastor
--- NOTE | 2021-08-30 15:52 | Critical Care Progress Note ---
Date of Service August 30, 2021 Assessment & Plan (1) ARDS (adult respiratory distress syndrome): (2) 2019 novel coronavirus-infected pneumonia (NCIP): (3) Acute respiratory failure with hypoxia: (4) Breath shortness: (5) Positive blood cultures: (6) Nightmare disorder: Plan: Impression: 56-year-old male with a noncontributory past medical history presenting to the hospital due to COVID-19 viral pneumonia and was intubated on 08/13/2021 due to worsening ARDS.Percutaneous tracheostomy that was then performed 08/27/2021 with a 6.0 Shiley 24 Hour events: Sensorium continues to be diminished. Oxygen requirements are improving. Pressure support ventilation trials are underway. Recommendations: Neurologic: As needed pushes of fentanyl and Versed. Continue oral clonazepam sergei BID, and oxycodone, and current dose of Seroquel. Seems to be clearing slowly but still not following commands. Occasionally opens eyes spontaneously. Pulmonary: Severe ARDS secondary to Covid. Intubated 08/13/2021. Extubated 08/25 and /10 due to respiratory failure. Status post percutaneous tracheostomy 08/27/2021. Ulcers identified on bronchoscopy status post brushing. Patient started on voriconazole. Continue efforts at diuresis. Discontinued dexamethasone given Aspergillus in the lung. Continue to wean vent support and continue pressure support trials as tolerated. Cardiovascular: Hemodynamically stable to hypertensive currently. Continue oral clonidine and continue as needed hydralazine. Continue attempts to keep input and output even Gastrointestinal: Continue lansoprazole. Continue TF via coresafe. Per case management, the patient may require PEG tube before transfer to LTAC. Consider GI evaluation for PEG if unable to make progress. Renal: Creatinine and electrolytes are stable. Continue daily Lasix 40 IV daily. Maintain fluid balance Infectious disease: Appreciate ID consultation. Surveillance cultures have been negative and he is on Ancef for coag negative staph in the blood. He is also placed on voriconazole given Aspergillus in the tracheal aspirate x 2. ID recommended at least 12 weeks of voriconazole and likely 6 months of therapy. Ancef is 14 days from negative cultures. Follow closely for fever with discontinuation of steroids. Await results from brushings from the tracheal ulcers - ? HSV, hold on acyclovir for now. Fungitell currently pending as well. Hematologic: Lovenox 40 mg daily. Mild anemia seen no evidence of blood loss or indication for transfusion. Endocrine: Glycemic control per protocol. TSH within normal limits from 08/21/2021. VTE prophylaxis: Lovenox for DVT prophylaxis. We will need aggressive PT OT and speech therapy evaluations as tolerated by his weaning status and neurological status CODE STATUS: Full code Disposition: Remain in the ICU pending improvement of respiratory status. Referral made to [facility]. Patient was discussed with the critical care bedside nurse. Remains critically ill with possibility of clinical deterioration and . Admission and Anticipated Discharge Date Admission Date: August 10, 2021 Supervising Physician Co-Signing Physician Notes I saw and evaluated the patient with Tavares Bowen, and agree with findings and plan as documented in the note. Patient seen and examined at bedside. No acute distress. Patient had just gotten fentanyl push 20 minutes prior to me seeing him He did have bouts of restlessness and agitation overnight Patient was saturating 93-94% on 80% of the time of examination I went down to 70%. I also changed vent setting to pressure support 05/23 patient was getting tidal volume of 450-500 Constitutional: No acute distress HEENT: PERRLA,positive Trach Respiratory system:Decreased air entry bilaterally, no wheeze, no rhonchi, positive crackles bilateral lower lobes CVS: S1-S2 positive, no murmurs or gallops Abdomen: Soft, nontender, nondistended, positive bowel sounds x4 Extremities: +2 pulses bilaterally radialis/ dorsalis pedis,no cyanosis, no edema Neuro:Sedated. Breathing over the vent Psych:Unable to assess G/U:Positive Mello --Prophylaxis VTE: Lovenox GI: Lansoprazole Lines: Peripheral, right radial, size 6 trach 08/27/2021 Diet: Tube feeds Plan: In/out: -1331, urine output 2251 AB.53/39/49 on PEEP of 8, 65% Patient is currently on voriconazole for possible invasive aspergillosis. I ordered galactomannan level. I doubt the patient has invasive aspergillosis. I will discontinue the voriconazole after total of 10 days Patient blood culture has been negative since 08/19/2021. Will complete total 2 weeks of antibiotics with cefazolin. MANFRED Mello later today Hypophosphatemia being replaced Tracheal ulcers could be from aggressive suctioning. We will get voriconazole levels as well, QTC 448 08/30/2021 Patient's Beta D glucan was high but patient was on Zosyn in the past so it is very nonspecific. Follow-up galactomannan I have personally spent 40 minutes of critical care time in the direct management of this patient. This is a life/limb threatening event. This includes time spent evaluating patient, direct bedside care, chart review, placing orders, interpretation of diagnostic studies, discussion with consultants, patient, and family members, as well as other required patient management activities. This time is exclusive of all separately billable procedures, and teaching time and separate from and in addition to any other critical care service time. Please note the above document was generated using voice recognition software. It may contain grammatical, syntax or spelling errors. Subjective Attending: Dr. Johns Patient continues to be minimally responsive. Occasionally opens eyes. Does not follow simple commands. Hemodynamically stable. Tracheostomy tube is secure. Ventilator Ordered Settings Ventilator Support Mode CPAP 08/30/21 15:05 Respiratory Rate 21 08/30/21 15:05 Ventilator Tidal Volume 380 08/30/21 08 :00 Setting Minute Ventilation 14.0 08/30/21 15:05 Ventilator Positive Pressure 6 08/30/21 15:05 Support Setting Positive End Expiratory 8 08/30/21 15:05 Pressure Fraction of Inspired Oxygen 70 08/30/21 15:05 Biphasic High 24 08/20/21 11:15 Machine Comment weaned PS to 5 and FIO2 to 65% 08/30/21 15:05 Ventilator - PT Measurements Respiratory Rate 21 Exhaled Tidal Volume 579 Minute Ventilation 14.0 Peak Inspiratory Airway 19 Pressure Plateau Pressure 25 Respiratory Cycle Inspiratory: 1:1.4 Expiratory Ratio Inspiratory Phase Time 0.80 End-Tidal CO2 42 Static Lung Compliance 34.12 Dynamic Lung Compliance 52.64 Normal Static Lung Compliance 49.00 Patient Measurements Comment increased fio2 post ABG due to low PaO2 on ABG- Justus PA aware Review of Systems Review of Systems: Unobtainable due to reduced consciousness Physical Exam 2 Physical Exam: Patient seen and examined at bedside. Please refer to Dr. Johns's addendum for physical examination. Results & Data Results & Data ([facility]) Vital Signs (Past 12 Hours) Vital Signs Temp Pulse Resp BP Pulse Ox 08/30/21 13:00 100 H 17 93 08/30/21 12:30 99 H 21 92 08/30/21 12:00 37.3 C 113 H 31 H 129/74 88 L 08/30/21 11:30 100 H 19 91 08/30/21 11:00 91 H 19 90 08/30/21 10:00 97 H 17 90 08/30/21 09:00 94 H 26 H 128/85 92 08/30/21 08:01 113 H 36 H 86 L 08/30/21 07:10 93 H 27 H 93 08/30/21 07:00 76 28 H 93 08/30/21 05:14 26 H 08/30/21 04:00 135/82 Laboratory Results 08/30/21 05:04 08/30/21 05:04 08/09/21 08/10/21 16:59 06:14 ABG pH 7.49 H ABG pCO2 29 L ABG pO2 67 L ABG HCO3 22 ABG O2 Saturation 95.0 ABG Base Excess 0.2 VBG pH 7.50 H VBG pCO2 34 L VBG pO2 31 VBG HCO3 26 VBG O2 Saturation 63.0 VBG Base Excess 3.5 Diagnostic Findings Chest X-Ray 08/30/21 07:00 XR chest 1V portable HISTORY: Respiratory failure. COMPARISON: Chest 08/29/2021. FINDINGS: No pneumothorax. Nasogastric tube terminates below the diaphragm. The tip is not included on this study. Tracheostomy tube is in good position. The heart is normal in size. Interstitial thickening and patchy bilateral airspace opacities remain unchanged. Suspect trace bilateral pleural effusions. IMPRESSION: No change in the bilateral airspace opacities likely representing a pneumonia. Satisfactory support line placement. ACT 112: Negative or not required by law. Electronically signed by: Cory Rousseau M.D. 08/30/2021 8:35 AM Medications Administered Current Inpatient Medications Acetaminophen (Acetaminophen Susp 325 Mg/10.15 Ml Udc) 650 mg PO Q6H PRN PRN Reason: Fever Stop: 09/20/21 00:59 Last Admin: 08/24/21 05:43 Dose: 650 mg Documented by: Albuterol (Albut/Ipratrop 3mg/0.5mg Neb 3 Ml Vial) 3 ml NEB Q4R PRN PRN Reason: Wheezing Stop: 09/19/21 02:59 Last Admin: 08/21/21 09:52 Dose: 3 ml Documented by: Atropine Sulfate (Atropine Sulfate 0.1 Mg/Ml 10ml Syr) 1 mg IV ONE PRN PRN Reason: BRADYCARDIA: HR < 40 Stop: 09/22/21 16:22 Clonazepam (Clonazepam 1 Mg Tab) 1 mg PO BID SERGEI Stop: 09/25/21 11:14 Last Admin: 08/30/21 08:09 Dose: 1 mg Documented by: Clonidine HCl (Clonidine Hcl 0.1 Mg Tab) 0.1 mg PO BID SERGEI Stop: 09/27/21 08:59 Last Admin: 08/30/21 08:09 Dose: 0.1 mg Documented by: Dextrose (Dextrose 50% 50 Ml Syringe) 25 - 50 ml IV UD PRN; Protocol PRN Reason: Hypoglycemia Protocol Stop: 09/15/21 10:29 Docusate Sodium (Docusate Sodium Syrup 100 Mg/10 Ml Udc) 100 mg PO BID SERGEI Stop: 09/17/21 09:59 Last Admin: 08/30/21 08:10 Dose: Not Given Documented by: Enoxaparin Sodium (Enoxaparin Inj 40 Mg/0.4 Ml Syr) 40 mg SQ QAM SERGEI Stop: 09/25/21 08:59 Last Admin: 08/30/21 08:09 Dose: 40 mg Documented by: Fentanyl Citrate (Fentanyl Citrate 100 Mcg/2 Ml Vial) 50 mcg IV Q2H PRN PRN Reason: Moderate Pain (4,5,6) on NRS Stop: 09/08/21 13:50 Last Admin: 08/30/21 08:09 Dose: 50 mcg Documented by: Furosemide (Furosemide 40 Mg/4 Ml Vial) 40 mg IV DAILY SERGEI Stop: 09/24/21 10:59 Last Admin: 08/30/21 08:09 Dose: 40 mg Documented by: Glucagon (Glucagon For Inj 1 Mg Vial) 1 mg IM UD PRN; Protocol PRN Reason: Hypoglycemia Protocol Stop: 09/15/21 10:29 Glucose (Glucose 40% Gel 15 Gm Tube) 15 - 30 gm PO UD PRN; Protocol PRN Reason: Hypoglycemia Protocol Stop: 09/15/21 10:29 Glucose (Glucose 10 Tabs/Tube) 4 - 8 tabs PO UD PRN; Protocol PRN Reason: Hypoglycemia Protocol Stop: 09/15/21 10:29 Hydralazine HCl (Hydralazine Hcl 20 Mg/Ml Vial) 10 mg IV Q4 PRN PRN Reason: Hypertension Stop: 09/23/21 16:27 Last Admin: 08/28/21 08:19 Dose: 10 mg Documented by: Voriconazole 350 mg/ Sodium (Chloride) 100 mls @ 100 mls/hr IV Q12H [facility] Stop: 09/02/21 04:59 Last Infusion: 08/30/21 04:11 Dose: Infused Documented by: Cefazolin Sodium (Ancef 2000mg) 2,000 mg in 15 mls @ 3.75 mls/min IV Q8H [facility] Stop: 09/02/21 10:59 Last Admin: 08/30/21 11:39 Dose: 3.75 mls/min Documented by: Insulin Aspart (Insulin Aspart 100 Units/Ml 3 Ml Pen) 0 units SC Q6 [facility] Stop: 09/22/21 17:59 Last Admin: 08/30/21 12:17 Dose: Not Given Documented by: Lactulose (Lactulose Syrup 20 Gm/30 Ml Udc) 20 gm PO BID [facility] Stop: 09/22/21 11:59 Last Admin: 08/30/21 08:10 Dose: 20 gm Documented by: Lansoprazole (Lansoprazole 30 Mg Soltab) 30 mg NG QAM [facility] Stop: 09/30/21 08:59 Miscellaneous (Carbohydrates For Hypoglycemia ) 15 - 30 gm PO UD PRN PRN Reason: Hypoglycemia Treatment Stop: 09/15/21 10:29 Nutritional Formula (Peptamen Intense Vhp 1.0 Porter 1,000 Ml Bag) 1,000 ml OG CONT [facility]; Protocol Stop: 09/13/21 15:44 Last Admin: 08/30/21 11:40 Dose: 1,000 ml Documented by: Ondansetron HCl (Ondansetron Inj 2 Mg/Ml 2 Ml Vial) 4 mg IV Q4H PRN PRN Reason: Nausea Stop: 09/11/21 17:50 Last Admin: 08/13/21 06:23 Dose: 4 mg Documented by: Oxycodone HCl (Oxycodone Hcl Soln 5 Mg/5 Ml Udc) 10 mg PO Q6 [facility] Stop: 09/11/21 11:59 Last Admin: 08/30/21 11:41 Dose: 10 mg Documented by: Quetiapine Fumarate (Quetiapine Fumarate 200 Mg Tab) 200 mg PO DAILY [facility] Stop: 09/25/21 11:14 Last Admin: 08/30/21 08:09 Dose: 200 mg Documented by: Sennosides (Sennosides 8.8 Mg/5 Ml Udc) 8.8 mg PO QAM [facility] Stop: 09/17/21 09:59 Last Admin: 08/30/21 08:10 Dose: Not Given Documented by: Sterile Water (Tube Feeding Water Flush) 60 ml OG Q4H [facility] Stop: 09/17/21 10:44 Last Admin: 08/30/21 11:34 Dose: 60 ml Documented by: Coding Level of Care Code Critical Care 1st 30-74 mins Diagnoses ARDS (adult respiratory distress syndrome) J80 2019 novel coronavirus-infected pneumonia (NCIP) U07.1; J12.82 Acute respiratory failure with hypoxia J96.01 Breath shortness R06.02 Positive blood cultures R78.81 Nightmare disorder F51.5 Time Spent (min) 40
--- NOTE | 2021-08-30 22:06 | Hospitalist Progress Note ---
Date of Service August 30, 2021 Assessment & Plan (1) Acute respiratory failure with hypoxia: Plan: 56 y/o male w/ PMHx of anxiety and [place]ER[place] who presented with acute hypoxic respiratory failure secondary to COVID-19 pneumonia on day 9 of symptoms (08/01/21 onset) initially on Vapotherm, status declined on 08/13 placed on BIPAP, did not tolerate, got more confused, saturations dropping Dr. Underwood intubated patient at night on 08/13 dexamethasone, currently weaning off baricitinib 4mg daily initially, stopped when intubated CTA chest negative for PE, showed bilateral viral pneumonia CRP was quite elevated [facility], age cutoff is 55, other facilities it is lower at 45, could not transfer patient patient did relatively well with spontaneous breathing trial on 08/24 extubated around noon on 08/24, directly to BIPAP/CPAP could not maintain oxygen saturations, very tachypneic and agitated on 08/25 he was re-intubated on 08/25 tracheostomy performed on 08/[address] Villeda bronchoscopy on 08/27, showed ulcers, brushings sent, Fungitell sent, hold on treatment until results will work towards LTACH placement, won't happen until next week Patient remains sedated, will continue to closely monitor. (2) 2019 novel coronavirus-infected pneumonia (NCIP): Plan: sick since 08/01 continue ARDSnet protocol, supine stopped dexamethasone given the Aspergillus in trach sputum extubated on 08/24, then re-intubated and ventilated on 08/25 tracheostomy done on 08/27, tolerated well (3) Positive blood cultures: Plan: one set was coag negative staph ID consult appreciated currently on Ancef, need to continue for 14 days from negative culture which was 08/19/21, so last day would be 09/02/21 Voriconazole is for Aspergillus on tracheal aspirates on 08/23 and 08/20 Dr. Villeda d/w ID at [facility], they recommended at least 12 weeks of voriconazole and likely 6 months of therapy (4) Anxiety: Plan: clonazepam, now sedated with Propofol, might need Precedex Plan: FEN/GI: ppx: Lovenox, Protonix code: full dispo:ICU status Admission and Anticipated Discharge Date Admission Date: August 10, 2021 Subjective Patient is intubated. Review of Systems Review of Systems: Unobtainable due to cognitive status Physical Exam Physical Exam: General: well developed, well nourished, ill appearing, mechani alondra ventilated via trach Neck: supple, tracheostomy present Lungs: clear to auscultation bilaterally, symmetric chest movement on ventilation Heart: regular S1 and S2, no murmur, peripheral pulses normal, capillary refill normal, no edema Abdomen: soft, NT, ND, + bowel sounds Extremities: normal in appearance, no cyanosis, no petechiae Neuro: moving extremities, CN II-XII intact, no focal deficits Skin: warm, dry, no rash, normal turgor Psych: sedated Results & Data Results & Data ([facility]) Vital Signs (Past 12 Hours) Vital Signs Temp Pulse Resp BP Pulse Ox 08/30/21 20:00 129/55 L 08/30/21 18:00 93 H 16 117/61 92 08/30/21 17:00 37.6 C H 93 H 15 92 08/30/21 16:00 113 H 24 123/76 91 08/30/21 15:05 100 H 21 93 08/30/21 15:00 98 H 22 92 08/30/21 14:00 96 H 17 93 08/30/21 13:00 100 H 17 93 08/30/21 12:30 99 H 21 92 08/30/21 12:00 37.3 C 113 H 31 H 129/74 88 L 08/30/21 11:30 100 H 19 91 08/30/21 11:00 91 H 19 90 PG Care Time/CCT Total # of Minutes Spent Total Time Spent with Patient: Total time spent is greater than 50% in coordination of care (as documented) at patient's floor/unit and/or counseling patient: Coding Level of Care Code 83026 Subseq Hosp Care Lvl 2 Diagnoses Acute respiratory failure with hypoxia J96.01 2019 novel coronavirus-infected pneumonia (NCIP) U07.1; J12.82 Positive blood cultures R78.81 Anxiety F41.9 Time Spent (min) 25
[2021-08-31] MEDS: oxyCODONE HCL SOLN 5 MG/5 ML UDC PO SCH ×4 (00:03→20:30)
[2021-08-31] MEDS: TUBE FEEDING WATER FLUSH OG SCH ×7 (00:03→23:40)
[2021-08-31] MEDS: INSULIN ASPART 100 UNITS/ML 3 ML PEN SC SCH ×5 (00:22→23:40)
[2021-08-31] MEDS: ceFAZolin 2000MG 2,000 MG/15 ML SYR IV SCH ×3 (02:28→20:25)
[2021-08-31] MEDS: VORICONAZOLE 350 MG in 0.9 % SODIUM CHLORIDE 65 ML IV SCH ×2 (03:32→14:55)
[2021-08-31 05:49] LABS: iSTAT Art Bld Gas pCO2 Correct 51 mmHg (35-46); iSTAT Art Bld Gas pH Corrected 7.459 (7.35-7.45); iSTAT Arterial Blood Gas HCO3 36 meg/L (19-24); iSTAT Arterial Blood Gas pCO2 51 mmHg (35-46); iSTAT Arterial Blood Gas pH 7.46 (7.35-7.45); iSTAT Arterial Blood Gas pO2 77 mmHg (80-95); iSTAT Arterial Blood Gas pO2 C 77; iSTAT Carbon Dioxide 38 mmol/L (24-31); iSTAT FiO2 70 %; iSTAT Hematocrit 30 % (42-52); iSTAT Hemoglobin 10.2 g/dl (14.0-18.0); iSTAT Potassium 3.8 mmol/L (3.3-5.0); iSTAT Site L Brachial; iSTAT Sodium 145 mmol/L (135-144)
[2021-08-31 05:59] LABS: Basophils # (auto) 0.01 K/uL (0-0.2); Basophils % (auto) 0.1 %; Eosinophils # (auto) 0.22 K/uL (0-0.5); Eosinophils % (auto) 2.4 %; Hematocrit (blood only) 32.7 % (42-52); Hemoglobin 10.2 g/dL (14.0-18.0); Immature Granulocytes # (auto) 0.05 K/uL (0.00-0.02); Immature Granulocytes % (auto) 0.5 %; Lymphocytes # (auto) 1.19 K/uL (1.2-3.4); Lymphocytes % (auto) 12.7 %; Mean Corpuscular Hemoglobin 29.8 pg (25-34); Mean Corpuscular Hgb Conc 31.2 g/dL (32-36); Mean Corpuscular Volume 95.6 fL (80-100); Mean Platelet Volume 10.6 fL (7.4-10.4); Monocytes # (auto) 0.31 K/uL (0.11-0.59); Monocytes % (auto) 3.3 %; Neutrophils # (auto) 7.56 K/uL (1.4-6.5); Platelet Count 417 K/uL (130-400); RDW Coefficient of Variation 14.3 % (11.5-14.5); RDW Standard Deviation 49.6 fL (36.4-46.3); Red Blood Count 3.42 M/uL (4.7-6.1); White Blood Count 9.34 K/uL (4.8-10.8)
[2021-08-31] MEDS: PEPTAMEN INTENSE VHP 1.0 CAL 1,000 ML BAG OG SCH (06:06)
[2021-08-31 06:26] LABS: Albumin Level 1.5 gm/dl (3.4-5.0); BUN Creatinine Ratio 56.4 (10-20); Calcium 8.5 mg/dl (8.5-10.1); Creatinine Clr Calc Pharmacy 119.3 ml/min; Est GFR (Non-African American) 101.8 ml/min; Potassium 3.7 mmol/L (3.5-5.1)
[2021-08-31 06:29] LABS: Albumin Globulin Ratio 0.2 (0.9-2); Bilirubin,Total 0.7 mg/dl (0.2-1); Globulin 6.1 gm/dl (2.5-4.0); Total Protein 7.6 gm/dl (6.4-8.2)
[2021-08-31] MEDS: fentaNYL citrate 100 MCG/2 ML VIAL IV PRN (07:25)
[2021-08-31] MEDS: ACETAMINOPHEN SUSP 325 MG/10.15 ML UDC PO PRN (07:25)
[2021-08-31] MEDS: cloNIDine HCL 0.1 MG TAB PO SCH ×2 (07:26→20:26)
[2021-08-31] MEDS: clonazePAM 1 MG TAB PO SCH ×2 (07:26→20:29)
[2021-08-31] MEDS: FUROSEMIDE 40 MG/4 ML VIAL IV SCH (07:27)
[2021-08-31] MEDS: QUEtiapine FUMARATE 200 MG TAB PO SCH (07:27)
[2021-08-31] MEDS: ENOXAPARIN INJ 40 MG/0.4 ML SYR SQ SCH (07:27)
[2021-08-31] MEDS: SENNOSIDES 8.8 MG/5 ML UDC PO SCH (07:27)
[2021-08-31] MEDS: LANSOPRAZOLE 30 MG SOLTAB NG SCH (07:27)
[2021-08-31] MEDS: LACTULOSE SYRUP 20 GM/30 ML UDC PO SCH ×2 (07:27→20:27)
[2021-08-31] MEDS: DOCUSATE SODIUM SYRUP 100 MG/10 ML UDC PO SCH ×2 (07:27→20:26)
[2021-08-31 08:10] LABS: Magnesium 2.5 mg/dl (1.8-2.4); Phosphorus 2.1 mg/dl (2.5-4.9)
--- NOTE | 2021-08-31 10:23 | XRay Report ---
SINGLE VIEW CHEST CLINICAL HISTORY: Respiratory failure FINDINGS: An AP, portable, upright chest radiograph is compared to study dated 08/30/2021. A tracheos andrey and an enteric tube are unchanged in position. The heart is enlarged. Multifocal airspace consol idation has not appreciably changed as compared to yesterday. Small pleural effusions are suspected. No pneumothorax is seen. The skeletal structures are osteopenic. The bony thorax is grossly intact. IMPRESSION: 1. Stable lines and tubes. 2. Multifocal airspace consolidation has not appreciably changed from yesterday. 3. Suspect small pleural effusions. ACT 112: Negative or not required by law. Electronically signed by: Tavares Bradley M.D. 08/31/2021 10:22 AM
[2021-08-31] MEDS ORDERED: POTASSIUM PHOSPHATE 15 MMOL in SODIUM CHLORIDE 0.9% 250 ML IV ONE (13:15)
--- NOTE | 2021-08-31 16:53 | Critical Care Progress Note ---
Date of Service August 31, 2021 Assessment & Plan (1) ARDS (adult respiratory distress syndrome): (2) 2019 novel coronavirus-infected pneumonia (NCIP): (3) Acute respiratory failure with hypoxia: (4) Breath shortness: (5) Positive blood cultures: (6) Nightmare disorder: Plan: Impression: 56-year-old male with a noncontributory past medical history presenting to the hospital due to COVID-19 viral pneumonia and was intubated on 08/13/2021 due to worsening ARDS.Percutaneous tracheostomy that was then performed 08/27/2021 with a 6.0 Shiley 24 Hour events: Sensorium continues to be diminished but improved slightly. Oxygen requirements are improving. Pressure support ventilation trials are underway. Patient does follow simple commands as listed above in the HPI Recommendations: Neurologic: As needed pushes of fentanyl and Versed. Continue oral clonazepam sergei BID, and oxycodone, and current dose of Seroquel. Seems to be clearing slowly. Following simple commands today. Opens eyes to command. Still not verbalizing Pulmonary: Severe ARDS secondary to Covid. Intubated 08/13/2021. Extubated 08/25 and [id number] due to respiratory failure. Status post percutaneous tracheostomy 08/27/2021. Ulcers identified on bronchoscopy status post brushing. Patient started on voriconazole. Continue efforts at diuresis. Discontinued dexamethasone given Aspergillus in the lung. Continue to wean vent support and continue pressure support trials as tolerated. Sputum culture 08/15/2021 also with E. coli that is pansensitive. He completed antibiotic therapy for this. He is currently receiving cefazolin and voriconazole. This treatment will conclude on 09/02/2021. Cardiovascular: Hemodynamically stable to hypertensive currently. Continue oral clonidine and continue as needed hydralazine. Continue attempts to keep input and output even. Patient more responsive today. -9.7 L admission to date. Gastrointestinal: Continue lansoprazole. Continue TF via coresafe. Currently at goal at 60 mL/h. Per case management, the patient may require PEG tube befor e transfer to LTAC. Consider GI evaluation for PEG if unable to make progress. Continue to maintain head of bed greater than 30 degrees while receiving tube feeds. Renal: Creatinine and electrolytes are stable. Continue daily Lasix 40 IV daily. Maintain fluid balance. Strict I's and O's Infectious disease: Appreciate ID consultation. Surveillance cultures have been negative and he is on cefazolin for coag negative staph in the blood. He will complete treatment on 09/02/2021. He is also placed on voriconazole given Aspergillus in the tracheal aspirate x 2. ID recommended at least 12 weeks of voriconazole and likely 6 months of therapy. Ancef is 14 days from negative cultures. Follow closely for fever with discontinuation of steroids. Await results from brushings from the tracheal ulcers - ? HSV, hold on acyclovir for now. Fungitell currently pending as well. Hematologic: Lovenox 40 mg daily. Mild anemia seen no evidence of blood loss or indication for transfusion. Endocrine: Glycemic control per protocol. TSH within normal limits from 08/21/2021. VTE prophylaxis: Lovenox for DVT prophylaxis. We will need aggressive PT OT and speech therapy evaluations as tolerated by his weaning status and neurological status CODE STATUS: Full code Disposition: Remain in the ICU pending improvement of respiratory status. Referral made to [facility]. Patient was discussed with the critical care bedside nurse. Remains critically ill with possibility of clinical deterioration and . Admission and Anticipated Discharge Date Admission Date: August 10, 2021 Supervising Physician Co-Signing Physician Notes I saw and evaluated the patient with Tavares Bowen, and agree with findings and plan as documented in the note. Patient seen and examined bedside. No acute distress overnight He was on pressure support and already getting tidal volumes in four hundreds. Has been spiking getting low-grade fever Constitutional: No acute distress HEENT: PERRLA,positive Trach Respiratory system:Decreased air entry bilaterally, no wheeze, no rhonchi, positive crackles bilateral lower lobes CVS: S1-S2 positive, no murmurs or gallops Abdomen: Soft, nontender, nondistended, positive bowel sounds x4 Extremities: +2 pulses bilaterally radialis/ dorsalis pedis,no cyanosis, no edema Neuro:Sedated. Breathing over the vent Psych:Unable to assess G/U:Positive Mello --Prophylaxis VTE: Lovenox GI: Lansoprazole Lines: Peripheral, size 6 trach 08/27/2021 Diet: Tube feeds Plan: In/out: Negative 475, urine output 2651 K-Phos has been in place for hypophosphatemia, DC arterial line today We will repeat EKG in the morning to look at the QTC Continue with cefazolin and voriconazole for 2 more days. Please note the above document was generated using voice recognition software. It may contain grammatical, syntax or spelling errors. Subjective Attending: Dr. Johns Patient seen and examined at bedside in room 105. He is more alert today but still not able to answer to review of systems. He does follow simple commands. He can lift both hands but he cannot give a thumbs up with either hand. He can open and close eyes on command. He can shake head on command he can nod head on command. He does stick his tongue out and pointed to command. No verbalization at this time. He does shake head no when asked if he has any pain. And he shakes his head no when asked if he has any shortness of breath. Review of Systems Review of Systems: All systems reviewed & are unremarkable except as noted in Subjective Physical Exam Physical Exam: Patient seen and examined. Please refer to Dr. Johns's addendum for physical examination Results & Data Results [facility] Vital Signs (Past 12 Hours) Vital Signs Temp Pulse Resp BP Pulse Ox 08/31/21 13:00 104 H 25 H 115/60 90 08/31/21 12:00 37.9 C H 99 H 24 124/68 91 08/31/21 11:44 108 H 23 88 L 08/31/21 11:00 105 H 36 H 121/66 92 08/31/21 10:00 98 H 27 H 91 08/31/21 09:00 103 H 17 115/55 L 92 08/31/21 08:00 37.6 C H 91 H 17 94 08/31/21 07:55 104 H 18 91 08/31/21 07:00 90 16 86 L 08/31/21 06:00 100 H 20 91 08/31/21 05:00 110 H 0 L 91 Laboratory Results 08/31/21 05:19 08/31/21 05:19 Diagnostic Findings Chest X-Ray 08/31/21 07:00 SINGLE VIEW CHEST CLINICAL HISTORY: Respiratory failure FINDINGS: An AP, portable, upright chest radiograph is compared to study dated 10/30/2020. A tracheostomy and an enteric tube are unchanged in position. The heart is enlarged. Multifocal airspace consolidation has not appreciably changed as compared to yesterday. Small pleural effusions are suspected. No pneumothorax is seen. The skeletal structures are osteopenic. The bony thorax is grossly intact. IMPRESSION: 1. Stable lines and tubes. 2. Multifocal airspace consolidation has not appreciably changed from yesterday. 3. Suspect small pleural effusions. ACT 112: Negative or not required by law. Electronically signed by: Tavares Bradley M.D. 08/31/2021 10:22 AM Coding Level of Care Code Critical Care 1st 30-74 mins Diagnoses ARDS (adult respiratory distress syndrome) J80 2019 novel coronavirus-infected pneumonia (NCIP) U07.1; J12.82 Acute respiratory failure with hypoxia J96.01 Breath shortness R06.02 Positive blood cultures R78.81 Nightmare disorder F51.5 Time Spent (min) 40
--- NOTE | 2021-08-31 17:40 | Gastrointestinal Consultation ---
Date of Consultation August 31, 2021 Assessment & Plan (1) Malnutrition compromising bodily function: (2) Weight loss observed on examination: (3) Unable to eat: Impression is that Mr. Vazquez will need meterman (>30 days) of nutritional support with enteral tube feeding. He is currently obtunded and unable to give consent. I have recommended PEG tube insertion for meterman enteral feeding. This was discussed with the patient's spouse. The recommended procedure was discussed with Mrs. Vazquez, including the indications for examination and potential benefits, risks, alternatives, potential outcomes, and post procedure plans of care. All questions were addressed and answered, understanding was acknowledged, and consent was obtained. We discussed potential complications, including but not limited to bleeding, perforation, peritonitis, infection, any of which could lead to serious injury or . Mrs. Vazquez acknowledged her understanding and agreed to proceed. History of Present Illness Reason for Consultation: Evaluation for insertion of gastrostomy tube for snf enteral tube feeding Attending Physician: Leo Olson History of Present Illness Mr. Vazquez is in the hospital since mid July with Covid-19 pneumonia complicated by ARDS and respiratory failure, tracheal ulcerations, Aspergillus in the tracheal aspirate, E coli in the sputum, reduced level of consciousness, inability to eat and dependence on tube feeding. He was intubated on 08/13/21 and tracheostomy inserted on 08/27/21. History obtained from the record and interview with the patient's spouse. No past history of any significant digestive disorder, no abdominal operations in the past. Allergies Allergy/AdvReac Type Severity Reaction Status Date / Time aluminum Allergy inflammatio Verified 06/15/21 11:06 n Home Medications Medication Instructions Recorded Confirmed Type No Known Home Medications 06/15/21 08/09/21 History Patient History Medical History (Updated 08/31/21 @ 17:45 by Contreras Deluna MD) ARDS (adult respiratory distress syndrome) Deviated nasal septum No significant past medical history Obstructive sleep apnea (adult) (pediatric) Positive blood cultures Tinnitus, bilateral Surgical History History of tonsillectomy Status post correction of deviated nasal septum Family History Grandfather Cancer Father Cancer Denies family history of Malignant hypothermia due to anesthesia Family history of adverse reaction to anesthesia Social History Smoking Status: Never smoker Second Hand Exposure: Yes; Do You Dip or Chew Tobacco: No; Tobacco Cessation Education Requested by Patient: No Hx Alcohol Use: Yes Alcohol type: beer and wine Alcohol Intake Frequency: 4 or More x per/Week Hx Substance Use: No Preferred Language: French Communication Ability: Unable Chips Screen Tender Required: Yes Beliefs That Will Affect Care: None marital status: Current Living Situation: Spouse current occupational status: employed current occupation: IT Other Information That Helps Us Care for You: No Feels Safe at Home: Yes Safety Concerns: Feels Safe At This Time Assistive Devices: Oxygen - Continuous Assistive Devices Comment: cant tolerate CPAP Review of Systems Review of Systems: Unobtainable Physical Exam Gastrointestinal (Abdomen): normal bowel sounds, soft, nontender, no hepatos plenomegaly No distension, no guarding, no palpable masses, no surgical scars Results & Data ([facility]) Vital Signs (Past 12 Hours) Vital Signs Temp Pulse Resp BP Pulse Ox 08/31/21 17:00 103 H 19 113/56 L 91 08/31/21 16:00 37.6 C H 103 H 12 103/55 L 95 08/31/21 15:45 106 H 20 93 08/31/21 15:00 101 H 23 123/68 90 08/31/21 14:00 109 H 28 H 119/66 87 L 08/31/21 13:00 104 H 25 H 115/60 90 08/31/21 12:00 37.9 C H 99 H 24 124/68 91 08/31/21 11:44 108 H 23 88 L 08/31/21 11:00 105 H 36 H 121/66 92 08/31/21 10:00 98 H 27 H 91 08/31/21 09:00 103 H 17 115/55 L 92 08/31/21 08:00 37.6 C H 91 H 17 94 08/31/21 07:55 104 H 18 91 08/31/21 07:00 90 16 86 L 08/31/21 06:00 100 H 20 91 Laboratory Results Laboratory Results WBC 9.34 K/uL (4.8-10.8) 08/31/21 05:19 RBC 3.42 M/uL (4.7-6.1) L 08/31/21 05:19 Hgb 10.2 g/dL (14.0-18.0) L 08/31/21 05:19 POC Hgb 10.2 g/dl (14.0-18.0) L 08/31/21 05:19 Hct 32.7 % (42-52) L 08/31/21 05:19 POC Hct 30 % (42-52) L 08/31/21 05:19 MCV 95.6 fL (80-100) 08/31/21 05:19 MCH 29.8 pg (25-34) 08/31/21 05:19 MCHC 31.2 g/dL (32-36) L 08/31/21 05:19 RDW Std Deviation 49.6 fL (36.4-46.3) H 08/31/21 05:19 RDW Coeff of Nicole 14.3 % (11.5-14.5) 08/31/21 05:19 Plt Count 417 K/uL (130-400) H 08/31/21 05:19 MPV 10.6 fL (7.4-10.4) H 08/31/21 05:19 Immature Gran % (Auto) 0.5 % 08/31/21 05:19 Neut % (Auto) 81.0 % 08/31/21 05:19 Lymph % (Auto) 12.7 % 08/31/21 05:19 Slope % (Auto) 3.3 % 08/31/21 05:19 Eos % (Auto) 2.4 % 08/31/21 05:19 Baso % (Auto) 0.1 % 08/31/21 05:19 Neut # (Auto) 7.56 K/uL (1.4-6.5) H 08/31/21 05:19 Lymph # (Auto) 1.19 K/uL (1.2-3.4) L 08/31/21 05:19 Slope # (Auto) 0.31 K/uL (0.11-0.59) 08/31/21 05:19 Eos # (Auto) 0.22 K/uL (0-0.5) 08/31/21 05:19 Baso # (Auto) 0.01 K/uL (0-0.2) 08/31/21 05:19 Immature Gran # (Auto) 0.05 K/uL (0.00-0.02) H 08/31/21 05:19 RBC Morphology Unremarkable 08/23/21 04:25 Sample Site L Brachial 08/31/21 05:19 POC pH 7.46 (7.35-7.45) H 08/31/21 05:19 POC pCO2 51 mmHg (35-46) H 08/31/21 05:19 POC pO2 77 mmHg (80-95) L 08/31/21 05:19 POC HCO3 36 leonardo/L (19-24) H 08/31/21 05:19 POC Total CO2 38 mmol/L (24-31) H 08/31/21 05:19 POC Base Excess 12.0 leonardo/L (-9-1.8) H 08/31/21 05:19 ABG pH 7.49 (7.35-7.45) H 08/10/21 06:14 ABG pH (Temp Correct) 7.459 (7.35-7.45) H 08/31/21 05:19 ABG pCO2 29 mmHg (35-46) L 08/10/21 06:14 ABG pCO2 (Temp Corrct 51 mmHg (35-46) H 08/31/21 05:19 ABG pO2 67 mmHg (80-95) L 08/10/21 06:14 POC ABG pO2 at Pt Temp 77 08/31/21 05:19 ABG HCO3 22 mmol/L (19-24) 08/10/21 06:14 POC ABG O2 Sat 96.0 % (90-95) H 08/31/21 05:19 ABG O2 Saturation 95.0 % (90-95) 08/10/21 06:14 ABG Base Excess 0.2 mEq/L (-9-1.8) 08/10/21 06:14 Hemanth Test NA 08/31/21 05:19 VBG pH 7.50 (7.36-7.41) H 08/09/21 16:59 VBG pCO2 34 mmHg (38-50) L 08/09/21 16:59 VBG pO2 31 mmHg 08/09/21 16:59 VBG HCO3 26 mmol/L 08/09/21 16:59 VBG O2 Saturation 63.0 % 08/09/21 16:59 VBG Base Excess 3.5 mEq/L 08/09/21 16:59 Barometric Pressure 723.3 mm/Hg 08/10/21 06:14 Oxygen Given 40% 08/10/21 06:14 O2 Delivery Device Ventilator 08/31/21 05:19 POC O2 Rate 26 08/30/21 04:23 Minute Ventilation 8.0 08/18/21 11:14 POC FiO2 70 % 08/31/21 05:19 Tidal Volume 380 08/30/21 04:23 PEEP 10 08/31/21 05:19 Time High 5.5 08/19/21 04:21 Time Low 0.5 08/19/21 04:21 IPAP 12 08/24/21 13:21 POC Sodium 145 mmol/L (135-144) H 08/31/21 05:19 Sodium 142 mmol/L (136-145) 08/31/21 05:19 POC Potassium 3.8 mmol/L (3.3-5.0) 08/31/21 05:19 Potassium 3.7 mmol/L (3.5-5.1) 08/31/21 05:19 Chloride 107 mmol/L (98-107) 08/31/21 05:19 Carbon Dioxide 33 mmol/L (21-32) H 08/31/21 05:19 Anion Gap 2.0 (3-11) L 08/31/21 05:19 BUN 43 mg/dl (7-18) H 08/31/21 05:19 Creatinine 0.75 mg/dl (0.6-1.4) 08/31/21 05:19 Est Cr Clr Drug Dosing 119.3 ml/min 08/31/21 05:19 Est GFR ( Amer) 118.0 ml/min 08/31/21 05:19 Est GFR (Non-Af Amer) 101.8 ml/min 08/31/21 05:19 BUN/Creatinine Ratio 56.4 (10-20) H 08/31/21 05:19 Glucose 124 mg/dl (70-99) H 08/31/21 05:19 POC Glucose 127 mg/dl (70-99) H 08/31/21 16:37 POC Glucose (other) 147 mg/dl (70-99) H 08/15/21 22:16 Calcium 8.5 mg/dl (8.5-10.1) 08/31/21 05:19 Phosphorus 2.1 mg/dl (2.5-4.9) L 08/31/21 05:19 Magnesium 2.5 mg/dl (1.8-2.4) H 08/31/21 05:19 Total Bilirubin 0.7 mg/dl (0.2-1) 08/31/21 05:19 Direct Bilirubin 0.6 mg/dl (0-0.2) H 08/15/21 04:32 AST 28 U/L (15-37) 08/31/21 05:19 ALT 13 U/L (12-78) 08/31/21 05:19 Alkaline Phosphatase 82 U/L (45-117) 08/31/21 05:19 Troponin I < 0.015 ng/ml (0-0.045) 08/09/21 16:15 C-Reactive Protein 32.00 mg/dl (0-0.29) H 08/15/21 04:32 Total Protein 7.6 gm/dl (6.4-8.2) 08/31/21 05:19 Albumin 1.5 gm/dl (3.4-5.0) L 08/31/21 05:19 Globulin 6.1 gm/dl (2.5-4.0) H 08/31/21 05:19 Albumin/Globulin Ratio 0.2 (0.9-2) L 08/31/21 05:19 Triglycerides 292 mg/dl (0-150) H 08/22/21 05:19 Lipase 165 U/L (73-393) 08/09/21 16:15 Procalcitonin 0.91 ng/ml (0-0.5) H 08/23/21 11:47 TSH 0.771 uIu/ml (0.300-4.500) 08/21/21 08:23 Urine Color Dark Yellow 08/21/21 Unknown Urine Appearance Cloudy (Clear) A 08/21/21 Unknown Urine pH 5.0 (4.5-7.5) 08/21/21 Unknown Ur Specific [place] 1.026 (1.000-1.030) 08/21/21 Unknown Urine Protein 2+ (Negative) H 08/21/21 Unknown Urine Glucose (UA) Negative (Negative) 08/21/21 Unknown Urine Ketones Negative (Negative) 08/21/21 Unknown Urine Blood 3+ (Negative) H 08/21/21 Unknown Urine Nitrite Negative (Negative) 08/21/21 Unknown Urine Bilirubin Negative (Negative) 08/21/21 Unknown Urine Urobilinogen Negative (Negative) 08/21/21 Unknown Ur Leukocyte Esterase 1+ (Negative) H 08/21/21 Unknown Urine WBC (Auto) 10-30 /hpf (0-5) H 08/21/21 Unknown Urine RBC (Auto) >30 /hpf (0-4) H 08/21/21 Unknown U Hyaline Cast (Auto) 5-10 /lpf (0-5) H 08/21/21 Unknown U Epithel Cells (Auto) >30 /lpf (0-5) H 08/21/21 Unknown Urine Bacteria (Auto) Negative (Negative) 08/21/21 Unknown Ur Renal Epithelial Cell Not Reportable 08/21/21 Unknown Amorphous Sediment Present (None Prsent) A 08/14/21 23:34 Granular Casts >30 /lpf (0) H 08/21/21 Unknown Urine Yeast Not Reportable 08/21/21 Unknown Nasal Screen MRSA (PCR) Negative (Negative) 08/14/21 03:20 Random Vancomycin 12.6 mcg/ml 08/18/21 09:12 COVID-19 Eval Order Covid19 at [facility] 08/09/21 16:11 SARS-CoV-2 (PCR) POSITIVE (Negative) A* 08/09/21 16:11 Hepatitis C Ab Screen Neg (Neg) 08/09/21 16:15 Bld Cult Staph aureus PCR Negative (Negative) 08/17/21 08:43 Blood Culture MRSA PCR Negative (Negative) 08/17/21 08:43 Beta-(1,3)-D-Glucan 147 pg/mL H 08/23/21 11:47 B-(1,3)-D-Glucan Intrp POSITIVE A 08/23/21 11:47 Miscellaneous Test Cancelled 08/30/21 10:28 Impressions Chest CTA 08/09/21 16:33 CT ANGIOGRAPHY OF THE CHEST, PULMONARY EMBOLUS PROTOCOL CLINICAL HISTORY: Shortness of breath. Covid. Evaluate for pulmonary embolus. COMPARISON STUDY: Chest radiograph performed earlier today. TECHNIQUE: Following IV administration of 120 mL of Optiray, helical axial images of the chest were obtained utilizing the pulmonary embolus protocol. Maximal intensity projections and sagittal and coronal reformats were viewed on an independent 3D workstation. IV contrast was administered without complication. Automated exposure control was utilized for the study. A dose lowering technique was utilized adhering to the principles of ALARA. CT DOSE: 587.16 mGy.cm FINDINGS: No pulmonary emboli are identified. There is no thoracic aortic dissection. Mild cardiomegaly is noted. Prominent mediastinal and bilateral hilar lymph nodes are likely reactive. Extensive groundglass opacities throughout the lungs are noted. Developing consolidation within the lower lobes is also present. Central airways are patent. There is no pneumothorax or pleural effusion. A 1.3 cm medial segment hepatic cyst is present IMPRESSION: 1. No pulmonary emboli identified. 2. Extensive airspace opacities within the lungs suggestive of viral pneumonia. 3. Prominent mediastinal and bilateral hilar lymph nodes which are likely reactive. ACT 112: Negative or not required by law. Electronically signed by: Alexi Mosley M.D. 08/09/2021 6:17 PM Chest X-Ray 08/31/21 07:00 SINGLE VIEW CHEST CLINICAL HISTORY: Respiratory failure FINDINGS: An AP, portable, upright chest radiograph is compared to study dated 08/30/2021. A tracheostomy and an enteric tube are unchanged in position. The heart is enlarged. Multifocal airspace consolidation has not appreciably changed as compared to yesterday. Small pleural effusions are suspected. No pneumothorax is seen. The skeletal structures are osteopenic. The bony thorax is grossly intact. IMPRESSION: 1. Stable lines and tubes. 2. Multifocal airspace consolidation has not appreciably changed from yesterday. 3. Suspect small pleural effusions. ACT 112: Negative or not required by law. Electronically signed by: Tavares Bradley M.D. 08/31/2021 10:22 AM
[2021-08-31 18:57] LABS: INR 1.3 (0.9-1.1)
--- NOTE | 2021-08-31 21:31 | Hospitalist Progress Note ---
Date of Service August 31, 2021 Assessment & Plan (1) Acute respiratory failure with hypoxia: Plan: 56 y/o male w/ PMHx of anxiety and GERMAN who presented with acute hypoxic respiratory failure secondary to COVID-19 pneumonia on day 9 of symptoms (08/01/21 onset) initially on Vapotherm, status declined on 08/13 placed on BIPAP, did not tolerate, got more confused, saturations dropping Dr. Underwood intubated patient at night on 08/13 dexamethasone, currently weaning off baricitinib 4mg daily initially, stopped when intubated CTA chest negative for PE, showed bilateral viral pneumonia CRP was quite elevated [facility], age cutoff is 55, other facilities it is lower at 45, could not transfer patient patient did relatively well with spontaneous breathing trial on 08/24 extubated around noon on 08/24, directly to BIPAP/CPAP could not maintain oxygen saturations, very tachypneic and agitated on 08/25 he was re-intubated on 08/25 tracheostomy performed on 08/[address] Villeda bronchoscopy on 08/27, showed ulcers, brushings sent, Fungitell sent, hold on treatment until results will work towards LTACH placement Patient remains sedated, becoming more awake. consult GI peg tube placement (2) 2019 novel coronavirus-infected pneumonia (NCIP): Plan: sick since 08/01 continue ARDSnet protocol, supine stopped dexamethasone given the Aspergillus in trach sputum extubated on 08/24, then re-intubated and ventilated on 08/25 tracheostomy done on 08/27, tolerated well (3) Positive blood cultures: Plan: one set was coag negative staph ID consult appreciated currently on Ancef, need to continue for 14 days from negative culture which was 08/19/21, so last day would be 09/02/21 Voriconazole is for Aspergillus on tracheal aspirates on 08/23 and 08/20 Dr. Villeda d/w ID at [place], they recommended at least 12 weeks of voriconazole and likely 6 months of therapy (4) Anxiety: Plan: clonazepam, now sedated with Propofol, might need Precedex Plan: FEN/GI: ppx: Lovenox, Protonix code: full dispo:ICU status Admission and Anticipated Discharge Date Admission Date: August 10, 2021 Subjective Patient remains sedated. Review of Systems Review of Systems: Unobtainable due to cognitive status Physical Exam Physical Exam: General: well developed, well nourished, ill appearing, mechanically ventilated via trach Neck: supple, tracheostomy present Lungs: clear to auscultation bilaterally, symmetric chest movement on ventilation Heart: regular S1 and S2, no murmur, peripheral pulses normal, capillary refill normal, no edema Abdomen: soft, NT, ND, + bowel sounds Extremities: normal in appearance, no cyanosis, no petechiae Neuro: moving extremities, CN II-XII intact, no focal deficits Skin: warm, dry, no rash, normal turgor Psych: sedated Results & Data Results & Data ([facility]) Vital Signs (Past 12 Hours) Vital Signs Temp Pulse Resp BP Pulse Ox 08/31/21 20:20 94 H 20 90 08/31/21 18:00 101 H 22 114/60 92 08/31/21 17:00 103 H 19 113/56 L 91 08/31/21 16:00 37.6 C H 103 H 12 103/55 L 95 08/31/21 15:45 106 H 20 93 08/31/21 15:00 101 H 23 123/68 90 08/31/21 14:00 109 H 28 H 119/66 87 L 08/31/21 13:00 104 H 25 H 115/60 90 08/31/21 12:00 37.9 C H 99 H 24 124/68 91 08/31/21 11:44 108 H 23 88 L 08/31/21 11:00 105 H 36 H 121/66 92 08/31/21 10:00 98 H 27 H 91 PG Care Time/CCT Total # of Minutes Spent Total Time Spent with Patient: Total time spent is greater than 50% in coordination of care (as documented) at patient's floor/unit and/or counseling patient: Coding Level of Care Code 92292 Subseq Hosp Care Lvl 2 Diagnoses Acute respiratory failure with hypoxia J96.01 2019 novel coronavirus-infected pneumonia (NCIP) U07.1; J12.82 Positive blood cultures R78.81 Anxiety F41.9
[2021-09-01] MEDS: ceFAZolin 2000MG 2,000 MG/15 ML SYR IV SCH ×3 (03:08→17:40)
[2021-09-01] MEDS: TUBE FEEDING WATER FLUSH OG SCH ×6 (03:09→20:39)
[2021-09-01] MEDS: VORICONAZOLE 350 MG in 0.9 % SODIUM CHLORIDE 65 ML IV SCH ×2 (03:09→15:02)
[2021-09-01] MEDS: ENOXAPARIN INJ 40 MG/0.4 ML SYR SQ SCH (04:55)
[2021-09-01 05:44] LABS: Basophils # (auto) 0.01 K/uL (0-0.2); Basophils % (auto) 0.1 %; Eosinophils # (auto) 0.23 K/uL (0-0.5); Eosinophils % (auto) 2.4 %; Hematocrit (blood only) 31.2 % (42-52); Immature Granulocytes # (auto) 0.03 K/uL (0.00-0.02); Immature Granulocytes % (auto) 0.3 %; Lymphocytes # (auto) 1.09 K/uL (1.2-3.4); Lymphocytes % (auto) 11.1 %; Mean Corpuscular Hemoglobin 30.1 pg (25-34); Mean Corpuscular Hgb Conc 32.1 g/dL (32-36); Mean Platelet Volume 10.2 fL (7.4-10.4); Monocytes # (auto) 0.52 K/uL (0.11-0.59); Monocytes % (auto) 5.3 %; Neutrophils % (auto) 80.8 %; Platelet Count 434 K/uL (130-400); Red Blood Count 3.32 M/uL (4.7-6.1); White Blood Count 9.78 K/uL (4.8-10.8)
[2021-09-01 05:48] LABS: INR 1.4 (0.9-1.1); Prothrombin Time 13.5 Seconds (9.0-12.0)
[2021-09-01 06:14] LABS: BUN Creatinine Ratio 45.2 (10-20); Calcium 8.5 mg/dl (8.5-10.1); Creatinine Clr Calc Pharmacy 99.4 ml/min; Est GFR (African American) 109.5 ml/min; Est GFR (Non-African American) 94.5 ml/min; Magnesium 2.4 mg/dl (1.8-2.4); Phosphorus 1.6 mg/dl (2.5-4.9); Potassium 3.6 mmol/L (3.5-5.1)
[2021-09-01] MEDS: oxyCODONE HCL SOLN 5 MG/5 ML UDC PO SCH ×4 (06:15→21:20)
[2021-09-01] MEDS: INSULIN ASPART 100 UNITS/ML 3 ML PEN SC SCH ×3 (06:15→15:44)
[2021-09-01] MEDS ORDERED: POTASSIUM PHOS 3 MMOL/1 ML INFUSION IV STA ×2 (06:24→09:41)
[2021-09-01] MEDS ORDERED: POTASSIUM PHOSPHATE 15 MMOL in SODIUM CHLORIDE 0.9% 250 ML IV ONE ×2 (06:30→10:00)
--- NOTE | 2021-09-01 07:13 | XRay Report ---
SINGLE VIEW CHEST CLINICAL HISTORY: Respiratory failure FINDINGS: 2 AP, portable, upright chest radiographs are compared to study dated 08/31/2021. The exami [facility] is degraded by portable technique and patient rotation. A tracheostomy and an enteric tube a re unchanged in position. The heart is enlarged. Multifocal airspace consolidation has not appreciabl y changed as compared to yesterday. No large pleural effusion is identified. No pneumothorax is seen. The skeletal structures are osteopenic. The bony thorax is grossly intact. IMPRESSION: 1. Stable lines and tubes. 2. Multifocal airspace consolidation has not appreciably changed from yesterday. ACT 112: Negative or not required by law. Electronically signed by: Tavares Bradley M.D. 09/01/2021 7:12 AM
[2021-09-01] MEDS: LANSOPRAZOLE 30 MG SOLTAB NG SCH (07:18)
[2021-09-01] MEDS: FUROSEMIDE 40 MG/4 ML VIAL IV SCH (07:18)
[2021-09-01] MEDS: QUEtiapine FUMARATE 200 MG TAB PO SCH (07:18)
[2021-09-01] MEDS: cloNIDine HCL 0.1 MG TAB PO SCH ×3 (07:18→21:20)
[2021-09-01] MEDS: ACETAMINOPHEN SUSP 325 MG/10.15 ML UDC PO PRN (07:21)
[2021-09-01] MEDS: fentaNYL citrate 100 MCG/2 ML VIAL IV PRN ×2 (07:21→15:03)
[2021-09-01] MEDS: SENNOSIDES 8.8 MG/5 ML UDC PO SCH (07:22)
[2021-09-01] MEDS: DOCUSATE SODIUM SYRUP 100 MG/10 ML UDC PO SCH ×2 (07:22→19:51)
[2021-09-01] MEDS: LACTULOSE SYRUP 20 GM/30 ML UDC PO SCH ×2 (07:22→19:51)
[2021-09-01] MEDS: clonazePAM 1 MG TAB PO SCH ×3 (07:22→21:20)
--- NOTE | 2021-09-01 09:22 | Gastroenterology Progress Note ---
Date of Service September 01, 2021 Assessment & Plan (1) Unable to eat: Plan: Recommended PEG tube insertion for prison enteral feeding. This was discussed with the patient's spouse by Dr. Deluna yesterday. Consent was obtained via patient's spouse at that time. Plan is for bedside procedure today. Please refer to supervising physician addendum for further recommendations. (2) Malnutrition compromising bodily function: Admission and Anticipated Discharge Date Admission Date: August 10, 2021 Supervising Physician Co-Signing Physician Notes I examined the patient today and reviewed the medical record, with the following observations: Subjective: Mr. Vazquez was febrile this morning. Nasoenteric tube feedings were well tolerated at 60cc per hour, tube feedings discontinued at midnight in preparation for PEG today. Lovenox dose held this morning Physical Examination: Benign abdominal exam Chart Review: Note elevated Protime and INR This case was reviewed with the advanced practice provider I agree with the assessment as outlined in this consultation, with the following observations: No new observations I agree with the plan of care as outlined in this consultation, with the following changes and/or additions: Proceed with PEG insertion. Subjective Chart reviewed including labs, physician notes, and nursing documentation. Hospitalized mid July with Covid-19 pneumonia complicated by ARDS and respiratory failure, tracheal ulcerations, Aspergillus in the tracheal aspirate, E coli in the sputum, reduced level of consciousness, inability to eat and dependence on tube feeding. He was intubated on 08/13/21 and tracheostomy inserted on 08/27/21. He requires PEG tube in [facility] and it is our impression is that Mr. 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 His has provided consent. Review of Systems Review of Systems: All systems reviewed & are unremarkable except as noted in Subjective Results & Data ([facility]) Vital Signs (Past 12 Hours) Vital Signs Temp Pulse Resp Pulse Ox 09/01/21 08:29 114 H 18 92 09/01/21 08:00 38.9 C H 09/01/21 06:00 37 C 110 H 38 H 88 L 09/01/21 05:00 111 H 66 H 87 L 09/01/21 04:00 112 H 59 H 88 L 09/01/21 03:40 110 H 23 91 09/01/21 03:00 119 H 40 H 89 L 09/01/21 02:00 116 H 33 H 90 09/01/21 01:00 112 H 33 H 89 L 09/01/21 00:00 113 H 25 H 89 L 08/31/21 23:45 114 H 21 90 08/31/21 23:00 111 H 26 H 88 L 08/31/21 22:00 103 H 19 91 08/31/21 21:30 103 H 20 93 Laboratory Results Laboratory Results - last 24 hr 08/31/21 08/31/21 08/31/21 12:10 16:37 18:32 WBC RBC Hgb Hct MCV MCH MCHC RDW Std Deviation RDW Coeff of Nicole Plt Count MPV Immature Gran % (Auto) Neut % (Auto) Lymph % (Auto) [place] % (Auto) Eos % (Auto) Baso % (Auto) Neut # (Auto) Lymph # (Auto) [place] # (Auto) Eos # (Auto) Baso # (Auto) Immature Gran # (Auto) PT 13.0 H INR 1.3 H Sodium Potassium Chloride Carbon Dioxide Anion Gap BUN Creatinine Est Cr Clr Drug Dosing Est GFR ( Amer) Est GFR (Non-Af Amer) BUN/Creatinine Ratio Glucose POC Glucose 146 H 127 H Calcium Phosphorus Magnesium 08/31/21 09/01/21 09/01/21 23:36 05:24 05:24 WBC 9.78 RBC 3.32 L Hgb 10.0 L Hct 31.2 L MCV 94.0 MCH 30.1 MCHC 32.1 RDW Std Deviation 48.0 H RDW Coeff of Nicole 14.0 Plt Count 434 H MPV 10.2 Immature Gran % (Auto) 0.3 Neut % (Auto) 80.8 Lymph % (Auto) 11.1 [place] % (Auto) 5.3 Eos % (Auto) 2.4 Baso % (Auto) 0.1 Neut # (Auto) 7.90 H Lymph # (Auto) 1.09 L [place] # (Auto) 0.52 Eos # (Auto) 0.23 Baso # (Auto) 0.01 Immature Gran # (Auto) 0.03 H PT 13.5 H INR 1.4 H Sodium Potassium Chloride Carbon Dioxide Anion Gap BUN Creatinine Est Cr Clr Drug Dosing Est GFR ( Amer) Est GFR (Non-Af Amer) BUN/Creatinine Ratio Glucose POC Glucose 107 H Calcium Phosphorus Magnesium 09/01/21 05:24 WBC RBC Hgb Hct MCV MCH MCHC RDW Std Deviation RDW Coeff of Nicole Plt Count MPV Immature Gran % (Auto) Neut % (Auto) Lymph % (Auto) [place] % (Auto) Eos % (Auto) Baso % (Auto) Neut # (Auto) Lymph # (Auto) [place] # (Auto) Eos # (Auto) Baso # (Auto) Immature Gran # (Auto) PT INR Sodium 143 Potassium 3.6 Chloride 107 Carbon Dioxide 32 Anion Gap 4.0 BUN 41 H Creatinine 0.90 Est Cr Clr Drug Dosing 99.4 Est GFR ( Amer) 109.5 Est GFR (Non-Af Amer) 94.5 BUN/Creatinine Ratio 45.2 H Glucose 102 H POC Glucose Calcium 8.5 Phosphorus 1.6 L Magnesium 2.4
[2021-09-01] MEDS: PEPTAMEN INTENSE VHP 1.0 CAL 1,000 ML BAG OG SCH (11:59)
[2021-09-01] MEDS ORDERED: MIDAZOLAM HCL 1 MG/ML 2ML VIAL ONE (13:46)
--- NOTE | 2021-09-01 14:38 | Post Operative Brief Note ---
Immediate Post Op Note v1 Date of Surgery September 01, 2021 Pre & Post Diagnosis Operation Date: 09/01/21 08:30 <No data on this case meets the specified criteria> I identified the patient and participated in the time-out.: Yes Procedure Operation Date: 09/01/21 08:30 <No data on this case meets the specified criteria> EGD with PEG Surgeon Contreras Deluna MD Building Attendant none Estimated Blood Loss 5 Findings Consistent with Post-Op Diagnosis Mild gastritis present, 20 Fr G tube inserted into the body of the stomach. Complications none noted
--- NOTE | 2021-09-01 14:50 | Procedure Note ---
Procedure Note Date of Service September 01, 2021 Note Conscious sedation note Date 09/01/2021 Time out performed at 1354 Provider administering conscious sedation: Tavares Bowen PA-C Procedure: Placement of PEG tube by Dr. Deluna Patient has tracheostomy tube and is on pressure support at 10/10. Converted to ventilator with PRVC at 14:04; TV 380, RR 18, PEEP 10, FiO2 65% Fentanyl: 50 mcg at 1355; 50 mcg at 1407 for a total of 100 mcg for the procedure Midazolam: 2 mg at 13:55 for a total of 2 mg for the entire procedure Starting blood pressure 116/91 with SaO2 of 91% at 1354. Vital signs were monitored every 2 minutes throughout the procedure. Patient had no blood pressures less than 100 mmHg systolically with a maximum heart rate of 105 bpm and had no hypoxia less than 90% for the entire procedure. Procedure was completed at 1430 for a total of 36 minutes of sedation time Patient was left on PRVC for recovery period. Respiratory was outside the room and available throughout the entire procedure. Respiratory received signout at the end of the procedure and will come back to convert the patient back to pressure support. Patient tolerated the procedure well. Dr. Deluna was present for the entire procedure. Coding CPT Codes Sedation/Anesthesia - Sedation/Anesthesia: 93184 Mod Sedation by the same physician;Init15 Min Child Age 5 & Up ([id number]) Sedation/Anesthesia - Sedation/Anesthesia: 51614 Mod Sedation by the same physician; Ea [id number] Minutes ([id number]) [facility] Procedure Codes (Charges) Sedation/Anesthesia Procedure 1: Sedation/Anesthesia: 72580 Mod Sedation by the same physician;Init15 Min Child Age 5 & Up Total Sedation Time (minutes): 36 Procedure 2: Sedation/Anesthesia: 72459 Mod Sedation by the same physician; Ea [id number] Minutes
--- NOTE | 2021-09-01 14:52 | GI REPORT ---
Patient Name: Robbi Vazquez Procedure Date: 09/01/2021 1:50 PM Date of : 1965 Admit Type: Inpatient Age: 56 Gender: Male Attending MD: Contreras Deluna MD Procedure: Upper GI endoscopy Providers: Contreras Deluna MD Referring MD: Leo Olson M.d. Indications: Place PEG because patient is unable to eat, Place PEG because patient requires ventilator support, Place PEG to improve nutrition in patient with prolonged severe illness Medicines: Sedation Administered by an Plasterer Spray Gun Complications: No immediate complications. Estimated Blood Loss: Estimated blood loss was minimal. Procedure: Pre-Anesthesia Assessment: - Prior to the procedure, a History and Physical was performed, and patient medications and allergies were reviewed. The patient is unable to give consent secondary to the patient's altered mental status. The risks and benefits of the procedure and the sedation options and risks were discussed with the patient's spouse. All questions were answered and informed consent was obtained. Patient identification and proposed procedure were verified by the physician and the nurse in the procedure room. Mental Status Examination: sedated. Airway Examination: tracheostomy via ventilator. Prophylactic Antibiotics: The patient requires prophylactic antibiotics for planned PEG placement. The patient received antibiotic therapy today, before the procedure started. Prior Anticoagulants: The patient has taken Lovenox (enoxaparin), last dose was 1 day prior to procedure. ASA Grade Assessment: IV - A patient with severe systemic disease that is a constant threat to life. After reviewing the risks and benefits, the patient was deemed in satisfactory condition to undergo the procedure. The anesthesia plan was to use moderate sedation / analgesia (conscious sedation). Immediately prior to administration of medications, the patient was re-assessed for adequacy to receive sedatives. The heart rate, respiratory rate, oxygen saturations, blood pressure, adequacy of pulmonary ventilation, and response to care were monitored throughout the procedure. The physical status of the patient was re-assessed after the procedure. After obtaining informed consent, the endoscope was passed under direct vision. Throughout the procedure, the patient's blood pressure, pulse, and oxygen saturations were monitored continuously. The upper GI endoscopy was accomplished without difficulty. The patient tolerated the procedure well. The Endoscope was introduced through the mouth, and advanced to the antrum of the stomach. Findings: Striped mildly erythematous mucosa was found in the entire examined stomach. The patient was placed in the supine position for PEG placement. The stomach was insufflated to appose gastric and abdominal oneal. A site was located in the body of the stomach with transillumination for placement. The abdominal wall was marked and prepped in a sterile manner. The area was anesthetized with 2 mL of 0.5% lidocaine. The trocar needle was introduced through the abdominal wall and into the stomach under direct endoscopic view. A snare was introduced through the endoscope and opened in the gastric lumen. The guide wire was passed through the trocar and into the open snare. The snare was closed around the guide wire. The endoscope and snare were removed, pulling the wire out through the mouth. A skin incision was made at the site of needle insertion. The 20 Fr Denis-Cook gastrostomy tube was lubricated. The G-tube was passed over the guide wire through the mouth, and into the stomach. The trocar needle was removed, and the gastrostomy tube was pulled out from the stomach through the skin. The guide wire was removed, and the external bumper attached to the gastrostomy tube. The feeding tube was then cut to an appropriate length. The final position of the gastrostomy tube was confirmed by relook endoscopy, and skin marking noted to be 4 cm at the external bumper. The final tension and compression of the abdominal wall by the PEG tube and external bumper were checked and revealed that the bumper was loose and lightly touching the skin and that the PEG balloon was loose and lightly touching the stomach. The feeding tube was capped, and the tube site was cleaned and dressed. Estimated blood loss was minimal. Impression: - Erythematous mucosa in the stomach. - A PEG placement was successfully completed. - No specimens collected. Recommendation: - Please follow the post-PEG recommendations including: may use PEG today for meds and water and may use PEG tomorrow for feedings. - Observe patient's clinical course following today's procedure with therapeutic intervention. MD Contreras Cruz MD 09/01/2021 2:51:58 PM This report has been signed electronically. Note Initiated On: 09/01/2021 1:50 PM Number of Addenda: 0 I attest to the content of the Intraoperative Record and orders documented therein, exceptions below {[id number]}
--- NOTE | 2021-09-01 16:23 | Critical Care Progress Note ---
Date of Service September 01, 2021 Assessment & Plan (1) ARDS (adult respiratory distress syndrome): (2) 2019 novel coronavirus-infected pneumonia (NCIP): (3) Acute respiratory failure with hypoxia: (4) Breath shortness: (5) Positive blood cultures: (6) Nightmare disorder: Plan: Impression: 56-year-old male with a noncontributory past medical history presenting to the hospital due to COVID-19 viral pneumonia and was intubated on 08/13/2021 due to worsening ARDS.Percutaneous tracheostomy that was then performed 08/27/2021 with a 6.0 Shiley 24 Hour events: Sensorium continues to be diminished. Oxygen requirements are improving. Pressure support ventilation trials are underway. Patient does not follow simple commands today. PEG tube placed today. Recommendations: Neurologic: As needed pushes of fentanyl and Versed. Continue oral clonazepam sergei BID, and oxycodone. We will change Seroquel to 100 mg at bedtime. Pulmonary: Severe ARDS secondary to Covid. Intubated 08/13/2021. Extubated 08/25 and /10 due to respiratory failure. Status post percutaneous tracheostomy 08/27/2021. Ulcers identified on bronchoscopy status post brushing. Patient started on voriconazole. ID note says that this may be contaminant. Will hold voriconazole at this time. Discontinued dexamethasone given Aspergillus in the lung. No benefit to resume at this time Continue to wean vent support and continue pressure support trials as tolerated. Sputum culture 08/15/2021 also with E. coli that is pansensitive. He completed antibiotic therapy for this. He is currently receiving cefazolin for coag negative staph in the blood. This treatment will conclude on 09/02/2021. Cardiovascular: Hemodynamically stable to hypertensive currently. Continue oral clonidine and continue as needed hydralazine. Continue attempts to keep input and output even. Patient more responsive today. -9.7 L admission to date. Gastrointestinal: Continue lansoprazole. PEG tube received today. Clear fluids through the PEG tube for 12 hours then can resume tube feeds. Continue tube feed goals at 60 mL/h. With advise case management that PEG tube is in place in anticipation of transfer to LTAC Continue to maintain head of bed greater than 30 degrees while receiving tube feeds. Renal: Creatinine and electrolytes are stable. Continue daily Lasix 40 IV daily. Maintain fluid balance. Strict I's and O's Infectious disease: Appreciate ID consultation. Fever again today. Repeat blood cultures obtained Surveillance cultures have been negative and he is on cefazolin for coag negative staph in the blood. He will complete treatment on 09/02/2021. He is also placed on voriconazole given Aspergillus in the tracheal aspirate x 2. ID recommended at least 12 weeks of voriconazole and likely 6 months of therapy. However, due to the fact that this is most likely contaminant, Dr. Johns has discontinued the voriconazole today. Ancef is 14 days from negative cultures. Follow closely for fever with discontinuation of steroids. Await results from brushings from the tracheal ulcers - ? HSV, hold on ac yclovir for now. Fungitell currently pending as well. Hematologic: Lovenox 40 mg daily. Hemoglobin today is 10.0 g/[place] No evidence of blood loss or indication for transfusion. Endocrine: Glycemic control per protocol. TSH within normal limits from 08/21/2021. VTE prophylaxis: Lovenox for DVT prophylaxis. INR today is 1.4 Continue with PT/OT and speech therapy evaluations as tolerated CODE STATUS: Full code Disposition: Remain in the ICU pending improvement of respiratory status. Referral made to [facility]. PEG tube placed 09/01/2021 Patient was discussed with the critical care bedside nurse. Remains critically ill with possibility of clinical deterioration and . Admission and Anticipated Discharge Date Admission Date: August 10, 2021 Supervising Physician Co-Signing Physician Notes I saw and evaluated the patient with Tavares Bowen, and agree with findings and plan as documented in the note. Patient seen and examined bedside. No acute distress overnight Overnight patient again got restless he got fentanyl bolus Constitutional: No acute distress HEENT: PERRLA,positive Trach Respiratory system:Decreased air entry bilaterally, no wheeze, no rhonchi, positive crackles bilateral lower lobes CVS: S1-S2 positive, no murmurs or gallops Abdomen: Soft, nontender, nondistended, positive bowel sounds x4 Extremities: +2 pulses bilaterally radialis/ dorsalis pedis,no cyanosis, no e jaquan Neuro:Sedated. Breathing over the vent Psych:Unable to assess G/U:Positive Mello --Prophylaxis VTE: Lovenox GI: Lansoprazole Lines: Peripheral, size 6 trach 08/27/2021 Diet: Tube feeds Plan: Negative 491, urine output 1852 T-max 38.9 Patient is currently on voriconazole and cefazolin. Blood culture have been negative but given the very high temperature I will repeat sputum culture along with blood culture Continue monitoring QTC. Potassium is being replaced Change Lasix to p.o. We will change his Seroquel 200 mg nightly starting tomorrow We will gradually go down on oxycodone with the patient has been getting [id number] For PEG tube placement today. Awaiting LTAC placement following that Please note the above document was generated using voice recognition software. It may contain grammatical, syntax or spelling errors. Subjective Attending: Dr. Johns Patient seen and examined at bedside. He is in room 105 in intensive care unit. He currently has a tracheostomy with a #[address] This appears to be in place without difficulty. Today patient is not answering any questions and he is not following any commands. Patient is currently stable hemodynamically. He is currently on pressure support at 10/10. He is oxygenating well. Anticipate placement of PEG tube later today. Review of Systems Review of Systems: Unobtainable due to reduced consciousness Physical Exam Physical Exam: Patient seen and examined in room [address] Johns's addendum for physical examination Results & Data Results & Data ([facility]) Vital Signs (Past 12 Hours) Vital Signs Temp Pulse Resp BP Pulse Ox 09/01/21 15:27 97 H 23 93 09/01/21 14:29 95 H 15 117/66 92 09/01/21 14:27 97 H 20 120/68 92 09/01/21 14:25 94 H 19 123/67 93 09/01/21 14:23 102 H 18 122/78 94 09/01/21 14:21 83 21 112/67 93 09/01/21 14:19 98 H 33 H 109/62 93 09/01/21 14:17 90 19 111/59 L 92 09/01/21 14:15 94 H 18 113/60 93 09/01/21 14:13 89 21 93 09/01/21 14:11 99 H 21 112/56 L 93 09/01/21 14:09 91 H 15 114/62 93 09/01/21 14:07 95 H 16 115/64 93 09/01/21 14:05 95 H 20 111/66 93 09/01/21 14:03 85 26 H 95 09/01/21 14:01 108 H 26 H 97 09/01/21 13:59 101 H 13 125/80 90 09/01/21 13:57 96 H 19 110/61 93 09/01/21 13:54 94 H 22 94 09/01/21 13:52 95 H 20 93 09/01/21 13:50 94 H 19 93 09/01/21 13:48 96 H 22 93 09/01/21 13:46 98 H 18 93 09/01/21 13:45 96 H 22 93 09/01/21 13:00 100 H 18 106/53 L 94 09/01/21 12:00 36.9 C 107 H 19 103/51 L 94 09/01/21 11:22 101 H 21 93 09/01/21 11:00 103 H 19 102/50 L 92 09/01/21 10:00 103 H 17 97/48 L 91 09/01/21 09:00 112 H 15 84/49 L 93 09/01/21 08:29 114 H 18 92 09/01/21 08:00 38.9 C H 116 H 24 105/51 L 91 09/01/21 07:00 115 H 57 H 166/91 H 86 L 09/01/21 06:00 37 C 110 H 38 H 88 L 09/01/21 05:00 111 H 66 H 87 L Laboratory Results 09/01/21 05:24 09/01/21 05:24 INR 1.4 (0.9-1.1) H 09/01/21 05:24 Diagnostic Findings Chest X-Ray 09/01/21 07:00 SINGLE VIEW CHEST CLINICAL HISTORY: Respiratory failure FINDINGS: 2 AP, portable, upright chest radiographs are compared to study dated 08/31/2021. The examination is degraded by portable technique and patient rotation. A tracheostomy and an enteric tube are unchanged in position. The heart is enlarged. Multifocal airspace consolidation has not appreciably changed as compared to yesterday. No large pleural effusion is identified. No pneumothorax is seen. The skeletal structures are osteopenic. The bony thorax is grossly intact. IMPRESSION: 1. Stable lines and tubes. 2. Multifocal airspace consolidation has not appreciably changed from yesterday. ACT 112: Negative or not required by law. Electronically signed by: Tavares Bradley M.D. 09/01/2021 7:12 AM Coding Level of Care Code Critical Care 1st 30-74 mins Diagnoses ARDS (adult respiratory distress syndrome) J80 2019 novel coronavirus-infected pneumonia (NCIP) U07.1; J12.82 Acute respiratory failure with hypoxia J96.01 Breath shortness R06.02 Positive blood cultures R78.81 Nightmare disorder F51.5 Time Spent (min) 30
--- NOTE | 2021-09-01 18:26 | Hospitalist Progress Note ---
Date of Service September 01, 2021 Assessment & Plan (1) Acute respiratory failure with hypoxia: Plan: 56 y/o male w/ PMHx of anxiety and GER[place] who presented with acute hypoxic respiratory failure secondary to COVID-19 pneumonia on day 9 of symptoms (08/01/21 onset) initially on Vapotherm, status declined on 08/13 placed on BIPAP, did not tolerate, got more confused, saturations dropping Dr. Udnerwood intubated patient at night on 08/13 dexamethasone, currently weaning off baricitinib 4mg daily initially, stopped when intubated CTA chest negative for PE, showed bilateral viral pneumonia CRP was quite elevated [facility], age cutoff is 55, other facilities it is lower at 45, could not transfer patient patient did relatively well with spontaneous breathing trial on 08/24 extubated around noon on 08/24, directly to BIPAP/CPAP could not maintain oxygen saturations, very tachypneic and agitated on 08/25 he was re-intubated on 08/25 tracheostomy performed on 08/[address] Villeda bronchoscopy on 08/27, showed ulcers, brushings sent, Fungitell sent, hold on treatment until results will work towards LTACH placement Patient remains sedated, becoming more awake. consult GI peg tube placement: completed 09/01 Ancef is 14 days from negative cultures. ID recommended at least 12 weeks of voriconazole and likely 6 months of therapy. However, due to the fact that this is most likely contaminant, ICU team has discontinued the voriconazole today. (2) 2018 novel coronavirus-infected pneumonia (NCIP): Plan: sick since 08/01 continue ARDSnet protocol, supine stopped dexamethasone given the Aspergillus in trach sputum extubated on 08/24, then re-intubated and ventilated on 08/25 tracheostomy done on 08/27, tolerated well (3) Positive blood cultures: Plan: one set was coag negative staph ID consult appreciated currently on Ancef, need to continue for 14 days from negative culture which was 08/19/21, so last day would be 09/02/21 Voriconazole is for Aspergillus on tracheal aspirates on 08/23 and 08/20 Dr. Villeda d/w ID at [facility], they recommended at least 12 weeks of voriconazole and likely 6 months of therapy (4) Anxiety: Plan: clonazepam, now sedated with Propofol, might need Precedex Plan: FEN/GI: ppx: Lovenox, Protonix code: full dispo:ICU status Admission and Anticipated Discharge Date Admission Date: August 10, 2021 Subjective Patient remains sedated. Review of Systems Review of Systems: Unobtainable due to cognitive status Physical Exam Physical Exam: General: well developed, well nourished, ill appearing, mechanically ventilated via trach Neck: supple, tracheostomy present Lungs: clear to auscultation bilaterally, symmetric chest movement on ventilation Heart: regular S1 and S2, no murmur, peripheral pulses normal, capillary refill normal, no edema Abdomen: soft, NT, ND, + bowel sounds Extremities: normal in appearance, no cyanosis, no petechiae Neuro: moving extremities, CN II-XII intact, no focal deficits Skin: warm, dry, no rash, normal turgor Psych: sedated Results & Data Results & Data ([facility]) Vital Signs (Past 12 Hours) Vital Signs Temp Pulse Resp BP Pulse Ox 09/01/21 16:00 36.7 C 91 H 23 100/62 94 09/01/21 15:27 97 H 23 93 09/01/21 15:00 97 H 20 115/59 L 93 09/01/21 14:29 95 H 15 117/66 92 09/01/21 14:27 97 H 20 120/68 92 09/01/21 14:25 94 H 19 123/67 93 09/01/21 14:23 102 H 18 122/78 94 09/01/21 14:21 83 21 112/67 93 09/01/21 14:19 98 H 33 H 109/62 93 09/01/21 14:17 90 19 111/59 L 92 09/01/21 14:15 94 H 18 113/60 93 09/01/21 14:13 89 21 93 09/01/21 14:11 99 H 21 112/56 L 93 09/01/21 14:09 91 H 15 114/62 93 09/01/21 14:07 95 H 16 115/64 93 09/01/21 14:05 95 H 20 111/66 93 09/01/21 14:03 85 26 H 95 09/01/21 14:01 108 H 26 H 97 09/01/21 13:59 101 H 13 125/80 90 09/01/21 13:57 96 H 19 110/61 93 09/01/21 13:54 94 H 22 94 09/01/21 13:52 95 H 20 93 09/01/21 13:50 94 H 19 93 09/01/21 13:48 96 H 22 93 09/01/21 13:46 98 H 18 93 09/01/21 13:45 96 H 22 93 09/01/21 13:00 100 H 18 106/53 L 94 09/01/21 12:00 36.9 C 107 H 19 103/51 L 94 09/01/21 11:22 101 H 21 93 09/01/21 11:00 103 H 19 102/50 L 92 09/01/21 10:00 103 H 17 97/48 L 91 09/01/21 09:00 112 H 15 84/49 L 93 09/01/21 08:29 114 H 18 92 09/01/21 08:00 38.9 C H 116 H 24 105/51 L 91 09/01/21 07:00 115 H 57 H 166/91 H 86 L PG Care Time/CCT Total # of Minutes Spent Total Time Spent with Patient: Total time spent is greater than 50% in coordination of care (as documented) at patient's floor/unit and/or counseling patient: Coding Level of Care Code 31184 Subseq Hosp Care Lvl 2 Diagnoses Acute respiratory failure with hypoxia J96.01 2019 novel coronavirus-infected pneumonia (NCIP) U07.1; J12.82 Positive blood cultures R78.81 Anxiety F41.9
[2021-09-01 20:01] LABS: Asperg Fumig Class 0; Asperg Fumig IgE <0.10 kU/L; Aspergillus Ag Index 0.11 (<0.50); Aspergillus Antigen, Serum Not Detected (Not Detected); Immunoglobulin IgE 104 kU/L (<OR=114)
[2021-09-02] MEDS: INSULIN ASPART 100 UNITS/ML 3 ML PEN SC SCH ×4 (00:52→17:49)
[2021-09-02] MEDS: VORICONAZOLE 350 MG in 0.9 % SODIUM CHLORIDE 65 ML IV SCH (04:04)
[2021-09-02] MEDS: ceFAZolin 2000MG 2,000 MG/15 ML SYR IV SCH (04:05)
[2021-09-02] MEDS: TUBE FEEDING WATER FLUSH OG SCH ×5 (04:05→23:37)
[2021-09-02 05:15] LABS: Basophils # (auto) 0.01 K/uL (0-0.2); Basophils % (auto) 0.1 %; Eosinophils # (auto) 0.19 K/uL (0-0.5); Eosinophils % (auto) 2.3 %; Hematocrit (blood only) 31.8 % (42-52); Hemoglobin 9.8 g/dL (14.0-18.0); Immature Granulocytes # (auto) 0.02 K/uL (0.00-0.02); Immature Granulocytes % (auto) 0.2 %; Lymphocytes # (auto) 1.23 K/uL (1.2-3.4); Lymphocytes % (auto) 14.8 %; Mean Corpuscular Hemoglobin 29.7 pg (25-34); Mean Corpuscular Hgb Conc 30.8 g/dL (32-36); Mean Corpuscular Volume 96.4 fL (80-100); Mean Platelet Volume 10.5 fL (7.4-10.4); Monocytes # (auto) 0.39 K/uL (0.11-0.59); Monocytes % (auto) 4.7 %; Neutrophils # (auto) 6.48 K/uL (1.4-6.5); Neutrophils % (auto) 77.9 %; Platelet Count 418 K/uL (130-400); RDW Coefficient of Variation 14.1 % (11.5-14.5); RDW Standard Deviation 49.9 fL (36.4-46.3); White Blood Count 8.32 K/uL (4.8-10.8)
[2021-09-02 05:41] LABS: BUN Creatinine Ratio 48.1 (10-20); Calcium 8.4 mg/dl (8.5-10.1); Creatinine Clr Calc Pharmacy 98.3 ml/min; Est GFR (Non-African American) 93.2 ml/min; Magnesium 2.6 mg/dl (1.8-2.4); Potassium 3.6 mmol/L (3.5-5.1)
[2021-09-02] MEDS: oxyCODONE HCL SOLN 5 MG/5 ML UDC PO SCH (05:41)
[2021-09-02 05:51] LABS: Phosphorus 2.5 mg/dl (2.5-4.9)
[2021-09-02] MEDS: PEPTAMEN INTENSE VHP 1.0 CAL 1,000 ML BAG OG SCH (07:33)
--- NOTE | 2021-09-02 08:38 | Electrocardiogram Report ---
Test Reason : Blood Pressure : / mmHG Vent. Rate : 104 BPM Atrial Rate : 104 BPM P-R Int : 130 ms QRS Dur : 106 ms QT Int : 362 ms P-R-T Axes : 059 -14 017 degrees QTc Int : 476 ms Sinus tachycardia Incomplete right bundle branch block Nonspecific ST and T wave abnormality Anteroseptal leads Abnormal ECG When compared with ECG of 30-AUG-2021 08:22, No significant change was found Confirmed by Durga Pastor ([id number]) on 09/02/2021 8:38:05 AM Referred By: REFERRED SELF Confirmed By:Durga Pastor
--- NOTE | 2021-09-02 08:47 | Gastroenterology Progress Note ---
Date of Service September 02, 2021 Assessment & Plan (1) Malnutrition compromising bodily function: Plan: PEG tube was placed yesterday by Dr. Campbell as patient requires ventilator support and is unable to eat to provide nutrition in a patient with prolonged severe illness. Plan was for clear fluids through PEG tube for 12 hours then resume tube feeds with tube feed goals at 60 mL/h. Continue to maintain head of bed greater than 30 degrees while receiving tube feeds. Please refer to supervising physician addendum for further recommendations. Admission and Anticipated Discharge Date Admission Date: August 10, 2021 Supervising Physician Co-Signing Physician Notes I have seen and examined the patient. I agree with note above by CELINA Kemp except as noted below. HPI with patient during exam. Per nursing tolearating tube feeds at full rate. PE Abdomen pos bs, soft, no guarding nor rebound, tube site no evidence of infection A/P dysphagia secondary to trach--s/p PEG which is operating well and no obvious complications. Will sign off. Please call for further questions. Subjective Chart reviewed including labs, physician notes, and nursing documentation. Hospitalized mid July with Covid-19 pneumonia complicated by ARDS and respiratory failure, tracheal ulcerations, Aspergillus in the tracheal aspirate, E coli in the sputum, reduced level of consciousness, inability to eat and dependence on tube feeding. He was intubated on 08/13/21 and tracheostomy inserted on 08/27/21. He requires PEG tube in anticipation of transfer to [facility] and it is our impression is that Mr. Vazquez will need [facility] (>30 [facility]) of nutritional support with enteral tube feeding. His has provided consent. Results & Data ([facility]) Vital Signs (Past 12 Hours) Vital Signs Pulse Resp BP Pulse Ox 09/02/21 07:48 85 26 H 94 09/02/21 04:00 87 09/02/21 03:45 90 25 H 92 09/02/21 03:00 101 H 7 L 121/80 93 09/02/21 02:00 92 H 17 93 09/02/21 01:00 124 H 17 95 09/02/21 00:00 96 H 15 95 09/01/21 23:00 108 H 33 H 94 09/01/21 22:53 101 H 24 93 09/01/21 22:00 107 H 26 H 117/75 92 09/01/21 21:00 99 H 37 H 117/75 93 Laboratory Results Laboratory Results - last 24 hr 08/30/21 09/01/21 09/01/21 10:28 12:03 15:07 WBC RBC Hgb Hct MCV MCH MCHC RDW Std Deviation RDW Coeff of Nicole Plt Count MPV Immature Gran % (Auto) Neut % (Auto) Lymph % (Auto) [place] % (Auto) Eos % (Auto) Baso % (Auto) Neut # (Auto) Lymph # (Auto) [place] # (Auto) Eos # (Auto) Baso # (Auto) Immature Gran # (Auto) Sodium Potassium Chloride Carbon Dioxide Anion Gap BUN Creatinine Est Cr Clr Drug Dosing Est GFR ( Amer) Est GFR (Non-Af Amer) BUN/Creatinine Ratio Glucose POC Glucose 118 H 106 H Calcium Phosphorus Magnesium A.fumigatus Allerg IgE <0.10 A.fumigatus Allerg IgG 19.0 H A. fumigatus ASM Class 0 A. niger Allergen IgE <0.10 A. niger ASM Class 0 Allergen Test Interp See Below IgE 104 A. galactomannan Ag Not Detected A. galactomannan Ag Idx 0.11 09/02/21 09/02/21 09/02/21 00:47 04:37 04:37 WBC 8.32 RBC 3.30 L Hgb 9.8 L Hct 31.8 L MCV 96.4 MCH 29.7 MCHC 30.8 L RDW Std Deviation 49.9 H RDW Coeff of Nicole 14.1 Plt Count 418 H MPV 10.5 H Immature Gran % (Auto) 0.2 Neut % (Auto) 77.9 Lymph % (Auto) 14.8 [place] % (Auto) 4.7 Eos % (Auto) 2.3 Baso % (Auto) 0.1 Neut # (Auto) 6.48 Lymph # (Auto) 1.23 [place] # (Auto) 0.39 Eos # (Auto) 0.19 Baso # (Auto) 0.01 Immature Gran # (Auto) 0.02 Sodium 147 H Potassium 3.6 Chloride 110 H Carbon Dioxide 36 H Anion Gap 1.0 L BUN 44 H Creatinine 0.91 Est Cr Clr Drug Dosing 98.3 Est GFR ( Amer) 108.0 Est GFR (Non-Af Amer) 93.2 BUN/Creatinine Ratio 48.1 H Glucose 89 POC Glucose 96 Calcium 8.4 L Phosphorus 2.5 Magnesium 2.6 H A.fumigatus Allerg IgE A.fumigatus Allerg IgG A. fumigatus ASM Class A. niger Allergen IgE A. niger ASM Class Allergen Test Interp IgE A. galactomannan Ag A. galactomannan Ag Idx 09/02/21 05:45 WBC RBC Hgb Hct MCV MCH MCHC RDW Std Deviation RDW Coeff of Nicole Plt Count MPV Immature Gran % (Auto) Neut % (Auto) Lymph % (Auto) [place] % (Auto) Eos % (Auto) Baso % (Auto) Neut # (Auto) Lymph # (Auto) [place] # (Auto) Eos # (Auto) Baso # (Auto) Immature Gran # (Auto) Sodium Potassium Chloride Carbon Dioxide Anion Gap BUN Creatinine Est Cr Clr Drug Dosing Est GFR ( Amer) Est GFR (Non-Af Amer) BUN/Creatinine Ratio Glucose POC Glucose 88 Calcium Phosphorus Magnesium A.fumigatus Allerg IgE A.fumigatus Allerg IgG A. fumigatus ASM Class A. niger Allergen IgE A. niger ASM Class Allergen Test Interp IgE A. galactomannan Ag A. galactomannan Ag Idx Diagnostic Findings 09/01/2021: EGD with PEG tube placement was performed as patient is unable to eat and requires ventilator support to provide nutrition in a patient with prolonged severe illness. EGD demonstrated erythematous mucosa in the stomach. Successful PEG tube placement. There were no specimens collected.
[2021-09-02] MEDS ORDERED: FUROSEMIDE 40 MG TAB PO SCH (09:00)
[2021-09-02] MEDS: cloNIDine HCL 0.1 MG TAB PO SCH ×2 (09:15→23:35)
[2021-09-02] MEDS: SENNOSIDES 8.8 MG/5 ML UDC PO SCH (09:16)
[2021-09-02] MEDS: LANSOPRAZOLE 30 MG SOLTAB NG SCH (09:16)
[2021-09-02] MEDS: LACTULOSE SYRUP 20 GM/30 ML UDC PO SCH ×2 (09:16→23:35)
[2021-09-02] MEDS: DOCUSATE SODIUM SYRUP 100 MG/10 ML UDC PO SCH ×2 (09:16→23:35)
[2021-09-02] MEDS: ENOXAPARIN INJ 40 MG/0.4 ML SYR SQ SCH (09:16)
[2021-09-02] MEDS: clonazePAM 1 MG TAB PO SCH (09:18)
--- NOTE | 2021-09-02 10:18 | XRay Report ---
XR chest 1V portable HISTORY: Pneumonia. Follow-up. Respiratory failure. COMPARISON: Chest 09/01/2021. FINDINGS: Tracheostomy tube remains unchanged in position. No pneumothorax. No pleural effusions. The re are low lung volumes. The heart remains top normal in size. Extensive bilateral airspace opacities and interstitial thickening remain unchanged. The nasogastric tube is been removed. IMPRESSION: 1. Interval removal of the nasogastric tube. 2. Extensive bilateral airspace opacities consistent with a multifocal pneumonia remain unchanged ACT 112: Negative or not required by law. Electronically signed by: Cory Rousseau M.D. 09/02/2021 10:17 AM
[2021-09-02] MEDS ORDERED: TRANEXAMIC ACID / 0.7% NACL 1,000 MG/100 ML BAG IV STA (15:19)
--- NOTE | 2021-09-02 15:37 | XRay Report ---
SINGLE VIEW CHEST CLINICAL HISTORY: Respiratory failure. Bleeding at the tracheostomy site. FINDINGS: An AP, portable, upright chest radiograph is compared to study performed earlier the same d ay 09/02/2021. A tracheostomy is unchanged in position. The heart is enlarged. Multifocal airspace co nsolidation has not appreciably changed as compared to today's earlier examination. Question trace pl eural effusions. No pneumothorax is seen. The skeletal structures are osteopenic. The bony thorax is grossly intact. IMPRESSION: 1. A tracheostomy is unchanged in position. 2. Multifocal airspace consolidation has not appreciably changed from today's earlier examination. ACT 112: Negative or not required by law. Electronically signed by: Tavares Bradley M.D. 09/02/2021 3:35 PM
[2021-09-02 15:46] LABS: Hematocrit (blood only) 33.3 % (42-52); Hemoglobin 10.3 g/dL (14.0-18.0)
[2021-09-02 15:54] LABS: Prothrombin Time 18.8 Seconds (9.0-12.0)
[2021-09-02] MEDS ORDERED: SODIUM CHLORIDE 0.9% 250 ML IV PRN ×2 (16:06→20:13)
[2021-09-02] MEDS: fentaNYL citrate 100 MCG/2 ML VIAL IV PRN ×6 (16:09→18:50)
[2021-09-02] MEDS ORDERED: PHYTONADIONE 5 MG in SODIUM CHLORIDE 0.9% 50 ML IV ONE ×2 (16:30→20:15)
[2021-09-02] MEDS ORDERED: MIDAZOLAM HCL 1 MG/ML 2ML VIAL ONE (17:26)
[2021-09-02] MEDS: MIDAZOLAM HCL 1 MG/ML 2ML VIAL IV PRN ×2 (17:40→18:06)
[2021-09-02] MEDS ORDERED: oxyCODONE HCL SOLN 5 MG/5 ML UDC PO SCH (18:00)
[2021-09-02] MEDS ORDERED: MIDAZOLAM HCL 5 MG/ML 1 ML VIAL ONE (18:22)
--- NOTE | 2021-09-02 18:44 | Critical Care Progress Note ---
Date of Service September 02, 2021 Assessment & Plan (1) ARDS (adult respiratory distress syndrome): (2) 2019 novel coronavirus-infected pneumonia (NCIP): (3) Acute respiratory failure with hypoxia: (4) Breath shortness: (5) Positive blood cultures: (6) Nightmare disorder: Plan: Impression: 56-year-old male with a noncontributory past medical history presenting to the hospital due to COVID-19 viral pneumonia and was intubated on 08/13/2021 due to worsening ARDS.Percutaneous tracheostomy that was then performed 08/27/2021 with a 6.0 Shiley 24 Hour events: Sensorium continues to be diminished but patient is answering questions today. Oxygen requirements are generally improving. Pressure support ventilation trials are underway. Patient does not follow simple commands today. PEG tube placed 09/01/2021. Tube feeds resumed Recommendations: Neurologic: As needed pushes of fentanyl and Versed. Continue oral clonazepam sergei BID, and oxycodone. We will change Seroquel to 100 mg at bedtime. Pulmonary: Severe ARDS secondary to Covid. Intubated 08/13/2021. Extubated 08/25 and [id number] due to respiratory failure. Status post percutaneous tracheostomy 08/27/2021. Ulcers identified on bronchoscopy status post brushing. Patient started on voriconazole. ID note says that this may be contaminant. Voriconazole held. Discontinued dexamethasone given Aspergillus in the lung. No benefit to resume at this time Continue to wean vent support and continue pressure support trials as tolerated. Sputum culture 08/15/2021 also with E. coli that is pansensitive. He completed antibiotic therapy for this. He is currently receiving cefazolin for coag negative staph in the blood. This treatment will conclude on today (09/02/2021). Patient with bleeding from the tracheostomy tube 1 g of TXA administered IV INR 2.0 -administer 1 unit of FFP Consider bronchoscopy if bleeding does not improve Cardiovascular: Hemodynamically stable to hypertensive currently. Continue oral clonidine and continue as needed hydralazine. Continue attempts to keep input and output even. Patient more responsive today. Watch urine output Gastrointestinal: Continue lansoprazole. PEG tube placed 09/01/2021. Peptamen HP resumed and currently at goal at 60 mL an hour. With advise case management that PEG tube is in place in anticipation of transfer to LTAC Continue to maintain head of bed greater than 30 degrees while receiving tube feeds. Renal: Creatinine and electrolytes are stable. Continue daily Lasix 40 IV daily. Maintain fluid balance. Strict I's and O's Infectious disease: Appreciate ID consultation. Fever again today. Repeat blood cultures obtained yesterday with no growth Surveillance cultures have been negative and he is on cefazolin for coag negative staph in the blood. He will complete treatment today (09/02/2021) He was also placed on voriconazole given Aspergillus in the tracheal aspirate x 2. ID recommended at least 12 weeks of voriconazole and likely 6 months of therapy. However, due to the fact that this is most likely contaminant, Dr. Johns discontinued the voriconazole 09/01/2021. Ancef is 14 days from negative cultures. Discontinue 09/02/2021 Follow closely for fever with discontinuation of steroids. Await results from brushings from the tracheal ulcers - Fungitell is positive. Hematologic: Lovenox 40 mg daily. Hemoglobin today is 10.3 g/[place] No evidence of blood loss or indication for transfusion. Endocrine: Glycemic control per protocol. TSH within normal limits from 08/21/2021. VTE prophylaxis: Lovenox for DVT prophylaxis. INR today is 2.0 -1 unit of FFP given due to bleeding from tracheostomy tube Continue with PT/OT and speech therapy evaluations as tolerated CODE STATUS: Full code Disposition: Remain in the ICU pending improvement of respiratory status. Referral made to [facility]ACH[facility]. PEG tube placed 09/01/2021 Plan discharge to LTAC tomorrow if patient is medically stable Patient was discussed with the critical care bedside nurse. Remains critically ill with possibility of clinical deterioration and . Admission and Anticipated Discharge Date Admission Date: August 10, 2021 Supervising Physician Co-Signing Physician Notes I saw and evaluated the patient with Tavares Bowen, and agree with findings and plan as documented in the note. Patient seen and examined bedside. No acute distress overnight Patient was on pressure support 10/10 75% saturating around 90-92 Patient has been getting as needed fentanyl boluses when he gets agitated and restless. Constitutional: No acute distress HEENT: PERRLA,positive Trach Respiratory system:Decreased air entry bilaterally, no wheeze, no rhonchi, positive crackles bilateral lower lobes CVS: S1-S2 positive, no murmurs or gallops Abdomen: Soft, nontender, nondistended, positive bowel sounds x4, positive PEG Extremities: +2 pulses bilaterally radialis/ dorsalis pedis,no cyanosis, no edema Neuro:Sedated. Breathing over the vent Psych:Unable to assess G/U:Positive Mello --Prophylaxis VTE: Lovenox GI: Lansoprazole Lines: Peripheral, size 6 trach 08/27/2021, positive PEG Diet: Tube feeds Plan: In/out: -270, urine output 1450 Has been afebrile in the last 24 hours Patient had bloody secretion coming out from the trach. We will hold the Lovenox. Patient does have hyponatremia today we will start the patient on 250 mL every 6 hours of free water via the PEG tube Go down on oxycodone to every 12 hours, go down on clonazepam 2.5 mg every 12. Hold Lasix today given the hyponatremia Please note the above document was generated using voice recognition software. It may contain grammatical, syntax or spelling errors. Subjective Attending: Dr. Johns Patient continues to remain critically ill. He is in room 105. He is more alert today and is answering questions appropriately. is at bedside.T-max this morning 38.9 C. Blood cultures from yesterday was scant normal toya and no growth to date. Some bleeding from the trachea. Patient continues on pressure support. Review of Systems Review of Systems: Other (Unable due to tracheostomy tube) Physical Exam Physical Exam: Patient seen and examined in room [address] Johns's addendum for physical examination Skin: no rashes, warm and dry Lymphatic: no cervical or axillary lymphadenopathy Results & Data Results & Data ([facility]) Vital Signs (Past 12 Hours) Vital Signs Temp Pulse Pulse Resp BP Pulse Ox 09/02/21 18:23 37.5 C 122 H 31 H 142/88 H 81 L 09/02/21 15:00 93 H 21 95 09/02/21 10:10 104 H 32 H 90 09/02/21 08:00 37.2 C 97 H 88 20 92 09/02/21 07:48 85 26 H 94 Laboratory Results 09/02/21 15:35 09/02/21 04:37 INR 2.0 (0.9-1.1) H 09/02/21 15:35 Microbiology 09/01/21 Unknown Gram Stain - Final Sputum,Trach Sputum Culture - Preliminary Scant normal toya present; Final report to follow. 09/01/21 10:18 Aerobic Blood Culture - Preliminary Blood No growth in Aerobic bottle after 24 hours. Anaerobic Blood Culture - Preliminary No growth in Anaerobic bottle after 24 hours. 09/01/21 10:18 Aerobic Blood Culture - Preliminary Blood No growth in Aerobic bottle after 24 hours. Anaerobic Blood Culture - Preliminary No growth in Anaerobic bottle after 24 hours. 09/01/21 10:18 Fungal Smear - Final Blood Diagnostic Findings Chest X-Ray 09/02/21 07:00 XR chest 1V portable HISTORY: Pneumonia. Follow-up. Respiratory failure. COMPARISON: Chest 09/01/2021. FINDINGS: Tracheostomy tube remains unchanged in position. No pneumothorax. No pleural effusions. There are low lung volumes. The heart remains top normal in size. Extensive bilateral airspace opacities and interstitial thickening remain unchanged. The nasogastric tube is been removed. IMPRESSION: 1. Interval removal of the nasogastric tube. 2. Extensive bilateral airspace opacities consistent with a multifocal pneumonia remain unchanged ACT 112: Negative or not required by law. Electronically signed by: Cory Rousseau M.D. 09/02/2021 10:17 AM Chest X-Ray 09/02/21 15:18 SINGLE VIEW CHEST CLINICAL HISTORY: Respiratory failure. Bleeding at the tracheostomy site. FINDINGS: An AP, portable, upright chest radiograph is compared to study performed earlier the same day 09/02/2021. A tracheostomy is unchanged in position. The heart is enlarged. Multifocal airspace consolidation has not appreciably changed as compared to today's earlier examination. Question trace pleural effusions. No pneumothorax is seen. The skeletal structures are osteopenic. The bony thorax is grossly intact. IMPRESSION: 1. A tracheostomy is unchanged in position. 2. Multifocal airspace consolidation has not appreciably changed from today's earlier examination. ACT 112: Negative or not required by law. Electronically signed by: Tavares Bradley M.D. 09/02/2021 3:35 PM Coding Level of Care Code Critical Care 1st 30-74 mins Diagnoses ARDS (adult respiratory distress syndrome) J80 2019 novel coronavirus-infected pneumonia (NCIP) U07.1; J12.82 Acute respiratory failure with hypoxia J96.01 Breath shortness R06.02 Positive blood cultures R78.81 Nightmare disorder F51.5 Time Spent (min) 40
--- NOTE | 2021-09-02 19:11 | Communication Note ---
Date of Service: September 02, 2021 Critical CARE addendum: Was called to evaluate the patient as patient was bringing up clots of blood from the trach which was leading to severe tachypnea and vent asynchrony. Patient went hypoxic even on 100%. PT/INR was done which showed INR of 2. Patient was given vitamin K 5 as well as FFP 2 units His saturation improved he was on 85% saturating 93% and we were able to go down to 75% but unfortunately patient had another episode similar which led to desaturation in the 70s I did bronc the patient to see if there is active bleeding which I can stop Patient's right side looks clean Left lower lobe had a big plug just at the takeoff. Initially it seemed to mucous but after taking multiple attempts to remove it it seemed to be attached to the mucosa. It is most likely representing a 5 Patient seems to be bleeding from left lower lobe The patient has repeat hemoptysis like this it was better for the patient to be transferred to a tertiary center where they can do left lower lobe embolization It seems patient is most likely oozing from the left lower lobe. Significant ulceration was appreciated in the left main Patient's was at bedside was updated regarding the current condition as well as the procedure I have personally spent additional 35 minutes of critical care time in the direct management of this patient. This is a life/limb threatening event. This includes time spent evaluating patient, direct bedside care, chart review, placing orders, interpretation of diagnostic studies, discussion with consultants, patient, and family members, as well as other required patient management activities. This time is exclusive of all separately billable procedures, and teaching time and separate from and in addition to any other critical care service time. Please note the above document was generated using voice recognition software. It may contain grammatical, syntax or spelling errors. Coding Level of Care Code Critical Care ea addt'l 30 min Time Spent (min) 35
--- NOTE | 2021-09-02 19:17 | Procedure Note ---
Procedure Note Date of Service September 02, 2021 Note PREOPERATIVE DIAGNOSIS: Hemoptysis with desaturation POSTOPERATIVE DIAGNOSIS: Hemoptysis with desaturation PROCEDURE PERFORMED: Flexible fiberoptic bronchoscopy COMPLICATIONS: None. INDICATION: Rule out active bleed PROCEDURE: Emergent consent was applied. Verbal consent was obtained from patient's partner. The patient had appropriate oxygen, blood pressure, heart rate, and respiratory rate monitoring applied and monitored continuously throughout the procedure. Supplemental oxygen via nasal cannula as per nursing records was applied to the nasopharynx with adequate saturations achieved. Topical anesthesia with nebulized 1% lidocaine was achieved. Subsequent to this, the patient was premedicated with 5 mg of midazolam and 150 mcg of fentanyl. Bronchoscope was advanced through the trach. The trachea appeared friable. The bronchoscope was then advanced through the lizzy, which was sharp. The scope was then advanced into the right main stem and each segment, subsegement in the right upper lobe, right middle lobe and right lower lobe were visualized. There was minimal amount of blood which was suctioned out. The bronchoscope was subsequently withdrawn and advanced into the left mainstem. Again, each segment and subsegment was well visualized. There was a large plug appreciated at the takeoff of the left lower lobe. It was totally obstructing the left lower lobe. I tried to suction out as much as possible. I did use cold saline to make sure there is no active bleed. I tried basket and forceps to remove peripheral part of the clot. It seemed that the mucosa was very friable and attached to the clot Recommendations: We will give the patient left lung down. We will get in touch with tertiary center to see if he can transfer him out for possible embolization of the left lower lobe. Please note the above document was generated using voice recognition software. It may contain grammatical, syntax or spelling errors.Any formal questions or concerns about the content, text or information contained within the body of this dictation should be directly addressed to the provider for clarification. Coding CPT Codes Pulmonary/Thoracic - Pulmonary and Thoracic: 69705 Bronchoscopy, clear airways ([id number]) Sedation/Anesthesia - Sedation/Anesthesia: 06254 Mod Sedation by the same physician;Init15 Min Child Age 5 & Up ([id number]) Sedation/Anesthesia - Sedation/Anesthesia: 41056 Mod Sedation by the same physician; Ea [id number] Minutes ([id number]) [facility] [place]odes [place]Charges) Pulmonary/Thoracic Procedure 1: Pulmonary and Thoracic: 55835 Bronchoscopy, clear airways Sedation/Anesthesia Procedure 1: Sedation/Anesthesia: 08387 Mod Sedation by the same physician;Init15 Min Child Age 5 & Up Procedure 2: Sedation/Anesthesia: 90971 Mod Sedation by the same physician; Ea [id number] Minutes
[2021-09-02 20:34] LABS: Hematocrit (blood only) 32.5 % (42-52); Hemoglobin 9.9 g/dL (14.0-18.0)
[2021-09-02] MEDS ORDERED: clonazePAM 0.5 MG TAB PO SCH (21:00)
[2021-09-02] MEDS ORDERED: QUEtiapine FUMARATE 100 MG TABLET PO SCH (21:00)
[2021-09-02] MEDS ORDERED: OPTIRAY 320 125ml IV ONE (21:44)
--- NOTE | 2021-09-02 22:11 | Hospitalist Progress Note ---
Date of Service September 02, 2021 Assessment & Plan (1) Acute respiratory failure with hypoxia: Plan: 56 y/o male w/ PMHx of anxiety and GERMAN who presented with acute hypoxic respiratory failure secondary to COVID-19 pneumonia on day 9 of symptoms (08/01/21 onset) initially on Vapotherm, status declined on 08/13 placed on BIPAP, did not tolerate, got more confused, saturations dropping Dr. Underwood intubated patient at night on 08/13 dexamethasone, currently weaning off baricitinib 4mg daily initially, stopped when intubated CTA chest negative for PE, showed bilateral viral pneumonia CRP was quite elevated [facility], age cutoff is 55, other facilities it is lower at 45, could not transfer patient patient did relatively well with spontaneous breathing trial on 08/24 extubated around noon on 08/24, directly to BIPAP/CPAP could not maintain oxygen saturations, very tachypneic and agitated on 08/25 he was re-intubated on 08/25 tracheostomy performed on 08/[address] Villeda bronchoscopy on 08/27, showed ulcers, brushings sent, Fungitell sent, hold on treatment until results will work towards LTACH placement Patient remains sedated, becoming more awake. consult GI peg tube placement: completed 09/01 Ancef is 14 days from negative cultures. ID recommended at least 12 weeks of voriconazole and likely 6 months of therapy. However, due to the fact that this is most likely contaminant, ICU team has discontinued the voriconazole today. Plan is to discharge to LTAC if he remains stable. (2) 2018 novel coronavirus-infected pneumonia (NCIP): Plan: sick since 08/01 continue ARDSnet protocol, supine stopped dexamethasone given the Aspergillus in trach sputum extubated on 08/24, then re-intubated and ventilated on 08/25 tracheostomy done on 08/27, tolerated well (3) Positive blood cultures: Plan: one set was coag negative staph ID consult appreciated currently on Ancef, need to continue for 14 days from negative culture which was 08/19/21, so last day would be 09/02/21 Voriconazole is for Aspergillus on tracheal aspirates on 08/23 and 08/20 Dr. Villeda d/w ID at [facility], they recommended at least 12 weeks of voriconazole and likely 6 months of therapy (4) Anxiety: Plan: clonazepam, now sedated with Propofol, might need Precedex Plan: FEN/GI: ppx: Lovenox, Protonix code: full dispo:ICU status Admission and Anticipated Discharge Date Admission Date: August 10, 2021 Subjective Patient does not follow commands, poor historian. Review of Systems Review of Systems: All systems reviewed & are unremarkable except as noted in HPI & below Physical Exam Physical Exam: General: well developed, well nourished, ill appearing, mechanically ventilated via trach Neck: supple, tracheostomy present Lungs: clear to auscultation bilaterally, symmetric chest movement on ventilation Heart: regular S1 and S2, no murmur, peripheral pulses normal, capillary refill normal, no edema Abdomen: soft, NT, ND, + bowel sounds Extremities: normal in appearance, no cyanosis, no petechiae Skin: warm, dry, no rash, normal turgor Results & Data Results & Data ([facility]) Vital Signs (Past 12 Hours) Vital Signs Temp Pulse Resp BP Pulse Ox 09/02/21 20:02 37.3 C 112 H 24 131/75 91 09/02/21 20:00 108 H 24 89 L 09/02/21 19:00 109 H 20 91 09/02/21 18:54 117/71 09/02/21 18:39 37.2 C 110 H 30 H 09/02/21 18:23 37.5 C 122 H 31 H 142/88 H 81 L 09/02/21 18:00 97 H 23 70 L 09/02/21 17:00 107 H 47 H 85 L 09/02/21 16:00 102 H 41 H 91 09/02/21 15:00 94 H 34 H 85 L 09/02/21 14:00 104 H 36 H 90 09/02/21 13:00 97 H 23 92 09/02/21 12:00 105 H 7 L 92 09/02/21 11:00 101 H 16 92 PG Care Time/CCT Total # of Minutes Spent Total Time Spent with Patient: Total time spent is greater than 50% in coordination of care (as documented) at patient's floor/unit and/or counseling patient: Coding Level of Care Code 20693 Subseq Hosp Care Lvl 2 Diagnoses Acute respiratory failure with hypoxia J96.01 2019 novel coronavirus-infected pneumonia (NCIP) U07.1; J12.82 Positive blood cultures R78.81 Anxiety F41.9
[2021-09-02 22:51] LABS: Source LUNG BIOPSY
[2021-09-02] MEDS ORDERED: PROPOFOL BOLUS FROM BAG IV PRN (23:24)
[2021-09-02] MEDS ORDERED: STAT IV Infusion **Titration per Protocol STA (23:24)
[2021-09-02] MEDS ORDERED: PROPOFOL IV EMULSION 10 MG/ML 100 ML VIAL IV ONE (23:27)
[2021-09-02] MEDS ORDERED: propofoL 1,000 MG/100 ML VIAL IV SCH (23:30)
--- NOTE | 2021-09-02 23:40 | Communication Note ---
Date of Service: September 02, 2021 I did call [facility] and spoke with Dr. Pyle with interventional radiology. Per his request, CTA chest was obtained and results were discussed. He was willing to evaluate patient for possible IR intervention involving pulmonary bleeding of the left lower lobe. Also discussed case with ICU nutrition and dietetics instructor at [facility] who has accepted patient for transfer. Patient's was made aware of his current condition and understands that his prognosis is poor. CODE STATUS was discussed, and patient remains full code per family wishes. Patient's did consent to transfer to tertiary center for higher level of care. We are awaiting room to be available at [facility] and will continue with current medical management in the ICU pending transfer. Patient's prognosis remains highly guarded. I have personally spent 70 minutes of critical care time in the direct management of this patient. This is a life/limb threatening event. This includes time spent evaluating patient, direct bedside care, chart review, placing orders, interpretation of diagnostic studies, discussion with consultants, patient, and family members, as well as other required patient management activities. This time is exclusive of all separately billable procedures, and teaching time and separate from and in addition to any other critical care service time. Thank you for allowing us to participate in the care of this patient. Please refer to my attending physician's documentation for any further recommendations. Coding Level of Care Code Critical Care stalin berryt'l 30 min
[2021-09-03 00:17] LABS: iSTAT Allen Test Pass; iSTAT Arterial Blood Gas HCO3 40 meg/L (19-24); iSTAT Arterial Blood Gas pCO2 104 mmHg (35-46); iSTAT Arterial Blood Gas pH 7.19 (7.35-7.45); iSTAT Arterial Blood Gas pO2 69 mmHg (80-95); iSTAT Carbon Dioxide > 40 mmol/L (24-31); iSTAT FiO2 100 %; iSTAT Site R Radial
[2021-09-03] MEDS: INSULIN ASPART 100 UNITS/ML 3 ML PEN SC SCH (00:27)
--- NOTE | 2021-09-03 08:56 | CT Scan Report ---
CHEST CTA for PULMONARY ARTERIES CT DOSE: 539.09 mGycm HISTORY: Covid positive. Shortness of breath. TECHNIQUE: Multiaxial CT images of the chest were performed following the intravenous administration of contrast to evaluate the pulmonary arteries. Maximal intensity projection images were also obtaine d. A dose lowering technique was utilized adhering to the principles of ALARA. COMPARISON STUDY: Chest 08/09/2021. FINDINGS: Fluid-filled proximal trachea likely due to the indwelling tracheostomy tube which appears in good position. Mild aneurysmal dilatation of the aortic root measuring up to 4 cm in diameter. No evidence for an aortic dissection. The heart is mildly enlarged. No pleural or pericardial effusions. There is significant motion artifact resulting in nondiagnostic evaluation of the majority of the se gmental and subsegmental pulmonary arteries. The main and lobar pulmonary arteries appear patent. Mil d mediastinal and bilateral hilar lymphadenopathy. This is likely reactive. Partially visualized hypo dense lesion within the left hepatic lobe. This remains stable and likely represents a cyst. The visu alized spleen is unremarkable. Normal esophagus. No fractures within the visualized osseous structure s. Extensive bilateral groundglass and consolidative airspace opacities with associated interstitial thickening. This most pronounced within the left lung. There is also areas of dense consolidation wit hin the lower lobes posteriorly, left greater than right. Partial opacification of the left lower lob e bronchi. Therefore, this could be due to a superimposed aspiration pneumonia on the background of a viral pneumonia. Progressive coarse interstitial thickening within the lungs raise the possibility o f developing fibrotic change. IMPRESSION: 1. No evidence for pulmonary embolus with limitations as described above. 2. The tracheostomy tube is in good position. 3. Interval progression of the multifocal groundglass and consolidative airspace opacities with dense consolidation within the bilateral lower lobes, left greater the right. There is also partial opacif ication of the left lower lobe bronchi. Therefore, this could represent a combination of an aspiratio n and bilateral pneumonia. 4. There is coarse interstitial thickening within the lungs which has developed in the interval and r aises the possibility of developing fibrotic change. ACT 112: Negative or not required by law. Electronically signed by: Cory Rousseau M.D. 09/03/2021 8:55 AM
--- NOTE | 2021-09-06 20:26 | Discharge Summary ---
Date of Service September 03, 2021 Admission HPI Per Admitting Provider Robbi Vazquez is a 56 y/o male w/ anxiety, possible sleep apnea, sensorineural hearing loss, and tinnitus who presents w/ 9 days (08/01/21 onset) of worsening dyspnea on exertion. He's had approximately 6 days of intermittent fevers up to 101s Fahrenheit and rigors/chills. He has had intermittent headaches, mild otalgia, poor appetite, and watery diarrhea. He was treated for otitis externa a month ago and used leftover eardrops with some relief. No loss of taste/smell. On 08/06/21, his mailed in covid test was positive. dx'd w/ covid at same time. Patient has not had covid immunization. Denies hx blood clots or family hx of. Denies any period of regular tobacco use and no hx of COPD or asthma. He consumes on average 2 glasses of wine a night. Denies illicit substances. No allergies. He is otherwise normally healthy and active. ED course: CTA neg for PE, pos for extensive groundglass opacities. Given dexamethasone IV 8 mg. NSS 1L. 38.3C at admission. Tachy to 100s-110s. 75% sat on room air. Currently on high flow 40L, did not tolerate bipap due to discomfort. Principal Diagnosis COVID 19 Discharge Data Allergies Allergy/AdvReac Type Severity Reaction Status Date / Time aluminum Allergy inflammatio Verified 06/15/21 11:06 n Consultations 08/09/21 17:41 ED Decision to Admit Stat 08/09/21 22:21 Consult Pulmonology Routine 08/10/21 04:44 Consult Pulmonology AMLAB 08/14/21 15:20 Consult Film Tests Checker Routine 08/21/21 07:53 Consult Infectious Diseases Routine 08/31/21 09:46 Consult Gastroenterology Routine 09/03/21 00:47 Burn CD for patient Stat Procedures Performed Operation Date: 09/01/21 08:30 Actual Procedures p EGD Gastric Tube Placement - Contreras Deluna MD Ordered Studies 08/09/21 16:33 CT angio chest PE protocol Stat 08/13/21 21:30 US point of care ultrasound Urgent 08/17/21 14:49 US point of care ultrasound Urgent 09/02/21 20:01 CT angio chest PE protocol Stat Hospital Course (1) Acute respiratory failure with hypoxia: 56 y/o male w/ PMHx of anxiety and GERMAN who presented with acute hypoxic respiratory failure secondary to COVID-19 pneumonia on day 9 of symptoms (08/01/21 onset) initially on Vapotherm, status declined on 08/13 placed on BIPAP, did not tolerate, got more confused, saturations dropping Dr. Underwood intubated patient at night on 08/13 dexamethasone, currently weaning off baricitinib 4mg daily initially, stopped when intubated CTA chest negative for PE, showed bilateral viral pneumonia CRP was quite elevated [facility], age cutoff is 55, other facilities it is lower at 45, could not transfer patient patient did relatively well with spontaneous breathing trial on 08/24 extubated around noon on 08/24, directly to BIPAP/CPAP could not maintain oxygen saturations, very tachypneic and agitated on 08/25 he was re-intubated on 08/25 tracheostomy performed on 08/[address] Villeda bronchoscopy on 08/27, showed ulcers, brushings sent, Fungitell sent, hold on treatment until results will work towards LTACH placement Patient remains sedated, becoming more awake. consult GI peg tube placement: completed 09/01 Ancef is 14 days from negative cultures. ID recommended at least 12 weeks of voriconazole and likely 6 months of therapy. However, due to the fact that this is most likely contaminant, ICU team has discontinued the voriconazole today. Plan is to discharge to LTAC if he remains stable. Later on 09/02 Film Tests Checker noted: The patient has repeat hemoptysis like this it was better for the patient to be transferred to a tertiary center where they can do left lower lobe embolization It seems patient is most likely oozing from the left lower lobe. Significant ulceration was appreciated in the left main Patient's was at bedside was updated regarding the current condition as well as the procedure Discharged on 09/03 without being seen by me. (2) 2019 novel coronavirus-infected pneumonia (NCIP): sick since 08/01 continue ARDSnet protocol, supine stopped dexamethasone given the Aspergillus in trach sputum extubated on 08/24, then re-intubated and ventilated on 08/25 tracheostomy done on 08/27, tolerated well (3) Positive blood cultures: one set was coag negative staph ID consult appreciated currently on Ancef, need to continue for 14 days from negative culture which was 08/19/21, so last day would be 09/02/21 Voriconazole is for Aspergillus on tracheal aspirates on 08/23 and 08/20 Dr. Villeda d/w ID at [place], they recommended at least 12 weeks of voriconazole and likely 6 months of therapy (4) Anxiety: clonazepam, now sedated with Propofol, might need Precedex FEN/GI: ppx: Lovenox, Protonix code: full dispo:ICU status Total Time Total Time Spent Total Time Spent (In Minutes): 10 Discharge Plan Discharge Items Patient Disposition: Transfer Acute Care Hospital Reason For Visit: COVID PNEUMONIA Follow-up/Referrals: Maria Ines Mclean CRNP [Primary Care Provider] - Stand-Alone Forms: [facility] Medications and DC Order Prescriptions: No Action No Known Home Medications RF: 0 Admission Data Admit Date/Time: 08/10/21 00:10 Attending Provider: Leo Olson Admit Provider: Raffy Vargas Primary Care Provider: Maria Ines Mclean Other Providers: David Cavazos ; Medardo Underwood ; Sushil Wilcox ; Minnie Chavez ; Arden Leon I. ; Khari Craft II ; Alona Valles ; John Richardson ; Luis Guevara ; [facility] [place] ; Contreras Deluna Other Interventions: Discharge Summary Assessment (RN) Last Done: 09/03/21 05:38 Coding Level of Care Code None Diagnoses Acute respiratory failure with hypoxia J96.01 2019 novel coronavirus-infected pneumonia (NCIP) U07.1; J12.82 Positive blood cultures R78.81 Anxiety F41.9
== END 2021-09-03 05:41 | DRG 3 ==
LOC: ED 15:39 → SUATTDRO 15:40 → 2E 15:40 → SUATTDRO 08-10 00:10 → 1E 08-13 19:04